=== PATIENT | female | born 1995 | race Caucasian/White ===

== ENCOUNTER 2020-08-17 13:45 | Emergency (ER) | payer OTHER ==
[2020-08-17] MEDS ORDERED: SODIUM CHLORIDE 0.9% 1,000 ML IV STA (14:11)
--- NOTE | 2020-08-17 14:25 | ED ---
General Adult HPI - General Chief complaint: Weakness Stated complaint: Cough,weakness, covid exposure Time Seen by Provider: 08/17/20 14:03 Source: patient Mode of arrival: wheelchair Limitations: no limitations - History of Present Illness Initial comments: Patient is a 24-year-old female with a past medical history of neurofibromatosis who presents to the emergency room for chief complaint of weakness. Mother reports that patient has had a slight cough for about 5-6 days and has felt weak. She has not had an appetite. Patient states she feels dehydrated. Sates she has trouble getting up from the chair going to the bathroom because of this weakness. Patient was exposed to coronavirus about one week ago by her public guardian. Their concern patient could have contracted this. Patient does have chemotherapy treatments for neurofibromatosis with the last one being 6 days ago.Patient has no other complaints at this time including shortness of breath, chest pain, abdominal pain, nausea or vomiting, headache, or visual changes. - Related Data Home Medications Medication Instructions Recorded Confirmed Albuterol Sulfate [Proair Hfa] 2 puff INHALATION RT-Q4H PRN 08/17/20 08/17/20 Bevacizumab [Avastin] 1 dose IV Q28D 08/17/20 08/17/20 FLUoxetine HCL [PROzac] 10 mg PO DAILY 08/17/20 08/17/20 Loratadine 10 mg PO HS 08/17/20 08/17/20 Methylphenidate HCl [Concerta] 36 mg PO DAILY 08/17/20 08/17/20 Montelukast [Singulair] 10 mg PO HS 08/17/20 08/17/20 medroxyPROGESTERone [Depo-Provera] 150 mg IM Q84D 08/17/20 08/17/20 Previous Rx's Medication Instructions Recorded Sulfamethox-Tmp 800-160Mg [Bactrim 1 tab PO Q12HR #20 tab 08/17/20 DS 800-160 mg] Allergies Allergy/AdvReac Type Severity Reaction Status Date / Time acetaminophen Allergy Dyspnea Verified 08/17/20 17:56 [From Tylenol-Codeine #3] amoxicillin Allergy Rash/Hives Verified 08/17/20 17:56 codeine Allergy Dyspnea Verified 08/17/20 17:56 [From Tylenol-Codeine #3] midazolam [From Versed] AdvReac Hyper Verified 08/17/20 17:56 Review of Systems ROS Statement: Those systems with pertinent positive or pertinent negative responses have been documented in the HPI. ROS Other: All systems not noted in ROS Statement are negative. Past Medical History Additional Past Medical History / Comment(s): Neurofibromatosis History of Any Multi-Drug Resistant Organisms: None Reported Additional Past Surgical History / Comment(s): medi port, eye, dental Past Psychological History: No Psychological Hx Reported Smoking Status: Never smoker Past Alcohol Use History: None Reported Past Drug Use History: None Reported General Exam Limitations: no limitations General appearance: alert, in no apparent distress Head exam: Present: atraumatic, normocephalic, normal inspection Eye exam: Present: normal appearance, PERRL, EOMI. Absent: scleral icterus, conjunctival injection, periorbital swelling ENT exam: Present: normal exam, mucous membranes moist Neck exam: Present: normal inspection. Absent: tenderness, meningismus, lymphadenopathy Respiratory exam: Present: normal lung sounds bilaterally. Absent: respiratory distress, wheezes, rales, rhonchi, stridor Cardiovascular Exam: Present: regular rate, normal rhythm, normal heart sounds. Absent: systolic murmur, diastolic murmur, rubs, gallop, clicks GI/Abdominal exam: Present: soft, normal bowel sounds. Absent: distended, tenderness, guarding, rebound, rigid Back exam: Absent: CVA tenderness (R), CVA tenderness (L) Neurological exam: Present: alert Course Vital Signs 08/17/20 08/17/20 13:50 14:44 Temperature 97.6 F Pulse Rate 95 Respiratory 18 Rate Blood Pressure 89/57 104/66 O2 Sat by Pulse 95 Oximetry Medical Decision Making - Medical Decision Making Vitals are stable. Patient initially had a lower blood pressure around 90 systolic. After fluids she is up to 120. CBC CMP unremarkable. Urinalysis does show evidence of infection. Will be treated with Bactrim given penicillin ALLERGY. However patient is covid positive with a chest x-ray showing new bilateral multifocal opacities. Discussed case with Dr. Omalley. At this time it is felt patient would benefit from antibody infusion given chemotherapy treatments for her NF. Discussed risk vs benefits. Patient is comfortable with this. Mother reports she lives with patient and can watch her. They will return to ER for any worsening symptoms including shortness of breath or increased weakness. - Lab Data Result diagrams: 08/17/20 15:18 08/17/20 15:18 Lab Results 08/17/20 08/17/20 08/17/20 Range/Units 15:18 15:18 15:18 WBC 4.0 (3.8-10.6) k/uL RBC 4.26 (3.80-5.40) m/uL Hgb 13.4 (11.4-16.0) gm/dL Hct 38.4 (34.0-46.0) % MCV 90.0 (80.0-100.0) fL MCH 31.4 (25.0-35.0) pg MCHC 34.8 (31.0-37.0) g/dL RDW 13.6 (11.5-15.5) % Plt Count 131 L (150-450) k/uL MPV 8.0 Neutrophils % 77 % Lymphocytes % 16 % Monocytes % 5 % Eosinophils % 1 % Basophils % 1 % Neutrophils # 3.1 (1.3-7.7) k/uL Lymphocytes # 0.6 L (1.0-4.8) k/uL Monocytes # 0.2 (0-1.0) k/uL Eosinophils # 0.0 (0-0.7) k/uL Basophils # 0.0 (0-0.2) k/uL PT 10.4 (9.0-12.0) sec INR 1.0 (<1.2) APTT 39.3 H (22.0-30.0) sec Sodium 134 L (137-145) mmol/L Potassium 3.8 (3.5-5.1) mmol/L Chloride 100 (98-107) mmol/L Carbon Dioxide 26 (22-30) mmol/L Anion Gap 8 mmol/L BUN 17 (7-17) mg/dL Creatinine 0.51 L (0.52-1.04) mg/dL Est GFR (CKD-EPI)AfAm >90 (>60 ml/min/1.73 sqM) Est GFR (CKD-EPI)NonAf >90 (>60 ml/min/1.73 sqM) Glucose 76 (74-99) mg/dL Plasma Lactic Acid Joseph (0.7-2.0) mmol/L Calcium 7.9 L (8.4-10.2) mg/dL Total Bilirubin 0.3 (0.2-1.3) mg/dL AST 131 H (14-36) U/L ALT 77 H (4-34) U/L Alkaline Phosphatase 80 (38-126) U/L Total Protein 6.5 (6.3-8.2) g/dL Albumin 3.3 L (3.5-5.0) g/dL Urine Color Urine Appearance (Clear) Urine pH (5.0-8.0) Ur Specific [place] (1.001-1.035) Urine Protein (Negative) Urine Glucose (UA) (Negative) Urine Ketones (Negative) Urine Blood (Negative) Urine Nitrite (Negative) Urine Bilirubin (Negative) Urine Urobilinogen (<2.0) mg/dL Ur Leukocyte Esterase (Negative) Urine RBC (0-5) /hpf Urine WBC (0-5) /hpf Ur Squamous Epith Cells (0-4) /hpf Urine Bacteria (None) /hpf Hyaline Casts (0-2) /lpf Urine Mucus (None) /hpf Urine HCG, Qual (Not Detectd) Coronavirus (PCR) (Not Detectd) 08/17/20 08/17/20 08/17/20 Range/Units 15:18 15:18 16:17 WBC (3.8-10.6) k/uL RBC (3.80-5.40) m/uL Hgb (11.4-16.0) gm/dL Hct (34.0-46.0) % MCV (80.0-100.0) fL MCH (25.0-35.0) pg MCHC (31.0-37.0) g/dL RDW (11.5-15.5) % Plt Count (150-450) k/uL MPV Neutrophils % % Lymphocytes % % Monocytes % % Eosinophils % % Basophils % % Neutrophils # (1.3-7.7) k/uL Lymphocytes # (1.0-4.8) k/uL Monocytes # (0-1.0) k/uL Eosinophils # (0-0.7) k/uL Basophils # (0-0.2) k/uL PT (9.0-12.0) sec INR (<1.2) APTT (22.0-30.0) sec Sodium (137-145) mmol/L Potassium (3.5-5.1) mmol/L Chloride (98-107) mmol/L Carbon Dioxide (22-30) mmol/L Anion Gap mmol/L BUN (7-17) mg/dL Creatinine (0.52-1.04) mg/dL Est GFR (CKD-EPI)AfAm (>60 ml/min/1.73 sqM) Est GFR (CKD-EPI)NonAf (>60 ml/min/1.73 sqM) Glucose (74-99) mg/dL Plasma Lactic Acid Joseph 0.8 (0.7-2.0) mmol/L Calcium (8.4-10.2) mg/dL Total Bilirubin (0.2-1.3) mg/dL AST (14-36) U/L ALT (4-34) U/L Alkaline Phosphatase (38-126) U/L Total Protein (6.3-8.2) g/dL Albumin (3.5-5.0) g/dL Urine Color Yellow Urine Appearance Cloudy H (Clear) Urine pH 6.0 (5.0-8.0) Ur Specific [place] 1.026 (1.001-1.035) Urine Protein 2+ H (Negative) Urine Glucose (UA) Negative (Negative) Urine Ketones 1+ H (Negative) Urine Blood Negative (Negative) Urine Nitrite Negative (Negative) Urine Bilirubin Negative (Negative) Urine Urobilinogen <2.0 (<2.0) mg/dL Ur Leukocyte Esterase Large H (Negative) Urine RBC 4 (0-5) /hpf Urine WBC 28 H (0-5) /hpf Ur Squamous Epith Cells 4 (0-4) /hpf Urine Bacteria Rare H (None) /hpf Hyaline Casts 7 H (0-2) /lpf Urine Mucus Occasional H (None) /hpf Urine HCG, Qual (Not Detectd) Coronavirus (PCR) Detected A (Not Detectd) 08/17/20 Range/Units 16:17 WBC (3.8-10.6) k/uL RBC (3.80-5.40) m/uL Hgb (11.4-16.0) gm/dL Hct (34.0-46.0) % MCV (80.0-100.0) fL MCH (25.0-35.0) pg MCHC (31.0-37.0) g/dL RDW (11.5-15.5) % Plt Count (150-450) k/uL MPV Neutrophils % % Lymphocytes % % Monocytes % % Eosinophils % % Basophils % % Neutrophils # (1.3-7.7) k/uL Lymphocytes # (1.0-4.8) k/uL Monocytes # (0-1.0) k/uL Eosinophils # (0-0.7) k/uL Basophils # (0-0.2) k/uL PT (9.0-12.0) sec INR (<1.2) APTT (22.0-30.0) sec Sodium (137-145) mmol/L Potassium (3.5-5.1) mmol/L Chloride (98-107) mmol/L Carbon Dioxide (22-30) mmol/L Anion Gap mmol/L BUN (7-17) mg/dL Creatinine (0.52-1.04) mg/dL Est GFR (CKD-EPI)AfAm (>60 ml/min/1.73 sqM) Est GFR (CKD-EPI)NonAf (>60 ml/min/1.73 sqM) Glucose (74-99) mg/dL Plasma Lactic Acid Joseph (0.7-2.0) mmol/L Calcium (8.4-10.2) mg/dL Total Bilirubin (0.2-1.3) mg/dL AST (14-36) U/L ALT (4-34) U/L Alkaline Phosphatase (38-126) U/L Total Protein (6.3-8.2) g/dL Albumin (3.5-5.0) g/dL Urine Color Urine Appearance (Clear) Urine pH (5.0-8.0) Ur Specific [place] (1.001-1.035) Urine Protein (Negative) Urine Glucose (UA) (Negative) Urine Ketones (Negative) Urine Blood (Negative) Urine Nitrite (Negative) Urine Bilirubin (Negative) Urine Urobilinogen (<2.0) mg/dL Ur Leukocyte Esterase (Negative) Urine RBC (0-5) /hpf Urine WBC (0-5) /hpf Ur Squamous Epith Cells (0-4) /hpf Urine Bacteria (None) /hpf Hyaline Casts (0-2) /lpf Urine Mucus (None) /hpf Urine HCG, Qual Not Detected (Not Detectd) Coronavirus (PCR) (Not Detectd) Disposition Clinical Impression: COVID-19, UTI (urinary tract infection) Disposition: HOME SELF-CARE Condition: Good Instructions (If sedation given, give patient instructions): Coronavirus Disease 2019 (COVID-19) Additional Instructions: Please quarantine for at least 10-14 days from symptom onset as long as symptoms are improving. Follow-up with your doctor. If you're having worsening symptoms such as shortness of breath or increased weakness at home you must return to the emergency room. Prescriptions: Sulfamethox-Tmp 800-160Mg [Bactrim DS 800-160 mg] 1 tab PO Q12HR #20 tab Is patient prescribed a controlled substance at d/c from ED?: No Referrals: Bernie Stockton MD [Primary Care Provider] - 1-2 days Time of Disposition: 18:13
[2020-08-17] MEDS ORDERED: LIDOCAINE-PRILOCAINE 2.5-2.5% CREAM 5 GM TUBE TOPICAL STA (14:36)
[2020-08-17 15:31] LABS: Basophils % (A) 1 %; Eosinophils % (A) 1 %; HCT 38.4 % (34.0-46.0); HGB 13.4 gm/dL (11.4-16.0); Lymphocytes # (A) 0.6 k/uL (1.0-4.8); Lymphocytes % (A) 16 %; MCH 31.4 pg (25.0-35.0); MCHC 34.8 g/dL (31.0-37.0); Monocytes # (A) 0.2 k/uL (0-1.0); Monocytes % (A) 5 %; Neutrophils # (A) 3.1 k/uL (1.3-7.7); Neutrophils % (A) 77 %; Platelet Count 131 k/uL (150-450); RBC 4.26 m/uL (3.80-5.40); RDW 13.6 % (11.5-15.5)
[2020-08-17 15:42] LABS: Partial Thromboplastin Time 39.3 sec (22.0-30.0); Prothrombin Time 10.4 sec (9.0-12.0)
[2020-08-17 16:03] LABS: ALT 77 U/L (4-34); AST 131 U/L (14-36); African American GFR (CKD) >90 (>60 ml/min/1.73 sqM); Albumin 3.3 g/dL (3.5-5.0); Alkaline Phosphatase 80 U/L (38-126); Anion Gap 8 mmol/L; Blood Urea Nitrogen 17 mg/dL (7-17); Calcium 7.9 mg/dL (8.4-10.2); Carbon Dioxide 26 mmol/L (22-30); Chloride 100 mmol/L (98-107); Glucose 76 mg/dL (74-99); Non-African American GFR(CKD) >90 (>60 ml/min/1.73 sqM); Potassium 3.8 mmol/L (3.5-5.1); Sodium 134 mmol/L (137-145); Total Bilirubin 0.3 mg/dL (0.2-1.3); Total Protein 6.5 g/dL (6.3-8.2)
--- NOTE | 2020-08-17 16:14 | XR ---
EXAMINATION TYPE: XR chest 2V DATE OF EXAM: 08/17/2020 COMPARISON: Chest x-ray June 29, 2012 HISTORY: Cough and weakness. History of cancer. TECHNIQUE: Frontal and lateral views of the chest are obtained. FINDINGS: There is new left internal jugular Mediport catheter terminating in SVC. There is no impro kayli inspiration on current study with bilateral multifocal opacities in the lower lungs and right mid lung region. No pleural effusion or pneumothorax seen bilaterally. The cardiac silhouette size remai ns within normal limits. The osseous structures are intact. IMPRESSION: New Bilateral multifocal opacities in the lower lungs and right midlung region consisten t with covid-19 infection.
[2020-08-17 16:30] LABS: Appearance,Urine Cloudy (Clear); Bacteria,Urine Rare /hpf; Bilirubin,Urine Negative (Negative); Blood,Urine Negative (Negative); Color,Urine Yellow; Glucose,Urine (UA) Negative (Negative); Hyaline Casts,Urine 7 /lpf (0-2); Ketones,Urine 1+ (Negative); Leukocyte Esterase,Urine Large (Negative); Mucus,Urine Occasional /hpf; Nitrite,Urine Negative (Negative); Protein,Urine 2+ (Negative); RBC,Urine 4 /hpf (0-5); Specific Gravity,Urine 1.026 (1.001-1.035); Squamous Epithelial Cell,Urine 4 /hpf (0-4); Urobilinogen,Urine <2.0 mg/dL (<2.0); WBC,Urine 28 /hpf (0-5)
[2020-08-17] MEDS ORDERED: SULFAMETH-TMP DS STARTER PACK 2 TAB BTL PO STA (18:09)
[2020-08-17] MEDS ORDERED: BAMLANIVIMAB (EUA) 700 MG, ETESEVIMAB (EUA) 1,400 MG in SODIUM CHLORIDE 0.9% 50 ML IVPB ONE (18:15)
[2020-08-17] MEDS ORDERED: SODIUM CHLORIDE 0.9% 50 ML IVPB ONE (18:15)
[2020-08-17 19:19] VITALS: RESP 16
[2020-08-17 21:32] VITALS: BP 96/63; PULSE 94; TEMP 98.7
== END 2020-08-17 21:31 | disposition home or self-care (01) ==
LOC: EC 13:45
DX: U07.1 COVID-19 (principal); N39.0 Urinary tract infection, site not specified
CPT/HCPCS: 36415; 93005; 80053; 83605; 85025; 85610; 85730; 81001; 81025; 87086; 87635; 71046; 99285; 96365; Q0245

== ENCOUNTER 2020-11-15 09:06 | Inpatient (IN) | payer OTHER ==
[2020-11-15] MEDS ORDERED: PANTOPRAZOLE 40 MG/10 ML VIAL IVP STA (09:29)
[2020-11-15] MEDS ORDERED: SODIUM CHLORIDE 0.9% 1,000 ML IV STA ×2 (09:29)
[2020-11-15] MEDS ORDERED: ONDANSETRON 4 MG/2 ML VIAL IVP STA (09:30)
--- NOTE | 2020-11-15 09:33 | ED ---
General Adult HPI - General Chief complaint: Nausea/Vomiting/Diarrhea Stated complaint: MARTY Vomiting Time Seen by Provider: 11/15/20 09:22 Source: patient, family, RN notes reviewed Mode of arrival: ambulatory Limitations: no limitations - History of Present Illness Initial comments: Patient is a pleasant 24-year-old female presenting to the emergency department with family with plaints of vomiting. Onset of symptoms was yesterday. Patient does have several large neurofibromatosis tumors and has been on chemotherapy for this. This has been paused secondary to patient illness. 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 Patient does have history of aspiration with abscesses in her lungs. Patient is drowsy at this time and majority of history is taken from family. - Related Data Home Medications Medication Instructions Recorded Confirmed FLUoxetine HCL [PROzac] 10 mg PO DAILY 08/17/20 11/15/20 Loratadine 10 mg PO HS 08/17/20 11/15/20 Methylphenidate HCl [Concerta] 36 mg PO DAILY 08/17/20 11/15/20 Montelukast [Singulair] 10 mg PO HS 08/17/20 11/15/20 medroxyPROGESTERone [Depo-Provera] 150 mg IM Q84D 08/17/20 11/15/20 Diclofenac Sodium Gel [Voltaren 4 gm TOPICAL QID 11/15/20 11/15/20 Gel] Ketorolac [Toradol] 10 mg PO BID PRN 11/15/20 11/15/20 Allergies Allergy/AdvReac Type Severity Reaction Status Date / Time acetaminophen Allergy Dyspnea Verified 11/15/20 12:07 [From Tylenol-Codeine #3] amoxicillin Allergy Rash/Hives Verified 11/15/20 12:07 codeine Allergy Dyspnea Verified 11/15/20 12:07 [From Tylenol-Codeine #3] midazolam [From Versed] AdvReac Hyper Verified 11/15/20 12:07 Review of Systems ROS Statement: Those systems with pertinent positive or pertinent negative responses have been documented in the HPI. ROS Other: All systems not noted in ROS Statement are negative. Constitutional: Denies: fever Eyes: Denies: eye pain ENT: Denies: ear pain Respiratory: Reports: as per HPI, cough, dyspnea Cardiovascular: Denies: chest pain Endocrine: Reports: fatigue Gastrointestinal: Reports: nausea, vomiting Genitourinary: Denies: dysuria Musculoskeletal: Denies: back pain Skin: Denies: rash Neurological: Denies: weakness Past Medical History Additional Past Medical History / Comment(s): Neurofibromatosis History of Any Multi-Drug Resistant Organisms: None Reported Additional Past Surgical History / Comment(s): medi port, eye, dental Past Psychological History: No Psychological Hx Reported Smoking Status: Never smoker Past Alcohol Use History: None Reported Past Drug Use History: None Reported General Exam Limitations: no limitations General appearance: alert Head exam: Present: normocephalic Eye exam: Present: normal appearance ENT exam: Present: mucous membranes dry Neck exam: Present: normal inspection. Absent: tenderness, meningismus Respiratory exam: Present: rales Cardiovascular Exam: Present: tachycardia GI/Abdominal exam: Present: soft. Absent: tenderness Extremities exam: Present: normal inspection Neurological exam: Present: alert Psychiatric exam: Present: flat affect Skin exam: Present: normal color Course Vital Signs 11/15/20 11/15/20 11/15/20 09:08 10:18 10:19 Temperature 97.6 F Pulse Rate 132 H 135 H 135 H Respiratory 22 49 H 16 Rate Blood Pressure 105/58 156/108 154/109 O2 Sat by Pulse 85 L 99 95 Oximetry 11/15/20 11/15/20 11/15/20 10:30 11:00 11:11 Temperature 99.1 F Pulse Rate 130 H 126 H 115 H Respiratory 31 H 18 Rate Blood Pressure 154/109 141/104 127/82 O2 Sat by Pulse 97 96 97 Oximetry 11/15/20 11/15/20 11/15/20 11:30 11:42 12:00 Temperature 100.2 F H Pulse Rate 124 H 122 H Respiratory 38 H 35 H Rate Blood Pressure 127/82 136/97 O2 Sat by Pulse 98 96 Oximetry - Reevaluation(s) Reevaluation #1: 11/15/20 10:55 Heart rate improved to 124, sinus tachycardia. Patient placed on monitor to monitor for arrhythmia 11/15/20 11:28 Heart rate further improved to 113. Patient and family updated. Patient is more alert. Case discussed with Dr. Avalos will admit covering for Dr. Richi Avalos and will come evaluate. 11/15/20 11:44 Dr. Avalos did evaluate patient and will admit. He agrees with ICU. He does request consult with Dr. Bae, CT brain, antibiotics and nebulizers. Patient does have some concern for sepsis, septic shock diagnosed at 1140. Fluid bolus greater than 30 mL/kg has been ordered. IV antibiotics ordered. Dr. Bae has been paged. 11/15/20 11:51 Case was discussed with Dr. Bae, who will consult EKG Findings - EKG Comments: EKG Findings:: Sinus tachycardia 138. Short MA of 100. QRS 62. QT 280. QTC 424. Normal axis. Septal Q waves. Borderline ST depression inferior and V6. Procedures - Sepsis Sepsis Focused Exam #1 Time Sepsis Criteria Met: 11:40 Sepsis Focused Exam Date: 11/15/20 Sepsis Focused Exam Time: 12:23 Sepsis Focused Exam Complete: Yes Vital Signs & RN Notes Reviewed: Yes Capillary Refill: < 2 Seconds: Fingers, Toes Peripheral Pulses: Normal: Radial (R), Radial (L) Skin Color: Normal for Patient Respiratory Exam: wheezes Cardiovascular Exam: tachycardia Medical Decision Making - Lab Data Result diagrams: 11/15/20 09:54 11/15/20 09:54 Lab Results 11/15/20 11/15/20 11/15/20 Range/Units 09:54 09:54 09:54 WBC 9.0 (3.8-10.6) k/uL RBC 4.85 (3.80-5.40) m/uL Hgb 14.6 (11.4-16.0) gm/dL Hct 46.1 H (34.0-46.0) % MCV 95.0 (80.0-100.0) fL MCH 30.1 (25.0-35.0) pg MCHC 31.7 (31.0-37.0) g/dL RDW 16.3 H (11.5-15.5) % Plt Count 265 (150-450) k/uL MPV 7.7 Neutrophils % (Manual) 40 % Band Neuts % (Manual) 29 % Lymphocytes % (Manual) 7 % Monocytes % (Manual) 16 % Metamyelocytes % 4 % Myelocytes % 3 % Promyelocytes % 1 % Neutrophils # (Manual) 6.20 (1.3-7.7) k/uL Lymphocytes # (Manual) 0.63 L (1.0-4.8) k/uL Monocytes # (Manual) 1.44 H (0-1.0) k/uL Metamyelocytes # (Man) 0.36 H (0) k/uL Myelocytes # (Manual) 0.27 H (0) k/uL Promyelocytes # (Man) 0.09 H (0) k/uL Nucleated RBCs 0 (0-0) /100 WBC Manual Slide Review Performed Toxic Granulation Present Toxic Vacuolation Present Poikilocytosis (manual Present Anisocytosis Slight PT 11.2 (9.0-12.0) sec INR 1.1 (<1.2) APTT 22.4 (22.0-30.0) sec D-Dimer (<0.60) mg/L FEU Sodium 141 (137-145) mmol/L Potassium 4.0 (3.5-5.1) mmol/L Chloride 99 (98-107) mmol/L Carbon Dioxide 28 (22-30) mmol/L Anion Gap 14 mmol/L BUN 15 (7-17) mg/dL Creatinine 0.49 L (0.52-1.04) mg/dL Est GFR (CKD-EPI)AfAm >90 (>60 ml/min/1.73 sqM) Est GFR (CKD-EPI)NonAf >90 (>60 ml/min/1.73 sqM) Glucose 230 H (74-99) mg/dL Plasma Lactic Acid Joseph (0.7-2.0) mmol/L Calcium 9.7 (8.4-10.2) mg/dL Total Bilirubin 0.5 (0.2-1.3) mg/dL AST 30 (14-36) U/L ALT 20 (4-34) U/L Alkaline Phosphatase 71 (38-126) U/L Creatine Kinase 27 L (30-135) U/L CK-MB (CK-2) (0.0-2.4) ng/mL Troponin I (0.000-0.034) ng/mL Total Protein 7.5 (6.3-8.2) g/dL Albumin 4.1 (3.5-5.0) g/dL Amylase 46 (30-110) U/L Lipase 41 (23-300) U/L Acetone, Qual Negative (Negative) Coronavirus (PCR) (Not Detectd) 07/14/21 07/14/21 07/14/21 Range/Units 09:54 09:54 11:11 WBC (3.8-10.6) k/uL RBC (3.80-5.40) m/uL Hgb (11.4-16.0) gm/dL Hct (34.0-46.0) % MCV (80.0-100.0) fL MCH (25.0-35.0) pg MCHC (31.0-37.0) g/dL RDW (11.5-15.5) % Plt Count (150-450) k/uL MPV Neutrophils % (Manual) % Band Neuts % (Manual) % Lymphocytes % (Manual) % Monocytes % (Manual) % Metamyelocytes % % Myelocytes % % Promyelocytes % % Neutrophils # (Manual) (1.3-7.7) k/uL Lymphocytes # (Manual) (1.0-4.8) k/uL Monocytes # (Manual) (0-1.0) k/uL Metamyelocytes # (Man) (0) k/uL Myelocytes # (Manual) (0) k/uL Promyelocytes # (Man) (0) k/uL Nucleated RBCs (0-0) /100 WBC Manual Slide Review Toxic Granulation Toxic Vacuolation Poikilocytosis (manual Anisocytosis PT (9.0-12.0) sec INR (<1.2) APTT (22.0-30.0) sec D-Dimer (<0.60) mg/L FEU Sodium (137-145) mmol/L Potassium (3.5-5.1) mmol/L Chloride (98-107) mmol/L Carbon Dioxide (22-30) mmol/L Anion Gap mmol/L BUN (7-17) mg/dL Creatinine (0.52-1.04) mg/dL Est GFR (CKD-EPI)AfAm (>60 ml/min/1.73 sqM) Est GFR (CKD-EPI)NonAf (>60 ml/min/1.73 sqM) Glucose (74-99) mg/dL Plasma Lactic Acid Joseph 5.3 H* (0.7-2.0) mmol/L Calcium (8.4-10.2) mg/dL Total Bilirubin (0.2-1.3) mg/dL AST (14-36) U/L ALT (4-34) U/L Alkaline Phosphatase (38-126) U/L Creatine Kinase (30-135) U/L CK-MB (CK-2) 0.3 (0.0-2.4) ng/mL Troponin I 0.030 (0.000-0.034) ng/mL Total Protein (6.3-8.2) g/dL Albumin (3.5-5.0) g/dL Amylase (30-110) U/L Lipase (23-300) U/L Acetone, Qual (Negative) Coronavirus (PCR) Not Detected (Not Detectd) 11/15/20 Range/Units 11:39 WBC (3.8-10.6) k/uL RBC (3.80-5.40) m/uL Hgb (11.4-16.0) gm/dL Hct (34.0-46.0) % MCV (80.0-100.0) fL MCH (25.0-35.0) pg MCHC (31.0-37.0) g/dL RDW (11.5-15.5) % Plt Count (150-450) k/uL MPV Neutrophils % (Manual) % Band Neuts % (Manual) % Lymphocytes % (Manual) % Monocytes % (Manual) % Metamyelocytes % % Myelocytes % % Promyelocytes % % Neutrophils # (Manual) (1.3-7.7) k/uL Lymphocytes # (Manual) (1.0-4.8) k/uL Monocytes # (Manual) (0-1.0) k/uL Metamyelocytes # (Man) (0) k/uL Myelocytes # (Manual) (0) k/uL Promyelocytes # (Man) (0) k/uL Nucleated RBCs (0-0) /100 WBC Manual Slide Review Toxic Granulation Toxic Vacuolation Poikilocytosis (manual Anisocytosis PT (9.0-12.0) sec INR (<1.2) APTT (22.0-30.0) sec D-Dimer 2.43 H (<0.60) mg/L FEU Sodium (137-145) mmol/L Potassium (3.5-5.1) mmol/L Chloride (98-107) mmol/L Carbon Dioxide (22-30) mmol/L Anion Gap mmol/L BUN (7-17) mg/dL Creatinine (0.52-1.04) mg/dL Est GFR (CKD-EPI)AfAm (>60 ml/min/1.73 sqM) Est GFR (CKD-EPI)NonAf (>60 ml/min/1.73 sqM) Glucose (74-99) mg/dL Plasma Lactic Acid Joseph (0.7-2.0) mmol/L Calcium (8.4-10.2) mg/dL Total Bilirubin (0.2-1.3) mg/dL AST (14-36) U/L ALT (4-34) U/L Alkaline Phosphatase (38-126) U/L Creatine Kinase (30-135) U/L CK-MB (CK-2) (0.0-2.4) ng/mL Troponin I (0.000-0.034) ng/mL Total Protein (6.3-8.2) g/dL Albumin (3.5-5.0) g/dL Amylase (30-110) U/L Lipase (23-300) U/L Acetone, Qual (Negative) Coronavirus (PCR) (Not Detectd) - Radiology Data Radiology results: image reviewed (Diffuse patchy densities, similar to previous) Critical Care Time Critical Care Time: Yes Total Critical Care Time: 33 Disposition Clinical Impression: Dehydration, Lactic acidosis, Septic shock, Aspiration pneumonia Disposition: ADMITTED IP TO THIS [facility] Condition: Critical Is patient prescribed a controlled substance at d/c from ED?: No Decision Time: 11:28
[2020-11-15 10:32] LABS: Anisocytosis Slight; HCT 46.1 % (34.0-46.0); HGB 14.6 gm/dL (11.4-16.0); MCH 30.1 pg (25.0-35.0); MCHC 31.7 g/dL (31.0-37.0); Mean Platelet Volume 7.7; Platelet Count 265 k/uL (150-450); RBC 4.85 m/uL (3.80-5.40); RDW 16.3 % (11.5-15.5)
[2020-11-15 10:33] LABS: INR 1.1 (<1.2); Partial Thromboplastin Time 22.4 sec (22.0-30.0); Prothrombin Time 11.2 sec (9.0-12.0)
[2020-11-15 10:37] LABS: AST 30 U/L (14-36); African American GFR (CKD) >90 (>60 ml/min/1.73 sqM); Albumin 4.1 g/dL (3.5-5.0); Alkaline Phosphatase 71 U/L (38-126); Amylase 46 U/L (30-110); Anion Gap 14 mmol/L; Blood Urea Nitrogen 15 mg/dL (7-17); Calcium 9.7 mg/dL (8.4-10.2); Carbon Dioxide 28 mmol/L (22-30); Chloride 99 mmol/L (98-107); Creatine Kinase 27 U/L (30-135); Glucose 230 mg/dL (74-99); Lipase 41 U/L (23-300); Non-African American GFR(CKD) >90 (>60 ml/min/1.73 sqM); Sodium 141 mmol/L (137-145); Total Bilirubin 0.5 mg/dL (0.2-1.3); Total Protein 7.5 g/dL (6.3-8.2)
[2020-11-15 10:46] LABS: ALT 20 U/L (4-34)
--- NOTE | 2020-11-15 11:05 | XR ---
EXAMINATION TYPE: XR chest 2V DATE OF EXAM: 11/15/2020 COMPARISON: 08/17/2020 HISTORY: Dyspnea TECHNIQUE: Frontal and lateral views of the chest are obtained. FINDINGS: Left port is in unchanged position. Patchy airspace disease bilaterally appears similar to the prior exam. There are densities, possibly calcifications, noted in the left lower lung zone which were not identified on prior imaging and appe ar either within the posterior lung or on the skin. Clinical correlation is recommended. Cardiac silhouette is not enlarged. IMPRESSION: Patchy airspace disease bilaterally appears similar to the prior exam. There are densities, possibly calcifications, noted in the left lower lung zone which were not identified on prior imaging and appe ar either within the posterior lung or on the skin. Clinical correlation is recommended.
[2020-11-15 11:06] LABS: Creatine Kinase MB 0.3 ng/mL (0.0-2.4); Troponin I 0.03 ng/mL (0.000-0.034)
[2020-11-15 11:11] LABS: Band Neutrophils % 29 %; Lymphocytes # (M) 0.63 k/uL (1.0-4.8); Metamyelocytes # (M) 0.36 k/uL (0); Metamyelocytes % 4 %; Monocytes # (M) 1.44 k/uL (0-1.0); Myelocytes # (M) 0.27 k/uL (0); Myelocytes % 3 %; Neutrophils % (M) 40 %; Nucleated Red Blood Cells 0 /100 WBC (0-0); Promyelocytes # (M) 0.09 k/uL (0); Promyelocytes % 1 %; Total Cells Counted 100; Toxic Granulation Present; Toxic Vacuolation Present
[2020-11-15 11:13] LABS: Poikilocytosis (M) Present
[2020-11-15] MEDS ORDERED: PNEUMONIA PROTOCOL UTILIZED 1 EACH MISC PO PRN (11:40)
[2020-11-15] MEDS ORDERED: AZITHROMYCIN 500 MG in SODIUM CHLORIDE 0.9% 250 ML IVPB STA (11:40)
[2020-11-15] MEDS ORDERED: CEFEPIME 2 GM in SODIUM CHLORIDE 0.9% 100 ML IVPB STA (11:40)
[2020-11-15] MEDS ORDERED: SODIUM CHLORIDE 0.9% 500 ML 500 ML IV STA (11:40)
[2020-11-15] MEDS ORDERED: IPRATROPIUM-ALBUTEROL 3 ML NEB INHALATION PRN (11:43)
[2020-11-15] MEDS ORDERED: MORPHINE SULFATE 2 MG/ML SYRINGE IVP STA (12:23)
[2020-11-15] MEDS ORDERED: IBUPROFEN ORAL SUSP 100 MG/5 ML CUP PO ONE (13:00)
--- NOTE | 2020-11-15 13:21 | CT ---
EXAMINATION TYPE: CT brain wo con DATE OF EXAM: 11/15/2020 COMPARISON: 06/26/2005 HISTORY: low blood oxygenation, history of neurofibromatosis CT DLP: 1099.[address] of the brain was performed. Bilateral calcified masses are noted at the cerebellopontine cisterns measuring approximately 3.2 cm in greatest dimension on the right versus less than 2 cm previously and on the left measuring approxi mately 1.8 cm versus less than 1 cm previously. There is an additional calcified mass left temporal p arietal region measuring 2 cm in greatest dimension versus 1.5 cm previously. No additional masses ar e seen. The ventricles, basal cisterns and sulci overlying the cerebral convexities demonstrate a normal appe arance. There is no evidence for intracranial hemorrhage or sulcal effacement. Osseous calvarium is intact. If symptoms persist consider MRI as clinically warranted. IMPRESSION: 1. No acute intracranial process is seen at this time. 2. Findings compatible with the provided history of neurofibromatosis with calcified masses are noted which demonstrates interval enlargement. These masses may reflect calcified neurofibromas and/or men ingiomas.
[2020-11-15 13:24] LABS: Appearance,Urine Clear (Clear); Bacteria,Urine Rare /hpf; Bilirubin,Urine Negative (Negative); Blood,Urine Negative (Negative); Color,Urine Light Yellow; Glucose,Urine (UA) Negative (Negative); Ketones,Urine Negative (Negative); Leukocyte Esterase,Urine Negative (Negative); Mucus,Urine Few /hpf; Nitrite,Urine Negative (Negative); Protein,Urine 2+ (Negative); RBC,Urine 1 /hpf (0-5); Specific Gravity,Urine 1.014 (1.001-1.035); Urobilinogen,Urine <2.0 mg/dL (<2.0); WBC,Urine 2 /hpf (0-5)
--- NOTE | 2020-11-15 13:26 | CT ---
EXAMINATION TYPE: CT angio chest DATE OF EXAM: 11/15/2020 COMPARISON: None HISTORY: dyspnea, chest congestion CT DLP: 175.1 mGycm CONTRAST: CT chest with contrast and 3D reconstruction with MIP imaging is performed with IV Contrast, patient injected with 100 mL of Isovue 370. Contrast-enhanced CT of the chest was performed through the course of the pulmonary arteries with sumanth g and mediastinal window settings submitted. 3D reconstruction with MIP imaging was also performed. PULMONARY ARTERIES: The pulmonary arteries and their major tributaries are patent. I do not see cheikh dence for sizable filling defect to suggest pulmonary embolic process. LUNGS: Reticulonodular infiltrates are seen scattered throughout both lung kennedy greatest within the upper lobes and the lower lobes. Correlate for underlying pneumonia MEDIASTINUM: Thoracic aorta is of normal caliber,. Subcarinal soft tissue prominence measuring 3.8 c m may reflect underlying neurofibroma. Left paraspinal soft tissue noted as well may reflect addition al neural fibroma in a patient with history of neurofibromatosis. The heart is not enlarged. No evid ence for mediastinal mass. No mediastinal lymph nodes greater than 1cm. HILAR STRUCTURES: No evidence for mass. No hilar lymph nodes greater than 1 cm. UPPER ABDOMEN: No significant abnormality is seen. IMPRESSION: 1. No evidence for Pulmonary embolism at this time. 2. Correlate for pneumonia. 3. Mediastinal and paraspinal masses may reflect changes of neurofibromatosis.
[2020-11-15 13:40] LABS: Glucose,Whole Blood 134 mg/dL (75-99)
--- NOTE | 2020-11-15 15:50 | P.CNNES ---
History of Present Illness Consult date: 11/15/20 Requesting physician: Rian Grigsby Reason for Consult: Altered mental status History of Present Illness: Patient is a 24-year-old female with history of neurofibromatosis-Type 2 came to the hospital this morning at 9:08 AM with family with complaints of vomiting, since yesterday. Patient does have several large neurofibromas and has been on chemotherapy for this. Patient does have tumor on the right side of her neck, pushing on her vocal cord. Patient's mother provided most of the history. Patient has been getting chemotherapy with Avastin for last 3 years. She was getting it once every 2 weeks, but then decreased the frequency to once every 3 weeks and then once a month. Patient developed aspiration pneumonia and lung abscess for which she has not received her chemotherapy for last 2 months, and also planned to be held for another 2 months.. Patient otherwise has been active. Patient walks normally, does not use any device. However day before yesterday she was coughing up. Yesterday whole day she was sleeping throughout the day. This morning patient has been having nausea, vomiting throwing up. Her appetite has decreased and she is not eating enough. Patient called her mother to bring her to the hospital. Vital signs on arrival blood pressure 105/58, pulse rate 132, temperature 97.6. Chest x-ray revealed patchy air space disease bilaterally appears similar to the prior exam. There are densities, possibly calcifications, noted in the left lower lung zone which were not identified on the prior examination and appeared either within the posterior lung or on the skin. Clinical correlation is recommended. EKG shows sinus tachycardia with short [place]. Biatrial enlargement. CT head showed no acute intracranial process. Findings compatible with the provided history of neurofibromatosis with calcified masses are noted which demonstrated interval enlargement. These masses may reflect calcified neurofibromas and/or meningiomas. Patient's blood test shows normal CBC, PT/PTT, Chem-20, troponin, and he lays, lipase. UA is negative. Acetone negative, miranda virus PCR negative. Patient has positive history of neurofibromatosis type II in her father as well. Patient herself has no siblings. Patient's father had 5 siblings and none of them have NF except patient's dad. Patient has 4 neurofibromas in her brain, and 4 in the back. One of the neurofibroma involves the right side of the neck behind the angle of the jaw. Patient has developed vocal cord paralysis. Patient was considered for surgical removal of the right cervical neurofibroma, but it is entangling the jugular and carotid arteries, therefore was not a surgical candidate. Patient has history of cataract surgery removed from the right eye. Patient also has some gaze issues. Patient does not smoke, does not drink alcohol. Review of Systems Patient denies headache (asked twice, and nodded "no" each time). Does not complain of pain anywhere. patient denies vertigo or dizziness. ROS unobtainable: due to mental status Past Medical History Additional Past Medical History / Comment(s): Neurofibromatosis History of Any Multi-Drug Resistant Organisms: None Reported Additional Past Surgical History / Comment(s): medi port, eye, dental Past Psychological History: No Psychological Hx Reported Smoking Status: Never smoker Past Alcohol Use History: None Reported Past Drug Use History: None Reported - Past Family History Mother Family Medical History: Asthma, Seizure Disorder Medications and Allergies Home Medications Medication Instructions Recorded Confirmed Type FLUoxetine HCL [PROzac] 10 mg PO DAILY 08/17/20 11/15/20 History Loratadine 10 mg PO HS 08/17/20 11/15/20 History Methylphenidate HCl [Concerta] 36 mg PO DAILY 08/17/20 11/15/20 History Montelukast [Singulair] 10 mg PO HS 08/17/20 11/15/20 History medroxyPROGESTERone [Depo-Provera] 150 mg IM Q84D 08/17/20 11/15/20 History Diclofenac Sodium Gel [Voltaren 4 gm TOPICAL QID 11/15/20 11/15/20 History Gel] Ketorolac [Toradol] 10 mg PO BID PRN 11/15/20 11/15/20 History Allergies Allergy/AdvReac Type Severity Reaction Status Date / Time acetaminophen Allergy Dyspnea Verified 11/15/20 12:07 [From Tylenol-Codeine #3] amoxicillin Allergy Rash/Hives Verified 11/15/20 12:07 codeine Allergy Dyspnea Verified 11/15/20 12:07 [From Tylenol-Codeine #3] midazolam [From Versed] AdvReac Hyper Verified 11/15/20 12:07 orange juice AdvReac Abdominal Verified 11/15/20 18:15 Pain strawberry AdvReac Abdominal Verified 11/15/20 18:15 Pain Physical Examination - Vital Signs Vital Signs: Vital Signs Temp Pulse Resp BP Pulse Ox 11/15/20 13:04 99.7 F H 145 H 25 H 145/105 96 11/15/20 12:00 122 H 35 H 136/97 96 11/15/20 11:42 100.2 F H 11/15/20 11:30 124 H 38 H 127/82 98 11/15/20 11:11 99.1 F 115 H 18 127/82 97 11/15/20 11:00 126 H 31 H 141/104 96 11/15/20 10:30 130 H 154/109 97 11/15/20 10:19 135 H 16 154/109 95 11/15/20 10:18 135 H 49 H 156/108 99 11/15/20 09:08 97.6 F 132 H 22 105/58 85 L Intake and Output 11/14/20 11/15/20 11/15/20 22:59 06:59 14:59 Output Total 20 Balance -20 Output: Urine 20 Other: # Voids 1 Weight 40.823 kg Patient is a young female, who is very somnolent, groggy, appears generalized weak. She keeps her eyes closed. Head turn to the right. She easily wakes up and follows directions, but mostly keeps her eyes closed. Speech speaks with a very low volume and language functions are normal. Attention, concentration and fund of knowledge could not be assessed reliably because of her mental status. On cranial examination, pupils are round and reacting to light, visual kennedy could not be checked because of her mental status, extraocular muscles reveal intact gaze to the left. However to the right there is gaze restriction. No obvious nystagmus. Patient appears to have right facial weakness, peripheral type, decreased forehead wrinkling appears bilaterally, right worse. Tongue appears to have mild right hemiatrophy. Palatal elevation and sensation could not be checked, hearing appears normal, facial sensation normal. Shoulder shrug appears normal. Patient prefers her head to the right. On muscle strength testing, there is no pronator drift and the strength is generalized weak distally and proximally. In the lower extremities hip flexion is 2, but ankle dorsiflexion is 5. Deep tendon reflexes are (R/L) biceps 1/2+, brachioradialis 1/2+, knee 2/3, ankle 1+/2+, plantar is downgoing on the right, upon left. Sensory to touch is equal with no neglect. Cerebellar function showed mild ataxia for [id number] testing on the left. Tone and bulk of muscles normal. Gait not checked. On general examination, there is no carotid bruit or murmur, S1-S2 audible. Abdomen is soft nontender. Peripheral pulses are present. No edema. Neck is supple. Results - Laboratory Findings CBC and BMP: 11/19/20 03:22 11/19/20 03:22 Abnormal Lab Findings: Abnormal Labs 11/15/20 11/15/20 11/15/20 09:54 09:54 09:54 Hct 46.1 H RDW 16.3 H Lymphocytes # (Manual) 0.63 L Monocytes # (Manual) 1.44 H Metamyelocytes # (Man) 0.36 H Myelocytes # (Manual) 0.27 H Promyelocytes # (Man) 0.09 H D-Dimer Creatinine 0.49 L Glucose 230 H Plasma Lactic Acid Joseph 5.3 H* Creatine Kinase 27 L 11/15/20 11:39 Hct RDW Lymphocytes # (Manual) Monocytes # (Manual) Metamyelocytes # (Man) Myelocytes # (Manual) Promyelocytes # (Man) D-Dimer 2.43 H Creatinine Glucose Plasma Lactic Acid Joseph Creatine Kinase Assessment and Plan Assessment: * Altered mental status, possible toxic metabolic encephalopathy. Patient denies headache and the neck is supple, therefore meningitis unlikely. 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 * Aspiration pneumonia * Possible nutritional deficiency Plan: * I wanted to perform MRI of the brain with and without contrast, but patient is severely claustrophobic. MRI could be considered under anesthesia, but the MRI machine is not compatible with ventilator patient. * We will check EEG to evaluate for encephalopathy. Rule out any epileptiform activity. * We will check B12, folate, MMA, B6, B1. * Patient's grandfather was recommended to bring her last MRI of the brain performed 6 months ago for comparison. If there is significant change noticed, then may need transfer to higher level of care.
[2020-11-15] MEDS: IPRATROPIUM-ALBUTEROL 3 ML NEB INHALATION SCH ×3 (16:09→20:44)
--- NOTE | 2020-11-15 16:32 | P.CNPUL ---
History of Present Illness Consult date: 11/15/20 Reason for consult: dyspnea, cough, pneumonia Chief complaint: Aspiration pneumonia History of present illness: This is a pleasant 24-year-old female well-known to me patient has a significant past history of malignant neurofibromatosis, patient gets chemotherapy at the tertiary care center in [place], she has the 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 resulting in multiple bouts of aspiration pneumonia which affected the lung bilaterally and gets complicated with abscess requiring long- term IV therapy with PICC line, she was seen last several weeks ago in the office and was in partial agreement with PEG tube, it appears that patient has been having intermittent vomiting for the last several days started having problems with chills and fever came into the hospital for further evaluation, on arrival she was afebrile but with tachypnea and tachycardia respiratory rate is in 40s heart rate 1:30 to 140, hemodynamic status is variable but with stable blood pressure temperature low-grade 100 saturation is 95-96% on 4 L supplemental oxygen, white cell count is normal hemoglobin stable 14.6, kidney functions within normal limit, lactic acid elevated 5.3, chest x-ray significant for patchy bilateral airspace disease, computed tomography scan of the brain no acute changes seen with 5 finding compatible reviewed with neurofibromatosis calcified mass noted, computed tomography scan of the chest negative for pulmonary embolism radicular nodular density noted on both side involving upper and lower lobe, patient also has a history of recent COVID-19 pneumonia requiring hospitalization several weeks ago Review of Systems All systems: negative Past Medical History Past Medical History: Asthma, Eye Disorder Additional Past Medical History / Comment(s): Neurofibromatosis History of Any Multi-Drug Resistant Organisms: None Reported Additional Past Surgical History / Comment(s): medi port, eye, dental Past Anesthesia/Blood Transfusion Reactions: No Reported Reaction Past Psychological History: No Psychological Hx Reported Smoking Status: Never smoker Past Alcohol Use History: None Reported Past Drug Use History: None Reported - Past Family History Mother Family Medical History: Asthma, Seizure Disorder Medications and Allergies Home Medications Medication Instructions Recorded Confirmed Type FLUoxetine HCL [PROzac] 10 mg PO DAILY 08/17/20 11/15/20 History Loratadine 10 mg PO HS 08/17/20 11/15/20 History Methylphenidate HCl [Concerta] 36 mg PO DAILY 08/17/20 11/15/20 History Montelukast [Singulair] 10 mg PO HS 08/17/20 11/15/20 History medroxyPROGESTERone [Depo-Provera] 150 mg IM Q84D 08/17/20 11/15/20 History Diclofenac Sodium Gel [Voltaren 4 gm TOPICAL QID 11/15/20 11/15/20 History Gel] Ketorolac [Toradol] 10 mg PO BID PRN 11/15/20 11/15/20 History Allergies Allergy/AdvReac Type Severity Reaction Status Date / Time acetaminophen Allergy Dyspnea Verified 11/15/20 12:07 [From Tylenol-Codeine #3] amoxicillin Allergy Rash/Hives Verified 11/15/20 12:07 codeine Allergy Dyspnea Verified 11/15/20 12:07 [From Tylenol-Codeine #3] midazolam [From Versed] AdvReac Hyper Verified 11/15/20 12:07 Physical Exam Vitals: Vital Signs Temp Pulse Resp BP Pulse Ox 11/15/20 16:21 97 11/15/20 13:36 125 H 25 H 144/103 97 11/15/20 13:04 99.7 F H 145 H 25 H 145/105 96 11/15/20 12:00 122 H 35 H 136/97 96 11/15/20 11:42 100.2 F H 11/15/20 11:30 124 H 38 H 127/82 98 11/15/20 11:11 99.1 F 115 H 18 127/82 97 11/15/20 11:00 126 H 31 H 141/104 96 11/15/20 10:30 130 H 154/109 97 11/15/20 10:19 135 H 16 154/109 95 11/15/20 10:18 135 H 49 H 156/108 99 11/15/20 09:08 97.6 F 132 H 22 105/58 85 L Intake and Output 11/15/20 11/15/20 11/15/20 06:59 14:59 22:59 Output Total 20 Balance -20 Output: Urine 20 Other: # Voids 1 Weight 42.3 kg - Constitutional General appearance: average body habitus, cooperative, disheveled - EENT Eyes: EOMI, PERRLA Ears: bilateral: normal - Neck Carotids: bilateral: upstroke normal Thyroid: bilateral: normal size - Respiratory Respiratory: bilateral: diminished - Cardiovascular Rhythm: regular Heart sounds: normal: S1, S2 - Gastrointestinal General gastrointestinal: normal bowel sounds - Integumentary Integumentary: normal turgor - Neurologic Neurologic: CNII-XII intact - Musculoskeletal Musculoskeletal: generalized weakness, strength equal bilaterally - Psychiatric Psychiatric: A&O x's 3, appropriate affect Results - Laboratory Findings CBC and BMP: 11/15/20 09:54 11/15/20 09:54 PT/INR, D-dimer PT 11.2 sec (9.0-12.0) 11/15/20 09:54 INR 1.1 (<1.2) 11/15/20 09:54 D-Dimer 2.43 mg/L FEU (<0.60) H 11/15/20 11:39 Abnormal lab findings: Abnormal Labs 11/15/20 11/15/20 11/15/20 09:54 09:54 09:54 Hct 46.1 H RDW 16.3 H Lymphocytes # (Manual) 0.63 L Monocytes # (Manual) 1.44 H Metamyelocytes # (Man) 0.36 H Myelocytes # (Manual) 0.27 H Promyelocytes # (Man) 0.09 H D-Dimer Creatinine 0.49 L Glucose 230 H POC Glucose (mg/dL) Plasma Lactic Acid Joseph Creatine Kinase 27 L Urine Protein 2+ H Urine Bacteria Rare H Urine Mucus Few H 11/15/20 11/15/20 11/15/20 09:54 11:39 13:39 Hct RDW Lymphocytes # (Manual) Monocytes # (Manual) Metamyelocytes # (Man) Myelocytes # (Manual) Promyelocytes # (Man) D-Dimer 2.43 H Creatinine Glucose POC Glucose (mg/dL) 134 H Plasma Lactic Acid Joseph 5.3 H* Creatine Kinase Urine Protein Urine Bacteria Urine Mucus - Diagnostic Findings Chest x-ray: report reviewed, image reviewed CT scan - chest: report reviewed, image reviewed (Finding as noted above) Assessment and Plan Assessment: Sepsis likely related to bilateral pneumonia Bilateral aspiration pneumonia 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 Cachexia and weight loss and advance protein calorie malnourishment Intractable nausea or vomiting Plan: Agree with broad-spectrum antibiotics We'll do swallow evaluation consult his speech Continue gentle rehydration Trend lactic acid This is speech and swallow positive for aspiration consider doing a PEG tube If patient remains stable can be moved out of the ICU in next 12-24 hrs. Further plan of care as per clinical response of the patient will monitor observe patient closely, further recommendations pending Time with Patient: Greater than 30
[2020-11-15 17:02] LABS: C Reactive Protein 18.8 mg/dL (<1.0)
--- NOTE | 2020-11-15 17:42 | HP ---
HISTORY AND PHYSICAL DATE OF SERVICE: 11/15/2020 CHIEF COMPLAINTS: Change in mental status and weakness, as well as vomiting. 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 Bernie Stockton in the outpatient setting. The patient also had apparently a tumor on the right neck, which was followed by elijah jefferson. The vocal cord resection was also being planned at this time because of vocal cord paralysis secondary to neurofibromatosis. The patient also receiving Avastin through a chest port at this time. Currently, the patient was recently admitted with lung abscess and other complication to [facility]. The patient has been treated with antibiotics. The patient went home, but subsequently patient complaining of weakness and cough. The patient also had some vomiting. The patient became more obtunded and patient taken to [facility] for further evaluation and treatment. Patient had features of sepsis at this time. Broad-spectrum IV antibiotics initiated. The chest x- ray showed possible bilateral pneumonia, which was confirmed by the CTA. There is no evidence of any pulmonary embolism. Otherwise, the patient D-dimer is elevated. The patient is obtunded and unable to give a coherent history. Most history given by discussion with staff, is discussed in the ER. Patient has discussion with the family at the bedside. PAST MEDICAL HISTORY: Of neurofibromatosis with associated medical issues as mentioned earlier. MEDICATIONS: Home medications are Depo-Provera, Singulair, Concerta, loratadine, Toradol, Prozac, Voltaren gel. ALLERGIES: ACETAMINOPHEN, AMOXICILLIN, CODEINE, FAMILY HISTORY, SOCIAL HISTORY, REVIEW OF SYSTEMS: Could not be taken. PHYSICAL EXAMINATION: Patient is stuporous. Pulse is 145, blood pressure 145/105, respiration 20, temperature 99.7, T-max a 100.2, pulse ox 98% on 6 L. HEENT: Normal. Oral mucosa moist. NECK: Is right-sided mass palpable in the submandibular area, firm to hard. CARDIOVASCULAR SYSTEM: S1, S2 muffled. RESPIRATION: Breath sounds diminished at the bases. A few scattered rhonchi and crackles. ABDOMEN: Soft, nontender. No mass palpable. LEGS: No edema, no swelling. NERVOUS SYSTEM: As mentioned earlier. Full exam could not be done because of the change in mental status. SKIN: No ulcer, rash, bleeding. JOINTS: No active deforming arthropathy. LABS: At this time shows WBC 9, hemoglobin 14.6. D-dimer is 2.4. Other labs are noted. CT brain noted, multiple masses calcified and CTA showed no evidence of pulmonary embolism, bilateral pneumonia, mediastinal paraspinal mass. ASSESSMENT: 1. Possible bilateral pneumonia with possibly aspiration with acute hypoxic respiratory failure and sepsis present on admission. 2. Change in mental status, acute metabolic acidosis secondary to sepsis. 3. History of recent left lung abscess. Recent COVID pneumonia 4. History of neurofibromatosis, type 2, on Avastin through a right Port-A-Cath. 5. History of brain tumors related to neurofibromatosis, type 2. 6. History of spinal tumor related to neurofibromatosis, type 2. 7. Elevated D-dimer without any evidence of pulmonary embolism. 8. Diabetes mellitus, type 2, with elevated blood sugars. 9. Severe protein calorie malnutrition with body mass index of 15.4. 10.FULL CODE. RECOMMENDATIONS AND DISCUSSION: Patient is a 24-year-old woman who presented with multiple complex medical issues, we will monitor the patient closely, continue the current broad-spectrum IV antibiotics, Zosyn. Obtain cultures. Transfer to ICU. Pulmonary Dr. Bae. Infectious disease evaluation, neurology evaluation. Prognosis is extremely guarded because of multiple complex medical issues which I discussed with family at length. Further recommendations to follow. All charts reviewed. MMODL / IJN: [id number] / MTDD
[2020-11-15] MEDS: SODIUM CHLORIDE 0.9% 1,000 ML IV SCH (17:51)
[2020-11-15] MEDS: KETOROLAC 15 MG/ML 1 ML VIAL IVP PRN (17:52)
[2020-11-15] MEDS: hydrALAZINE HCL 20 MG/ML 1 ML VIAL IVP PRN (18:57)
[2020-11-15] MEDS: CEFEPIME 2 GM in SODIUM CHLORIDE 0.9% 100 ML IVPB SCH (20:41)
[2020-11-15] MEDS: LABETALOL 5 MG/ML VIAL MDV IVP PRN (23:21)
--- NOTE | 2020-11-16 00:02 | CONS ---
CONSULTATION DATE OF SERVICE: 11/15/2020 REASON FOR CONSULTATION: Pneumonia. HISTORY OF PRESENT ILLNESS: The patient is a 24-year-old female with a past medical history significant for neurofibromatosis and is noted to have history of recurrent pneumonia. The patient has been brought into the ER by family this morning because of vomiting. Apparently the patient did have symptoms yesterday with multiple episodes of vomiting. The patient also has been having increasing shortness of breath and cough for the patient was brought into the hospital. On arrival to the ER, the patient was initially afebrile. Subsequently did spike a low-grade fever of 100.2. The patient was hypoxic with O2 sats of 85% on room air. Subsequently, the patient has been put on nasal cannula oxygen. The patient was tachycardic. Blood pressure was stable. The patient has been admitted to the hospital. The patient did have a normal white count. Lactic acid was elevated to 5.3. CRP was elevated. Creatinine was ( ). Landis on the patient was negative. The patient did have a chest x-ray that was patchy airspace disease bilaterally. Similar to prior exam. Also have a CT angiogram of the chest that was negative for PE but did show evidence of ( ) infiltrate throughout. Lungs clear within upper lobes. Correlate for underlying pneumonia. The patient was started on cefepime and Levaquin. She has been admitted to the hospital, ICU. Infectious Disease was consulted for further management of antibiotic therapy. Most of the information has been obtained from review of the chart as the patient is currently sleepy lethargic, unable to provide any history and no family available at the bedside at the time of evaluation. REVIEW OF SYSTEMS: Positive points have been mentioned in HPI. Rest of systems are negative. PAST MEDICAL HISTORY: Neurofibromatosis, history of lung abscess and recurrent pneumonias. PAST SURGICAL HISTORY: MediPort placement. SOCIAL HISTORY: No history of smoking, drinking or drug use. FAMILY HISTORY: No pertinent findings noticed. ALLERGIES: MULTIPLE MEDICATIONS INCLUDING AMOXICILLIN. MEDICATIONS: Currently the patient is on DuoNeb, clindamycin, cefepime, hydralazine, Tylenol, IV fluid. PHYSICAL EXAMINATION: Her blood pressure is 144/100 with a pulse of 120 temperature 97.8. She is 93% on 4 L nasal cannula. GENERAL DESCRIPTION: The patient is a middle-aged female lying in bed, in no distress. No tachypnea or respiration use. HEENT: Examination shows no pallor or scleral icterus. Oral mucous membrane is dry. NECK: Trachea central, no thyromegaly. LUNGS: Unlabored breathing. Coarse breath sounds bilaterally, no wheeze. HEART: S1, S2. Regular rate and rhythm. ABDOMEN: Soft, no tenderness, no rigidity. EXTREMITIES: Normal feet. SKIN: No rash or mass palpable. NEUROLOGICAL: The patient is lethargic. Orientation could not be determined. LABS: Hemoglobin is 14.7, white count 9.0, BUN of 15, creatinine 0.49, lactic is 5.3, repeat is 1.5. Liver enzymes are normal. CRP is 18.8. Chest x-ray and CT report mentioned above. DIAGNOSTIC IMPRESSION AND PLAN: Patient admitted to hospital with sepsis and did have a tachycardia and elevated lactic acid. Fever in this patient. Abdominal symptoms of vomiting. History of neurofibromatosis and history of recurrent pneumonia. The patient did have evidence of bilateral infiltrates, concern for recurrent aspiration pneumonia. PLAN: 1. We will try to obtain sputum for Gram stain and culture. Check urine for Legionella antigen and CRP and procalcitonin level. 2. Continue the patient on cefepime 2 grams q.12 hours. 3. We will follow her clinical condition and culture to further adjust medication if needed. Thank you for this consultation. Will follow this patient along with you. MMODL / IJN: [id number] /
[2020-11-16] MEDS: KETOROLAC 15 MG/ML 1 ML VIAL IVP PRN ×4 (00:04→21:36)
[2020-11-16] MEDS: LABETALOL 5 MG/ML VIAL MDV IVP PRN ×2 (05:33→11:03)
[2020-11-16] MEDS: CEFEPIME 2 GM in SODIUM CHLORIDE 0.9% 100 ML IVPB SCH ×3 (05:33→20:25)
[2020-11-16 05:47] LABS: ALT 10 U/L (4-34); AST 21 U/L (14-36); African American GFR (CKD) >90 (>60 ml/min/1.73 sqM); Albumin 3.1 g/dL (3.5-5.0); Alkaline Phosphatase 70 U/L (38-126); Anion Gap 8 mmol/L; Blood Urea Nitrogen 11 mg/dL (7-17); Carbon Dioxide 26 mmol/L (22-30); Chloride 108 mmol/L (98-107); Glucose 98 mg/dL (74-99); Non-African American GFR(CKD) >90 (>60 ml/min/1.73 sqM); Potassium 3.5 mmol/L (3.5-5.1); Sodium 142 mmol/L (137-145); Total Bilirubin 0.3 mg/dL (0.2-1.3); Total Protein 6.1 g/dL (6.3-8.2)
[2020-11-16] MEDS ORDERED: Potassium Replacement Protocol 1 EACH MISC MISCELLANE PRN (05:56)
[2020-11-16 05:57] LABS: Anisocytosis Slight; Basophils % (A) 1 %; Eosinophils # (A) 0.1 k/uL (0-0.7); Eosinophils % (A) 1 %; HCT 40.9 % (34.0-46.0); HGB 12.6 gm/dL (11.4-16.0); Lymphocytes # (A) 0.8 k/uL (1.0-4.8); Lymphocytes % (A) 12 %; MCH 29.6 pg (25.0-35.0); MCHC 30.8 g/dL (31.0-37.0); MCV 96.2 fL (80.0-100.0); Mean Platelet Volume 7.4; Monocytes # (A) 0.5 k/uL (0-1.0); Monocytes % (A) 7 %; Neutrophils # (A) 5.6 k/uL (1.3-7.7); Neutrophils % (A) 78 %; Platelet Count 240 k/uL (150-450); RBC 4.25 m/uL (3.80-5.40); RDW 16.2 % (11.5-15.5); WBC 7.2 k/uL (3.8-10.6)
[2020-11-16 06:23] LABS: Hemoglobin A1C 5.2 % (4.0-6.0)
[2020-11-16] MEDS: POTASSIUM CHLORIDE 10 MEQ in WATER FOR INJECTION 1 100ML.BAG IVPB SCH (06:42)
[2020-11-16] MEDS: SODIUM CHLORIDE 0.9% 1,000 ML IV SCH ×2 (06:43→21:40)
[2020-11-16] MEDS: IPRATROPIUM-ALBUTEROL 3 ML NEB INHALATION SCH ×4 (07:16→21:00)
--- NOTE | 2020-11-16 08:38 | XR ---
EXAMINATION TYPE: XR chest 1V portable DATE OF EXAM: 11/16/2020 CLINICAL HISTORY: SOB W EXERTION. TECHNIQUE: Portable frontal view of the chest. COMPARISON: CTA chest 11/15/2020. Chest x-ray 11/15/2020. FINDINGS: Left-sided MediPort. The cardiomediastinal silhouette is within normal limits for size. Di ffuse interstitial coarsening multifocal airspace opacities. There are increased scattered densities or calcifications over the left lung base correlating with finding on CTA, however of which demonstra naila significant motion artifact. No pleural effusion. No pneumothorax seen. No acute displaced osseou s fracture. IMPRESSION: No significant interval change in patchy airspace opacities versus 11/15/2020.
[2020-11-16] MEDS ORDERED: AZITHROMYCIN 500 MG in SODIUM CHLORIDE 0.9% 250 ML IVPB SCH (09:00)
[2020-11-16 10:47] LABS: Folate, Serum 20.6 ng/mL
--- NOTE | 2020-11-16 11:19 | P.PN ---
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 Cachexia and weight loss and advance protein calorie malnourishment Intractable nausea or vomiting 11/16/2020, patient seen eval examined during the rounds labs reviewed medications reviewed care plan discussed with the staff, patient remains nothing by mouth speech and swallow studies are pending, however discussion with the mother reveals that patient has aspiration studies done with the speech is following [facility] and they were positive for aspiration and they recommended alternative means of feeding with PEG tube, chest x-ray performed on earlier today continue show patchy airspace disease not significantly changed from yesterday exam, she remains afebrile blood pressure is intermittently running high she is on 4 L nasal cannula was relatively stable earlier but now up to 173/122 heart rate increased 139 labetalol 20 mg IV is being given will put patient on IV Lopressor 5 mg every 12 as well and continue use labetalol as needed This is a pleasant 24-year-old female well-known to me patient has a significant past history of malignant neurofibromatosis, patient gets chemotherapy at the tertiary care center in [place], she has the 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 resulting in multiple bouts of aspiration pneumonia which affected the lung bilaterally and gets complicated with abscess requiring long- term IV therapy with PICC line, she was seen last several weeks ago in the office and was in partial agreement with PEG tube, it appears that patient has been having intermittent vomiting for the last several days started having problems with chills and fever came into the hospital for further evaluation, on arrival she was afebrile but with tachypnea and tachycardia respiratory rate is in 40s heart rate 1:30 to 140, hemodynamic status is variable but with stable blood pressure temperature low-grade 100 saturation is 95-96% on 4 L sup plemental oxygen, white cell count is normal hemoglobin stable 14.6, kidney functions within normal limit, lactic acid elevated 5.3, chest x-ray significant for patchy bilateral airspace disease, computed tomography scan of the brain no acute changes seen with 5 finding compatible reviewed with neurofibromatosis calcified mass noted, computed tomography scan of the chest negative for pulmonary embolism radicular nodular density noted on both side involving upper and lower lobe, patient also has a history of recent COVID-19 pneumonia requiring hospitalization several weeks ago Objective - Vital Signs Vital signs: Vital Signs Temp 97.6 F 11/16/20 08:00 Pulse 102 H 11/16/20 10:00 Resp 32 H 11/16/20 10:00 BP 173/122 11/16/20 10:00 Pulse Ox 98 11/16/20 10:00 Intake & Output 11/15/20 11/16/20 11/16/20 18:59 06:59 18:59 Intake Total 260 1000 300 Output Total 295 635 130 Balance -35 365 170 Weight 42.3 kg 43.5 kg 43.5 kg Intake: IV 925 300 Cefepime 2 gm In Sodium 100 Chloride 0.9% 100 ml @ 200 mls/hr IVPB ONCE STA Rx#:[id number] Sodium Chloride 0.9% 1, 825 300 000 ml @ 75 mls/hr IV . [id number] ANDERSON Rx#:[id number] Intake, IV Titration 260 75 Amount Sodium Chloride 0.9% 1, 260 000 ml @ 130 mls/hr IV . [id number] STA Rx#:[id number] Sodium Chloride 0.9% 1, 75 000 ml @ 75 mls/hr IV . [id number] ANDERSON Rx#:[id number] Output: Urine 295 635 130 Other: Voiding Method Indwelling Catheter Indwelling Catheter Indwelling Catheter # Voids 1 - Exam - Constitutional General appearance: average body habitus, cooperative, disheveled - EENT Eyes: EOMI, PERRLA Ears: bilateral: normal - Neck Carotids: bilateral: upstroke normal Thyroid: bilateral: normal size - Respiratory Respiratory: bilateral: diminished - Cardiovascular Rhythm: regular Heart sounds: normal: S1, S2 - Gastrointestinal General gastrointestinal: normal bowel sounds - Integumentary Integumentary: normal turgor - Neurologic Neurologic: CNII-XII intact - Musculoskeletal Musculoskeletal: generalized weakness, strength equal bilaterally - Psychiatric Psychiatric: A&O x's 3, appropriate affect - Labs CBC & Chem 7: 11/16/20 05:21 11/16/20 05:21 Labs: Abnormal Lab Results - Last 24 Hours (Table) 11/15/20 11/15/20 11/15/20 Range/Units 09:54 09:54 11:39 MCHC (31.0-37.0) g/dL RDW (11.5-15.5) % Lymphocytes # (1.0-4.8) k/uL D-Dimer 2.43 H (<0.60) mg/L FEU Chloride (98-107) mmol/L Creatinine (0.52-1.04) mg/dL POC Glucose (mg/dL) (75-99) mg/dL Lactate Dehydrogenase 1049 H (313-618) U/L C-Reactive Protein 18.8 H (<1.0) mg/dL Total Protein (6.3-8.2) g/dL Albumin (3.5-5.0) g/dL Urine Protein 2+ H (Negative) Urine Bacteria Rare H (None) /hpf Urine Mucus Few H (None) /hpf 11/15/20 11/16/20 11/16/20 Range/Units 13:39 05:21 05:21 MCHC 30.8 L (31.0-37.0) g/dL RDW 16.2 H (11.5-15.5) % Lymphocytes # 0.8 L (1.0-4.8) k/uL D-Dimer (<0.60) mg/L FEU Chloride 108 H (98-107) mmol/L Creatinine 0.43 L (0.52-1.04) mg/dL POC Glucose (mg/dL) 134 H (75-99) mg/dL Lactate Dehydrogenase (313-618) U/L C-Reactive Protein (<1.0) mg/dL Total Protein 6.1 L (6.3-8.2) g/dL Albumin 3.1 L (3.5-5.0) g/dL Urine Protein (Negative) Urine Bacteria (None) /hpf Urine Mucus (None) /hpf Assessment and Plan Assessment: Hypertensive urgency with sinus tachycardia Sepsis likely related to bilateral pneumonia Bilateral aspiration pneumonia 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 Further plan of care as per clinical response of the patient will monitor observe patient closely, further recommendations pending Time with Patient: Greater than 30
[2020-11-16] MEDS: hydrALAZINE HCL 20 MG/ML 1 ML VIAL IVP PRN ×2 (12:06→22:06)
--- NOTE | 2020-11-16 13:47 | P.PN ---
Subjective Progress Note Date: 11/16/20 Feels tired. Mother wa also present. Patient denies headache. Patient denies vertigo, dizziness. Patient has not been able to sleep overnight, therefore feels very tired. No nausea vomiting anymore. Objective - Vital Signs Vital signs: Vital Signs Temp 98.2 F 11/16/20 12:00 Pulse 115 H 11/16/20 12:00 Resp 36 H 11/16/20 12:00 BP 165/117 11/16/20 12:00 Pulse Ox 100 11/16/20 12:00 Intake & Output 11/15/20 11/16/20 11/16/20 18:59 06:59 18:59 Intake Total 260 1000 450 Output Total 295 635 195 Balance -35 365 255 Weight 42.3 kg 43.5 kg 43.5 kg Intake: IV 925 450 Cefepime 2 gm In Sodium 100 Chloride 0.9% 100 ml @ 200 mls/hr IVPB ONCE STA Rx#:[id number] Sodium Chloride 0.9% 1, 825 450 000 ml @ 75 mls/hr IV . [id number] ANDERSON Rx#:[id number] Intake, IV Titration 260 75 Amount Sodium Chloride 0.9% 1, 260 000 ml @ 130 mls/hr IV . Q7H42M STA Rx#:[id number] Sodium Chloride 0.9% 1, 75 000 ml @ 75 mls/hr IV . [id number] ANDERSON Rx#:[id number] Output: Urine 295 635 195 Other: Voiding Method Indwelling Catheter Indwelling Catheter Indwelling Catheter # Voids 1 - Exam On examination patient is much more awake. Still groggy. Patient following more commands, laying comfortably in the bed. Appears drowsy. Speech is very low volume. Pupils are round and reacting, visual kennedy are full. 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 Patient has some disconjugate eye, with right eye going up and inside, whereas the left eye does not elevate up. No nystagmus. Face is slightly weak on the right. Muscle strength is normal which are weak bilaterally except hip flexion, but appears generalized weak. - Labs CBC & Chem 7: 11/19/20 03:22 11/19/20 03:22 Labs: Abnormal Lab Results - Last 24 Hours (Table) 11/15/20 11/15/20 11/15/20 Range/Units 09:54 09:54 13:39 MCHC (31.0-37.0) g/dL RDW (11.5-15.5) % Lymphocytes # (1.0-4.8) k/uL Chloride (98-107) mmol/L Creatinine (0.52-1.04) mg/dL POC Glucose (mg/dL) 134 H (75-99) mg/dL Lactate Dehydrogenase 1049 H (313-618) U/L C-Reactive Protein 18.8 H (<1.0) mg/dL Total Protein (6.3-8.2) g/dL Albumin (3.5-5.0) g/dL Urine Protein 2+ H (Negative) Urine Bacteria Rare H (None) /hpf Urine Mucus Few H (None) /hpf 11/16/20 11/16/20 Range/Units 05:21 05:21 MCHC 30.8 L (31.0-37.0) g/dL RDW 16.2 H (11.5-15.5) % Lymphocytes # 0.8 L (1.0-4.8) k/uL Chloride 108 H (98-107) mmol/L Creatinine 0.43 L (0.52-1.04) mg/dL POC Glucose (mg/dL) (75-99) mg/dL Lactate Dehydrogenase (313-618) U/L C-Reactive Protein (<1.0) mg/dL Total Protein 6.1 L (6.3-8.2) g/dL Albumin 3.1 L (3.5-5.0) g/dL Urine Protein (Negative) Urine Bacteria (None) /hpf Urine Mucus (None) /hpf Microbiology - Last 24 Hours (Table) 11/15/20 10:11 Blood Culture - Preliminary Blood No Growth after 24 hours 11/15/20 09:54 Blood Culture - Preliminary Blood No Growth after 24 hours Assessment and Plan Assessment: * Altered mental status, possible toxic metabolic encephalopathy. Patient denies headache and the neck is supple, therefore meningitis unlikely. 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 * Aspiration pneumonia * Possible nutritional deficiency Plan: * I wanted to perform MRI of the brain with and without contrast, but patient is severely claustrophobic. MRI could be considered under anesthesia, but the M RI machine is not compatible with ventilator patient. * EEG performed, results pending. * B12 471, folate 20.6, hemoglobin A1c 5.2, MMA, B6, B1 are still pending. * Patient's mother brought previous MRI for comparison. The MRI from 09/13/2019 was reviewed with current computed tomography scan of the head by the radiologist Dr. Leavitt. 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 The left cerebellar calcification appears similar to MRI. The extent of the left thalamic calcification appears better visualized on the MRI. Suprasellar calcification appears stable. Significant interval growth of these structures is not evident.
[2020-11-16] MEDS: PANTOPRAZOLE 40 MG/10 ML VIAL IVP SCH (15:00)
--- NOTE | 2020-11-16 16:10 | EEG ---
ELECTROENCEPHALOGRAM REPORT DATE OF SERVICE: 11/16/2020. PREAMBLE: This is a 24-year-old female with history of neurofibromatosis, and posterior fossa tumors, has presented with altered mental status. Vomiting. This study is performed to rule out any epileptiform activity. EEG FINDINGS: This is a 21 channel routine EEG recording in a patient utilizing 10/20 international system with referential and bipolar montages. The background consists of well developed, well regulated, mixed frequencies of 8-9 hertz alpha, intermixed with low- voltage fast frequency beta activity. Background does not seem to be reactive to eye opening or closing. Photic driving response was not seen. Hyperventilation was not performed. Different stages of sleep were not seen. No focal or generalized epileptiform activity was seen. IMPRESSION: This is a mildly abnormal EEG due to poorly reactive background and excessive fast frequency beta activity. This is suggestive of mild generalized cerebral dysfunction, may be related to medication effect. No epileptiform activity was seen. MMODL / IJN: [id number] / MTDD
[2020-11-16] MEDS: amLODIPine 5 MG TAB PO SCH (16:28)
[2020-11-16] MEDS: HEPARIN SODIUM,PORCINE/PF 5,000 UNIT/0.5 ML SYRINGE SQ SCH ×2 (16:51→21:35)
--- NOTE | 2020-11-16 17:43 | PN ---
PROGRESS NOTE DATE OF SERVICE: 11/16/2020 INTERVAL HISTORY: This is a 24-year-old woman who was admitted with change in mental status and possible acute bilateral pneumonia and sepsis is being closely monitored. Patient is also being evaluated for any aspiration at this time. Patient is being monitored in the ICU. Infectious Disease and Pulmonary are following the patient closely. Chest x-ray showed bilateral diffuse lesions as well. Neurology also saw the patient. The patient has some eye movement abnormalities also at this time. The cultures are negative so far. PAST MEDICAL HISTORY: Reviewed. REVIEW OF SYMPTOMS: Could not be taken. The patient is still confused. CURRENT MEDS: Reviewed include DuoNeb, cefepime, apresoline, Trandate. PHYSICAL EXAM: GENERAL: Patient is stuporous. VITAL SIGNS: Pulse 115, blood pressure 160/70, respirations , temperature 98.2, pulse ox 100% on 4 liters. HEENT: Conjunctivae normal. NECK: No jugular venous distention. No carotid bruits. RESPIRATORY: Breath sounds diminished at the bases. A few scattered rhonchi. HEART: S1 and S2, muffled. ABDOMEN: Soft, no tenderness. EXTREMITIES: No edema, no swelling. NERVOUS: No focal deficits. LAB STUDIES: WBC 7.3, hemoglobin 2.6 and leukocytes are 0.8. ASSESSMENT: 1. Acute bilateral pneumonia with possibly aspiration with acute hypoxic respiratory failure and sepsis present on admission. 2. Change in mental status acute metabolic encephalopathy secondary to sepsis. 3. Accelerated hypertension. 4. History of recent left lung abscess. 5. History of recent COVID-19 pneumonia. 6. History of neurofibromatosis type 2 on Avastin through the right Port-A-Cath. 7. History of brain tumors related to neurofibromatosis type 2. 8. 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 9. Family history of neurofibromatosis type 2. 10.Elevated D-dimer without any evidence of pulmonary embolism. 11.Diabetes mellitus type 2 with elevated blood sugars. 12.Severe protein calorie malnutrition with body mass index of 15.4. 13.FULL CODE. RECOMMENDATIONS AND DISCUSSION: In this 24-year-old woman who presented with multiple complex medical issues, we will monitor the patient closely. Continue the current medications. Continue the bronchodilators. Continue the rest of the medications. Aspiration precautions. We will initiate Norvasc to the current regimen and continue to monitor. Prognosis guarded because of multiple complex medical issues. Further recommendations to follow. MMODL / IJN: [id number] / RADHA
--- NOTE | 2020-11-16 18:07 | PN ---
PROGRESS NOTE DATE OF SERVICE: 11/16/2020 REASON FOR FOLLOWUP: Pneumonia. INTERVAL HISTORY: Patient is afebrile as of this morning. The patient is hemodynamically stable. She is currently on 4 L nasal cannula, slightly lethargic but more awake than yesterday. Did not express any complaints and no further vomiting or diarrhea has been reported by nursing staff. PHYSICAL EXAMINATION: Blood pressure is 151/100 with a pulse of 124, temperature 98.2. She is 97% on 4 L nasal cannula. General description is a middle-aged female up in the chair in no distress. Respiratory system: Unlabored breathing, decreased intensity of breath sounds. No wheeze. Heart S1, S2. Regular rate and rhythm. Abdomen soft, no tenderness. LABS: Hemoglobin is 12.9, white count 10.2, BUN of 11, creatinine 0.43. Urine for Legionella antigen came back negative. Blood culture has been negative so far. DIAGNOSTIC IMPRESSION AND PLAN: Patient admitted to the hospital with episode of vomiting, shortness of breath. No evidence of pneumonia. Patient is covered with cefepime and discontinued. Try to obtain a sputum to narrow down antibiotics and continue supportive care. MMODL / IJN: [id number] /
[2020-11-17] MEDS: CEFEPIME 2 GM in SODIUM CHLORIDE 0.9% 100 ML IVPB SCH ×3 (04:30→20:50)
[2020-11-17 04:39] LABS: Basophils % (A) 0 %; Eosinophils # (A) 0.2 k/uL (0-0.7); Eosinophils % (A) 3 %; HCT 36.3 % (34.0-46.0); HGB 11.9 gm/dL (11.4-16.0); Lymphocytes % (A) 14 %; MCH 31.4 pg (25.0-35.0); MCHC 32.7 g/dL (31.0-37.0); MCV 96.3 fL (80.0-100.0); Mean Platelet Volume 8.2; Monocytes # (A) 0.5 k/uL (0-1.0); Monocytes % (A) 7 %; Neutrophils # (A) 5.4 k/uL (1.3-7.7); Neutrophils % (A) 74 %; Platelet Count 249 k/uL (150-450); RBC 3.77 m/uL (3.80-5.40); RDW 15.9 % (11.5-15.5); WBC 7.2 k/uL (3.8-10.6)
[2020-11-17 04:50] LABS: African American GFR (CKD) >90 (>60 ml/min/1.73 sqM); Anion Gap 9 mmol/L; Blood Urea Nitrogen 14 mg/dL (7-17); Calcium 8.6 mg/dL (8.4-10.2); Carbon Dioxide 23 mmol/L (22-30); Chloride 109 mmol/L (98-107); Glucose 76 mg/dL (74-99); Non-African American GFR(CKD) >90 (>60 ml/min/1.73 sqM); Potassium 3.4 mmol/L (3.5-5.1); Sodium 141 mmol/L (137-145)
[2020-11-17] MEDS ORDERED: Potassium Replacement Protocol 1 EACH MISC MISCELLANE PRN (04:53)
[2020-11-17] MEDS: POTASSIUM CHLORIDE 10 MEQ in WATER FOR INJECTION 1 100ML.BAG IVPB SCH ×4 (05:28→15:37)
[2020-11-17] MEDS: IPRATROPIUM-ALBUTEROL 3 ML NEB INHALATION SCH ×4 (07:23→20:17)
--- NOTE | 2020-11-17 07:54 | FL ---
EXAMINATION TYPE: FL barium swallow w video DATE OF EXAM: 11/16/2020 MODIFIED SWALLOW / DEGLUTITION STUDY CLINICAL HISTORY: Dysphagia. TECHNIQUE: Deglutition study is performed utilizing thin liquid barium, nectar thick liquid barium, barium thick applesauce, and barium coated cracker. Total fluoroscopy time 2 minutes 5 seconds COMPARISON: None. FINDINGS: There is silent vic aspiration with thin barium administration which slightly improved with chin tu ck method. There is significant pooling of food and liquid with all types administered within the pha rynx including the piriform sinuses which would not clear. For full details please see speech patholo gist notes. IMPRESSION: There is silent vic aspiration with thin barium administration which slightly improved with chin tu ck method. There is significant pooling of food and liquid with all types administered within the pha rynx including the piriform sinuses which would not clear. For full details please see speech patholo gist notes.
[2020-11-17] MEDS: amLODIPine 5 MG TAB PO SCH (08:34)
[2020-11-17] MEDS: PANTOPRAZOLE 40 MG/10 ML VIAL IVP SCH (08:44)
[2020-11-17] MEDS: HEPARIN SODIUM,PORCINE/PF 5,000 UNIT/0.5 ML SYRINGE SQ SCH ×2 (08:44→20:50)
[2020-11-17] MEDS: LABETALOL 5 MG/ML VIAL MDV IVP PRN ×2 (09:56→18:55)
[2020-11-17] MEDS: KETOROLAC 15 MG/ML 1 ML VIAL IVP PRN ×3 (10:03→21:56)
--- NOTE | 2020-11-17 10:53 | P.PN ---
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 Cachexia and weight loss and advance protein calorie malnourishment Intractable nausea or vomiting 11/17/2020, patient seen eval examined during the rounds labs reviewed medications reviewed care plan discussed with the mother and grandfather present at bedside, patient is arousable opens eyes follow simple commands obvious distress is present, blood pressure is intermittently high responding to therapy, patient and the family is in agreement for PEG tube placement, currently patient remains on bronchodilator along with the antihypertensive agent for DVT prophylaxis and broad-spectrum antibiotics awaiting GI evaluation 11/16/2020, patient seen eval examined during the rounds labs reviewed medications reviewed care plan discussed with the staff, patient remains nothing by mouth speech and swallow studies are pending, however discussion with the mother reveals that patient has aspiration studies done with the speech is following [facility] and they were positive for aspiration and they recommended alternative means of feeding with PEG tube, chest x-ray performed on earlier today continue show patchy airspace disease not significantly changed from yesterday exam, she remains afebrile blood pressure is intermittently running high she is on 4 L nasal cannula was relatively stable earlier but now up to 173/122 heart rate increased 139 labetalol 20 mg IV is being given will put patient on IV Lopressor 5 mg every 12 as well and continue use labetalol as needed This is a pleasant 24-year-old female well-known to me patient has a significant past history of malignant neurofibromatosis, patient gets chemotherapy at the tertiary care center in [place], she has the 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 resulting in multiple bouts of aspiration pneumonia which affected the lung bilaterally and gets complicated with abscess requiring long- term IV therapy with PICC line, she was seen last several weeks ago in the office and was in partial agreement with PEG tube, it appears that patient has been having intermittent vomiting for the last several days started having problems with chills and fever came into the hospital for further evaluation, on arrival she was afebrile but with tachypnea and tachycardia respiratory rate is in 40s heart rate 1:30 to 140, hemodynamic status is variable but with stable blood pressure temperature low-grade 100 saturation is 95-96% on 4 L supplemental oxygen, white cell count is normal hemoglobin stable 14.6, kidney functions within normal limit, lactic acid elevated 5.3, chest x-ray significant for patchy bilateral airspace disease, computed tomography scan of the brain no acute changes seen with 5 finding compatible reviewed with neurofibromatosis calcified mass noted, computed tomography scan of the chest negative for pulmonary embolism radicular nodular density noted on both side involving upper and lower lobe, patient also has a history of recent COVID-19 pneumonia requiring hospitalization several weeks ago Objective - Vital Signs Vital signs: Vital Signs Temp 97.0 F L 11/17/20 08:00 Pulse 107 H 11/17/20 10:00 Resp 15 11/17/20 10:00 BP 165/116 11/17/20 10:00 Pulse Ox 99 11/17/20 10:00 Intake & Output 11/16/20 11/17/20 11/17/20 18:59 06:59 18:59 Intake Total 800 700 50 Output Total 365 260 30 Balance 435 440 20 Weight 43.5 kg 44.1 kg Intake: IV 800 700 50 Cefepime 2 gm In Sodium 100 Chloride 0.9% 100 ml @ 25 mls/hr IVPB Q8H [facility] Rx#: [id number] Sodium Chloride 0.9% 1, 800 600 50 000 ml @ 50 mls/hr IV . Q20H [facility] Rx#:[id number] Output: Urine 365 260 30 Other: Voiding Method Indwelling Catheter Indwelling Catheter Indwelling Catheter - Exam - Constitutional General appearance: average body habitus, cooperative, disheveled - EENT Eyes: EOMI, PERRLA Ears: bilateral: normal - Neck Carotids: bilateral: upstroke normal Thyroid: bilateral: normal size - Respiratory Respiratory: bilateral: diminished - Cardiovascular Rhythm: regular Heart sounds: normal: S1, S2 - Gastrointestinal General gastrointestinal: normal bowel sounds - Integumentary Integumentary: normal turgor - Neurologic Neurologic: CNII-XII intact - Musculoskeletal Musculoskeletal: generalized weakness, strength equal bilaterally - Psychiatric Psychiatric: A&O x's 3, appropriate affect - Labs CBC & Chem 7: 11/17/20 04:24 11/17/20 04:24 Labs: Abnormal Lab Results - Last 24 Hours (Table) 11/17/20 11/17/20 Range/Units 04:24 04:24 RBC 3.77 L (3.80-5.40) m/uL RDW 15.9 H (11.5-15.5) % Potassium 3.4 L (3.5-5.1) mmol/L Chloride 109 H (98-107) mmol/L Creatinine 0.43 L (0.52-1.04) mg/dL Microbiology - Last 24 Hours (Table) 11/15/20 10:11 Blood Culture - Preliminary Blood No Growth after 24 hours 11/15/20 09:54 Blood Culture - Preliminary Blood No Growth after 24 hours Assessment and Plan Assessment: Hypertensive urgency with sinus tachycardia, blood pressure lately better under control Sepsis likely related to bilateral pneumonia Bilateral aspiration pneumonia 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 Further plan of care as per clinical response of the patient will monitor observe patient closely, further recommendations pending Time with Patient: Greater than 30
--- NOTE | 2020-11-17 15:09 | P.PN ---
Subjective Progress Note Date: 11/17/20 This is a 24-year-old female who was recently admitted with change in mental status and also possible acute bilateral pneumonia along with sepsis present on admission and is being closely monitored. Patient continues to be in the ICU with multiple medical consultations following. Pulmonary tonsorial artist Dr. Bae following along with infectious disease and neurology and a consult was placed for general surgery as patient underwent swallow eval and failed and has been having difficulty with aspiration even in the outpatient setting with her primary specialist. Patient initially was reluctant for PEG tube per family at the bedside although they are now requesting this and the patient is agreeable. Patient continues to have shortness of breath and is maintained on 2-3 L of oxygen via nasal cannula and continues to be streaming dyspneic with minimal exertion and tachypneic as well. Patient had one episode of low-grade intermittent temp last night into this morning of 99.3 and continues on IV antibiotic therapy with infectious disease following closely. Patient continues on IV cefepime. Potassium slightly low this morning at 3.4 and will replace per protocol and monitor closely with repeat labs in the morning. Patient continues to have hypertension and is maintained on IV push Labetolol. Review of systems: Constitutional: reports of fatigue, occasional fever, no reports of chills Cardiovascular: No reports of chest pain or palpitations Respiratory: reports of shortness of breath and dry hacking cough GI: No reports of nausea, vomiting, or diarrhea : No reports of dysuria or retention Neurovascular: Reports generalized weakness All medications have been reviewed Active Medications Albuterol/Ipratropium (Ipratropium-Albuterol 3 Ml Neb) 3 ml INHALATION RT-QID [facility] Last Admin: 11/17/20 11:25 Dose: Not Given Documented by: Albuterol/Ipratropium (Ipratropium-Albuterol 3 Ml Neb) 3 ml INHALATION RT-QID PRN PRN Reason: Shortness Of Breath Or Wheezing Amlodipine Besylate (Amlodipine 5 Mg Tab) 5 mg PO DAILY [facility] Last Admin: 11/17/20 08:34 Dose: Not Given Documented by: Heparin Sodium (Porcine) (Heparin Sodium,Porcine/Pf 5,000 Unit/0.5 Ml Syringe) 5,000 unit SQ Q12HR [facility] Last Admin: 11/17/20 08:44 Dose: 5,000 unit Documented by: Hydralazine HCl (Hydralazine Hcl 20 Mg/Ml 1 Ml Vial) 10 mg IVP Q6HR PRN PRN Reason: Blood Pressure - High Last Admin: 11/16/20 22:06 Dose: 10 mg Documented by: Cefepime HCl 2 gm/ Sodium (Chloride) 100 mls @ 25 mls/hr IVPB Q8H [facility] Last Admin: 11/17/20 13:54 Dose: 25 mls/hr Documented by: Sodium Chloride (Saline 0.9%) 1,000 mls @ 50 mls/hr IV .Q20H [facility] Last Admin: 11/16/20 21:40 Dose: Not Given Documented by: Ketorolac Tromethamine (Ketorolac 15 Mg/Ml 1 Ml Vial) 15 mg IVP Q6HR PRN PRN Reason: Pain Stop: 11/20/20 17:46 Last Admin: 11/17/20 10:03 Dose: 15 mg Documented by: Labetalol HCl (Labetalol 5 Mg/Ml Vial Mdv) 20 mg IVP Q4H PRN PRN Reason: Hypertension Last Admin: 11/17/20 09:56 Dose: 20 mg Documented by: Miscellaneous Information (Pneumonia Protocol Utilized 1 Each Misc) 1 each PO ONCE PRN PRN Reason: Per Protocol Miscellaneous Information (Potassium Replacement Protocol 1 Each Misc) 1 each MISCELLANE DAILY PRN; Protocol PRN Reason: Per Protocol Pantoprazole Sodium (Pantoprazole 40 Mg/10 Ml Vial) 40 mg IVP DAILY [facility] Last Admin: 11/17/20 08:44 Dose: 40 mg Documented by: Objective - Vital Signs Vital signs: Vital Signs Temp 97.0 F L 11/17/20 08:00 Pulse 76 11/17/20 12:00 Resp 11 L 11/17/20 12:00 BP 145/85 11/17/20 12:00 Pulse Ox 99 11/17/20 12:00 Intake & Output 11/16/20 11/17/20 11/17/20 18:59 06:59 18:59 Intake Total 800 700 500 Output Total 365 260 355 Balance 435 440 145 Weight 43.5 kg 44.1 kg Intake: IV 800 700 300 Cefepime 2 gm In Sodium 100 Chloride 0.9% 100 ml @ 25 mls/hr IVPB Q8H [facility] Rx#: [id number] Sodium Chloride 0.9% 1, 800 600 300 000 ml @ 50 mls/hr IV . Q20H [facility] Rx#:[id number] Intake, IV Titration 200 Amount Potassium Chloride 10 meq 200 In Water For Injection 1 100ml.bag @ 100 mls/hr IVPB Q1HR [facility] Rx#: [id number] Output: Urine 365 260 355 Other: Voiding Method Indwelling Catheter Indwelling Catheter Indwelling Catheter - Exam Gen: This is a 24-year-old female sitting up in the chair awake, alert and oriented 2, thin built, ill-appearing, emaciated. Temp is 97.0F, pulse is 116, respirations are 22, blood pressure is 131/73, oxygen saturation is 98% on 2 L via nasal cannula HEENT: Head is atraumatic, normocephalic. Pupils equal, round. Sclerae is anicteric. NECK: Supple. No JVD. No lymphadenopathy. No thyromegaly. LUNGS: Diminished breath sounds bilaterally with some scattered rhonchi noted. No intercostal retractions. HEART: S1, S2 are muffled ABDOMEN: Soft. Bowel sounds are present. No masses. No tenderness. EXTREMITIES: No pedal edema. No calf tenderness. NEUROLOGICAL: Patient is awake, alert and oriented x2. Extremely lethargic, diffusely weak - Labs CBC & Chem 7: 11/17/20 04:24 11/17/20 04:24 Labs: Abnormal Lab Results - Last 24 Hours (Table) 11/17/20 11/17/20 Range/Units 04:24 04:24 RBC 3.77 L (3.80-5.40) m/uL RDW 15.9 H (11.5-15.5) % Potassium 3.4 L (3.5-5.1) mmol/L Chloride 109 H (98-107) mmol/L Creatinine 0.43 L (0.52-1.04) mg/dL Microbiology - Last 24 Hours (Table) 11/15/20 10:11 Blood Culture - Preliminary Blood No Growth after 48 hours 11/15/20 09:54 Blood Culture - Preliminary Blood No Growth after 48 hours Assessment and Plan Assessment: Acute bilateral pneumonia with possible aspiration with acute hypoxic respiratory failure and sepsis, present on admission Change in mental status, acute metabolic encephalopathy secondary to sepsis Accelerated hypertension History of recent lung abscess in the left side [place] history of recent COVID- 19 pneumonia 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 Patient continues to be closely monitored in the ICU and will continue at this time. Patient is continue with strict aspiration precautions and is currently nothing by mouth as she underwent swallow study which was unsuccessful. Patient continues on IV labetalol push along with amlodipine for blood pressure control as she continues to have elevated blood pressure readings. Surgery consult placed for possible PEG tube placement as the patient is now agreeable along with family at the bedside for PEG tube as she is currently unable to tolerate by mouth. Patient continues to be extremely weak requiring assistance and also continues to be extremely dyspneic with minimal ex ertion and continues on 2 L via nasal cannula. Family states that she does have a nebulizer at home and will continue with breathing inhalational treatments. Due to multiple complex medical issues prognosis is extremely guarded. Will continue to monitor closely.
--- NOTE | 2020-11-17 16:22 | P.GSCN ---
History of Present Illness Consult date: 11/17/20 Reason for Consult: Malnutrition History of present illness: 24-year-old female with history of neurofibromatosis. Patient has issues with vocal cord paralysis and recurrent aspiration. Patient is profoundly malnourished. Patient follows at [facility] for much of her care. She has been told in the past she would benefit from feeding tube placement. Patient previously had been reluctant. Family and patient are now agreeable. We were consulted for PEG tube placement. Review of Systems The patient denies any acute changes in vision or hearing, no chest pain or shortness of breath, no dysuria or hematuria, no headache, no runny nose, no rectal bleeding or melena, no unexplained weight loss Past Medical History Past Medical History: Asthma, Eye Disorder Additional Past Medical History / Comment(s): Neurofibromatosis History of Any Multi-Drug Resistant Organisms: None Reported Additional Past Surgical History / Comment(s): medi port, eye, dental Past Anesthesia/Blood Transfusion Reactions: No Reported Reaction Past Psychological History: No Psychological Hx Reported Smoking Status: Never smoker Past Alcohol Use History: None Reported Past Drug Use History: None Reported - Past Family History Mother Family Medical History: Asthma, Seizure Disorder Medications and Allergies Home Medications Medication Instructions Recorded Confirmed Type FLUoxetine HCL [PROzac] 10 mg PO DAILY 08/17/20 11/15/20 History Loratadine 10 mg PO HS 08/17/20 11/15/20 History Methylphenidate HCl [Concerta] 36 mg PO DAILY 08/17/20 11/15/20 History Montelukast [Singulair] 10 mg PO HS 08/17/20 11/15/20 History medroxyPROGESTERone [Depo-Provera] 150 mg IM Q84D 08/17/20 11/15/20 History Diclofenac Sodium Gel [Voltaren 4 gm TOPICAL QID 11/15/20 11/15/20 History Gel] Ketorolac [Toradol] 10 mg PO BID PRN 11/15/20 11/15/20 History Allergies Allergy/AdvReac Type Severity Reaction Status Date / Time acetaminophen Allergy Dyspnea Verified 11/15/20 12:07 [From Tylenol-Codeine #3] amoxicillin Allergy Rash/Hives Verified 11/15/20 12:07 codeine Allergy Dyspnea Verified 11/15/20 12:07 [From Tylenol-Codeine #3] midazolam [From Versed] AdvReac Hyper Verified 11/15/20 12:07 orange juice AdvReac Abdominal Verified 11/15/20 18:15 Pain strawberry AdvReac Abdominal Verified 11/15/20 18:15 Pain Surgical - Exam Vital Signs Temp Pulse Resp BP Pulse Ox 97.6 F 132 H 22 105/58 85 L 11/15/20 09:08 11/15/20 09:08 11/15/20 09:08 11/15/20 09:08 11/15/20 09:08 Physical exam: General: Well-developed, malnourished appearing HEENT: Normocephalic, sclerae nonicteric, diplopia noted Abdomen: Nontender, nondistended Extremities: No edema Neuro: Alert and oriented Results - Labs 11/17/20 04:24 11/17/20 04:24 Abnormal Lab Results - Last 24 Hours (Table) 11/16/20 11/17/20 11/17/20 Range/Units 05:21 04:24 04:24 RBC 3.77 L (3.80-5.40) m/uL RDW 15.9 H (11.5-15.5) % Potassium 3.4 L (3.5-5.1) mmol/L Chloride 109 H (98-107) mmol/L Creatinine 0.43 L (0.52-1.04) mg/dL Procalcitonin 2.47 H (0.02-0.09) ng/mL Microbiology - Last 24 Hours (Table) 11/15/20 10:11 Blood Culture - Preliminary Blood No Growth after 48 hours 11/15/20 09:54 Blood Culture - Preliminary Blood No Growth after 48 hours Diabetes panel 11/17/20 Range/Units 04:24 Sodium 141 (137-145) mmol/L Potassium 3.4 L (3.5-5.1) mmol/L Chloride 109 H (98-107) mmol/L Carbon Dioxide 23 (22-30) mmol/L BUN 14 (7-17) mg/dL Creatinine 0.43 L (0.52-1.04) mg/dL Glucose 76 (74-99) mg/dL Calcium 8.6 (8.4-10.2) mg/dL Calcium panel 11/17/20 Range/Units 04:24 Calcium 8.6 (8.4-10.2) mg/dL Pituitary panel 11/17/20 Range/Units 04:24 Sodium 141 (137-145) mmol/L Potassium 3.4 L (3.5-5.1) mmol/L Chloride 109 H (98-107) mmol/L Carbon Dioxide 23 (22-30) mmol/L BUN 14 (7-17) mg/dL Creatinine 0.43 L (0.52-1.04) mg/dL Glucose 76 (74-99) mg/dL Calcium 8.6 (8.4-10.2) mg/dL Adrenal panel 11/17/20 Range/Units 04:24 Sodium 141 (137-145) mmol/L Potassium 3.4 L (3.5-5.1) mmol/L Chloride 109 H (98-107) mmol/L Carbon Dioxide 23 (22-30) mmol/L BUN 14 (7-17) mg/dL Creatinine 0.43 L (0.52-1.04) mg/dL Glucose 76 (74-99) mg/dL Calcium 8.6 (8.4-10.2) mg/dL Assessment and Plan (1) Aspiration pneumonia Narrative/Plan: 24-year-old female with moderate protein calorie malnutrition and aspiration pneumonia. Case discussed with the patient and HER-2 guardians. They're agreeable to EGD with PEG tube placement. We'll schedule for Friday. Current Visit: Yes Status: Acute Code(s): J69.0 - PNEUMONITIS DUE TO INHALATION OF FOOD AND VOMIT SNOMED Code(s): 906132981
[2020-11-17] MEDS: SODIUM CHLORIDE 0.9% 1,000 ML IV SCH (18:58)
--- NOTE | 2020-11-17 19:26 | PN ---
PROGRESS NOTE DATE OF SERVICE: 11/17/2020 REASON FOR FOLLOWUP: Pneumonia. INTERVAL HISTORY: The patient is afebrile. The patient has been more awake and alert today. She is breathing comfortably, currently on nasal cannula oxygen 4 L, hemodynamically stable, not on pressor support. No vomiting or any worsening cough or sputum production has been reported by the family at the bedside. PHYSICAL EXAMINATION: Blood pressure 129/94, pulse of 87, temperature 98. She is 97% on 4 L nasal cannula. General description is a middle-aged female up in the bed in no distress. Respiratory system: Unlabored breathing, decreased intensity of breath sounds. No wheeze. Heart: S1, S2. Regular rate and rhythm. Abdomen soft, no tenderness. LABS: Hemoglobin 11.1, white count 7.2, BUN of 14, creatinine 0.43. Blood culture has been negative. DIAGNOSTIC IMPRESSION AND PLAN: Patient admitted to the hospital with episodes of vomiting and did have shortness of breath and concern for aspiration pneumonia. The patient did have an esophagram. Swallow test was done with evidence of slight vic aspiration. Patient is currently responding to the cefepime as the patient and plan is to continue while monitoring clinical course closely. Family at the bedside. Questions were answered. MMODL / IJN: [id number] /
[2020-11-17] MEDS: hydrALAZINE HCL 20 MG/ML 1 ML VIAL IVP PRN (21:56)
[2020-11-18] MEDS: KETOROLAC 15 MG/ML 1 ML VIAL IVP SCH ×4 (00:46→18:31)
[2020-11-18] MEDS: CEFEPIME 2 GM in SODIUM CHLORIDE 0.9% 100 ML IVPB SCH ×3 (04:06→20:35)
[2020-11-18] MEDS: LABETALOL 5 MG/ML VIAL MDV IVP PRN ×3 (04:07→10:24)
[2020-11-18] MEDS: hydrALAZINE HCL 20 MG/ML 1 ML VIAL IVP PRN (06:17)
[2020-11-18] MEDS: IPRATROPIUM-ALBUTEROL 3 ML NEB INHALATION SCH ×4 (07:14→18:57)
[2020-11-18] MEDS: PANTOPRAZOLE 40 MG/10 ML VIAL IVP SCH (08:27)
[2020-11-18] MEDS: POTASSIUM CHLORIDE 10 MEQ in WATER FOR INJECTION 1 100ML.BAG IVPB SCH ×3 (08:28→16:41)
[2020-11-18] MEDS: HEPARIN SODIUM,PORCINE/PF 5,000 UNIT/0.5 ML SYRINGE SQ SCH ×2 (08:28→20:35)
[2020-11-18] MEDS: amLODIPine 5 MG TAB PO SCH (09:31)
[2020-11-18 10:56] LABS: Methylmalonic Acid <0.10 umol/L (<0.40)
[2020-11-18] MEDS: SODIUM CHLORIDE 0.9% 1,000 ML IV SCH (13:28)
--- NOTE | 2020-11-18 13:47 | P.PN ---
Subjective Progress Note Date: 11/18/20 CHIEF COMPLAINT: Neurofibromatosis HISTORY OF PRESENT ILLNESS: The patient is a 24-year-old female with neurofibromatosis and has chronic dysphagia and aspiration. Family is at bedside. She is in intensive care unit. She wants to eat. She is sitting up in a chair. ROS: No fevers or chills. No nausea or vomiting. She is underweight. BMI 16.7. Pre-existing malnutrition. Pre-existing dehydration. PHYSICAL EXAM: VITAL SIGNS: Reviewed CONSTITUTIONAL: Well developed and in no acute distress. EYES: Conjuctivae without sclera icterus. Extraocular movements grossly intact. HEAD, EARS, NOSE, THROAT: Moist buccal mucosa. Head is atraumatic, normocephalic. Hears conversational speech. No nasal drainage. Facial asymmetry from neurofibromatosis NECK: No jugular venous distention. RESPIRATORY: Non-labored respirations and equal bilateral excursions. CARDIOVASCULAR: Palpable 2+ radial pulses. ABDOMEN: Scaphoid MUSCULOSKELETAL: No gross deformity of the lower extremities noted. No clubbing. No cyanosis. SKIN: Good skin turgor. Well perfused. NEUROLOGIC: Cranial nerves II through XII grossly intact. No focal or lateralizing signs. PSYCH: Appropriate affect. Alert and oriented to person, place and time. CLINICAL LABS: Reviewed. WBC normal at 7.2. ASSESSMENT: 1. Neurofibromatosis 2. History of chronic aspiration and dysphagia PLAN: 1. Agree with gastrostomy tube placement. 2. Diet held due to chronic lung expiration Objective - Vital Signs Vital signs: Vital Signs Temp 97.9 F 11/18/20 08:00 Pulse 82 11/18/20 08:00 Resp 14 11/18/20 08:00 BP 180/111 11/18/20 08:00 Pulse Ox 96 11/18/20 08:00 Intake & Output 11/17/20 11/18/20 11/18/20 18:59 06:59 18:59 Intake Total 850 500 50 Output Total 625 300 30 Balance 225 200 20 Weight 44.1 kg Intake: IV 650 500 50 Cefepime 2 gm In Sodium 200 Chloride 0.9% 100 ml @ 25 mls/hr IVPB Q8H [facility] Rx#: [id number] Sodium Chloride 0.9% 1, 650 300 50 000 ml @ 50 mls/hr IV . Q20H [facility] Rx#:[id number] Intake, IV Titration 200 Amount Potassium Chloride 10 meq 200 In Water For Injection 1 100ml.bag @ 100 mls/hr IVPB Q1HR [facility] Rx#: [id number] Output: Urine 625 300 30 Other: Voiding Method Indwelling Catheter Indwelling Catheter - Labs CBC & Chem 7: 11/17/20 04:24 11/17/20 04:24 Labs: Abnormal Lab Results - Last 24 Hours (Table) 11/16/20 Range/Units 05:21 Procalcitonin 2.47 H (0.02-0.09) ng/mL Microbiology - Last 24 Hours (Table) 11/15/20 10:11 Blood Culture - Preliminary Blood No Growth after 48 hours 11/15/20 09:54 Blood Culture - Preliminary Blood No Growth after 48 hours Assessment and Plan (1) Aspiration pneumonia Current Visit: Yes Status: Acute Code(s): J69.0 - PNEUMONITIS DUE TO INHALATION OF FOOD AND VOMIT SNOMED Code(s): 032035589 (2) Dehydration Current Visit: Yes Status: Acute Code(s): E86.0 - DEHYDRATION SNOMED Code(s): 96393623 (3) Neurofibromatosis Current Visit: Yes Status: Acute Code(s): Q85.00 - NEUROFIBROMATOSIS, UNSPECIFIED SNOMED Code(s): 27359282 (4) Underweight Current Visit: Yes Status: Acute Code(s): R63.6 - UNDERWEIGHT SNOMED Code(s): 808395186 (5) Body mass index (BMI) less than 16.5 Current Visit: Yes Status: Acute Code(s): Z68.1 - BODY MASS INDEX [BMI] 19.9 OR LESS, ADULT SNOMED Code(s): 564433363
[2020-11-18] MEDS ORDERED: DEXTROSE 50% SYRINGE 50 ML IVP ONE (13:51)
[2020-11-18 13:52] LABS: Glucose,Whole Blood 62 mg/dL (75-99)
[2020-11-18] MEDS: DEXTROSE 5% IN WATER 1,000 ML in EMPTY BAG 1 BAG IV SCH (14:18)
[2020-11-18 14:29] LABS: Glucose,Whole Blood 169 mg/dL (75-99)
[2020-11-18] MEDS ORDERED: Magnesium Replacement Protocol 1 EACH MISC MISCELLANE PRN (14:43)
[2020-11-18] MEDS ORDERED: Potassium Replacement Protocol 1 EACH MISC MISCELLANE PRN (14:43)
[2020-11-18] MEDS ORDERED: ALTEPLASE 2 MG VIAL (CATHFLO) IV STA (14:59)
--- NOTE | 2020-11-18 15:06 | XR ---
EXAMINATION TYPE: XR chest 1V portable DATE OF EXAM: 11/18/2020 COMPARISON: 11/16/2020 HISTORY: Pneumonia. Short of breath TECHNIQUE: FINDINGS: There is some coarsening of the interstitial pulmonary markings. There is left central veno us catheter with tip in the superior vena cava. There are chest leads. There is some amorphous small calcifications in the left lower lobe. IMPRESSION: There is diffuse pulmonary interstitial pneumonia not changed compared to recent exam. Am orphous calcification left lower lobe could relate to aspiration. No definite heart failure. No pleural effusion.
[2020-11-18 15:33] LABS: ALT 9 U/L (4-34); AST 18 U/L (14-36); African American GFR (CKD) >90 (>60 ml/min/1.73 sqM); Albumin 2.8 g/dL (3.5-5.0); Alkaline Phosphatase 55 U/L (38-126); Anion Gap 9 mmol/L; Blood Urea Nitrogen 12 mg/dL (7-17); Calcium 8.4 mg/dL (8.4-10.2); Carbon Dioxide 26 mmol/L (22-30); Chloride 104 mmol/L (98-107); Glucose 169 mg/dL (74-99); Magnesium 1.9 mg/dL (1.6-2.3); Non-African American GFR(CKD) >90 (>60 ml/min/1.73 sqM); Potassium 4.1 mmol/L (3.5-5.1); Sodium 139 mmol/L (137-145); Total Bilirubin 0.2 mg/dL (0.2-1.3); Total Protein 5.7 g/dL (6.3-8.2)
--- NOTE | 2020-11-18 16:31 | PN ---
PROGRESS NOTE DATE OF SERVICE: 11/18/2020 This 24-year-old woman who was admitted with change in mental status possible bilateral aspiration pneumonia also had sepsis. The patient has become more alert, but however the today the patient has some bradycardia and the patient has been started on D5 drip. Cardiology consultation has been sought. The patient also had elevated blood sugars. Patient also had neurofibromatosis also. Infectious Disease following the patient closely. The cultures are negative so far. LABS: Potassium 3.4. PAST MEDICAL HISTORY: Reviewed. REVIEW OF SYSTEMS: Could not be taken because of the patient's mental status. MEDICATIONS: Current medications are DuoNeb, Norvasc, cefepime, heparin, Toradol, Trandate, and Protonix. PHYSICAL EXAM: Patient is alert, oriented x1. Pulse is 87, blood pressure 140/94, respiration 15, temperature 97.9, pulse ox 94% on room air. HEENT: Conjunctivae normal. NECK: No JVD. CARDIOVASCULAR: S1, S2, murmur. RESPIRATIONS: Breath sounds diminished in the bases. A few scattered rhonchi. ABDOMEN: Soft. NERVOUS SYSTEM: Diffusely weak. LABS: WBC 7.2, hemoglobin 7.9, glucose 62. ASSESSMENT: 1. Acute bilateral aspiration pneumonia with acute hypoxic respiratory failure and sepsis present on admission. 2. Change in mental status, acute metabolic encephalopathy secondary to sepsis present on admission. 3. Dysphagia and aspiration. 4. Accelerated hypertension. 5. ( ) Hypertension. 6. Bradycardia, possibly sinus. 7. History of recent lung abscess on the left side. 8. History of recent COVID-19 pneumonia. 9. History of neurofibromatosis, type 2 on Avastin through right Port-A-Cath. 10.History of brain tumors related to neurofibromatosis, type 2. 11.History of spinal tumor related to neurofibromatosis, type 2. 12.Elevated D-dimer without any evidence of pulmonary embolism. 13.Diabetes mellitus, type 2, with elevated blood sugars. 14.Severe protein calorie malnutrition with body mass index of 15.4. 15.FULL CODE. RECOMMENDATIONS AND DISCUSSION: Recommend to continue current management and treatment. Recommend EKG, portable chest x- ray, Troponin, and I would also recommend repeat labs in the morning. Closely follow with Pulmonary. Cardiology consultation. A 2-D echo with Doppler. Surgical evaluation, possible PEG tube placement. Prognosis guarded because of multiple complex medical issues. MMODL / IJN: [id number] /
--- NOTE | 2020-11-18 17:07 | PN ---
PROGRESS NOTE DATE OF SERVICE: 11/18/2020. REASON FOR FOLLOWUP: Pneumonia. INTERVAL HISTORY: Patient is afebrile. The patient is hemodynamically stable, not on pressor support. The patient did have evidence of breathing difficulty early this morning. Cardiology has been consulted. The patient is currently waiting for PEG tube placement. The patient is slightly lethargic and did not provide any history. PHYSICAL EXAMINATION: Blood pressure 142/94, with a pulse of 83, temperature 97.9, she is 94% on 4 L nasal cannula. General description is a middle-aged female lying in no distress. RESPIRATORY: Unlabored breathing, decreased breath sounds at the base. No wheeze. HEART: S1, S2. Regular rate and rhythm. ABDOMEN: Soft, no tenderness. LABS: BUN of 12, creatinine 0.41. Blood culture has been negative. DIAGNOSTIC IMPRESSION AND PLAN: Patient admitted to the hospital with vomiting and shortness of breath with concern for possible aspiration pneumonia. The patient is currently covered with cefepime to continue, as the patient did have overall resolution of the fever. White count is normal. Continue Zosyn while waiting for the PEG tube placement for recurrent aspiration pneumonia. Continue supportive care. MMODL / IJN: [id number] /
[2020-11-18 18:09] LABS: Glucose,Whole Blood 147 mg/dL (75-99)
[2020-11-18 20:35] LABS: Glucose,Whole Blood 123 mg/dL (75-99)
[2020-11-19] MEDS: KETOROLAC 15 MG/ML 1 ML VIAL IVP SCH ×4 (00:07→20:18)
[2020-11-19] MEDS: LABETALOL 5 MG/ML VIAL MDV IVP PRN ×3 (01:05→23:17)
[2020-11-19 04:09] LABS: Basophils # (A) 0.1 k/uL (0-0.2); Basophils % (A) 1 %; Eosinophils # (A) 0.4 k/uL (0-0.7); Eosinophils % (A) 4 %; HCT 41.4 % (34.0-46.0); HGB 13.7 gm/dL (11.4-16.0); Lymphocytes # (A) 1.6 k/uL (1.0-4.8); Lymphocytes % (A) 16 %; MCH 30.9 pg (25.0-35.0); MCV 93.5 fL (80.0-100.0); Mean Platelet Volume 7.1; Monocytes # (A) 0.9 k/uL (0-1.0); Monocytes % (A) 9 %; Neutrophils # (A) 6.8 k/uL (1.3-7.7); Neutrophils % (A) 69 %; Platelet Count 301 k/uL (150-450); RBC 4.43 m/uL (3.80-5.40); RDW 15.6 % (11.5-15.5)
[2020-11-19 04:23] LABS: African American GFR (CKD) >90 (>60 ml/min/1.73 sqM); Anion Gap 5 mmol/L; Blood Urea Nitrogen 9 mg/dL (7-17); Calcium 8.8 mg/dL (8.4-10.2); Carbon Dioxide 29 mmol/L (22-30); Chloride 102 mmol/L (98-107); Glucose 121 mg/dL (74-99); Magnesium 1.9 mg/dL (1.6-2.3); Non-African American GFR(CKD) >90 (>60 ml/min/1.73 sqM); Potassium 3.8 mmol/L (3.5-5.1); Sodium 136 mmol/L (137-145)
[2020-11-19] MEDS: CEFEPIME 2 GM in SODIUM CHLORIDE 0.9% 100 ML IVPB SCH ×3 (04:37→20:18)
[2020-11-19] MEDS: POTASSIUM CHLORIDE 10 MEQ in WATER FOR INJECTION 1 100ML.BAG IVPB SCH ×2 (04:37→07:38)
[2020-11-19] MEDS: MAGNESIUM SULFATE-D5W PMX 1 GM in DEXTROSE/WATER 1 100ML.BAG IVPB SCH ×2 (04:38→07:39)
--- NOTE | 2020-11-19 06:00 | P.CRDCN ---
History of Present Illness Consult date: 11/19/20 Chief complaint: Change in mental status History of present illness: This is a 24-year-old female patient who requested to see as a consult in the intensive care unit for further evaluation of bradycardia. 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 She was admitted to the hospital initially with acute bilateral aspiration pneumonia and hypoxic respiratory failure. She had history of aspiration pneumonia and she was admitted recently to [facility] and was seen by the cardiology service at that point but no details are unavailable at this point. We requested to see the patient today for further evaluation of the bradycardia. The patient was initially on the floor subsequently she developed a change in me ntal status and bradycardia. Her heart rate dipped into the 40s. Reviewing the chart I could not find any rhythm strip when the patient heart rate was in the 40s. At the same time the patient was hypoglycemic. For that reason she was transferred to the intensive care unit. She was receiving labetalol and that was held. Subsequently the patient went tachycardic with heart rate more than 120 beats per minutes. She was placed back on labetalol when necessary. The patient was seen this morning. She was slightly lethargic but according to her mother that is her baseline. She denies any dizziness or lightheadedness at this point. No feeling of any heart racing or fluttering. No symptoms of chest pain or chest discomfort. The EKG showed sinus rhythm. The rest of her blood work overall came in to be unremarkable as well. The chest x-ray showed diffuse bilateral interstitial pneumonia. Past Medical History Past Medical History: Asthma, Eye Disorder Additional Past Medical History / Comment(s): Neurofibromatosis History of Any Multi-Drug Resistant Organisms: None Reported Additional Past Surgical History / Comment(s): medi port, eye, dental Past Anesthesia/Blood Transfusion Reactions: No Reported Reaction Past Psychological History: No Psychological Hx Reported Smoking Status: Never smoker Past Alcohol Use History: None Reported Past Drug Use History: None Reported - Past Family History Mother Family Medical History: Asthma, Seizure Disorder Medications and Allergies Home Medications Medication Instructions Recorded Confirmed Type FLUoxetine HCL [PROzac] 10 mg PO DAILY 08/17/20 11/15/20 History Loratadine 10 mg PO HS 08/17/20 11/15/20 History Methylphenidate HCl [Concerta] 36 mg PO DAILY 08/17/20 11/15/20 History Montelukast [Singulair] 10 mg PO HS 08/17/20 11/15/20 History medroxyPROGESTERone [Depo-Provera] 150 mg IM Q84D 08/17/20 11/15/20 History Diclofenac Sodium Gel [Voltaren 4 gm TOPICAL QID 11/15/20 11/15/20 History Gel] Ketorolac [Toradol] 10 mg PO BID PRN 11/15/20 11/15/20 History Allergies Allergy/AdvReac Type Severity Reaction Status Date / Time acetaminophen Allergy Dyspnea Verified 11/15/20 12:07 [From Tylenol-Codeine #3] amoxicillin Allergy Rash/Hives Verified 11/15/20 12:07 codeine Allergy Dyspnea Verified 11/15/20 12:07 [From Tylenol-Codeine #3] midazolam [From Versed] AdvReac Hyper Verified 11/15/20 12:07 orange juice AdvReac Abdominal Verified 11/15/20 18:15 Pain strawberry AdvReac Abdominal Verified 11/15/20 18:15 Pain Physical Exam Vitals: Vital Signs Temp Pulse Pulse Resp BP Pulse Ox 11/19/20 04:00 98 F 91 84 26 H 137/99 97 11/19/20 02:00 84 18 124/87 95 11/19/20 00:06 113 H 28 H 166/118 97 11/19/20 00:00 98.2 F 106 H 18 146/94 96 11/18/20 23:47 86 18 11/18/20 22:00 83 18 100/53 100 11/18/20 20:00 98.2 F 91 111 H 18 190/126 100 11/18/20 18:00 73 19 125/72 97 11/18/20 16:00 97.9 F 73 18 120/80 95 11/18/20 14:00 58 L 22 129/85 97 11/18/20 12:00 98.1 F 87 15 142/94 94 L 11/18/20 10:00 84 24 121/69 99 11/18/20 08:00 97.9 F 82 14 180/111 96 11/18/20 06:00 92 23 110/56 99 Intake and Output 11/18/20 11/18/20 11/19/20 14:59 22:59 06:59 Intake Total 100 705 885 Output Total 50 710 315 Balance 50 -5 570 Intake: IV 100 705 885 Cefepime 2 gm In Sodium 175 25 Chloride 0.9% 100 ml @ 25 mls/hr IVPB Q8H [facility] Rx#: [id number] Dextrose 5% in Water 1, 480 560 000 ml In Empty Bag 1 bag @ 3.33 ML/KG/HR 146.853 mls/hr IV .Q6H49M [facility] Rx# :[id number] Sodium Chloride 0.9% 1, 100 50 300 000 ml @ 50 mls/hr IV . Q20H [facility] Rx#:[id number] Output: Urine 50 710 315 Other: Voiding Method Indwelling Catheter Indwelling Catheter Indwelling Catheter Weight 46.4 kg - Constitutional General appearance: no acute distress - Respiratory Respiratory: bilateral: diminished - Cardiovascular Rhythm: regular Heart sounds: normal: S1, S2 Abnormal Heart Sounds: systolic murmur Results 11/19/20 03:22 11/19/20 03:22 Cardiac Enzymes 11/18/20 11/18/20 Range/Units 14:13 20:14 AST 18 (14-36) U/L Troponin I <0.012 (0.000-0.034) ng/mL CBC 11/19/20 Range/Units 03:22 WBC 10.0 (3.8-10.6) k/uL RBC 4.43 (3.80-5.40) m/uL Hgb 13.7 (11.4-16.0) gm/dL Hct 41.4 (34.0-46.0) % Plt Count 301 (150-450) k/uL Comprehensive Metabolic Panel 11/18/20 11/19/20 Range/Units 14:13 03:22 Sodium 139 136 L (137-145) mmol/L Potassium 4.1 3.8 (3.5-5.1) mmol/L Chloride 104 102 (98-107) mmol/L Carbon Dioxide 26 29 (22-30) mmol/L BUN 12 9 (7-17) mg/dL Creatinine 0.41 L 0.38 L (0.52-1.04) mg/dL Glucose 169 H 121 H (74-99) mg/dL Calcium 8.4 8.8 (8.4-10.2) mg/dL AST 18 (14-36) U/L ALT 9 (4-34) U/L Alkaline Phosphatase 55 (38-126) U/L Total Protein 5.7 L (6.3-8.2) g/dL Albumin 2.8 L (3.5-5.0) g/dL Current Medications Generic Name Dose Route Start Last Admin Trade Name Freq PRN Reason Stop Dose Admin Albuterol/Ipratropium 3 ml 11/15/20 12:00 11/18/20 18:57 Ipratropium-Albuterol 3 Ml Neb INHALATION Not Given RT-QID [facility] Albuterol/Ipratropium 3 ml 11/15/20 11:43 Ipratropium-Albuterol 3 Ml Neb INHALATION RT-QID PRN Shortness Of Breath Or Wheezing Amlodipine Besylate 5 mg 11/16/20 14:45 11/18/20 09:31 Amlodipine 5 Mg Tab PO Not Given DAILY [facility] Fluoxetine HCl 10 mg 11/19/20 09:00 Fluoxetine Hcl 10 Mg Cap PO DAILY [facility] Heparin Sodium (Porcine) 5,000 unit 11/16/20 15:00 11/18/20 20:35 Heparin Sodium,Porcine/Pf 5,000 Unit/0.5 Ml Syringe SQ 5,000 unit Q12HR [facility] Administration Hydralazine HCl 10 mg 11/15/20 18:52 11/18/20 06:17 Hydralazine Hcl 20 Mg/Ml 1 Ml Vial IVP 10 mg Q6HR PRN Administration Blood Pressure - High Cefepime HCl 2 gm/ Sodium 100 mls @ 25 mls/hr 11/15/20 20:00 11/19/20 04:37 Chloride IVPB 25 mls/hr Q8H [facility] Administration Dextrose/Water 1,000 ml/ IV 1,000 mls @ 146.853 mls/hr 11/18/20 14:15 1 14:18 Solution IV 146.853 mls/hr .Q6H49M [facility] Administration 3.33 ML/KG/HR Potassium Chloride 10 meq/ IV 100 mls @ 100 mls/hr 11/19/20 04:30 11/19/20 04:37 Solution IVPB 11/19/20 06:29 100 mls/hr Q1H [facility] Administration Protocol Magnesium Sulfate/Dextrose 1 100 mls @ 100 mls/hr 11/19/20 04:30 11/19/20 04:38 gm/ IV Solution IVPB 11/19/20 06:29 100 mls/hr Q1H [facility] Administration Ketorolac Tromethamine 15 mg 11/18/20 00:00 11/19/20 00:07 Ketorolac 15 Mg/Ml 1 Ml Vial IVP 11/20/20 23:02 15 mg Q6HR [facility] Administration Labetalol HCl 20 mg 11/15/20 22:41 11/19/20 01:05 Labetalol 5 Mg/Ml Vial Mdv IVP 10 mg Q4H PRN Administration Hypertension Methylphenidate HCl 10 mg 11/19/20 08:00 Methylphenidate Hcl 10 Mg Tab PO 0800,1300 [facility] Miscellaneous Information 1 each 11/15/20 11:40 Pneumonia Protocol Utilized 1 Each Misc PO ONCE PRN Per Protocol Miscellaneous Information 1 each 11/18/20 14:43 Magnesium Replacement Protocol 1 Each Misc MISCELLANE DAILY PRN Per Protocol Protocol Miscellaneous Information 1 each 11/18/20 14:43 Potassium Replacement Protocol 1 Each Misc MISCELLANE DAILY PRN Per Protocol Protocol Pantoprazole Sodium 40 mg 11/16/20 14:45 11/18/20 08:27 Pantoprazole 40 Mg/10 Ml Vial IVP 40 mg DAILY [facility] Administration Intake and Output 11/18/20 11/18/20 11/19/20 14:59 22:59 06:59 Intake Total 100 705 885 Output Total 50 710 315 Balance 50 -5 570 Intake: IV 100 705 885 Cefepime 2 gm In Sodium 175 25 Chloride 0.9% 100 ml @ 25 mls/hr IVPB Q8H [facility] Rx#: [id number] Dextrose 5% in Water 1, 480 560 000 ml In Empty Bag 1 bag @ 3.33 ML/KG/HR 146.853 mls/hr IV .Q6H49M [facility] Rx# :[id number] Sodium Chloride 0.9% 1, 100 50 300 000 ml @ 50 mls/hr IV . Q20H [facility] Rx#:[id number] Output: Urine 50 710 315 Other: Voiding Method Indwelling Catheter Indwelling Catheter Indwelling Catheter Weight 46.4 kg Patient Weight 11/19/20 06:59 Weight 46.4 kg 11/19/20 03:22 11/19/20 03:22 Assessment and Plan Assessment: Assessment #1 bilateral aspiration pneumonia #2 hypoglycemia which has resolved #3 bradycardia which has resolved #4 neurofibromatosis #5 multiple comorbid conditions Plan #1 the bradycardia is likely to be vasovagal #2 we will rule out thyroid disease by obtaining TSH and free T4 #3 obtain the workup results from [facility] at least E echocardiogram #4 continue monitor the patient's heart rate and blood pressure #5 follow-up with the patient
[2020-11-19] MEDS: IPRATROPIUM-ALBUTEROL 3 ML NEB INHALATION SCH ×4 (07:09→19:38)
[2020-11-19] MEDS: PANTOPRAZOLE 40 MG/10 ML VIAL IVP SCH (07:37)
[2020-11-19] MEDS: HEPARIN SODIUM,PORCINE/PF 5,000 UNIT/0.5 ML SYRINGE SQ SCH ×2 (07:37→20:17)
[2020-11-19] MEDS: FLUoxetine HCL 10 MG CAP PO SCH (07:39)
[2020-11-19] MEDS: DEXTROSE 5% IN WATER 1,000 ML in EMPTY BAG 1 BAG IV SCH ×4 (07:39→17:57)
[2020-11-19] MEDS: METHYLPHENIDATE HCL 10 MG TAB PO SCH ×2 (07:39→13:01)
[2020-11-19] MEDS: amLODIPine 5 MG TAB PO SCH (07:39)
[2020-11-19 07:49] LABS: Glucose,Whole Blood 103 mg/dL (75-99)
--- NOTE | 2020-11-19 08:18 | P.PN ---
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 Cachexia and weight loss and advance protein calorie malnourishment Intractable nausea or vomiting 11/19/2020, patient seen eval examined during the rounds labs reviewed medications reviewed slightly more alert and awake, episodes of bradycardia has improved, likely related to poor by mouth intake and nutritional issues and problem, patient finally agreed for PEG tube placement, TPN is to be started in the meantime, ongoing cough intermittently is present, chest x-ray performed yesterday continue show infiltrate 11/17/2020, patient seen eval examined during the rounds labs reviewed m edications reviewed care plan discussed with the mother and grandfather present at bedside, patient is arousable opens eyes follow simple commands obvious distress is present, blood pressure is intermittently high responding to therapy, patient and the family is in agreement for PEG tube placement, currently patient remains on bronchodilator along with the antihypertensive agent for DVT prophylaxis and broad-spectrum antibiotics awaiting GI evaluation 11/16/2020, patient seen eval examined during the rounds labs reviewed medications reviewed care plan discussed with the staff, patient remains nothing by mouth speech and swallow studies are pending, however discussion with the mother reveals that patient has aspiration studies done with the speech is following [facility] and they were positive for aspiration and they recommended alternative means of feeding with PEG tube, chest x-ray performed on earlier today continue show patchy airspace disease not significantly changed from yesterday exam, she remains afebrile blood pressure is intermittently running high she is on 4 L nasal cannula was relatively stable earlier but now up to 173/122 heart rate increased 139 labetalol 20 mg IV is being given will put patient on IV Lopressor 5 mg every 12 as well and continue use labetalol as needed This is a pleasant 24-year-old female well-known to me patient has a significant past history of malignant neurofibromatosis, patient gets chemotherapy at the tertiary care center in [place], she has the 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 resulting in multiple bouts of aspiration pneumonia which affected the lung bilaterally and gets complicated with abscess requiring long- term IV therapy with PICC line, she was seen last several weeks ago in the office and was in partial agreement with PEG tube, it appears that patient has been having intermittent vomiting for the last several days started having problems with chills and fever came into the hospital for further evaluation, on arrival she was afebrile but with tachypnea and tachycardia respiratory rate is in 40s heart rate 1:30 to 140, hemodynamic status is variable but with stable blood pressure temperature low-grade 100 saturation is 95-96% on 4 L supplemental oxygen, white cell count is normal hemoglobin stable 14.6, kidney functions within normal limit, lactic acid elevated 5.3, chest x-ray significant for patchy bilateral airspace disease, computed tomography scan of the brain no acute changes seen with 5 finding compatible reviewed with neurofibromatosis calcified mass noted, computed tomography scan of the chest negative for pulmonary embolism radicular nodular density noted on both side involving upper and lower lobe, patient also has a history of recent COVID-19 pneumonia requiring hospitalization several weeks ago Objective - Vital Signs Vital signs: Vital Signs Temp 98 F 11/19/20 04:00 Pulse 92 11/19/20 06:00 Resp 18 11/19/20 06:00 BP 125/84 11/19/20 06:00 Pulse Ox 96 11/19/20 06:00 Intake & Output 11/18/20 11/19/20 11/19/20 18:59 06:59 18:59 Intake Total 410 1405 125 Output Total 170 930 120 Balance 240 475 5 Weight 46.4 kg Intake: IV 410 1405 125 Cefepime 2 gm In Sodium 100 125 25 Chloride 0.9% 100 ml @ 25 mls/hr IVPB Q8H [facility] Rx#: [id number] Dextrose 5% in Water 1, 160 880 0 000 ml In Empty Bag 1 bag @ 3.33 ML/KG/HR 146.853 mls/hr IV .Q6H49M [facility] Rx# :[id number] Magnesium Sulfate-D5w Pmx 100 1 gm In Dextrose/Water 1 100ml.bag @ 100 mls/hr IVPB Q1H [facility] Rx#: [id number] Potassium Chloride 10 meq 100 In Water For Injection 1 100ml.bag @ 100 mls/hr IVPB Q1H [facility] Rx#: [id number] Sodium Chloride 0.9% 1, 150 300 0 000 ml @ 50 mls/hr IV . Q20H [facility] Rx#:[id number] Output: Urine 170 930 120 Other: Voiding Method Indwelling Catheter Indwelling Catheter - Exam - Constitutional General appearance: average body habitus, cooperative, disheveled - EENT Eyes: EOMI, PERRLA Ears: bilateral: normal - Neck Carotids: bilateral: upstroke normal Thyroid: bilateral: normal size - Respiratory Respiratory: bilateral: diminished - Cardiovascular Rhythm: regular Heart sounds: normal: S1, S2 - Gastrointestinal General gastrointestinal: normal bowel sounds - Integumentary Integumentary: normal turgor - Neurologic Neurologic: CNII-XII intact - Musculoskeletal Musculoskeletal: generalized weakness, strength equal bilaterally - Psychiatric Psychiatric: A&O x's 3, appropriate affect - Labs CBC & Chem 7: 11/19/20 03:22 11/19/20 03:22 Labs: Abnormal Lab Results - Last 24 Hours (Table) 11/18/20 11/18/20 11/18/20 Range/Units 13:50 14:13 14:27 RDW (11.5-15.5) % Sodium (137-145) mmol/L Creatinine 0.41 L (0.52-1.04) mg/dL Glucose 169 H (74-99) mg/dL POC Glucose (mg/dL) 62 L 169 H (75-99) mg/dL Total Protein 5.7 L (6.3-8.2) g/dL Albumin 2.8 L (3.5-5.0) g/dL 11/18/20 11/18/20 11/19/20 Range/Units 18:08 20:33 03:22 RDW (11.5-15.5) % Sodium 136 L (137-145) mmol/L Creatinine 0.38 L (0.52-1.04) mg/dL Glucose 121 H (74-99) mg/dL POC Glucose (mg/dL) 147 H 123 H (75-99) mg/dL Total Protein (6.3-8.2) g/dL Albumin (3.5-5.0) g/dL 11/19/20 11/19/20 Range/Units 03:22 07:48 RDW 15.6 H (11.5-15.5) % Sodium (137-145) mmol/L Creatinine (0.52-1.04) mg/dL Glucose (74-99) mg/dL POC Glucose (mg/dL) 103 H (75-99) mg/dL Total Protein (6.3-8.2) g/dL Albumin (3.5-5.0) g/dL Microbiology - Last 24 Hours (Table) 11/15/20 10:11 Blood Culture - Preliminary Blood No Growth after 72 hours 11/15/20 09:54 Blood Culture - Preliminary Blood No Growth after 72 hours Assessment and Plan Assessment: Hypertensive urgency with sinus tachycardia, blood pressure lately better under control Intermittent bradycardia and altered mental status Sepsis likely related to bilateral pneumonia Bilateral aspiration pneumonia 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 Further plan of care as per clinical response of the patient will monitor observe patient closely, further recommendations pending
--- NOTE | 2020-11-19 09:16 | P.PN ---
Subjective Progress Note Date: 11/17/20 Feels tired. Mother was also present. Patient denies headache. Patient has failed swallow studies. Patient will need a feeding tube. Patient is much more alert and awake, able to cooperate with examination. Patient denies vertigo, dizziness. Still appears very tired. No nausea vomiting anymore. Objective - Vital Signs Vital signs: Vital Signs Temp 97.8 F 11/19/20 08:00 Pulse 86 11/19/20 08:00 Resp 12 11/19/20 08:00 BP 131/94 11/19/20 08:00 Pulse Ox 98 11/19/20 08:00 Intake & Output 11/18/20 11/19/20 11/19/20 18:59 06:59 18:59 Intake Total 410 1405 355 Output Total 170 930 160 Balance 240 475 195 Weight 46.4 kg Intake: IV 410 1405 355 Cefepime 2 gm In Sodium 100 125 25 Chloride 0.9% 100 ml @ 25 mls/hr IVPB Q8H [facility] Rx#: [id number] Dextrose 5% in Water 1, 160 880 80 000 ml In Empty Bag 1 bag @ 3.33 ML/KG/HR 146.853 mls/hr IV .Q6H49M [facility] Rx# :[id number] Magnesium Sulfate-D5w Pmx 200 1 gm In Dextrose/Water 1 100ml.bag @ 100 mls/hr IVPB Q1H [facility] Rx#: [id number] Potassium Chloride 10 meq 100 In Water For Injection 1 100ml.bag @ 100 mls/hr IVPB Q1H [facility] Rx#: [id number] Sodium Chloride 0.9% 1, 150 300 50 000 ml @ 50 mls/hr IV . Q20H [facility] Rx#:[id number] Output: Urine 170 930 160 Other: Voiding Method Indwelling Catheter Indwelling Catheter Indwelling Catheter - Exam Patient is a young female, who is much more alert and awake, following commands, participating with examination, keeps her eyes open. Still appears generalized weak. Head turn to the right. Speech speaks with a very low volume and language functions are normal. Attention, concentration and fund of knowledge is normal. On cranial examination, pupils are round and reacting to light, visual kennedy are full on confrontation, extraocular muscles reveal intact gaze to the left. However to the right there is gaze restriction. Patient has right sixth nerve palsy. Patient also has slight disconjugate gaze, with right eye going up and inside, whereas the left eye does not elevate up. No obvious nystagmus. Patient appears to have right facial weakness, peripheral type, decreased forehead wrinkling appears bilaterally, right worse. Tongue appears to have mild right hemiatrophy. Patient has decreased gag on the right. Her hearing appears normal, facial sensation normal. Shoulder shrug appears normal. Patient prefers her head to the right. On muscle strength testing, there is no pronator drift. Strength is normal in the upper limbs. In the lower limbs, hip flexion 4+, knee extension 5-4+/5-, ankle dorsiflexion 5/5. Deep tendon reflexes are (R/L) biceps 1/2+, brachioradialis 1/2+, knee 2/3, ankle 1+/2+, plantar is downgoing on the right, upon left. Sensory to touch is equal with no neglect. Cerebellar function showed mild ataxia for [id number] testing on the left. Tone and bulk of muscles normal. Gait not checked. On general examination, there is no carotid bruit or murmur, S1-S2 audible. Abdomen is soft nontender. Peripheral pulses are present. No edema. Neck is supple. - Labs CBC & Chem 7: 11/19/20 03:22 11/19/20 03:22 Labs: Abnormal Lab Results - Last 24 Hours (Table) 11/18/20 11/18/20 11/18/20 Range/Units 13:50 14:13 14:27 RDW (11.5-15.5) % Sodium (137-145) mmol/L Creatinine 0.41 L (0.52-1.04) mg/dL Glucose 169 H (74-99) mg/dL POC Glucose (mg/dL) 62 L 169 H (75-99) mg/dL Total Protein 5.7 L (6.3-8.2) g/dL Albumin 2.8 L (3.5-5.0) g/dL 11/18/20 11/18/20 11/19/20 Range/Units 18:08 20:33 03:22 RDW (11.5-15.5) % Sodium 136 L (137-145) mmol/L Creatinine 0.38 L (0.52-1.04) mg/dL Glucose 121 H (74-99) mg/dL POC Glucose (mg/dL) 147 H 123 H (75-99) mg/dL Total Protein (6.3-8.2) g/dL Albumin (3.5-5.0) g/dL 11/19/20 11/19/20 Range/Units 03:22 07:48 RDW 15.6 H (11.5-15.5) % Sodium (137-145) mmol/L Creatinine (0.52-1.04) mg/dL Glucose (74-99) mg/dL POC Glucose (mg/dL) 103 H (75-99) mg/dL Total Protein (6.3-8.2) g/dL Albumin (3.5-5.0) g/dL Microbiology - Last 24 Hours (Table) 11/15/20 10:11 Blood Culture - Preliminary Blood No Growth after 72 hours 11/15/20 09:54 Blood Culture - Preliminary Blood No Growth after 72 hours Assessment and Plan Assessment: * Altered mental status, possible toxic metabolic encephalopathy, much improved. Mentation is normal. 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 * Bilateral Aspiration pneumonia, possible lung abscess * Dysphagia, failed swallow study due to multiple cranial nerve palsy. * Possible nutritional deficiency * Hypertension Plan: * Recommend patient undergo MRI of the brain with and without contrast when possible. This can be done through her oncologist as an outpatient. Patient's last MRI was in October 2020. It probably is time to repeat MRI of the brain. Discussed with patient's mother, who will discuss with her oncologist about it. * EEG was mildly abnormal due to poorly reactive background and excessive fast frequency beta activity. This is suggestive of mild generalized cerebral dysfunction, may be related to medication effect. No epileptiform activity was seen. * B12 471, folate 20.6, hemoglobin A1c 5.2, MMA <0.10, B6, B1 are still pending. * Patient's mother brought previous MRI for comparison. The MRI from 09/13/2019 was reviewed with current computed tomography scan of the head by the radiologist Dr. Leavitt. 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 The left cerebellar calcification appears similar to MRI. The extent of the left thalamic calcification appears better visualized on the MRI. Suprasellar calcification appears stable. Significant interval growth of these structures is not evident. * Patient's diet is held because of dysphagia and aspiration pneumonia. Patient to undergo gastrostomy tube placement on Friday.
--- NOTE | 2020-11-19 09:20 | P.PN ---
Subjective Progress Note Date: 11/18/20 Patient was seen via tele-neurology. Patient's mother was also present. Patient offers no new complaints. She states she feels "so-so". Patient denies headache. Patient has failed swallow studies. Patient is nothing by mouth. Patient will need a feeding tube. Patient denies vertigo, dizziness. Still appears very tired. No nausea vomiting anymore. Objective - Vital Signs Vital signs: Vital Signs Temp 97.8 F 11/19/20 08:00 Pulse 86 11/19/20 08:00 Resp 12 11/19/20 08:00 BP 131/94 11/19/20 08:00 Pulse Ox 98 11/19/20 08:00 Intake & Output 11/18/20 11/19/20 11/19/20 18:59 06:59 18:59 Intake Total 410 1405 585 Output Total 170 930 190 Balance 240 475 395 Weight 46.4 kg Intake: IV 410 1405 485 Cefepime 2 gm In Sodium 100 125 25 Chloride 0.9% 100 ml @ 25 mls/hr IVPB Q8H [facility] Rx#: [id number] Dextrose 5% in Water 1, 160 880 160 000 ml In Empty Bag 1 bag @ 3.33 ML/KG/HR 146.853 mls/hr IV .Q6H49M [facility] Rx# :[id number] Magnesium Sulfate-D5w Pmx 200 1 gm In Dextrose/Water 1 100ml.bag @ 100 mls/hr IVPB Q1H [facility] Rx#: [id number] Potassium Chloride 10 meq 100 In Water For Injection 1 100ml.bag @ 100 mls/hr IVPB Q1H [facility] Rx#: [id number] Sodium Chloride 0.9% 1, 150 300 100 000 ml @ 50 mls/hr IV . Q20H [facility] Rx#:[id number] Intake, IV Titration 100 Amount Potassium Chloride 10 meq 100 In Water For Injection 1 100ml.bag @ 100 mls/hr IVPB Q1H [facility] Rx#: [id number] Output: Urine 170 930 190 Other: Voiding Method Indwelling Catheter Indwelling Catheter Indwelling Catheter - Exam Not performed today except for general exam. Examination from yesterday as below. Patient is a young female, who is much more alert and awake, following commands, participating with examination, keeps her eyes open. Still appears generalized weak. Head turn to the right. Speech speaks with a very low volume and language functions are normal. Attention, concentration and fund of knowledge is normal. On cranial examination, pupils are round and reacting to light, visual kennedy are full on confrontation, extraocular muscles reveal intact gaze to the left. However to the right there is gaze restriction. Patient has right sixth nerve palsy. Patient also has slight disconjugate gaze, with right eye going up and inside, whereas the left eye does not elevate up. No obvious nystagmus. Patient appears to have right facial weakness, peripheral type, decreased forehead wrinkling appears bilaterally, right worse. Tongue appears to have mild right hemiatrophy. Patient has decreased gag on the right. Her hearing a ppears normal, facial sensation normal. Shoulder shrug appears normal. Patient prefers her head to the right. On muscle strength testing, there is no pronator drift. Strength is normal in the upper limbs. In the lower limbs, hip flexion 4+, knee extension 5-4+/5-, ankle dorsiflexion 5/5. Deep tendon reflexes are (R/L) biceps 1/2+, brachioradialis 1/2+, knee 2/3, ankle 1+/2+, plantar is downgoing on the right, upon left. Sensory to touch is equal with no neglect. Cerebellar function showed mild ataxia for [id number] testing on the left. Tone and bulk of muscles normal. Gait not checked. On general examination, there is no carotid bruit or murmur, S1-S2 audible. Abdomen is soft nontender. Peripheral pulses are present. No edema. Neck is supple. - Labs CBC & Chem 7: 11/19/20 03:22 11/19/20 03:22 Labs: Abnormal Lab Results - Last 24 Hours (Table) 11/18/20 11/18/20 11/18/20 Range/Units 13:50 14:13 14:27 RDW (11.5-15.5) % Sodium (137-145) mmol/L Creatinine 0.41 L (0.52-1.04) mg/dL Glucose 169 H (74-99) mg/dL POC Glucose (mg/dL) 62 L 169 H (75-99) mg/dL Total Protein 5.7 L (6.3-8.2) g/dL Albumin 2.8 L (3.5-5.0) g/dL 11/18/20 11/18/20 11/19/20 Range/Units 18:08 20:33 03:22 RDW (11.5-15.5) % Sodium 136 L (137-145) mmol/L Creatinine 0.38 L (0.52-1.04) mg/dL Glucose 121 H (74-99) mg/dL POC Glucose (mg/dL) 147 H 123 H (75-99) mg/dL Total Protein (6.3-8.2) g/dL Albumin (3.5-5.0) g/dL 11/19/20 11/19/20 Range/Units 03:22 07:48 RDW 15.6 H (11.5-15.5) % Sodium (137-145) mmol/L Creatinine (0.52-1.04) mg/dL Glucose (74-99) mg/dL POC Glucose (mg/dL) 103 H (75-99) mg/dL Total Protein (6.3-8.2) g/dL Albumin (3.5-5.0) g/dL Microbiology - Last 24 Hours (Table) 11/15/20 10:11 Blood Culture - Preliminary Blood No Growth after 72 hours 11/15/20 09:54 Blood Culture - Preliminary Blood No Growth after 72 hours Assessment and Plan Assessment: * Altered mental status, possible toxic metabolic encephalopathy, much improved. Mentation is normal. 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 * Bilateral Aspiration pneumonia, possible lung abscess * Dysphagia, failed swallow study due to multiple cranial nerve palsy. * Possible nutritional deficiency * Hypertension Plan: * Recommend patient undergo MRI of the brain with and without contrast when possible. This can be done through her oncologist as an outpatient. Patient's last MRI was in October 2020. It probably is time to repeat MRI of the brain. Discussed with patient's mother, who will discuss with her oncologist about it. * EEG was mildly abnormal due to poorly reactive background and excessive fast frequency beta activity. This is suggestive of mild generalized cerebral dysfunction, may be related to medication effect. No epileptiform activity was seen. * B12 471, folate 20.6, hemoglobin A1c 5.2, MMA <0.10, B6, B1 are still pending. * Patient's mother brought previous MRI for comparison. The MRI from 09/13/2019 was reviewed with current computed tomography scan of the head by the radiologist Dr. Leavitt. 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 The left cerebellar calcification appears similar to MRI. The extent of the left thalamic calcification appears better visualized on the MRI. Suprasellar calcification appears stable. Significant interval growth of these structures is not evident. * Patient's diet is held because of dysphagia and aspiration pneumonia. Patient to undergo gastrostomy tube placement on Friday.
--- NOTE | 2020-11-19 10:10 | XR ---
EXAMINATION TYPE: XR chest 1V portable DATE OF EXAM: 11/19/2020 COMPARISON: 11/18/2020 INDICATION: Short of breath TECHNIQUE: Single frontal view of the chest is obtained. FINDINGS: The heart size is normal. The pulmonary vasculature is upper limits of normal. Scattered mild infiltrate is present diffusely. Findings appear similar to comparison. There are some calcifications over the left lower lung field this is an interval finding from 08/18/19 21, consider mammography to evaluate for breast neoplasm. IMPRESSION: 1. Mild diffuse infiltrate is nonspecific. Consider atypical pneumonia. 2. Calcifications in the left lower lung field on the frontal projection. Recommend additional workup , CT chest could be performed to evaluate for intrathoracic calcifications. These aren't interval fin ding from 08/17/2020, breast neoplasm, while unusual in this age group, should be considered.
[2020-11-19] MEDS: hydrALAZINE HCL 20 MG/ML 1 ML VIAL IVP PRN (12:42)
--- NOTE | 2020-11-19 15:16 | PN ---
PROGRESS NOTE DATE OF SERVICE: 11/19/2020 REASON FOR FOLLOWUP: Pneumonia. INTERVAL HISTORY: The patient is afebrile. The patient is hemodynamically stable. No further bradyarrhythmia has been reported by nursing staff. No pressor support. She is currently on 100% on room air. She is breathing comfortably. She did have some cough, not bringing any sputum. No vomiting or diarrhea has been reported by the mother at the bedside. PHYSICAL EXAMINATION: Blood pressure 96/52 with a pulse of 109, temperature 98.2. She is 96% on room air. General description is a middle-aged female lying in bed in no distress. Respiratory system: Unlabored breathing, decreased breath sounds at the bases, no wheezes. Heart S1, S2. Regular rate and rhythm. Abdomen is soft, no tenderness. LABS: Hemoglobin is 13.7, white count 10.0, BUN of 9, creatinine 0.38. Blood culture has been negative so far. DIAGNOSTIC IMPRESSION AND PLAN: Patient admitted to the hospital with vomiting and concern for recurrent aspiration pneumonia with a history of recurrent aspiration pneumonitis. Patient is covered with cefepime with overall improvement in respiratory system. Continue and try to obtain a sputum and monitor clinical course closely. MMODL / IJN: [id number] /
--- NOTE | 2020-11-19 17:39 | P.PN ---
Subjective Progress Note Date: 11/19/20 CHIEF COMPLAINT: Neurofibromatosis HISTORY OF PRESENT ILLNESS: The patient is a 24-year-old female with neurofibromatosis and has chronic dysphagia and aspiration. New events included prolonged pauses on cardiac rhythm strip. Cardiology is following. Patient is on NPO diet for aspiration. ROS: No fevers or chills. No nausea or vomiting. She is underweight. BMI 16.7. PHYSICAL EXAM: VITAL SIGNS: Reviewed CONSTITUTIONAL: Well developed and in no acute distress. EYES: Conjuctivae without sclera icterus. Extraocular movements grossly intact. HEAD, EARS, NOSE, THROAT: Moist buccal mucosa. Head is atraumatic, normocephalic. Hears conversational speech. No nasal drainage. Facial asymmetry from neurofibromatosis NECK: No jugular venous distention. RESPIRATORY: Non-labored respirations and equal bilateral excursions. CARDIOVASCULAR: Palpable 2+ radial pulses. ABDOMEN: Scaphoid MUSCULOSKELETAL: No gross deformity of the lower extremities noted. No clubbing. No cyanosis. SKIN: Good skin turgor. Well perfused. NEUROLOGIC: Cranial nerves II through XII grossly intact. No focal or lateralizing signs. PSYCH: Appropriate affect. Alert and oriented to person, place and time. CLINICAL LABS: Reviewed. ASSESSMENT: 1. Neurofibromatosis 2. History of chronic aspiration and dysphagia 3. History of cardiac prolonged pauses on rhythm strip PLAN: 1. Patient is elevated risk for complications following gastrostomy tube placement due to long cardiac pauses. 2. Cardiology following Objective - Vital Signs Vital signs: Vital Signs Temp 98.0 F 11/19/20 16:00 Pulse 89 11/19/20 17:00 Resp 21 11/19/20 17:00 BP 125/91 11/19/20 17:00 Pulse Ox 96 11/19/20 17:00 Intake & Output 11/18/20 11/19/20 11/19/20 18:59 06:59 18:59 Intake Total 410 1405 1375 Output Total 988 946 3002 Balance 240 475 285 Weight 46.4 kg Intake: IV 410 1405 1195 Cefepime 2 gm In Sodium 100 125 125 Chloride 0.9% 100 ml @ 25 mls/hr IVPB Q8H [facility] Rx#: [id number] Dextrose 5% in Water 1, 160 880 720 000 ml In Empty Bag 1 bag @ 3.33 ML/KG/HR 146.853 mls/hr IV .Q6H49M [facility] Rx# :[id number] Magnesium Sulfate-D5w Pmx 200 1 gm In Dextrose/Water 1 100ml.bag @ 100 mls/hr IVPB Q1H [facility] Rx#: [id number] Potassium Chloride 10 meq 100 In Water For Injection 1 100ml.bag @ 100 mls/hr IVPB Q1H [facility] Rx#: [id number] Sodium Chloride 0.9% 1, 150 300 150 000 ml @ 50 mls/hr IV . Q20H [facility] Rx#:[id number] Intake, IV Titration 180 Amount Dextrose 5% in Water 1, 80 000 ml In Empty Bag 1 bag @ 3.33 ML/KG/HR 146.853 mls/hr IV .Q6H49M [facility] Rx# :[id number] Potassium Chloride 10 meq 100 In Water For Injection 1 100ml.bag @ 100 mls/hr IVPB Q1H [facility] Rx#: [id number] Output: Urine 231 672 6214 Other: Voiding Method Indwelling Catheter Indwelling Catheter Indwelling Catheter - Labs CBC & Chem 7: 11/19/20 03:22 11/19/20 03:22 Labs: Abnormal Lab Results - Last 24 Hours (Table) 11/18/20 11/18/20 11/19/20 Range/Units 18:08 20:33 03:22 RDW (11.5-15.5) % Sodium 136 L (137-145) mmol/L Creatinine 0.38 L (0.52-1.04) mg/dL Glucose 121 H (74-99) mg/dL POC Glucose (mg/dL) 147 H 123 H (75-99) mg/dL 11/19/20 11/19/20 Range/Units 03:22 07:48 RDW 15.6 H (11.5-15.5) % Sodium (137-145) mmol/L Creatinine (0.52-1.04) mg/dL Glucose (74-99) mg/dL POC Glucose (mg/dL) 103 H (75-99) mg/dL Microbiology - Last 24 Hours (Table) 11/15/20 10:11 Blood Culture - Preliminary Blood No Growth after 96 hours 11/15/20 09:54 Blood Culture - Preliminary Blood No Growth after 96 hours Assessment and Plan (1) Aspiration pneumonia Current Visit: Yes Status: Acute Code(s): J69.0 - PNEUMONITIS DUE TO INHALATION OF FOOD AND VOMIT SNOMED Code(s): 667130418 (2) Dehydration Current Visit: Yes Status: Acute Code(s): E86.0 - DEHYDRATION SNOMED Code(s): 04352025 (3) Neurofibromatosis Current Visit: Yes Status: Acute Code(s): Q85.00 - NEUROFIBROMATOSIS, UNSPECIFIED SNOMED Code(s): 33205757 (4) Underweight Current Visit: Yes Status: Acute Code(s): R63.6 - UNDERWEIGHT SNOMED Code(s): 056560845 (5) Body mass index (BMI) less than 16.5 Current Visit: Yes Status: Acute Code(s): Z68.1 - BODY MASS INDEX [BMI] 19.9 OR LESS, ADULT SNOMED Code(s): 072029549
--- NOTE | 2020-11-19 20:27 | PN ---
PROGRESS NOTE DATE OF SERVICE: 11/19/2020 This 24-year-old woman who was admitted with change in mental status as well as bilateral aspiration pneumonia and sepsis is being closely monitored. The patient is much more alert today. The patient is still monitored in ICU. The cultures are negative at this time. Multiple consultants are following the patient. Patient has hyponatremia. PAST MEDICAL HISTORY: Reviewed. REVIEW OF SYMPTOMS: Could not be taken. CURRENT MEDICATIONS: Reviewed and include: DuoNeb, Norvasc, cefepime, Prozac, heparin. Doses reviewed. Other medications reviewed. PHYSICAL EXAMINATION: Patient is stuporous, pulse 110, blood pressure 161/113, respiration 13, temperature is 98 degrees, pulse ox 97% on 3 L. HEENT: Conjunctivae normal. Neck: No JVD. Cardiovascular: S1, S2 muffled. Respiratory: Breath sounds diminished at the bases. Scattered rhonchi and crackles. Abdomen: Soft, nontender. Legs are no edema. No swelling. Nervous system: Diffusely weak. LAB STUDIES: WBC 10, hemoglobin 13.7. Sodium 136. NG tube in situ. Other labs are noted. Chest x- ray reviewed. ASSESSMENT: 1. Acute bilateral aspiration pneumonia with acute hypoxic respiratory failure and sepsis, present on admission. 2. Change in mental status, acute metabolic acidosis secondary to sepsis, present on admission, dysphagia and aspiration for PEG tube. 3. Accelerated hypertension. 4. Labile hypertension. 5. Bradycardia, possibly sinus. 6. History of recent lung abscess on the left side. 7. History of recent COVID-19 pneumonia. 8. History of neurofibromatosis type 2. 9. On Avastin through right Port-A-Cath. 10.History of brain tumor related to neurofibromatosis type 2. 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 12.Elevated D-dimer without any evidence of pulmonary embolism. 13.Diabetes mellitus type 2 with elevated blood sugars. 14.Severe protein calorie malnutrition with body mass index of 15.4. 15.FULL CODE. RECOMMENDATIONS AND DISCUSSION: Continue current medications, management and symptomatic treatment. Continue with antibiotics. Continue the bronchodilators. Otherwise, closely follow with surgery for possible PEG tube. Guarded prognosis because of multiple complex medical issues. Further recommendations to follow. MMODL / IJN: [id number] /
[2020-11-20] MEDS: KETOROLAC 15 MG/ML 1 ML VIAL IVP SCH ×4 (02:57→18:34)
[2020-11-20] MEDS: CEFEPIME 2 GM in SODIUM CHLORIDE 0.9% 100 ML IVPB SCH ×3 (03:01→20:04)
[2020-11-20 04:16] LABS: Basophils # (A) 0.1 k/uL (0-0.2); Basophils % (A) 1 %; Eosinophils # (A) 0.4 k/uL (0-0.7); Eosinophils % (A) 4 %; HCT 44.5 % (34.0-46.0); HGB 14.5 gm/dL (11.4-16.0); Hypochromasia Slight; Lymphocytes # (A) 1.4 k/uL (1.0-4.8); Lymphocytes % (A) 15 %; MCH 31.3 pg (25.0-35.0); MCHC 32.5 g/dL (31.0-37.0); MCV 96.1 fL (80.0-100.0); Mean Platelet Volume 7.1; Monocytes # (A) 0.8 k/uL (0-1.0); Monocytes % (A) 8 %; Neutrophils # (A) 6.7 k/uL (1.3-7.7); Neutrophils % (A) 69 %; Platelet Count 276 k/uL (150-450); RBC 4.63 m/uL (3.80-5.40); RDW 15.5 % (11.5-15.5); WBC 9.7 k/uL (3.8-10.6)
[2020-11-20 04:18] LABS: African American GFR (CKD) >90 (>60 ml/min/1.73 sqM); Anion Gap 5 mmol/L; Blood Urea Nitrogen 5 mg/dL (7-17); Calcium 8.9 mg/dL (8.4-10.2); Carbon Dioxide 33 mmol/L (22-30); Chloride 100 mmol/L (98-107); Glucose 113 mg/dL (74-99); Non-African American GFR(CKD) >90 (>60 ml/min/1.73 sqM); Potassium 3.9 mmol/L (3.5-5.1); Sodium 138 mmol/L (137-145)
[2020-11-20] MEDS: DEXTROSE 5% IN WATER 1,000 ML in EMPTY BAG 1 BAG IV SCH ×3 (05:37→13:30)
[2020-11-20] MEDS: POTASSIUM CHLORIDE 10 MEQ in WATER FOR INJECTION 1 100ML.BAG IVPB SCH ×2 (05:38→06:47)
[2020-11-20 07:25] LABS: Glucose,Whole Blood 95 mg/dL (75-99)
[2020-11-20] MEDS: PANTOPRAZOLE 40 MG/10 ML VIAL IVP SCH (07:33)
[2020-11-20] MEDS: hydrALAZINE HCL 20 MG/ML 1 ML VIAL IVP PRN ×2 (07:33→13:36)
[2020-11-20] MEDS: HEPARIN SODIUM,PORCINE/PF 5,000 UNIT/0.5 ML SYRINGE SQ SCH ×2 (07:33→20:04)
[2020-11-20] MEDS: amLODIPine 5 MG TAB PO SCH (07:34)
[2020-11-20] MEDS: FLUoxetine HCL 10 MG CAP PO SCH (07:34)
[2020-11-20] MEDS: METHYLPHENIDATE HCL 10 MG TAB PO SCH ×2 (07:34→12:15)
[2020-11-20] MEDS: IPRATROPIUM-ALBUTEROL 3 ML NEB INHALATION SCH ×4 (07:49→19:00)
--- NOTE | 2020-11-20 08:16 | XR ---
EXAMINATION TYPE: XR chest 1V portable DATE OF EXAM: 11/20/2020 COMPARISON: Chest x-ray 11/19/2020 HISTORY: Shortness of breath TECHNIQUE: Single frontal view of the chest is obtained. FINDINGS: Port-A-Cath is stable. There are overlying artifacts. No evident pneumothorax or pleural e ffusion. Azygos lobe is present. Cardiac mediastinal silhouette is stable. Punctate metallic densitie s over the left lower chest again seen. Bone mineralization is unchanged. Interstitium appears promin ently. IMPRESSION: Findings are similar to prior exam.
--- NOTE | 2020-11-20 09:00 | P.PN ---
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 Cachexia and weight loss and advance protein calorie malnourishment Intractable nausea or vomiting 11/20/2020, patient seen eval reexamined during the rounds awake and alert sitting upright on the bed breathing comfortably, intermittent bouts of coughing is present which is mostly nonproductive, hemodynamic status is much improved now patient is getting D5 appears to be helping, last chest performed overall remains stable, patient is scheduled for PEG tube later on today remains nothing by mouth, given that hemodynamic status stable renal transfer the patient post PEG tube to telemetry bed, 11/19/2020, patient seen eval examined during the rounds labs reviewed medications reviewed slightly more alert and awake, episodes of bradycardia has improved, likely related to poor by mouth intake and nutritional issues and problem, patient finally agreed for PEG tube placement, TPN is to be started in the meantime, ongoing cough intermittently is present, chest x-ray performed yesterday continue show infiltrate 11/17/2020, patient seen eval examined during the rounds labs reviewed m edications reviewed care plan discussed with the mother and grandfather present at bedside, patient is arousable opens eyes follow simple commands obvious distress is present, blood pressure is intermittently high responding to therapy, patient and the family is in agreement for PEG tube placement, currently patient remains on bronchodilator along with the antihypertensive agent for DVT prophylaxis and broad-spectrum antibiotics awaiting GI evaluation 11/16/2020, patient seen eval examined during the rounds labs reviewed medications reviewed care plan discussed with the staff, patient remains nothing by mouth speech and swallow studies are pending, however discussion with the mother reveals that patient has aspiration studies done with the speech is following [facility] and they were positive for aspiration and they recommended alternative means of feeding with PEG tube, chest x-ray performed on earlier today continue show patchy airspace disease not significantly changed from yesterday exam, she remains afebrile blood pressure is intermittently running high she is on 4 L nasal cannula was relatively stable earlier but now up to 173/122 heart rate increased 139 labetalol 20 mg IV is being given will put patient on IV Lopressor 5 mg every 12 as well and continue use labetalol as needed This is a pleasant 24-year-old female well-known to me patient has a significant past history of malignant neurofibromatosis, patient gets chemotherapy at the tertiary care center in [place], she has the 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 resulting in multiple bouts of aspiration pneumonia which affected the lung bilaterally and gets complicated with abscess requiring long- term IV therapy with PICC line, she was seen last several weeks ago in the office and was in partial agreement with PEG tube, it appears that patient has been having intermittent vomiting for the last several days started having problems with chills and fever came into the hospital for further evaluation, on arrival she was afebrile but with tachypnea and tachycardia respiratory rate is in 40s heart rate 1:30 to 140, hemodynamic status is variable but with stable blood pressure temperature low-grade 100 saturation is 95-96% on 4 L supplemental oxygen, white cell count is normal hemoglobin stable 14.6, kidney functions within normal limit, lactic acid elevated 5.3, chest x-ray significant for patchy bilateral airspace disease, computed tomography scan of the brain no acute changes seen with 5 finding compatible reviewed with neurofibromatosis calcified mass noted, computed tomography scan of the chest negative for pulmonary embolism radicular nodular density noted on both side involving upper and lower lobe, patient also has a history of recent COVID-19 pneumonia requiring hospitalization several weeks ago Objective - Vital Signs Vital signs: Vital Signs Temp 99.2 F 11/20/20 08:00 Pulse 92 11/20/20 08:00 Resp 8 L 11/20/20 08:00 BP 86/50 11/20/20 08:00 Pulse Ox 96 11/20/20 08:00 Intake & Output 11/19/20 11/20/20 11/20/20 18:59 06:59 18:59 Intake Total 1535 520 160 Output Total 1090 1000 400 Balance 445 -480 -240 Weight 43.6 kg Intake: IV 1355 520 160 Cefepime 2 gm In Sodium 125 Chloride 0.9% 100 ml @ 25 mls/hr IVPB Q8H [facility] Rx#: [id number] Dextrose 5% in Water 1, 880 320 160 000 ml In Empty Bag 1 bag @ 3.33 ML/KG/HR 146.853 mls/hr IV .Q6H49M [facility] Rx# :[id number] Magnesium Sulfate-D5w Pmx 200 1 gm In Dextrose/Water 1 100ml.bag @ 100 mls/hr IVPB Q1H [facility] Rx#: [id number] Sodium Chloride 0.9% 1, 150 200 000 ml @ 50 mls/hr IV . Q20H [facility] Rx#:[id number] Intake, IV Titration 180 Amount Dextrose 5% in Water 1, 80 000 ml In Empty Bag 1 bag @ 3.33 ML/KG/HR 146.853 mls/hr IV .Q6H49M [facility] Rx# :[id number] Potassium Chloride 10 meq 100 In Water For Injection 1 100ml.bag @ 100 mls/hr IVPB Q1H [facility] Rx#: [id number] Output: Urine 1090 1000 400 Other: Voiding Method Indwelling Catheter Indwelling Catheter # Voids 0 - Exam - Constitutional General appearance: average body habitus, cooperative, disheveled - EENT Eyes: EOMI, PERRLA Ears: bilateral: normal - Neck Carotids: bilateral: upstroke normal Thyroid: bilateral: normal size - Respiratory Respiratory: bilateral: diminished - Cardiovascular Rhythm: regular Heart sounds: normal: S1, S2 - Gastrointestinal General gastrointestinal: normal bowel sounds - Integumentary Integumentary: normal turgor - Neurologic Neurologic: CNII-XII intact - Musculoskeletal Musculoskeletal: generalized weakness, strength equal bilaterally - Psychiatric Psychiatric: A&O x's 3, appropriate affect - Labs CBC & Chem 7: 11/20/20 02:52 11/20/20 02:52 Labs: Abnormal Lab Results - Last 24 Hours (Table) 11/20/20 Range/Units 02:52 Carbon Dioxide 33 H (22-30) mmol/L BUN 5 L (7-17) mg/dL Glucose 113 H (74-99) mg/dL Microbiology - Last 24 Hours (Table) 11/15/20 10:11 Blood Culture - Preliminary Blood No Growth after 96 hours 11/15/20 09:54 Blood Culture - Preliminary Blood No Growth after 96 hours Assessment and Plan Assessment: Intermittent bradycardia and altered mental status, significantly improved now Sepsis likely related to bilateral pneumonia, on therapy Bilateral aspiration pneumonia with recurrent multiple episodes in the last 6 months patient is for PEG tube 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 Cachexia and weight loss and advance protein calorie malnourishment Intractable nausea or vomiting Plan: Continue patient on D5, we will start to feed tomorrow Patient can be downgraded if remains stable consider discharge planning in 48-72 hours Continued broad-spectrum antibiotics, can be switched Y PEG tube Continue IV hydralazine as needed For PEG tube later on today Swallow evaluation and studies results reviewed, multiple studies shows consistent results Continue gentle rehydration Further plan of care as per clinical response of the patient will monitor observe patient closely, further recommendations pending Patient can be discharged in 48-72 hours remains stable and tolerating tube feed well with follow-up in the office next week Time with Patient: Greater than 30
--- NOTE | 2020-11-20 13:07 | P.PN ---
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 She follows in the office with Dr. Nelson. Cardiology requested to see as a consult in the intensive care unit for further evaluation of bradycardia. She was admitted to the hospital initially with acute bilateral aspiration pneumonia and hypoxic respiratory failure. She was admitted recently 09/22- to [facility] with increased shortness of breath and congestion, lay brother consultation due to mildly elevated cardiac enzymes. Elevated troponin was related to sepsis and hypoxia. Echocardiogram on 09/22/2020 revealed EF of 55-60% without significant valvular disease. Patient seen and examined at bedside. She was slightly lethargic but according to her mother that is her baseline. Patient without any further episodes of bradycardia sine 11/18/20. Blood pressure 102/63, heart rate 115, afebrile, maintaining oxygen saturations on 3 L nasal cannula. Patient's plan is to go for PEG tube placement today. Telemetry reviewed, patient in sinus mechanism HR 70- 115. Laboratory data reviewed CBC unremarkable, sodium 138, potassium 3.9, BUN 5, serum crit in 0.55, TSH within normal limits. Patient currently maintained on amlodipine 5 mg daily, labetalol 20 mg IV push when necessary. Patient not receiving amlodipine at this time due to NPO status. GENERAL: In no acute distress NECK: Supple without JVD or thyromegaly. LUNGS: Breath diminished in the bilateral bases. Respiration equal and unlabored. No wheezes, rales or rhonchi. HEART: Regular rate and rhythm without murmurs, rubs or gallops. S1 and S2 heard. EXTREMITIES: No edema. No clubbing or cyanosis. Peripheral pulses intact. NEURO: ASSESSMENT: Bilateral aspiration pneumonia Sinus bradycardia which has resolved History of neurofibromatosis Right sided vocal cord paralysis Hypertension History of Asthma History of juvenile arthritis PLAN: Patient's echocardiogram from [facility] revealed EF of 55-60% without significant valvular disease. From cardiology perspective, we will continue current medical regimen, plan for PEG today with surgery. From cardiology standpoint, patient may proceed with surgery with no additional cardiac testing or procedures Continue monitor the patient's heart rate and blood pressure Further recommendations based on clinical course Objective - Vital Signs Vital signs: Vital Signs Temp 99.2 F 11/20/20 08:00 Pulse 115 H 11/20/20 09:00 Resp 10 L 11/20/20 09:00 BP 102/63 11/20/20 09:00 Pulse Ox 98 11/20/20 09:00 Intake & Output 11/19/20 11/20/20 11/20/20 18:59 06:59 18:59 Intake Total 1535 520 240 Output Total 1090 1000 400 Balance 445 -480 -160 Weight 43.6 kg Intake: IV 1355 520 240 Cefepime 2 gm In Sodium 125 Chloride 0.9% 100 ml @ 25 mls/hr IVPB Q8H [facility] Rx#: [id number] Dextrose 5% in Water 1, 880 320 240 000 ml In Empty Bag 1 bag @ 3.33 ML/KG/HR 146.853 mls/hr IV .Q6H49M [facility] Rx# :[id number] Magnesium Sulfate-D5w Pmx 200 1 gm In Dextrose/Water 1 100ml.bag @ 100 mls/hr IVPB Q1H [facility] Rx#: [id number] Sodium Chloride 0.9% 1, 150 200 000 ml @ 50 mls/hr IV . Q20H [facility] Rx#:[id number] Intake, IV Titration 180 Amount Dextrose 5% in Water 1, 80 000 ml In Empty Bag 1 bag @ 3.33 ML/KG/HR 146.853 mls/hr IV .Q6H49M [facility] Rx# :[id number] Potassium Chloride 10 meq 100 In Water For Injection 1 100ml.bag @ 100 mls/hr IVPB Q1H [facility] Rx#: [id number] Output: Urine 1090 1000 400 Other: Voiding Method Indwelling Catheter Indwelling Catheter # Voids 0 - Labs CBC & Chem 7: 11/20/20 02:52 11/20/20 02:52 Labs: Abnormal Lab Results - Last 24 Hours (Table) 11/20/20 Range/Units 02:52 Carbon Dioxide 33 H (22-30) mmol/L BUN 5 L (7-17) mg/dL Glucose 113 H (74-99) mg/dL Microbiology - Last 24 Hours (Table) 11/15/20 10:11 Blood Culture - Preliminary Blood No Growth after 96 hours 11/15/20 09:54 Blood Culture - Preliminary Blood No Growth after 96 hours
--- NOTE | 2020-11-20 13:46 | P.PN ---
Subjective Progress Note Date: 11/20/20 This is a 24-year-old female who was recently admitted with change in mental status and also possible acute bilateral pneumonia along with sepsis present on admission and is being closely monitored. Patient continues to be in the ICU with multiple medical consultations following. Pulmonary inventory assistant Dr. Bae following along with infectious disease and neurology and a consult was placed for general surgery as patient underwent swallow eval and failed and has been having difficulty with aspiration even in the outpatient setting with her primary specialist. Patient initially was reluctant for PEG tube per family at the bedside although they are now requesting this and the patient is agreeable. Patient continues to have shortness of breath and is maintained on 2-3 L of oxygen via nasal cannula and continues to be streaming dyspneic with minimal exertion and tachypneic as well. Patient had one episode of low-grade intermittent temp last night into this morning of 99.3 and continues on IV antibiotic therapy with infectious disease following closely. Patient continues on IV cefepime. Potassium slightly low this morning at 3.4 and will replace per protocol and monitor closely with repeat labs in the morning. Patient continues to have hypertension and is maintained on IV push Labetolol. 11/20/2020 Patient is seen and evaluated in follow-up this morning mother continues to be at the bedside. Patient is alert and oriented 3 and awake currently playing on her phone. Patient continues to be nothing by mouth and plans are for PEG tube placement was surgery this morning. Multiple medical consultations following and if patient remains stable status post procedure considering transferring out of the ICU to [facility]. Patient will continue with nothing by mouth until cleared by surgery to initiate PEG tube feedings. White blood count is 9.7, hemoglobin is 14.5, sodium is 138 with a potassium of 3.9 and current creatinine is 0.55. She continues to have a dry hacking cough and unable to expectorate any phlegm. Per mother at the bedside this is chronic. Patient denies any chest pain or worsening shortness of breath. Patient continues to have right lower quadrant abdominal discomfort on palpation. Patient is urinating and passing gas but no reports of bowel movements. Blood pressure continues to be elevated today and continued on labetalol along with IV hydralazine and will continue. Review of systems: Constitutional: no reports of fatigue, occasional low-grade fever, no reports of chills Cardiovascular: No reports of chest pain or palpitations Respiratory: reports dry hacking cough, and denies worsening shortness of breath GI: No reports of nausea, vomiting, or diarrhea : No reports of dysuria or retention Neurovascular: Reports generalized weakness All medications have been reviewed Active Medications Albuterol/Ipratropium (Ipratropium-Albuterol 3 Ml Neb) 3 ml INHALATION RT-QID [facility] Last Admin: 11/20/20 11:28 Dose: Not Given Documented by: Albuterol/Ipratropium (Ipratropium-Albuterol 3 Ml Neb) 3 ml INHALATION RT-QID PRN PRN Reason: Shortness Of Breath Or Wheezing Amlodipine Besylate (Amlodipine 5 Mg Tab) 5 mg PO DAILY [facility] Last Admin: 11/20/20 07:34 Dose: Not Given Documented by: Fluoxetine HCl (Fluoxetine Hcl 10 Mg Cap) 10 mg PO DAILY [facility] Last Admin: 11/20/20 07:34 Dose: Not Given Documented by: Heparin Sodium (Porcine) (Heparin Sodium,Porcine/Pf 5,000 Unit/0.5 Ml Syringe) 5,000 unit SQ Q12HR [facility] Last Admin: 11/20/20 07:33 Dose: 5,000 unit Documented by: Hydralazine HCl (Hydralazine Hcl 20 Mg/Ml 1 Ml Vial) 10 mg IVP Q6HR PRN PRN Reason: Blood Pressure - High Last Admin: 11/19/20 12:42 Dose: 10 mg Documented by: Cefepime HCl 2 gm/ Sodium (Chloride) 100 mls @ 25 mls/hr IVPB Q8H [facility] Last Admin: 11/20/20 12:08 Dose: 25 mls/hr Documented by: Dextrose/Water 1,000 ml/ IV (Solution) 1,000 mls @ 146.853 mls/hr IV .Q6H49M [facility] Last Admin: 11/20/20 07:42 Dose: 146.853 mls/hr Documented by: Ketorolac Tromethamine (Ketorolac 15 Mg/Ml 1 Ml Vial) 15 mg IVP Q6HR [facility] Stop: 11/20/20 23:02 Last Admin: 11/20/20 12:09 Dose: 15 mg Documented by: Labetalol HCl (Labetalol 5 Mg/Ml Vial Mdv) 20 mg IVP Q4H PRN PRN Reason: Hypertension Last Admin: 11/19/20 23:17 Dose: 20 mg Documented by: Methylphenidate HCl (Methylphenidate Hcl 10 Mg Tab) 10 mg PO 0800,1300 [facility] Last Admin: 11/20/20 12:15 Dose: Not Given Documented by: Miscellaneous Information (Pneumonia Protocol Utilized 1 Each Misc) 1 each PO ONCE PRN PRN Reason: Per Protocol Miscellaneous Information (Magnesium Replacement Protocol 1 Each Misc) 1 each MISCELLANE DAILY PRN; Protocol PRN Reason: Per Protocol Miscellaneous Information (Potassium Replacement Protocol 1 Each Misc) 1 each MISCELLANE DAILY PRN; Protocol PRN Reason: Per Protocol Pantoprazole Sodium (Pantoprazole 40 Mg/10 Ml Vial) 40 mg IVP DAILY [facility] Last Admin: 11/20/20 07:33 Dose: 40 mg Documented by: Objective - Vital Signs Vital signs: Vital Signs Temp 99.2 F 11/20/20 08:00 Pulse 87 11/20/20 10:00 Resp 22 11/20/20 10:00 BP 155/106 11/20/20 10:00 Pulse Ox 94 L 11/20/20 10:00 Intake & Output 11/19/20 11/20/20 11/20/20 18:59 06:59 18:59 Intake Total 1535 520 240 Output Total 1090 1000 400 Balance 445 -480 -160 Weight 43.6 kg 43.6 kg Intake: IV 1355 520 240 Cefepime 2 gm In Sodium 125 Chloride 0.9% 100 ml @ 25 mls/hr IVPB Q8H [facility] Rx#: [id number] Dextrose 5% in Water 1, 880 320 240 000 ml In Empty Bag 1 bag @ 3.33 ML/KG/HR 146.853 mls/hr IV .Q6H49M [facility] Rx# :[id number] Magnesium Sulfate-D5w Pmx 200 1 gm In Dextrose/Water 1 100ml.bag @ 100 mls/hr IVPB Q1H [facility] Rx#: [id number] Sodium Chloride 0.9% 1, 150 200 000 ml @ 50 mls/hr IV . Q20H [facility] Rx#:[id number] Intake, IV Titration 180 Amount Dextrose 5% in Water 1, 80 000 ml In Empty Bag 1 bag @ 3.33 ML/KG/HR 146.853 mls/hr IV .Q6H49M [facility] Rx# :[id number] Potassium Chloride 10 meq 100 In Water For Injection 1 100ml.bag @ 100 mls/hr IVPB Q1H [facility] Rx#: [id number] Output: Urine 1090 1000 400 Other: Voiding Method Indwelling Catheter Indwelling Catheter # Voids 0 - Exam Gen: This is a 24-year-old female sitting up in bed awake, alert and oriented 2, thin built, ill-appearing, emaciated. Temp is 99.2F, pulse is 82, respirations are 8, blood pressure is 119/79, oxygen saturation is 95% on 3 L via nasal cannula HEENT: Head is atraumatic, normocephalic. Pupils equal, round. Sclerae is anicteric. NECK: Supple. No JVD. No lymphadenopathy. No thyromegaly. LUNGS: Diminished breath sounds bilaterally with some scattered rhonchi noted. Slight cough on exam. No intercostal retractions. HEART: S1, S2 are muffled ABDOMEN: Soft. Bowel sounds are present. No masses. No tenderness. EXTREMITIES: No pedal edema. No calf tenderness. NEUROLOGICAL: Patient is awake, alert and oriented x2. diffusely weak - Labs CBC & Chem 7: 11/20/20 02:52 11/20/20 02:52 Labs: Abnormal Lab Results - Last 24 Hours (Table) 11/20/20 Range/Units 02:52 Carbon Dioxide 33 H (22-30) mmol/L BUN 5 L (7-17) mg/dL Glucose 113 H (74-99) mg/dL Microbiology - Last 24 Hours (Table) 11/15/20 10:11 Blood Culture - Preliminary Blood No Growth after 96 hours 11/15/20 09:54 Blood Culture - Preliminary Blood No Growth after 96 hours Assessment and Plan Assessment: Acute bilateral pneumonia with possible aspiration with acute hypoxic respiratory failure and sepsis, present on admission Change in mental status, acute metabolic encephalopathy secondary to sepsis, present on admission Dysphasia and aspiration and undergoing PEG tube placement Accelerated hypertension Labile hypertension Bradycardia, possibly sinus History of recent lung abscess in the left side history of recent COVID-19 pneumonia 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 Multiple medical consultations following and patient continues to be closely monitored in the ICU. Tentative plans for surgery today for PEG tube placement and will await surgical recommendations on starting tube feedings and monitor for tolerance. Family at the bedside with questions answered. Patient c ontinues to be stable status post surgery able to transfer out of the ICU with continued telemetry and cardiology is following. Encourage the patient to increase activity as tolerated will continue with PT/OT and continue to monitor closely. Due to multiple complex medical issues, prognosis is guarded.
[2020-11-20] MEDS ORDERED: IV FLUID CONTINUATION 500 ML IV ONE ×2 (14:15)
[2020-11-20] MEDS ORDERED: fentaNYL (PF) 50 MCG/ML 2 ML AMP ONE (14:16)
[2020-11-20] MEDS ORDERED: PROPOFOL 10 MG/ML 20 ML VIAL IV ONE (14:16)
[2020-11-20] MEDS ORDERED: LIDOCAINE 1% INJ 10MG/ML (20 ML MDV) ONE (14:16)
[2020-11-20 15:09] LABS: Glucose,Whole Blood 73 mg/dL (75-99)
--- NOTE | 2020-11-20 15:33 | P.PN ---
Subjective Progress Note Date: 11/20/20 I'm seeing the patient for the first time for neurological management. Please refer to Dr. Barry's notes for detailed history and his assessment and plan. Upon seeing the patient that she stated that that she's doing the same today compared to yesterday. Denies of any new neurological problems. She is a ccompanied by her mother and her grand father. She just had the PEG tube placement today. Objective - Vital Signs Vital signs: Vital Signs Temp 99.2 F 11/20/20 08:00 Pulse 65 11/20/20 15:00 Resp 11 L 11/20/20 14:00 BP 80/48 11/20/20 15:00 Pulse Ox 91 L 11/20/20 15:00 Intake & Output 11/19/20 11/20/20 11/20/20 18:59 06:59 18:59 Intake Total 1535 520 550 Output Total 1090 1000 650 Balance 445 -480 -100 Weight 43.6 kg 43.6 kg Intake: IV 1355 520 550 Cefepime 2 gm In Sodium 125 Chloride 0.9% 100 ml @ 25 mls/hr IVPB Q8H [facility] Rx#: [id number] Dextrose 5% in Water 1, 880 320 400 000 ml In Empty Bag 1 bag @ 3.33 ML/KG/HR 146.853 mls/hr IV .Q6H49M [facility] Rx# :[id number] Magnesium Sulfate-D5w Pmx 200 1 gm In Dextrose/Water 1 100ml.bag @ 100 mls/hr IVPB Q1H [facility] Rx#: [id number] Sodium Chloride 0.9% 1, 150 200 000 ml @ 50 mls/hr IV . Q20H [facility] Rx#:[id number] Intake, IV Titration 180 Amount Dextrose 5% in Water 1, 80 000 ml In Empty Bag 1 bag @ 3.33 ML/KG/HR 146.853 mls/hr IV .Q6H49M [facility] Rx# :[id number] Potassium Chloride 10 meq 100 In Water For Injection 1 100ml.bag @ 100 mls/hr IVPB Q1H [facility] Rx#: [id number] Output: Urine 1090 1000 650 Other: Voiding Method Indwelling Catheter # Voids 0 - Exam Patient is a young female, alert and awake, following commands, participating with examination, keeps her eyes open. Still appears generalized weak. Head turn to the right. Speech speaks with a very low volume and language functions are normal. Attention, concentration and fund of knowledge is normal. On cranial examination, pupils are round and reacting to light, visual kennedy are full on confrontation, extraocular muscles reveal intact gaze to the left. However to the right there is gaze restriction. Patient has right sixth nerve palsy. Patient also has slight disconjugate gaze, with right eye going up and inside, whereas the left eye does not elevate up. No obvious nystagmus. P torrie appears to have right facial weakness, peripheral type, decreased forehead wrinkling appears bilaterally, right worse. Tongue appears to have mild right hemiatrophy. Patient has decreased gag on the right. Her hearing appears normal, facial sensation normal. Shoulder shrug appears normal. Patient prefers her head to the right. On muscle strength testing, there is no pronator drift. Strength is normal in the upper limbs. In the lower limbs, hip flexion 4+, knee extension 5-4+/5-, a nkle dorsiflexion 5/5. Cerebellar function showed mild ataxia for [id number] testing on the left. Sensory to touch is equal with no neglect. Deep tendon reflexes are (R/L) biceps 1/2+, brachioradialis 1/2+, knee 2/3, ankle 1+/2+, plantar is downgoing on the right, upon left. - Labs CBC & Chem 7: 11/20/20 02:52 11/20/20 02:52 Labs: Abnormal Lab Results - Last 24 Hours (Table) 11/20/20 11/20/20 Range/Units 02:52 15:08 Carbon Dioxide 33 H (22-30) mmol/L BUN 5 L (7-17) mg/dL Glucose 113 H (74-99) mg/dL POC Glucose (mg/dL) 73 L (75-99) mg/dL Microbiology - Last 24 Hours (Table) 11/15/20 10:11 Blood Culture - Preliminary Blood No Growth after 120 hours 11/15/20 09:54 Blood Culture - Preliminary Blood No Growth after 120 hours Assessment and Plan Assessment: * Altered mental status, possible toxic metabolic encephalopathy--improved * Neurofibromatosis type II, with evidence of intracranial tumors 4, 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 * Bilateral Aspiration pneumonia, possible lung abscess * Dysphagia, failed swallow study due to multiple cranial nerve palsy s/p PEG tube day #0 * Possible nutritional deficiency * Hypertension Plan: * Recommend patient undergo MRI of the brain with and without contrast when possible. This can be done through her oncologist as an outpatient. Patient's last MRI was in October 2020. It probably is time to repeat MRI of the brain. Discussed with patient's mother, who will discuss with her oncologist about it. * EEG was mildly abnormal due to poorly reactive background and excessive fast frequency beta activity. This is suggestive of mild generalized cerebral dysfunction, may be related to medication effect. No epileptiform activity w as seen. * B12 471, folate 20.6, hemoglobin A1c 5.2, MMA <0.10, B6, B1 are still pending. * Patient's mother brought previous MRI for comparison. The MRI from 09/13/2019 was reviewed with current computed tomography scan of the head by the radiologist Dr. Leavitt. 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 The left cerebellar calcification appears similar to MRI. The extent of the left thalamic calcification appears better visualized on the MRI. Suprasellar calcification appears stable. Significant interval growth of these structures is not evident. * Patient needs to follow-up with a neurologist as an outpatient which she has one within 1-2 weeks and possibly consider neurosurgeon as an outpatient as well. This was notified to the patient her mother was at bedside. Will follow-up with the patient sporadically. Juan Luis Armijo MD Neuro-Hospitalist. Time with Patient: Less than 30
--- NOTE | 2020-11-20 15:42 | P.OP ---
Date of Procedure: 11/20/20 Preoperative Diagnosis: Malnutrition Postoperative Diagnosis: Malnutrition Procedure(s) Performed: EGD with PEG tube placement Anesthesia: MAC Surgeon: Jeff Marin Pathology: none sent Condition: stable Disposition: PACU Description of Procedure: The patient's placed on the endoscopy table in the lateral position. She received IV sedation. The gastroscope placed oropharynx passed in the stomach. Stomach was insufflated with air. Suitable light reflux seen the anterior abdominal wall. The skin and a 1% local Xylocaine. A 15 blade the skin was incised. The needles placed and stomach under direct visualization. The needles and snare. The wires in place Anilkumar was snared brought to the oropharynx. The PEG tube was placed over top the wire brought down to the stomach. The PEG tube was secured at the 3 cm julio c. The bolster was applied. And then the PEG tube was cut and connected with the MPs. Patient top she will was sent back to the ICU in stable condition.
--- NOTE | 2020-11-20 23:14 | PN ---
PROGRESS NOTE LABS: Hemoglobin is 14.5, white count 9.7, BUN of 5 creatinine 0.5. DIAGNOSTIC IMPRESSION AND PLAN: Patient presented to hospital with nausea, vomiting, shortness of breath, concern for aspiration pneumonia. Patient is covered with improvement condition. We will continue with current antibiotics and monitor clinical course closely. MICHAEL / JAYNAN: [id number] /
[2020-11-21] MEDS: CEFEPIME 2 GM in SODIUM CHLORIDE 0.9% 100 ML IVPB SCH ×3 (05:24→20:19)
[2020-11-21] MEDS ORDERED: KETOROLAC 15 MG/ML 1 ML VIAL IVP PRN (07:11)
[2020-11-21] MEDS: IPRATROPIUM-ALBUTEROL 3 ML NEB INHALATION SCH ×3 (07:24→19:37)
[2020-11-21] MEDS: HEPARIN SODIUM,PORCINE/PF 5,000 UNIT/0.5 ML SYRINGE SQ SCH ×2 (07:31→20:20)
[2020-11-21] MEDS: METHYLPHENIDATE HCL 10 MG TAB PO SCH ×2 (07:32→14:47)
[2020-11-21] MEDS: amLODIPine 5 MG TAB PO SCH (07:32)
[2020-11-21] MEDS: PANTOPRAZOLE 40 MG/10 ML VIAL IVP SCH (07:32)
[2020-11-21] MEDS: FLUoxetine HCL 10 MG CAP PO SCH (07:32)
[2020-11-21] MEDS: DEXTROSE 5% IN WATER 1,000 ML in EMPTY BAG 1 BAG IV SCH ×3 (07:32→17:43)
[2020-11-21 07:49] LABS: Basophils % (A) 0 %; Eosinophils # (A) 0.3 k/uL (0-0.7); Eosinophils % (A) 5 %; HCT 40.2 % (34.0-46.0); HGB 12.7 gm/dL (11.4-16.0); Lymphocytes # (A) 1.3 k/uL (1.0-4.8); Lymphocytes % (A) 18 %; MCH 30.6 pg (25.0-35.0); MCHC 31.5 g/dL (31.0-37.0); MCV 97.1 fL (80.0-100.0); Mean Platelet Volume 7.2; Monocytes # (A) 0.5 k/uL (0-1.0); Monocytes % (A) 7 %; Neutrophils # (A) 4.8 k/uL (1.3-7.7); Neutrophils % (A) 68 %; Platelet Count 271 k/uL (150-450); RBC 4.14 m/uL (3.80-5.40); RDW 15.4 % (11.5-15.5)
[2020-11-21 07:49] LABS: Vit B1(Thiamine) 52 ug/L (38-122)
[2020-11-21 08:03] LABS: African American GFR (CKD) >90 (>60 ml/min/1.73 sqM); Anion Gap 7 mmol/L; Blood Urea Nitrogen 6 mg/dL (7-17); Calcium 8.8 mg/dL (8.4-10.2); Carbon Dioxide 28 mmol/L (22-30); Chloride 104 mmol/L (98-107); Glucose 89 mg/dL (74-99); Non-African American GFR(CKD) >90 (>60 ml/min/1.73 sqM); Potassium 3.6 mmol/L (3.5-5.1); Sodium 139 mmol/L (137-145)
[2020-11-21 08:25] LABS: Glucose,Whole Blood 89 mg/dL (75-99)
[2020-11-21] MEDS: POTASSIUM CHLORIDE 10 MEQ in WATER FOR INJECTION 1 100ML.BAG IVPB SCH ×2 (09:37→11:40)
--- NOTE | 2020-11-21 09:44 | P.PN ---
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 She follows in the office with Dr. Nelson. Cardiology requested to see as a consult in the intensive care unit for further evaluation of bradycardia. She was admitted to the hospital initially with acute bilateral aspiration pneumonia and hypoxic respiratory failure. She was admitted recently 09/22- to [facility] with increased shortness of breath and congestion, graphics specialist consultation due to mildly elevated cardiac enzymes. Elevated troponin was related to sepsis and hypoxia. Echocardiogram on 09/22/2020 revealed EF of 55-60% without significant valvular disease. Patient seen and examined at bedside in the ICU. She is more alert this morning. Patient is status post PEG placement on 11/20. Patient without any further episodes of bradycardia sine 11/18/20. Blood pressure is not consistent, documented Blood pressures of SBP 80-160s. RN took a manual this morning with BP 100/65. She is occasionally tachycardic HR up to 140s. HR this morning 70-low 100s, afebrile, maintaining oxygen saturations on 3 L nasal cannula. Laboratory data reviewed CBC unremarkable, sodium 139, potassium 3.6, BUN 7, serum cre atinine 0.39. Patient currently maintained on amlodipine 5 mg daily, labetalol 20 mg IV push when necessary. Patient not receiving amlodipine at this time due to NPO status. GENERAL: In no acute distress NECK: Supple without JVD or thyromegaly. LUNGS: Breath diminished in the bilateral bases. Respiration equal and unlabored. No wheezes, rales or rhonchi. HEART: Regular rate and rhythm without murmurs, rubs or gallops. S1 and S2 heard. EXTREMITIES: No edema. No clubbing or cyanosis. Peripheral pulses intact. NEURO: awake and alert ASSESSMENT: Bilateral aspiration pneumonia Sinus bradycardia which has resolved History of neurofibromatosis Right sided vocal cord paralysis Hypertension History of Asthma History of juvenile arthritis PLAN: Patient's echocardiogram from [facility] revealed EF of 55-60% without significant valvular disease. From cardiology perspective, we will continue current medical regimen. Manual blood pressure this morning 100/65 HR We will follow the patient as needed, please re-consult if any further questions or concerns. Objective - Vital Signs Vital signs: Vital Signs Temp 97.8 F 11/21/20 04:00 Pulse 74 11/21/20 08:00 Resp 6 L 11/21/20 08:00 BP 100/65 11/21/20 08:00 Pulse Ox 95 11/21/20 08:00 Intake & Output 11/20/20 11/21/20 11/21/20 18:59 06:59 18:59 Intake Total 630 580 80 Output Total 650 1300 0 Balance -20 720 80 Weight 43.6 kg 46.8 kg Intake: IV 630 580 80 Cefepime 2 gm In Sodium 100 Chloride 0.9% 100 ml @ 25 mls/hr IVPB Q8H [facility] Rx#: [id number] Dextrose 5% in Water 1, 480 480 80 000 ml In Empty Bag 1 bag @ 3.33 ML/KG/HR 146.853 mls/hr IV .Q6H49M [facility] Rx# :[id number] Output: Urine 650 1300 0 Other: Voiding Method Indwelling Catheter # Voids 1 - Labs CBC & Chem 7: 11/21/20 07:31 11/21/20 07:31 Labs: Abnormal Lab Results - Last 24 Hours (Table) 11/20/20 11/21/20 Range/Units 15:08 07:31 BUN 6 L (7-17) mg/dL Creatinine 0.39 L (0.52-1.04) mg/dL POC Glucose (mg/dL) 73 L (75-99) mg/dL Microbiology - Last 24 Hours (Table) 11/15/20 10:11 Blood Culture - Preliminary Blood No Growth after 120 hours 11/15/20 09:54 Blood Culture - Preliminary Blood No Growth after 120 hours
--- NOTE | 2020-11-21 10:16 | XR ---
EXAMINATION TYPE: XR chest 1V portable DATE OF EXAM: 11/21/2020 COMPARISON: 11/20/2020 HISTORY: trouble breathing, short of breath. TECHNIQUE: Single frontal view of the chest is obtained. FINDINGS: Interstitial prominence bilaterally and left lower calcifications are unchanged. Left port is unchanged. Cardiac silhouette is not enlarged. IMPRESSION: No change since prior.
--- NOTE | 2020-11-21 11:07 | P.PN ---
Subjective This is a 24-year-old female who was recently admitted with change in mental status and also possible acute bilateral pneumonia along with sepsis present on admission and is being closely monitored. Patient continues to be in the ICU with multiple medical consultations following. Pulmonary plunger scoop operator Dr. Kathia bradley along with infectious disease and neurology and a consult was placed for general surgery as patient underwent swallow eval and failed and has been having difficulty with aspiration even in the outpatient setting with her prim haris specialist. Patient initially was reluctant for PEG tube per family at the bedside although they are now requesting this and the patient is agreeable. Patient continues to have shortness of breath and is maintained on 2-3 L of oxygen via nasal cannula and continues to be streaming dyspneic with minimal exertion and tachypneic as well. Patient had one episode of low-grade intermittent temp last night into this morning of 99.3 and continues on IV antibiotic therapy with infectious disease following closely. Patient continues on IV cefepime. Potassium slightly low this morning at 3.4 and will replace per protocol and monitor closely with repeat labs in the morning. Patient continues to have hypertension and is maintained on IV push Labetolol. 11/20/2020 Patient is seen and evaluated in follow-up this morning mother continues to be at the bedside. Patient is alert and oriented 3 and awake currently playing on her phone. Patient continues to be nothing by mouth and plans are for PEG tube placement was surgery this morning. Multiple medical consultations following and if patient remains stable status post procedure considering transferring out of the ICU to [facility]. Patient will continue with nothing by mouth until cleared by surgery to initiate PEG tube feedings. White blood count is 9.7, hemoglobin is 14.5, sodium is 138 with a potassium of 3.9 and current creatinine is 0.55. She continues to have a dry hacking cough and unable to expectorate any phlegm. Per mother at the bedside this is chronic. Patient denies any chest pain or worsening shortness of breath. Patient continues to have right lower quadrant abdominal discomfort on palpation. Patient is urinating and passing gas but no reports of bowel movements. Blood pressure continues to be elevated today and continued on labetalol along with IV hydralazine and will continue. 11/21/2020 This is a pleasant 24 years old female with past medical history of 2 neurofibromatosis, also she is with dysphagia status post PEG tube placement yesterday by surgery team. On admission patient was found to have bilateral aspiration pneumonia and currently she is on cefepime. This morning patient is awake, breathing quietly and states her breathing is easier today. Currently she is at 4 L oxygen via nasal cannula oxygen saturation 95%. Blood pressure is low normal 100/65, is afebrile currently however she had low-grade fever today of 100.5. Chest x-ray from today showing bilateral prominence, no change Neurologist evaluated the patient for AMS as an neurofibromatosis, and he recommended MRI of the brain with and without contrast when possible and this can be done with her oncologist. Patient has negative CTPA for pulmonary embolism on admission. Today also has been complaining of from lips hip pain, which is not new for her she is already seen an orthopedic doctor about 2 weeks ago for the same reason. No history of fall. Review of systems: Constitutional: no reports of fatigue, occasional low-grade fever, no reports of chills Cardiovascular: No reports of chest pain or palpitations Respiratory: reports dry hacking cough, and denies worsening shortness of breath GI: No reports of nausea, vomiting, or diarrhea : No reports of dysuria or retention Neurovascular: Reports generalized weakness Active Medications Generic Name Dose Route Start Last Admin Trade Name Freq PRN Reason Stop Dose Admin Albuterol/Ipratropium 3 ml 11/15/20 12:00 11/21/20 07:24 Ipratropium-Albuterol 3 Ml Neb INHALATION Not Given RT-QID [facility] Albuterol/Ipratropium 3 ml 11/15/20 11:43 Ipratropium-Albuterol 3 Ml Neb INHALATION RT-QID PRN Shortness Of Breath Or Wheezing Amlodipine Besylate 5 mg 11/16/20 14:45 11/21/20 07:32 Amlodipine 5 Mg Tab PO Not Given DAILY [facility] Fluoxetine HCl 10 mg 11/19/20 09:00 11/21/20 07:32 Fluoxetine Hcl 10 Mg Cap PO Not Given DAILY [facility] Heparin Sodium (Porcine) 5,000 unit 11/16/20 15:00 11/21/20 07:31 Heparin Sodium,Porcine/Pf 5,000 Unit/0.5 Ml Syringe SQ 5,000 unit Q12HR [facility] Administration Hydralazine HCl 10 mg 11/15/20 18:52 11/20/20 13:36 Hydralazine Hcl 20 Mg/Ml 1 Ml Vial IVP 10 mg Q6HR PRN Administration Blood Pressure - High Cefepime HCl 2 gm/ Sodium 100 mls @ 25 mls/hr 11/15/20 20:00 11/21/20 05:24 Chloride IVPB 25 mls/hr Q8H ANDERSON Administration Dextrose/Water 1,000 ml/ IV 1,000 mls @ 146.853 mls/hr 11/18/20 14:15 11/21/20 07:32 Solution IV Not Given .Q6H49M ANDERSON 3.33 ML/KG/HR Potassium Chloride 10 meq/ IV 100 mls @ 100 mls/hr 11/21/20 09:30 11/21/20 09:37 Solution IVPB 11/21/20 11:29 100 mls/hr Q1H [facility] Administration Protocol Ketorolac Tromethamine 15 mg 11/21/20 07:11 Ketorolac 15 Mg/Ml 1 Ml Vial IVP 11/24/20 07:12 Q6HR PRN Pain Labetalol HCl 20 mg 11/15/20 22:41 11/19/20 23:17 Labetalol 5 Mg/Ml Vial Mdv IVP 20 mg Q4H PRN Administration Hypertension Methylphenidate HCl 10 mg 11/19/20 08:00 11/21/20 07:32 Methylphenidate Hcl 10 Mg Tab PO Not Given 0800,1300 [facility] Miscellaneous Information 1 each 11/15/20 11:40 Pneumonia Protocol Utilized 1 Each Misc PO ONCE PRN Per Protocol Miscellaneous Information 1 each 11/18/20 14:43 Magnesium Replacement Protocol 1 Each Misc MISCELLANE DAILY PRN Per Protocol Protocol Miscellaneous Information 1 each 11/18/20 14:43 Potassium Replacement Protocol 1 Each Misc MISCELLANE DAILY PRN Per Protocol Protocol Pantoprazole Sodium 40 mg 11/16/20 14:45 11/21/20 07:32 Pantoprazole 40 Mg/10 Ml Vial IVP 40 mg DAILY [facility] Administration Tramadol HCl 25 mg 11/21/20 08:39 Tramadol 50 Mg Tab PO TID PRN Pain Objective - Vital Signs Vital signs: Vital Signs Temp 98.2 F 11/21/20 08:00 Pulse 74 11/21/20 08:00 Resp 6 L 11/21/20 08:00 BP 100/65 11/21/20 08:00 Pulse Ox 95 11/21/20 08:00 Intake & Output 11/20/20 11/21/20 11/21/20 18:59 06:59 18:59 Intake Total 630 580 160 Output Total 650 1300 700 Balance -20 -720 -540 Weight 43.6 kg 46.8 kg Intake: IV 630 580 160 Cefepime 2 gm In Sodium 100 Chloride 0.9% 100 ml @ 25 mls/hr IVPB Q8H [facility] Rx#: [id number] Dextrose 5% in Water 1, 480 480 160 000 ml In Empty Bag 1 bag @ 3.33 ML/KG/HR 146.853 mls/hr IV .Q6H49M [facility] Rx# :[id number] Output: Urine 650 1300 700 Other: Voiding Method Indwelling Catheter # Voids 1 1 - Exam -GENERAL: The patient is alert and oriented x3, not in any acute distress. Thin built HEENT: Pupils are round and equally reacting to light. EOMI. No scleral icterus. No conjunctival pallor. Normocephalic, atraumatic. No pharyngeal erythema. No thyromegaly. CARDIOVASCULAR: S1 and S2 present. No murmurs, rubs, or gallops. PULMONARY: Chest is clear to auscultation, no wheezing or crackles. -ABDOMEN: Soft, nontender, nondistended, normoactive bowel sounds. No palpable organomegaly. PEG tube is in place MUSCULOSKELETAL: No joint swelling or deformity. EXTREMITIES: No cyanosis, clubbing, or pedal edema. NEUROLOGICAL: Gross neurological examination did not reveal any focal deficits. SKIN: No rashes. no petechiae. - Labs CBC & Chem 7: 11/21/20 07:31 11/21/20 07:31 Labs: Abnormal Lab Results - Last 24 Hours (Table) 11/20/20 11/21/20 Range/Units 15:08 07:31 BUN 6 L (7-17) mg/dL Creatinine 0.39 L (0.52-1.04) mg/dL POC Glucose (mg/dL) 73 L (75-99) mg/dL Microbiology - Last 24 Hours (Table) 11/15/20 10:11 Blood Culture - Preliminary Blood No Growth after 120 hours 11/15/20 09:54 Blood Culture - Preliminary Blood No Growth after 120 hours Assessment and Plan Assessment: Bilateral aspiration pneumonia Moderate protein calorie malnutrition Dysphagia, status post PEG tube placement Acute hypoxic respiratory failure 2 neurofibromatosis Metabolic encephalopathy improved Plan: This is a pleasant 24 years old female presents with bilateral pneumonia, status post PEG tube placement. Continue with cefepime, pulmonary team on the case, as well as infectious disease team. Neurology consult on the case Postoperative Toradol and with the patient and Ultram patient has been taking Toradol for a few days and to lower the risk Labs and medication were reviewed.. Continue same treatment. Continue with s ymptomatic treatment. Resume home medication. Monitor lytes and vitals. DVT and GI prophylaxis. Further recommendationsas per clinical course of the patient DVT prophylaxis: Subcutaneous heparin GI Prophylaxis: Ppi
--- NOTE | 2020-11-21 12:06 | P.PN ---
Subjective Progress Note Date: 11/21/20 CHIEF COMPLAINT: Aspiration pneumonia HISTORY OF PRESENT ILLNESS: Surgical service is following for PEG tube placement. Patient is status post PEG tube placement which was done yesterday 11/20/[address] Marin. Patient tolerated procedure well. PEG tube feedings will be started today. Patient did have a temp of 100.5 last night WBC 7.0 albumin 2.8 PHYSICAL EXAM: VITAL SIGNS: Reviewed. GENERAL: Well-developed in no acute distress. HEENT: No sclera icterus. Extraocular movements grossly intact. Moist buccal mucosa. Head is atraumatic, normocephalic. ABDOMEN: Soft. Nondistended. Nontender. Dressing clean dry and intact NEUROLOGIC: Alert and oriented. Cranial nerves II through XII grossly intact. ASSESSMENT: 1. Severe protein calorie malnutrition status post EGD with PEG tube placement PLAN: -Tube feedings via peg tube to be started today -Consult dietitian for tube feeding recommendations -Continue ICU management and supportive care Physician [employer] Text[employer] Teacher note has been reviewed by physician. Signing provider agrees with the documented findings, assessment, and plan of care. Objective - Vital Signs Vital signs: Vital Signs Temp 98.2 F 11/21/20 08:00 Pulse 74 11/21/20 08:00 Resp 6 L 11/21/20 08:00 BP 100/65 11/21/20 08:00 Pulse Ox 95 11/21/20 08:00 Intake & Output 11/20/20 11/21/20 11/21/20 18:59 06:59 18:59 Intake Total 630 580 340 Output Total 650 1300 700 Balance -20 720 -360 Weight 43.6 kg 46.8 kg Intake: IV 630 580 340 Cefepime 2 gm In Sodium 100 100 Chloride 0.9% 100 ml @ 25 mls/hr IVPB Q8H [facility] Rx#: [id number] Dextrose 5% in Water 1, 480 480 240 000 ml In Empty Bag 1 bag @ 3.33 ML/KG/HR 146.853 mls/hr IV .Q6H49M [facility] Rx# :[id number] Output: Urine 650 1300 700 Other: Voiding Method Indwelling Catheter # Voids 1 1 - Labs CBC & Chem 7: 11/21/20 07:31 11/21/20 07:31 Labs: Abnormal Lab Results - Last 24 Hours (Table) 11/20/20 11/21/20 Range/Units 15:08 07:31 BUN 6 L (7-17) mg/dL Creatinine 0.39 L (0.52-1.04) mg/dL POC Glucose (mg/dL) 73 L (75-99) mg/dL Microbiology - Last 24 Hours (Table) 11/15/20 10:11 Blood Culture - Preliminary Blood No Growth after 120 hours 11/15/20 09:54 Blood Culture - Preliminary Blood No Growth after 120 hours
[2020-11-21] MEDS: traMADol 50 MG TAB PO PRN (15:41)
--- NOTE | 2020-11-21 16:29 | CDI ---
Documentation Clarification Form Date: 11/21/2020 03:51:03 PM From: Liseth Ward RN CCDS Admit Date: 11/15/2020 11:40:00 AM Patient Name: Brenton Bolton Visit Number: [id number] Discharge Date: ATTENTION: The Clinical Documentation Specialists (CDI) and [facility] Coding Staff appreciate your assistance in clarifying documentation. Please respond to the clarification below the line at the bottom and electronically sign. The CDI & [facility] Coding staff will review the response and follow-up if needed. Please note: Queries are made part of the Legal Health Record. If you have any questions, please contact the author of this message via ITS. Dr. Cline E Sheet Conflicting documentation has been found in the medical record. As attending physician, please provide clarification. Moderate protein calorie malnutrition, Medicine progress note, 11/21. Severe protein calorie malnutrition, H&P 11/15, Medicine progress notes 11/16 thru 11/20. History/Risk Factors: 24-year-old female presents to the ED with weakness, cough, and vomiting. 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 Recent admission to [facility] for lung abscess and other complication. H&P 11/15 Clinical Indicators: Nutritional consult 11/20: Nutritional diagnosis - Severe malnutrition. Diagnosis as evidenced by Involuntary weight loss of 26% of UBW in 7 months. BMI: 16.5; 5ft, 4in Cachexia and weight loss and advanced protein calorie malnourishment Pulmonary consult 11/15. Treatment: Peg tube placement 11/20; Enteral tube feeding 11/21 Please clarify which diagnosis is most appropriate: [ ] Moderate protein calorie malnutrition [ ] Severe protein calorie malnutrition [ ] Other (please specify) [ ] Unable to determine (Template Last Revised: July 2020) Moderate protein calorie malnutrition MTDD
[2020-11-21] MEDS: hydrALAZINE HCL 20 MG/ML 1 ML VIAL IVP PRN (17:43)
--- NOTE | 2020-11-21 22:44 | PN ---
PROGRESS NOTE DATE OF SERVICE: 11/21/2020 REASON FOR FOLLOWUP: Pneumonia. INTERVAL HISTORY: The patient is afebrile. The patient is breathing comfortably on nasal cannula oxygen. No chest pain, shortness of breath or any worsening cough. No abdominal pain, no diarrhea. PHYSICAL EXAMINATION: Blood pressure is 113/67, pulse of 112, temperature 98.6. She is 98% on 4 L nasal cannula. General description is a middle aged female lying in no distress. Respiratory system: Unlabored breathing, clear to auscultation anteriorly. Heart S1, S2. Regular rate and rhythm. Abdomen is soft, no tenderness. LABS: Hemoglobin is 12.7, white count 7.0, BUN of 6 creatinine 0.39. Blood culture has been negative. DIAGNOSTIC IMPRESSION AND PLAN: Patient admitted to the hospital with shortness of breath, vomiting, and concern for aspiration pneumonia. The patient has shown overall improvement on cefepime, will be continued. Hopefully transition to oral antibiotic on discharge. Continue supportive care. MMODL / IJN: [id number] /
[2020-11-22] MEDS: DEXTROSE 5% IN WATER 1,000 ML in EMPTY BAG 1 BAG IV SCH ×4 (01:39→21:41)
[2020-11-22] MEDS: CEFEPIME 2 GM in SODIUM CHLORIDE 0.9% 100 ML IVPB SCH ×3 (03:32→20:27)
[2020-11-22 04:28] LABS: Anisocytosis Slight; Basophils # (A) 0.1 k/uL (0-0.2); Basophils % (A) 1 %; Eosinophils # (A) 0.3 k/uL (0-0.7); Eosinophils % (A) 4 %; HCT 40.1 % (34.0-46.0); HGB 13.5 gm/dL (11.4-16.0); Hypochromasia Slight; Lymphocytes # (A) 1.8 k/uL (1.0-4.8); Lymphocytes % (A) 22 %; MCH 33.1 pg (25.0-35.0); MCHC 33.6 g/dL (31.0-37.0); MCV 98.5 fL (80.0-100.0); Macrocytosis Slight; Mean Platelet Volume 7.2; Monocytes # (A) 0.6 k/uL (0-1.0); Monocytes % (A) 8 %; Neutrophils # (A) 4.8 k/uL (1.3-7.7); Neutrophils % (A) 61 %; Platelet Count 279 k/uL (150-450); RBC 4.07 m/uL (3.80-5.40); WBC 7.9 k/uL (3.8-10.6)
[2020-11-22 04:44] LABS: ALT 12 U/L (4-34); AST 32 U/L (14-36); African American GFR (CKD) >90 (>60 ml/min/1.73 sqM); Albumin 3.1 g/dL (3.5-5.0); Alkaline Phosphatase 58 U/L (38-126); Anion Gap 5 mmol/L; Blood Urea Nitrogen 6 mg/dL (7-17); Calcium 8.8 mg/dL (8.4-10.2); Carbon Dioxide 31 mmol/L (22-30); Chloride 99 mmol/L (98-107); Glucose 112 mg/dL (74-99); Non-African American GFR(CKD) >90 (>60 ml/min/1.73 sqM); Potassium 3.8 mmol/L (3.5-5.1); Sodium 135 mmol/L (137-145); Total Bilirubin 0.2 mg/dL (0.2-1.3); Total Protein 6.2 g/dL (6.3-8.2)
[2020-11-22] MEDS ORDERED: Potassium Replacement Protocol 1 EACH MISC MISCELLANE PRN (04:50)
[2020-11-22] MEDS ORDERED: POTASSIUM BICARBONATE/CIT AC 20 MEQ TABLET.EFF NG-TUBE SCH (05:00)
[2020-11-22] MEDS: IPRATROPIUM-ALBUTEROL 3 ML NEB INHALATION SCH ×4 (07:25→18:58)
[2020-11-22] MEDS: HEPARIN SODIUM,PORCINE/PF 5,000 UNIT/0.5 ML SYRINGE SQ SCH ×2 (08:36→21:43)
[2020-11-22] MEDS: FLUoxetine HCL 10 MG CAP PO SCH (08:37)
[2020-11-22] MEDS: amLODIPine 5 MG TAB PO SCH (08:37)
[2020-11-22] MEDS: METHYLPHENIDATE HCL 10 MG TAB PO SCH ×3 (08:37→12:42)
[2020-11-22] MEDS: PANTOPRAZOLE 40 MG/10 ML VIAL IVP SCH (08:38)
[2020-11-22] MEDS ORDERED: ONDANSETRON 4 MG/2 ML VIAL IVP PRN (09:44)
--- NOTE | 2020-11-22 09:58 | XR ---
EXAMINATION TYPE: XR chest 1V portable DATE OF EXAM: 11/22/2020 COMPARISON: Chest x-ray dated 11/22/2019, CT 11/15/2020 HISTORY: Congestion, abnormal chest x-ray TECHNIQUE: Single frontal view of the chest is obtained. FINDINGS: There are some vague metallic densities again noted in the left lower lobe likely related to left lower lobe aspiration. There is a port in the left pectoral region, distal tip of the cathete r is overlying superior vena cava. There is no evident pneumothorax or pleural effusion. Cardiac medi astinal silhouette is stable. Minimal patchy retrocardiac densities present. There are overlying aron facts. IMPRESSION: There may be some residual airspace disease. Findings consistent with history of aspirat ion.
--- NOTE | 2020-11-22 11:39 | P.PN ---
Subjective Progress Note Date: 11/22/20 CHIEF COMPLAINT: Aspiration pneumonia HISTORY OF PRESENT ILLNESS: Surgical service is following after PEG tube placement. Patient is status post PEG tube placement which was done on 11/20/[address] Marin. Patient was started on tube feedings yesterday. She is currently at goal at 30 mL per hour. No residual reported. This morning patient did have a small amount of emesis about 50 mL which contained both phlegm and tube feedings. Zofran has been added. She is lying in bed comfortably. Afebrile. She has been having some tachycardia. WBC 7.9 hemoglobin 13.5 PHYSICAL EXAM: VITAL SIGNS: Reviewed. GENERAL: Well-developed in no acute distress. HEENT: No sclera icterus. Extraocular movements grossly intact. Moist buccal mucosa. Head is atraumatic, normocephalic. ABDOMEN: Soft. Nondistended. Nontender. PEG tube site minimal dried blood noted NEUROLOGIC: Alert and oriented. Cranial nerves II through XII grossly intact. ASSESSMENT: 1. Severe protein calorie malnutrition status post EGD with PEG tube placement PLAN: -Continue tube feedings -Continue to monitor for any recurring emesis -Add Zofran as needed for nausea and vomiting -Continue ICU management and supportive care Physician Process Machine Operator note has been reviewed by physician. Signing provider agrees with the documented findings, assessment, and plan of care. Objective - Vital Signs Vital signs: Vital Signs Temp 98 F 11/22/20 08:00 Pulse 75 11/22/20 08:00 Resp 23 11/22/20 08:00 BP 167/103 11/22/20 08:00 Pulse Ox 98 11/22/20 08:00 Intake & Output 11/21/20 11/22/20 11/22/20 18:59 06:59 18:59 Intake Total 420 440 410 Output Total 700 1800 Balance -280 -1360 410 Weight 44.9 kg 39.6 kg Intake: IV 420 440 320 Cefepime 2 gm In Sodium 100 200 Chloride 0.9% 100 ml @ 25 mls/hr IVPB Q8H [facility] Rx#: [id number] Dextrose 5% in Water 1, 320 240 320 000 ml In Empty Bag 1 bag @ 3.33 ML/KG/HR 146.853 mls/hr IV .Q6H49M [facility] Rx# :[id number] Tube Feeding 30 Other 60 Output: Urine 700 1800 Other: Voiding Method Bedside Commode Bedside Commode # Voids 1 1 - Labs CBC & Chem 7: 11/22/20 03:05 11/22/20 03:05 Labs: Abnormal Lab Results - Last 24 Hours (Table) 11/22/20 11/22/20 Range/Units 03:05 03:05 RDW 16.0 H (11.5-15.5) % Sodium 135 L (137-145) mmol/L Carbon Dioxide 31 H (22-30) mmol/L BUN 6 L (7-17) mg/dL Creatinine 0.39 L (0.52-1.04) mg/dL Glucose 112 H (74-99) mg/dL Total Protein 6.2 L (6.3-8.2) g/dL Albumin 3.1 L (3.5-5.0) g/dL Microbiology - Last 24 Hours (Table) 11/15/20 10:11 Blood Culture - Final Blood No Growth after 144 hours 11/15/20 09:54 Blood Culture - Final Blood No Growth after 144 hours
--- NOTE | 2020-11-22 12:43 | P.PN ---
Subjective This is a 24-year-old female who was recently admitted with change in mental status and also possible acute bilateral pneumonia along with sepsis present on admission and is being closely monitored. Patient continues to be in the ICU with multiple medical consultations following. Pulmonary cannery worker Dr. Kathia bradley along with infectious disease and neurology and a consult was placed for general surgery as patient underwent swallow eval and failed and has been having difficulty with aspiration even in the outpatient setting with her prim haris specialist. Patient initially was reluctant for PEG tube per family at the bedside although they are now requesting this and the patient is agreeable. Patient continues to have shortness of breath and is maintained on 2-3 L of oxygen via nasal cannula and continues to be streaming dyspneic with minimal exertion and tachypneic as well. Patient had one episode of low-grade intermittent temp last night into this morning of 99.3 and continues on IV antibiotic therapy with infectious disease following closely. Patient continues on IV cefepime. Potassium slightly low this morning at 3.4 and will replace per protocol and monitor closely with repeat labs in the morning. Patient continues to have hypertension and is maintained on IV push Labetolol. 11/20/2020 Patient is seen and evaluated in follow-up this morning mother continues to be at the bedside. Patient is alert and oriented 3 and awake currently playing on her phone. Patient continues to be nothing by mouth and plans are for PEG tube placement was surgery this morning. Multiple medical consultations following and if patient remains stable status post procedure considering transferring out of the ICU to [facility]. Patient will continue with nothing by mouth until cleared by surgery to initiate PEG tube feedings. White blood count is 9.7, hemoglobin is 14.5, sodium is 138 with a potassium of 3.9 and current creatinine is 0.55. She continues to have a dry hacking cough and unable to expectorate any phlegm. Per mother at the bedside this is chronic. Patient denies any chest pain or worsening shortness of breath. Patient continues to have right lower quadrant abdominal discomfort on palpation. Patient is urinating and passing gas but no reports of bowel movements. Blood pressure continues to be elevated today and continued on labetalol along with IV hydralazine and will continue. 11/21/2020 This is a pleasant 24 years old female with past medical history of 2 neurofibromatosis, also she is with dysphagia status post PEG tube placement yesterday by surgery team. On admission patient was found to have bilateral aspiration pneumonia and currently she is on cefepime. This morning patient is awake, breathing quietly and states her breathing is easier today. Currently she is at 4 L oxygen via nasal cannula oxygen saturation 95%. Blood pressure is low normal 100/65, is afebrile currently however she had low-grade fever today of 100.5. Chest x-ray from today showing bilateral prominence, no change Neurologist evaluated the patient for AMS as an neurofibromatosis, and he recommended MRI of the brain with and without contrast when possible and this can be done with her oncologist. Patient has negative CTPA for pulmonary embolism on admission. Today also has been complaining of from lips hip pain, which is not new for her she is already seen an orthopedic doctor about 2 weeks ago for the same reason. No history of fall. 11/22/2020 Patient remains in the ICU, his respiratory status is improving. On 4 L oxygen nasal cannula saturating in the mid 90s. She is coughing but she declines to 0. He is hemodynamically stable. She is afebrile for more than 24 hours. Vitals are Stable tube feeding is a started today and tolerated well by the patient so far Patient remains on cefepime Keep in the ICU for now Objective - Vital Signs Vital signs: Vital Signs Temp 98 F 11/22/20 12:00 Pulse 90 11/22/20 12:00 Resp 16 11/22/20 12:00 BP 101/64 11/22/20 12:00 Pulse Ox 99 11/22/20 12:00 Intake & Output 11/21/20 11/22/20 11/22/20 18:59 06:59 18:59 Intake Total 107 509 9627 Output Total 700 1800 800 Balance -280 -1360 210 Weight 44.9 kg 39.6 kg Intake: IV 420 440 740 Cefepime 2 gm In Sodium 100 200 100 Chloride 0.9% 100 ml @ 25 mls/hr IVPB Q8H [facility] Rx#: [id number] Dextrose 5% in Water 1, 320 240 640 000 ml In Empty Bag 1 bag @ 3.33 ML/KG/HR 146.853 mls/hr IV .Q6H49M [facility] Rx# :[id number] Tube Feeding 150 Other 120 Output: Urine 700 1800 800 Other: Voiding Method Bedside Commode Bedside Commode # Voids 1 1 - Exam -GENERAL: The patient is alert and oriented x3, not in any acute distress. Thin built HEENT: Pupils are round and equally reacting to light. EOMI. No scleral icterus. No conjunctival pallor. Normocephalic, atraumatic. No pharyngeal erythema. No thyromegaly. CARDIOVASCULAR: S1 and S2 present. No murmurs, rubs, or gallops. PULMONARY: Chest is clear to auscultation, no wheezing or crackles. -ABDOMEN: Soft, nontender, nondistended, normoactive bowel sounds. No palpable organomegaly. PEG tube is in place MUSCULOSKELETAL: No joint swelling or deformity. EXTREMITIES: No cyanosis, clubbing, or pedal edema. NEUROLOGICAL: Gross neurological examination did not reveal any focal deficits. SKIN: No rashes. no petechiae. - Labs CBC & Chem 7: 11/22/20 03:05 11/22/20 03:05 Labs: Abnormal Lab Results - Last 24 Hours (Table) 11/16/20 11/22/20 11/22/20 Range/Units 05:21 03:05 03:05 RDW 16.0 H (11.5-15.5) % Sodium 135 L (137-145) mmol/L Carbon Dioxide 31 H (22-30) mmol/L BUN 6 L (7-17) mg/dL Creatinine 0.39 L (0.52-1.04) mg/dL Glucose 112 H (74-99) mg/dL Total Protein 6.2 L (6.3-8.2) g/dL Albumin 3.1 L (3.5-5.0) g/dL Vitamin B6 <2 L (5-50) ug/L Microbiology - Last 24 Hours (Table) 11/15/20 10:11 Blood Culture - Final Blood No Growth after 144 hours 11/15/20 09:54 Blood Culture - Final Blood No Growth after 144 hours Assessment and Plan Assessment: Bilateral aspiration pneumonia Moderate protein calorie malnutrition Dysphagia, status post PEG tube placement Acute hypoxic respiratory failure 2 neurofibromatosis Metabolic encephalopathy improved Plan: This is a pleasant 24 years old female presents with bilateral pneumonia, status post PEG tube placement. Continue with cefepime, pulmonary team on the case, as well as infectious disease team. Neurology consult on the case Postoperative Toradol and with the patient and Ultram patient has been taking Toradol for a few days and to lower the risk Labs and medication were reviewed.. Continue same treatment. Continue with symptomatic treatment. Resume home medication. Monitor lytes and vitals. DVT and GI prophylaxis. Further recommendationsas per clinical course of the patient DVT prophylaxis: Subcutaneous heparin GI Prophylaxis: Ppi
--- NOTE | 2020-11-22 17:41 | PN ---
PROGRESS NOTE DATE OF SERVICE: 11/22/2020 REASON FOR FOLLOWUP: Pneumonia. INTERVAL HISTORY: The patient is afebrile. The patient is breathing comfortably, currently on 4 L nasal cannula. No vomiting has been reported on her tube feeds. No diarrhea ( ) changes. PHYSICAL EXAMINATION: Blood pressure 101/64, pulse of 90, temperature is 98. She is 99% on 4 L nasal cannula. General description is a middle-aged female lying in bed in no distress. Respiratory system: Unlabored breathing, clear to auscultation anteriorly. Heart: S1, S2. Regular rate and rhythm. Abdomen soft, no tenderness. LAB: Hemoglobin 13.5, white count 7.9, BUN of 6, creatinine 0.39. DIAGNOSTIC IMPRESSION AND PLAN: Patient admitted to hospital with vomiting, shortness of breath concerning for pneumonia. Patient is covered with cefepime, to continue. Hopefully transitioning to oral antibiotics on discharge. Continue supportive care. MMODL / IJN: [id number] /
--- NOTE | 2020-11-22 19:46 | P.PN ---
Subjective Progress Note Date: 11/22/20 The patient seen at bedside and she is accompanied by her mother. Per the patient's mother today when she stood up she felt somewhat lightheaded and dizzy otherwise she's been about the same. She's having the difficulty tolerating the food to the PEG tube according to the mother. Otherwise no neurological new deficits at. Objective - Vital Signs Vital signs: Vital Signs Temp 98.1 F 11/22/20 16:00 Pulse 103 H 11/22/20 16:00 Resp 21 11/22/20 16:00 BP 118/66 11/22/20 16:00 Pulse Ox 96 11/22/20 16:00 Intake & Output 11/22/20 11/22/20 11/23/20 06:59 18:59 06:59 Intake Total 440 1480 Output Total 1800 950 Balance -1360 530 Weight 44.9 kg 39.6 kg Intake: IV 440 1060 Cefepime 2 gm In Sodium 200 100 Chloride 0.9% 100 ml @ 25 mls/hr IVPB Q8H [facility] Rx#: [id number] Dextrose 5% in Water 1, 240 960 000 ml In Empty Bag 1 bag @ 3.33 ML/KG/HR 146.853 mls/hr IV .Q6H49M [facility] Rx# :[id number] Tube Feeding 270 Other 150 Output: Urine 1800 800 Emesis 150 Other: Voiding Method Bedside Commode Bedside Commode # Voids 1 - Exam Patient is a young female, alert and awake, following commands, participating with examination, keeps her eyes open. Still appears generalized weak. Head turn to the right. Speech speaks with a very low volume and language functions are normal. Attention, concentration and fund of knowledge is normal. On cranial examination, pupils are round and reacting to light, visual kennedy are full on confrontation, extraocular muscles reveal intact gaze to the left. However to the right there is gaze restriction. Patient has right sixth nerve palsy. Patient also has slight disconjugate gaze, with right eye going up and inside, whereas the left eye does not elevate up. No obvious nystagmus. Facial sensation normal.Patient appears to have right facial weakness, peripheral type, decreased forehead wrinkling appears bilaterally, right worse. Her hearing appears normal. Has hypophonia and mild dysarthria. On muscle strength testing, there is no pronator drift. Strength is 4-4+ in uppers In the lower limbs, hip flexion 4+, knee extension 5-4+/5-, ankle dorsiflexion 5/5. Cerebellar function showed mild ataxia for [id number] testing on the left. Sensory to touch is equal with no neglect. Deep tendon reflexes are (R/L) biceps 1/2+, brachioradialis 1/2+, knee 2/3, ankle 1+/2+, plantar is downgoing on the right, upon left. - Labs CBC & Chem 7: 11/22/20 03:05 11/22/20 03:05 Labs: Abnormal Lab Results - Last 24 Hours (Table) 11/16/20 11/22/20 11/22/20 Range/Units 05:21 03:05 03:05 RDW 16.0 H (11.5-15.5) % Sodium 135 L (137-145) mmol/L Carbon Dioxide 31 H (22-30) mmol/L BUN 6 L (7-17) mg/dL Creatinine 0.39 L (0.52-1.04) mg/dL Glucose 112 H (74-99) mg/dL Total Protein 6.2 L (6.3-8.2) g/dL Albumin 3.1 L (3.5-5.0) g/dL Vitamin B6 <2 L (5-50) ug/L Assessment and Plan Assessment: * Altered mental status, possible toxic metabolic encephalopathy--improved * Neurofibromatosis type II, with evidence of intracranial tumors 4, 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 * Bilateral Aspiration pneumonia, possible lung abscess * Dysphagia, failed swallow study due to multiple cranial nerve palsy s/p PEG tube * Possible nutritional deficiency * Hypertension Plan: * Recommend patient undergo MRI of the brain with and without contrast when possible. This can be done through her oncologist as an outpatient. Patient's last MRI was in October 2020. It probably is time to repeat MRI of the brain. * EEG was mildly abnormal due to poorly reactive background and excessive fast frequency beta activity. This is suggestive of mild generalized cerebral dysfunction, may be related to medication effect. No epileptiform activity was seen. * B12 471, folate 20.6, hemoglobin A1c 5.2, MMA <0.10, B6: <2 (normal 5-50), B1: 52 (normal). I will start the patient on Vitamin B6 50mg 1 tab bid (recommend repeating down the line to assess if normalized or not within 2-3 months). * Patient's mother brought previous MRI for comparison. The MRI from 09/13/2019 was reviewed with current computed tomography scan of the head by the radiologist Dr. Leavitt. 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 The left cerebellar calcification appears similar to MRI. The extent of the left thalamic calcification appears better visualized on the MRI. Suprasellar calcification appears stable. Significant interval growth of these structures is not evident. * Patient needs to follow-up with a neurologist as an outpatient which she has one within 1-2 weeks and possibly consider neurosurgeon as an outpatient as well. This was notified to the patient her mother was at bedside. Will follow-up with the patient sporadically. Juan Luis Armijo MD Neuro-Hospitalist. Time with Patient: Less than 30
[2020-11-22] MEDS: PYRIDOXINE 50 MG TAB PEG/G-TUBE SCH (21:41)
[2020-11-23] MEDS: POTASSIUM CHLORIDE 10 MEQ in WATER FOR INJECTION 1 100ML.BAG IVPB SCH (02:04)
[2020-11-23] MEDS: DEXTROSE 5% IN WATER 1,000 ML in EMPTY BAG 1 BAG IV SCH ×4 (02:28→23:27)
[2020-11-23] MEDS: LABETALOL 5 MG/ML VIAL MDV IVP PRN (04:42)
[2020-11-23 06:22] LABS: Glucose,Whole Blood 150 mg/dL (75-99)
[2020-11-23] MEDS: IPRATROPIUM-ALBUTEROL 3 ML NEB INHALATION SCH ×4 (07:37→21:18)
[2020-11-23] MEDS: amLODIPine 5 MG TAB PO SCH (08:44)
[2020-11-23] MEDS: HEPARIN SODIUM,PORCINE/PF 5,000 UNIT/0.5 ML SYRINGE SQ SCH ×2 (08:44→21:20)
[2020-11-23] MEDS: PANTOPRAZOLE 40 MG/10 ML VIAL IVP SCH (08:44)
[2020-11-23] MEDS: FLUoxetine HCL 10 MG CAP PO SCH (08:44)
[2020-11-23] MEDS: METHYLPHENIDATE HCL 10 MG TAB PO SCH ×2 (08:44→12:47)
[2020-11-23] MEDS: PYRIDOXINE 50 MG TAB PEG/G-TUBE SCH ×2 (08:44→21:20)
--- NOTE | 2020-11-23 11:43 | P.PN ---
Subjective This is a 24-year-old female who was recently admitted with change in mental status and also possible acute bilateral pneumonia along with sepsis present on admission and is being closely monitored. Patient continues to be in the ICU with multiple medical consultations following. Pulmonary coal yard supervisor Dr. Kathia bradley along with infectious disease and neurology and a consult was placed for general surgery as patient underwent swallow eval and failed and has been having difficulty with aspiration even in the outpatient setting with her prim haris specialist. Patient initially was reluctant for PEG tube per family at the bedside although they are now requesting this and the patient is agreeable. Patient continues to have shortness of breath and is maintained on 2-3 L of oxygen via nasal cannula and continues to be streaming dyspneic with minimal exertion and tachypneic as well. Patient had one episode of low-grade intermittent temp last night into this morning of 99.3 and continues on IV antibiotic therapy with infectious disease following closely. Patient continues on IV cefepime. Potassium slightly low this morning at 3.4 and will replace per protocol and monitor closely with repeat labs in the morning. Patient continues to have hypertension and is maintained on IV push Labetolol. 11/20/2020 Patient is seen and evaluated in follow-up this morning mother continues to be at the bedside. Patient is alert and oriented 3 and awake currently playing on her phone. Patient continues to be nothing by mouth and plans are for PEG tube placement was surgery this morning. Multiple medical consultations following and if patient remains stable status post procedure considering transferring out of the ICU to [facility]. Patient will continue with nothing by mouth until cleared by surgery to initiate PEG tube feedings. White blood count is 9.7, hemoglobin is 14.5, sodium is 138 with a potassium of 3.9 and current creatinine is 0.55. She continues to have a dry hacking cough and unable to expectorate any phlegm. Per mother at the bedside this is chronic. Patient denies any chest pain or worsening shortness of breath. Patient continues to have right lower quadrant abdominal discomfort on palpation. Patient is urinating and passing gas but no reports of bowel movements. Blood pressure continues to be elevated today and continued on labetalol along with IV hydralazine and will continue. 11/21/2020 This is a pleasant 24 years old female with past medical history of 2 neurofibromatosis, also she is with dysphagia status post PEG tube placement yesterday by surgery team. On admission patient was found to have bilateral aspiration pneumonia and currently she is on cefepime. This morning patient is awake, breathing quietly and states her breathing is easier today. Currently she is at 4 L oxygen via nasal cannula oxygen saturation 95%. Blood pressure is low normal 100/65, is afebrile currently however she had low-grade fever today of 100.5. Chest x-ray from today showing bilateral prominence, no change Neurologist evaluated the patient for AMS as an neurofibromatosis, and he recommended MRI of the brain with and without contrast when possible and this can be done with her oncologist. Patient has negative CTPA for pulmonary embolism on admission. Today also has been complaining of from lips hip pain, which is not new for her she is already seen an orthopedic doctor about 2 weeks ago for the same reason. No history of fall. 11/22/2020 Patient remains in the ICU, his respiratory status is improving. On 4 L oxygen nasal cannula saturating in the mid 90s. She is coughing but she declines to 0. He is hemodynamically stable. She is afebrile for more than 24 hours. Vitals are Stable tube feeding is a started today and tolerated well by the patient so far Patient remains on cefepime Keep in the ICU for now 11/23/2020 Patient moved his legs unit yesterday goes her oxygen requirement went down to 2 L/m. Today she still have significant coughing. No chest pain or dyspnea while at rest. Hemodynamically stable. Labs are stable. she remains on cefepime PEG tube is in place and fluid is running at 30 mL/h. Physical therapy evaluation is requested Patient will need to follow-up with her neurologist as an outpatient, to consider repeat an MRI of the brain per neurologist recommendation, this information I related to the patient and mother at bedside and they agree to call and follow-up with her neurologist Objective - Vital Signs Vital signs: Vital Signs Temp 97.4 F L 11/23/20 07:50 Pulse 92 11/23/20 07:50 Resp 22 11/23/20 07:50 BP 120/77 11/23/20 07:50 Pulse Ox 100 11/23/20 04:45 Intake & Output 11/22/20 11/23/20 11/23/20 18:59 06:59 18:59 Intake Total 1480 440 0 Output Total 950 550 Balance 530 -110 0 Weight 39.6 kg 53 kg Intake: IV 1060 320 Cefepime 2 gm In Sodium 100 Chloride 0.9% 100 ml @ 25 mls/hr IVPB Q8H [facility] Rx#: [id number] Dextrose 5% in Water 1, 960 320 000 ml In Empty Bag 1 bag @ 3.33 ML/KG/HR 146.853 mls/hr IV .Q6H49M [facility] Rx# :[id number] Oral 0 Tube Feeding 270 120 Other 150 Output: Urine 800 550 Emesis 150 Other: Voiding Method Bedside Commode Bedside Commode - Exam -GENERAL: The patient is alert and oriented x3, not in any acute distress. Thin built HEENT: Pupils are round and equally reacting to light. EOMI. No scleral icterus. No conjunctival pallor. Normocephalic, atraumatic. No pharyngeal erythema. No thyromegaly. CARDIOVASCULAR: S1 and S2 present. No murmurs, rubs, or gallops. PULMONARY: Chest is clear to auscultation, no wheezing or crackles. -ABDOMEN: Soft, nontender, nondistended, normoactive bowel sounds. No palpable organomegaly. PEG tube is in place MUSCULOSKELETAL: No joint swelling or deformity. EXTREMITIES: No cyanosis, clubbing, or pedal edema. NEUROLOGICAL: Gross neurological examination did not reveal any focal deficits. SKIN: No rashes. no petechiae. - Labs CBC & Chem 7: 11/22/20 03:05 11/22/20 03:05 Labs: Abnormal Lab Results - Last 24 Hours (Table) 11/16/20 11/23/20 Range/Units 05:21 06:21 POC Glucose (mg/dL) 150 H (75-99) mg/dL Vitamin B6 <2 L (5-50) ug/L Assessment and Plan Assessment: Bilateral aspiration pneumonia Moderate protein calorie malnutrition Dysphagia, status post PEG tube placement Acute hypoxic respiratory failure 2 neurofibromatosis Metabolic encephalopathy improved Plan: This is a pleasant 24 years old female presents with bilateral pneumonia, status post PEG tube placement. Continue with cefepime, pulmonary team on the case, as well as infectious disease team. Neurology consult on the case Postoperative Toradol and with the patient and Ultram patient has been taking Toradol for a few days and to lower the risk Labs and medication were reviewed.. Continue same treatment. Continue with symptomatic treatment. Resume home medication. Monitor lytes and vitals. DVT and GI prophylaxis. Further recommendationsas per clinical course of the patient DVT prophylaxis: Subcutaneous heparin GI Prophylaxis: Ppi
[2020-11-23 12:01] LABS: Glucose,Whole Blood 150 mg/dL (75-99)
[2020-11-23] MEDS ORDERED: METOPROLOL TARTRATE 25 MG TAB PO SCH (12:30)
--- NOTE | 2020-11-23 12:32 | P.PN ---
Subjective Progress Note Date: 11/23/20 CHIEF COMPLAINT: Aspiration pneumonia HISTORY OF PRESENT ILLNESS: Surgical service is following after PEG tube placement. Patient is status post PEG tube placement which was done on 11/20/[address] Marin. Patient is tolerating her tube feedings. She is currently at goal at 30 mL per hour. Patient had minimal residual yesterday evening. No residual reported this morning. Apparently yesterday she had a total of 3 episodes of emesis. Again through the night and this morning no emesis reported. She denies any abdominal pain. She has pain at the PEG tube site only if it is touched. Afebrile. Patient transferred out of the ICU yesterday to cardiac for PHYSICAL EXAM: VITAL SIGNS: Reviewed. GENERAL: Well-developed in no acute distress. HEENT: No sclera icterus. Extraocular movements grossly intact. Moist buccal mucosa. Head is atraumatic, normocephalic. ABDOMEN: Soft. Nondistended. Nontender. PEG tube site minimal dried blood noted NEUROLOGIC: Alert and oriented. Cranial nerves II through XII grossly intact. ASSESSMENT: 1. Severe protein calorie malnutrition status post EGD with PEG tube placement PLAN: -Continue tube feedings -Continue to monitor for any recurring emesis Physician Cruise Agent note has been reviewed by physician. Signing provider agrees with the documented findings, assessment, and plan of care. Objective - Vital Signs Vital signs: Vital Signs Temp 97 F L 11/23/20 12:22 Pulse 119 H 11/23/20 12:22 Resp 20 11/23/20 12:22 BP 121/73 11/23/20 12:22 Pulse Ox 99 11/23/20 12:22 Intake & Output 11/22/20 11/23/20 11/23/20 18:59 06:59 18:59 Intake Total 1480 440 0 Output Total 950 550 Balance 530 -110 0 Weight 39.6 kg 53 kg Intake: IV 1060 320 Cefepime 2 gm In Sodium 100 Chloride 0.9% 100 ml @ 25 mls/hr IVPB Q8H [facility] Rx#: [id number] Dextrose 5% in Water 1, 960 320 000 ml In Empty Bag 1 bag @ 3.33 ML/KG/HR 146.853 mls/hr IV .Q6H49M [facility] Rx# :[id number] Oral 0 Tube Feeding 270 120 Other 150 Output: Urine 800 550 Emesis 150 Other: Voiding Method Bedside Commode Bedside Commode - Labs CBC & Chem 7: 11/22/20 03:05 11/22/20 03:05 Labs: Abnormal Lab Results - Last 24 Hours (Table) 11/23/20 11/23/20 Range/Units 06:21 11:59 POC Glucose (mg/dL) 150 H 150 H (75-99) mg/dL
[2020-11-23] MEDS: METOPROLOL TARTRATE 25 MG TAB PEG/G-TUBE SCH ×2 (12:48→21:20)
--- NOTE | 2020-11-23 16:22 | PN ---
PROGRESS NOTE DATE OF SERVICE: 11/23/2020 REASON FOR FOLLOWUP: Pneumonia. INTERVAL HISTORY: The patient is afebrile. The patient is breathing comfortably. No nausea, no vomiting. Has been ordered on tube feeds and no diarrhea. EXAMINATION: Blood pressure 102/78 with a pulse of 100, temperature 97.9, she is 97% on 2 L nasal cannula. GENERAL DESCRIPTION: Patient is a middle-aged female lying in bed in no distress. RESPIRATORY SYSTEM: Unlabored breathing, decreased breath sounds at bases. No wheeze. HEART: S1, S2. Regular rate and rhythm. ABDOMEN: Soft, no tenderness. LABS: Hemoglobin is 13.1, white count 10.9, BUN of 15.8. ASSESSMENT: Patient with admission to the hospital with vomiting, respiratory distress, concern for pneumonia, possible ( ). Seemed to show overall improvement on cefazolin, to continue while inpatient and will transition course of oral Levaquin on discharge. Mother at the bedside. Questions were answered. MMODL / IJN: [id number] /
[2020-11-23] MEDS: CEFEPIME 2 GM in SODIUM CHLORIDE 0.9% 100 ML IVPB SCH ×2 (16:56→23:27)
[2020-11-23 18:21] LABS: Glucose,Whole Blood 157 mg/dL (75-99)
[2020-11-23] MEDS ORDERED: LORazepam 2 MG/ML INJ IV PRN (21:26)
[2020-11-24 00:04] LABS: Glucose,Whole Blood 113 mg/dL (75-99)
[2020-11-24 06:05] LABS: Glucose,Whole Blood 87 mg/dL (75-99)
[2020-11-24] MEDS: IPRATROPIUM-ALBUTEROL 3 ML NEB INHALATION SCH ×4 (07:33→20:18)
[2020-11-24] MEDS: CEFEPIME 2 GM in SODIUM CHLORIDE 0.9% 100 ML IVPB SCH ×3 (09:00→23:14)
[2020-11-24 09:02] LABS: Magnesium 1.9 mg/dL (1.6-2.3); Phosphorus 3.6 mg/dL (2.5-4.5)
[2020-11-24] MEDS: amLODIPine 5 MG TAB PO SCH (09:09)
[2020-11-24] MEDS: PYRIDOXINE 50 MG TAB PEG/G-TUBE SCH ×2 (09:09→20:27)
[2020-11-24] MEDS: METOPROLOL TARTRATE 25 MG TAB PEG/G-TUBE SCH ×2 (09:09→20:27)
[2020-11-24] MEDS: METHYLPHENIDATE HCL 10 MG TAB PO SCH ×2 (09:09→12:37)
[2020-11-24] MEDS: HEPARIN SODIUM,PORCINE/PF 5,000 UNIT/0.5 ML SYRINGE SQ SCH ×3 (09:10→20:43)
[2020-11-24] MEDS: FLUoxetine HCL 10 MG CAP PO SCH (09:10)
[2020-11-24] MEDS: DEXTROSE 5% IN WATER 1,000 ML in EMPTY BAG 1 BAG IV SCH ×3 (09:10→23:18)
[2020-11-24] MEDS: PANTOPRAZOLE 40 MG/10 ML VIAL IVP SCH (09:10)
[2020-11-24 11:59] LABS: Glucose,Whole Blood 124 mg/dL (75-99)
[2020-11-24] MEDS ORDERED: ALPRAZolam 0.25 MG TAB PEG/G-TUBE PRN (12:22)
--- NOTE | 2020-11-24 12:26 | P.PN ---
Subjective This is a 24-year-old female who was recently admitted with change in mental status and also possible acute bilateral pneumonia along with sepsis present on admission and is being closely monitored. Patient continues to be in the ICU with multiple medical consultations following. Pulmonary direct selling counselor Dr. Kathia bradley along with infectious disease and neurology and a consult was placed for general surgery as patient underwent swallow eval and failed and has been having difficulty with aspiration even in the outpatient setting with her prim haris specialist. Patient initially was reluctant for PEG tube per family at the bedside although they are now requesting this and the patient is agreeable. Patient continues to have shortness of breath and is maintained on 2-3 L of oxygen via nasal cannula and continues to be streaming dyspneic with minimal exertion and tachypneic as well. Patient had one episode of low-grade intermittent temp last night into this morning of 99.3 and continues on IV antibiotic therapy with infectious disease following closely. Patient continues on IV cefepime. Potassium slightly low this morning at 3.4 and will replace per protocol and monitor closely with repeat labs in the morning. Patient continues to have hypertension and is maintained on IV push Labetolol. 11/20/2020 Patient is seen and evaluated in follow-up this morning mother continues to be at the bedside. Patient is alert and oriented 3 and awake currently playing on her phone. Patient continues to be nothing by mouth and plans are for PEG tube placement was surgery this morning. Multiple medical consultations following and if patient remains stable status post procedure considering transferring out of the ICU to [facility]. Patient will continue with nothing by mouth until cleared by surgery to initiate PEG tube feedings. White blood count is 9.7, hemoglobin is 14.5, sodium is 138 with a potassium of 3.9 and current creatinine is 0.55. She continues to have a dry hacking cough and unable to expectorate any phlegm. Per mother at the bedside this is chronic. Patient denies any chest pain or worsening shortness of breath. Patient continues to have right lower quadrant abdominal discomfort on palpation. Patient is urinating and passing gas but no reports of bowel movements. Blood pressure continues to be elevated today and continued on labetalol along with IV hydralazine and will continue. 11/21/2020 This is a pleasant 24 years old female with past medical history of 2 neurofibromatosis, also she is with dysphagia status post PEG tube placement yesterday by surgery team. On admission patient was found to have bilateral aspiration pneumonia and currently she is on cefepime. This morning patient is awake, breathing quietly and states her breathing is easier today. Currently she is at 4 L oxygen via nasal cannula oxygen saturation 95%. Blood pressure is low normal 100/65, is afebrile currently however she had low-grade fever today of 100.5. Chest x-ray from today showing bilateral prominence, no change Neurologist evaluated the patient for AMS as an neurofibromatosis, and he recommended MRI of the brain with and without contrast when possible and this can be done with her oncologist. Patient has negative CTPA for pulmonary embolism on admission. Today also has been complaining of from lips hip pain, which is not new for her she is already seen an orthopedic doctor about 2 weeks ago for the same reason. No history of fall. 11/22/2020 Patient remains in the ICU, his respiratory status is improving. On 4 L oxygen nasal cannula saturating in the mid 90s. She is coughing but she declines to 0. He is hemodynamically stable. She is afebrile for more than 24 hours. Vitals are Stable tube feeding is a started today and tolerated well by the patient so far Patient remains on cefepime Keep in the ICU for now 11/23/2020 Patient moved his legs unit yesterday goes her oxygen requirement went down to 2 L/m. Today she still have significant coughing. No chest pain or dyspnea while at rest. Hemodynamically stable. Labs are stable. she remains on cefepime PEG tube is in place and fluid is running at 30 mL/h. Physical therapy evaluation is requested Patient will need to follow-up with her neurologist as an outpatient, to consider repeat an MRI of the brain per neurologist recommendation, this information I related to the patient and mother at bedside and they agree to call and follow-up with her neurologist 11/24/2020 Patient is awake, mother at bedside all the time and each time come to see the patient. Vomited one time this morning with yellow stuff, she did not eat anything and she still on PEG tube, and 30 mL/h, I discussed the case with the bedside nurse, it looks like her goal is also 30 mL/h, nurse was instructed to hold feeding and check residual per protocol. Keep head of bed more than 45. Patient is already on Zofran Patient also have urged for eating due to hunger, explained to the patient and mother the risk of its and is aspiration pneumonia and they agree to keep nothing by mouth now, give her Xanax as needed. Check labs tomorrow Objective - Vital Signs Vital signs: Vital Signs Temp 98.3 F 11/24/20 08:00 Pulse 113 H 11/24/20 08:00 Resp 18 11/24/20 08:00 BP 110/58 11/24/20 08:00 Pulse Ox 96 11/24/20 08:00 Intake & Output 11/23/20 11/24/20 11/24/20 18:59 06:59 18:59 Intake Total 300 900 0 Output Total 500 450 Balance 300 400 -450 Weight 39.6 kg 48.5 kg Intake: IV 800 Dextrose 5% in Water 1, 800 000 ml In Empty Bag 1 bag @ 3.33 ML/KG/HR 146.853 mls/hr IV .Q6H49M [facility] Rx# :[id number] Intake, IV Titration 100 Amount Cefepime 2 gm In Sodium 100 Chloride 0.9% 100 ml @ 25 mls/hr IVPB Q8HR [facility] Rx# :[id number] Oral 0 0 Tube Feeding 300 Output: Urine 500 450 Other: Voiding Method Bedside Commode # Voids 1 - Exam -GENERAL: The patient is alert and oriented x3, not in any acute distress. Thin built HEENT: Pupils are round and equally reacting to light. EOMI. No scleral icterus. No conjunctival pallor. Normocephalic, atraumatic. No pharyngeal erythema. No t hyromegaly. CARDIOVASCULAR: S1 and S2 present. No murmurs, rubs, or gallops. PULMONARY: Chest is clear to auscultation, no wheezing or crackles. -ABDOMEN: Soft, nontender, nondistended, normoactive bowel sounds. No palpable organomegaly. PEG tube is in place MUSCULOSKELETAL: No joint swelling or deformity. EXTREMITIES: No cyanosis, clubbing, or pedal edema. NEUROLOGICAL: Gross neurological examination did not reveal any focal deficits. SKIN: No rashes. no petechiae. - Labs CBC & Chem 7: 11/22/20 03:05 11/22/20 03:05 Labs: Abnormal Lab Results - Last 24 Hours (Table) 11/23/20 11/24/2011/24/21 Range/Units 18:04 00:03 11:57 POC Glucose (mg/dL) 157 H 113 H 124 H (75-99) mg/dL Assessment and Plan Assessment: Bilateral aspiration pneumonia Moderate protein calorie malnutrition Dysphagia, status post PEG tube placement Acute hypoxic respiratory failure 2 neurofibromatosis Metabolic encephalopathy improved Plan: This is a pleasant 24 years old female presents with bilateral pneumonia, status post PEG tube placement. Continue with cefepime, pulmonary team on the case, as well as infectious disease team. Neurology consult on the case Postoperative Toradol and with the patient and Ultram patient has been taking To radol for a few days and to lower the risk Labs and medication were reviewed.. Continue same treatment. Continue with symptomatic treatment. Resume home medication. Monitor lytes and vitals. DVT and GI prophylaxis. Further recommendationsas per clinical course of the patient DVT prophylaxis: Subcutaneous heparin GI Prophylaxis: Ppi
[2020-11-24 17:53] LABS: Glucose,Whole Blood 115 mg/dL (75-99)
--- NOTE | 2020-11-24 17:58 | PN ---
PROGRESS NOTE DATE OF SERVICE: 11/24/2020 REASON FOR FOLLOWUP: Pneumonia. INTERVAL HISTORY: The patient is afebrile. The patient is breathing comfortably. Did mention occasional cough and some yellow sputum. No hemoptysis. No chest pain. No abdominal pain or diarrhea. EXAMINATION: Blood pressure ( ), pulse 95, temperature 98. She is 95% on 2 L nasal cannula. General description is a middle-aged female lying in bed in no distress. Respiratory system: Unlabored breathing, decreased intensity of breath sounds. No wheeze. Heart S1, S2. Regular rate and rhythm. Abdomen soft, no tenderness. LABS: No CBC was done today. DIAGNOSTIC IMPRESSION AND PLAN: Patient admitted to the hospital with vomiting concerning for pneumonia, possible aspiration, covered with cefepime. Transition to oral Avelox on discharge. Mother at bedside, questions were answered. MMODL / IJN: [id number] /
[2020-11-25 00:06] LABS: Glucose,Whole Blood 109 mg/dL (75-99)
[2020-11-25] MEDS: DEXTROSE 5% IN WATER 1,000 ML in EMPTY BAG 1 BAG IV SCH ×4 (03:25→21:12)
[2020-11-25 05:58] LABS: Glucose,Whole Blood 109 mg/dL (75-99)
[2020-11-25] MEDS: IPRATROPIUM-ALBUTEROL 3 ML NEB INHALATION SCH ×3 (07:53→20:10)
[2020-11-25 07:58] LABS: Basophils # (A) 0.1 k/uL (0-0.2); Basophils % (A) 0 %; Eosinophils # (A) 0.3 k/uL (0-0.7); Eosinophils % (A) 2 %; HGB 13.8 gm/dL (11.4-16.0); Lymphocytes # (A) 1.7 k/uL (1.0-4.8); Lymphocytes % (A) 10 %; MCH 30.6 pg (25.0-35.0); MCHC 31.4 g/dL (31.0-37.0); MCV 97.4 fL (80.0-100.0); Mean Platelet Volume 7.6; Monocytes # (A) 0.8 k/uL (0-1.0); Monocytes % (A) 5 %; Neutrophils # (A) 14.4 k/uL (1.3-7.7); Neutrophils % (A) 82 %; Platelet Count 298 k/uL (150-450); RBC 4.52 m/uL (3.80-5.40); RDW 15.5 % (11.5-15.5); WBC 17.5 k/uL (3.8-10.6)
[2020-11-25] MEDS: CEFEPIME 2 GM in SODIUM CHLORIDE 0.9% 100 ML IVPB SCH ×3 (08:00→23:26)
[2020-11-25] MEDS: METHYLPHENIDATE HCL 10 MG TAB PO SCH ×2 (08:00→12:43)
[2020-11-25 08:11] LABS: African American GFR (CKD) >90 (>60 ml/min/1.73 sqM); Anion Gap 3 mmol/L; Blood Urea Nitrogen 11 mg/dL (7-17); Calcium 9.5 mg/dL (8.4-10.2); Carbon Dioxide 37 mmol/L (22-30); Chloride 100 mmol/L (98-107); Glucose 115 mg/dL (74-99); Non-African American GFR(CKD) >90 (>60 ml/min/1.73 sqM); Potassium 4.1 mmol/L (3.5-5.1); Sodium 140 mmol/L (137-145)
[2020-11-25] MEDS: PANTOPRAZOLE 40 MG/10 ML VIAL IVP SCH (09:02)
[2020-11-25] MEDS: FLUoxetine HCL 10 MG CAP PO SCH (09:03)
[2020-11-25] MEDS: PYRIDOXINE 50 MG TAB PEG/G-TUBE SCH ×2 (09:03→21:00)
[2020-11-25] MEDS: HEPARIN SODIUM,PORCINE/PF 5,000 UNIT/0.5 ML SYRINGE SQ SCH ×2 (09:22→21:03)
[2020-11-25] MEDS: amLODIPine 5 MG TAB PO SCH (10:00)
[2020-11-25] MEDS: METOPROLOL TARTRATE 25 MG TAB PEG/G-TUBE SCH ×2 (10:00→21:00)
[2020-11-25 12:02] LABS: Glucose,Whole Blood 113 mg/dL (75-99)
--- NOTE | 2020-11-25 13:13 | PN ---
PROGRESS NOTE DATE OF SERVICE: 11/25/2020 REASON FOR FOLLOWUP: Pneumonia. INTERVAL HISTORY: The patient is afebrile. The patient is breathing comfortably. No vomiting. Occasional cough per the mother present at bedside and no change has been reported in her clinical condition. PHYSICAL EXAMINATION: Her blood pressure 103/65, pulse of 111, temperature 98.5, she is 96% on 2 L nasal cannula. General description is a middle-aged female lying in bed in no distress. Respiratory system: Unlabored breathing, decreased intensity of breath sounds, no wheezes. Heart S1, S2. Regular rate and rhythm. Abdomen is soft, no tenderness. LABS: Hemoglobin is 13, white count 17.5, BUN of 11, creatinine 0.40. DIAGNOSTIC IMPRESSION AND PLAN: Patient admitted to the hospital with vomiting and did have an episode of pneumonia. Patient seemed to have shown overall clinical improvement. Did have slight worsening of the white count which is slightly concerning, though no fever has been reported. We will recheck inflammatory markers. Continue cefepime. Repeat chest x-ray. Continue supportive care. MMODL / IJN: [id number] /
--- NOTE | 2020-11-25 13:14 | P.PN ---
Subjective This is a 24-year-old female who was recently admitted with change in mental status and also possible acute bilateral pneumonia along with sepsis present on admission and is being closely monitored. Patient continues to be in the ICU with multiple medical consultations following. Pulmonary administrative assistant office manager Dr. Kathia bradley along with infectious disease and neurology and a consult was placed for general surgery as patient underwent swallow eval and failed and has been having difficulty with aspiration even in the outpatient setting with her prim haris specialist. Patient initially was reluctant for PEG tube per family at the bedside although they are now requesting this and the patient is agreeable. Patient continues to have shortness of breath and is maintained on 2-3 L of oxygen via nasal cannula and continues to be streaming dyspneic with minimal exertion and tachypneic as well. Patient had one episode of low-grade intermittent temp last night into this morning of 99.3 and continues on IV antibiotic therapy with infectious disease following closely. Patient continues on IV cefepime. Potassium slightly low this morning at 3.4 and will replace per protocol and monitor closely with repeat labs in the morning. Patient continues to have hypertension and is maintained on IV push Labetolol. 11/20/2020 Patient is seen and evaluated in follow-up this morning mother continues to be at the bedside. Patient is alert and oriented 3 and awake currently playing on her phone. Patient continues to be nothing by mouth and plans are for PEG tube placement was surgery this morning. Multiple medical consultations following and if patient remains stable status post procedure considering transferring out of the ICU to [facility]. Patient will continue with nothing by mouth until cleared by surgery to initiate PEG tube feedings. White blood count is 9.7, hemoglobin is 14.5, sodium is 138 with a potassium of 3.9 and current creatinine is 0.55. She continues to have a dry hacking cough and unable to expectorate any phlegm. Per mother at the bedside this is chronic. Patient denies any chest pain or worsening shortness of breath. Patient continues to have right lower quadrant abdominal discomfort on palpation. Patient is urinating and passing gas but no reports of bowel movements. Blood pressure continues to be elevated today and continued on labetalol along with IV hydralazine and will continue. 11/21/2020 This is a pleasant 24 years old female with past medical history of 2 neurofibromatosis, also she is with dysphagia status post PEG tube placement yesterday by surgery team. On admission patient was found to have bilateral aspiration pneumonia and currently she is on cefepime. This morning patient is awake, breathing quietly and states her breathing is easier today. Currently she is at 4 L oxygen via nasal cannula oxygen saturation 95%. Blood pressure is low normal 100/65, is afebrile currently however she had low-grade fever today of 100.5. Chest x-ray from today showing bilateral prominence, no change Neurologist evaluated the patient for AMS as an neurofibromatosis, and he recommended MRI of the brain with and without contrast when possible and this can be done with her oncologist. Patient has negative CTPA for pulmonary embolism on admission. Today also has been complaining of from lips hip pain, which is not new for her she is already seen an orthopedic doctor about 2 weeks ago for the same reason. No history of fall. 11/22/2020 Patient remains in the ICU, his respiratory status is improving. On 4 L oxygen nasal cannula saturating in the mid 90s. She is coughing but she declines to 0. He is hemodynamically stable. She is afebrile for more than 24 hours. Vitals are Stable tube feeding is a started today and tolerated well by the patient so far Patient remains on cefepime Keep in the ICU for now 11/23/2020 Patient moved his legs unit yesterday goes her oxygen requirement went down to 2 L/m. Today she still have significant coughing. No chest pain or dyspnea while at rest. Hemodynamically stable. Labs are stable. she remains on cefepime PEG tube is in place and fluid is running at 30 mL/h. Physical therapy evaluation is requested Patient will need to follow-up with her neurologist as an outpatient, to consider repeat an MRI of the brain per neurologist recommendation, this information I related to the patient and mother at bedside and they agree to call and follow-up with her neurologist 11/24/2020 Patient is awake, mother at bedside all the time and each time come to see the patient. Vomited one time this morning with yellow stuff, she did not eat anything and she still on PEG tube, and 30 mL/h, I discussed the case with the bedside nurse, it looks like her goal is also 30 mL/h, nurse was instructed to hold feeding and check residual per protocol. Keep head of bed more than 45. Patient is already on Zofran Patient also have urged for eating due to hunger, explained to the patient and mother the risk of its and is aspiration pneumonia and they agree to keep nothing by mouth now, give her Xanax as needed. Check labs tomorrow 11/25/2020 Patient is awake and not in distress today. No more episodes of vomiting, she has less desire for eating after Xanax help her to come down and sleep yesterday. She still coughing a lot with no phlegm. Head of bed more than 45. Oxygen saturation is at 2 L. She still tachycardic around 110-113. Not significantly tachypneic, afebrile. Her labs showing leukocytosis at 17 K. She still getting tube feeding at a rate of 13 mL/h, and also she is on cefepime for aspiration pneumonia We will check chest x-ray given her coughing, episode of vomiting yesterday and leukocytosis and for follow-up Objective - Vital Signs Vital signs: Vital Signs Temp 98.0 F 11/25/20 12:00 Pulse 113 H 11/25/20 12:00 Resp 18 11/25/20 12:00 BP 133/84 11/25/20 12:00 Pulse Ox 95 11/25/20 12:00 Intake & Output 11/24/20 11/25/20 11/25/20 18:59 06:59 18:59 Intake Total 0 Output Total 950 1974 400 Balance -950 Weight 48.5 kg 39.463 kg 39.463 kg Intake: Oral 0 Output: Urine 950 1974 400 Other: Voiding Method Bedside Commode - Exam -GENERAL: The patient is alert and oriented x3, not in any acute distress. Thin built HEENT: Pupils are round and equally reacting to light. EOMI. No scleral icterus. No conjunctival pallor. Normocephalic, atraumatic. No pharyngeal erythema. No thyromegaly. CARDIOVASCULAR: S1 and S2 present. No murmurs, rubs, or gallops. PULMONARY: Chest is clear to auscultation, no wheezing or crackles. -ABDOMEN: Soft, nontender, nondistended, normoactive bowel sounds. No palpable organomegaly. PEG tube is in place MUSCULOSKELETAL: No joint swelling or deformity. EXTREMITIES: No cyanosis, clubbing, or pedal edema. NEUROLOGICAL: Gross neurological examination did not reveal any focal deficits. SKIN: No rashes. no petechiae. - Labs CBC & Chem 7: 11/25/20 07:01 11/25/20 07:01 Labs: Abnormal Lab Results - Last 24 Hours (Table) 11/24/20 11/25/20 11/25/20 Range/Units 17:52 00:04 05:57 WBC (3.8-10.6) k/uL Neutrophils # (1.3-7.7) k/uL Carbon Dioxide (22-30) mmol/L Creatinine (0.52-1.04) mg/dL Glucose (74-99) mg/dL POC Glucose (mg/dL) 115 H 109 H 109 H (75-99) mg/dL 11/25/20 11/25/20 11/25/20 Range/Units 07:01 07:01 12:00 WBC 17.5 H (3.8-10.6) k/uL Neutrophils # 14.4 H (1.3-7.7) k/uL Carbon Dioxide 37 H (22-30) mmol/L Creatinine 0.40 L (0.52-1.04) mg/dL Glucose 115 H (74-99) mg/dL POC Glucose (mg/dL) 113 H (75-99) mg/dL Assessment and Plan Assessment: Bilateral aspiration pneumonia Moderate protein calorie malnutrition Dysphagia, status post PEG tube placement Acute hypoxic respiratory failure 2 neurofibromatosis Metabolic encephalopathy improved Plan: This is a pleasant 24 years old female presents with bilateral pneumonia, status post PEG tube placement. Continue with cefepime, pulmonary team on the case, as well as infectious disease team. Neurology consult on the case Pain management Labs and medication were reviewed.. Continue same treatment. Continue with symptomatic treatment. Resume home medication. Monitor lytes and vitals. DVT and GI prophylaxis. Further recommendationsas per clinical course of the patient DVT prophylaxis: Subcutaneous heparin GI Prophylaxis: Ppi
--- NOTE | 2020-11-25 15:01 | XR ---
EXAMINATION TYPE: XR chest 1V DATE OF EXAM: 11/25/2020 COMPARISON: NONE HISTORY: Leukocytosis TECHNIQUE: Single view FINDINGS: Heart and mediastinum appear normal. There is left-sided central venous catheter with tip i n the superior vena cava. There are some amorphous small calcifications over the left lower lung fiel d. There is no heart failure. There are chest leads. There is some minimal reticular infiltrate left lung base. There is minimal increased density right upper lobe. IMPRESSION: There is some minimal infiltrate left lung base that is probably new compared to old exam . There is minimal infiltrate also right upper lobe that appears new. Normal heart.
[2020-11-25 16:40] LABS: Glucose,Whole Blood 109 mg/dL (75-99)
--- NOTE | 2020-11-25 16:49 | P.PN ---
Subjective Progress Note Date: 11/25/20 The patient seen at bedside and she said that she's doing much better today compared to her initial presentation and she is accompanied with a family member and she stated that she's doing fairly well. Denies of any new neurological problems. He continues to be getting the C2 been through the PEG tube. Objective - Vital Signs Vital signs: Vital Signs Temp 98.0 F 11/25/20 12:00 Pulse 113 H 11/25/20 12:00 Resp 18 11/25/20 12:00 BP 133/84 11/25/20 12:00 Pulse Ox 95 11/25/20 12:00 Intake & Output 11/24/20 11/25/20 11/25/20 18:59 06:59 18:59 Intake Total 0 Output Total 1974 Balance -950 -1974 Weight 48.5 kg 39.463 kg 39.463 kg Intake: Oral 0 Output: Urine 950 1974 Other: Voiding Method Bedside Commode - Exam Patient is a young female, alert and awake, following commands, participating with examination, keeps her eyes open. Still appears generalized weak. Head turn to the right. Speech speaks with a very low volume and language functions are normal. Attention, concentration and fund of knowledge is normal. On cranial examination, pupils are round and reacting to light, visual kennedy are full on confrontation, extraocular muscles reveal intact gaze to the left. However to the right there is gaze restriction. Patient has right sixth nerve palsy. Patient also has slight disconjugate gaze, with right eye going up and inside, whereas the left eye does not elevate up. No obvious nystagmus. Facial sensation normal.Patient appears to have right facial weakness, peripheral type, decreased forehead wrinkling appears bilaterally, right worse. Her hearing appears normal. Has hypophonia and mild dysarthria. On muscle strength testing, there is no pronator drift. Strength is 4-4+ in uppers In the lower limbs, hip flexion 4+, knee extension 5-4+/5-, ankle dorsiflexion 5/5. Cerebellar function showed mild ataxia for [id number] testing on the left. Sensory to touch is equal with no neglect. Deep tendon reflexes are (R/L) biceps 1/2+, brachioradialis 1/2+, knee 2/3, ankl e 1+/2+, plantar is downgoing on the right, upon left. OTHER WORK-UP: * EEG was mildly abnormal due to poorly reactive background and excessive fast frequency beta activity. This is suggestive of mild generalized cerebral dysfunction, may be related to medication effect. No epileptiform activity was seen. * B12 471, folate 20.6, hemoglobin A1c 5.2, MMA <0.10, B6: <2 (normal 5-50), B1: 52 (normal). - Labs CBC & Chem 7: 11/25/20 07:01 11/25/20 07:01 Labs: Abnormal Lab Results - Last 24 Hours (Table) 11/24/20 11/25/20 11/25/20 Range/Units 17:52 00:04 05:57 WBC (3.8-10.6) k/uL Neutrophils # (1.3-7.7) k/uL Carbon Dioxide (22-30) mmol/L Creatinine (0.52-1.04) mg/dL Glucose (74-99) mg/dL POC Glucose (mg/dL) 115 H 109 H 109 H (75-99) mg/dL 11/25/20 11/25/20 11/25/20 Range/Units 07:01 07:01 12:00 WBC 17.5 H (3.8-10.6) k/uL Neutrophils # 14.4 H (1.3-7.7) k/uL Carbon Dioxide 37 H (22-30) mmol/L Creatinine 0.40 L (0.52-1.04) mg/dL Glucose 115 H (74-99) mg/dL POC Glucose (mg/dL) 113 H (75-99) mg/dL 11/25/20 Range/Units 16:39 WBC (3.8-10.6) k/uL Neutrophils # (1.3-7.7) k/uL Carbon Dioxide (22-30) mmol/L Creatinine (0.52-1.04) mg/dL Glucose (74-99) mg/dL POC Glucose (mg/dL) 109 H (75-99) mg/dL Assessment and Plan Assessment: * Altered mental status, possible toxic metabolic encephalopathy--improved * Neurofibromatosis type II, with evidence of intracranial tumors 4, 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 * Bilateral Aspiration pneumonia, possible lung abscess * Dysphagia, failed swallow study due to multiple cranial nerve palsy s/p PEG tube * Possible nutritional deficiency * Hypertension Plan: * Recommend patient undergo MRI of the brain with and without contrast as outpatient. This can be done through her oncologist as an outpatient. Patient's last MRI was in October 2020. * B6: <2 (normal 5-50), B1: 52 (normal). on Vitamin B6 50mg 1 tab bid ( recommend repeating down the line to assess if normalized or not within 2-3 months). * Patient's mother brought previous MRI for comparison. The MRI from 09/13/2019 was reviewed with current computed tomography scan of the head by the radi ologist Dr. Leavitt. 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 The left cerebellar calcification appears similar to MRI. The extent of the left thalamic calcification appears better visualized on the MRI. Suprasellar calcification appears stable. Significant interval growth of these structures is not evident. * Patient needs to follow-up with a neurologist as an outpatient which she has one within 1-2 weeks and possibly consider neurosurgeon as an outpatient as well. This was notified to the patient family members who are bedsides. There is no further neurological work-up. Neurology will sign off. Please reconsult if needed. Juan Luis Armijo MD Neuro-Hospitalist. Time with Patient: Less than 30
[2020-11-25 23:59] LABS: Glucose,Whole Blood 118 mg/dL (75-99)
[2020-11-26] MEDS: DEXTROSE 5% IN WATER 1,000 ML in EMPTY BAG 1 BAG IV SCH ×3 (05:41→20:55)
[2020-11-26 05:55] LABS: Glucose,Whole Blood 105 mg/dL (75-99)
[2020-11-26 07:46] LABS: Anisocytosis Slight; Basophils # (A) 0.1 k/uL (0-0.2); Basophils % (A) 1 %; Eosinophils # (A) 0.2 k/uL (0-0.7); Eosinophils % (A) 2 %; HCT 42.1 % (34.0-46.0); HGB 13.7 gm/dL (11.4-16.0); Lymphocytes # (A) 1.7 k/uL (1.0-4.8); Lymphocytes % (A) 14 %; MCH 31.1 pg (25.0-35.0); MCHC 32.5 g/dL (31.0-37.0); MCV 95.7 fL (80.0-100.0); Mean Platelet Volume 7.4; Monocytes # (A) 0.7 k/uL (0-1.0); Monocytes % (A) 6 %; Neutrophils # (A) 9.5 k/uL (1.3-7.7); Neutrophils % (A) 76 %; Platelet Count 308 k/uL (150-450); RDW 16.1 % (11.5-15.5); WBC 12.5 k/uL (3.8-10.6)
[2020-11-26] MEDS: IPRATROPIUM-ALBUTEROL 3 ML NEB INHALATION SCH ×4 (08:21→19:20)
[2020-11-26] MEDS: CEFEPIME 2 GM in SODIUM CHLORIDE 0.9% 100 ML IVPB SCH ×3 (08:33→23:04)
[2020-11-26] MEDS: METOPROLOL TARTRATE 25 MG TAB PEG/G-TUBE SCH ×2 (08:33→20:36)
[2020-11-26] MEDS: amLODIPine 5 MG TAB PO SCH (08:34)
[2020-11-26] MEDS: FLUoxetine HCL 10 MG CAP PO SCH (08:34)
[2020-11-26] MEDS: HEPARIN SODIUM,PORCINE/PF 5,000 UNIT/0.5 ML SYRINGE SQ SCH ×2 (08:34→20:39)
[2020-11-26] MEDS: PYRIDOXINE 50 MG TAB PEG/G-TUBE SCH ×2 (08:34→20:36)
[2020-11-26] MEDS: METHYLPHENIDATE HCL 10 MG TAB PO SCH ×2 (08:34→17:03)
[2020-11-26] MEDS: PANTOPRAZOLE 40 MG/10 ML VIAL IVP SCH (08:35)
--- NOTE | 2020-11-26 10:53 | P.PN ---
Subjective This is a 24-year-old female who was recently admitted with change in mental status and also possible acute bilateral pneumonia along with sepsis present on admission and is being closely monitored. Patient continues to be in the ICU with multiple medical consultations following. Pulmonary deck molder Dr. Kathia bradley along with infectious disease and neurology and a consult was placed for general surgery as patient underwent swallow eval and failed and has been having difficulty with aspiration even in the outpatient setting with her prim haris specialist. Patient initially was reluctant for PEG tube per family at the bedside although they are now requesting this and the patient is agreeable. Patient continues to have shortness of breath and is maintained on 2-3 L of oxygen via nasal cannula and continues to be streaming dyspneic with minimal exertion and tachypneic as well. Patient had one episode of low-grade intermittent temp last night into this morning of 99.3 and continues on IV antibiotic therapy with infectious disease following closely. Patient continues on IV cefepime. Potassium slightly low this morning at 3.4 and will replace per protocol and monitor closely with repeat labs in the morning. Patient continues to have hypertension and is maintained on IV push Labetolol. 11/20/2020 Patient is seen and evaluated in follow-up this morning mother continues to be at the bedside. Patient is alert and oriented 3 and awake currently playing on her phone. Patient continues to be nothing by mouth and plans are for PEG tube placement was surgery this morning. Multiple medical consultations following and if patient remains stable status post procedure considering transferring out of the ICU to [facility]. Patient will continue with nothing by mouth until cleared by surgery to initiate PEG tube feedings. White blood count is 9.7, hemoglobin is 14.5, sodium is 138 with a potassium of 3.9 and current creatinine is 0.55. She continues to have a dry hacking cough and unable to expectorate any phlegm. Per mother at the bedside this is chronic. Patient denies any chest pain or worsening shortness of breath. Patient continues to have right lower quadrant abdominal discomfort on palpation. Patient is urinating and passing gas but no reports of bowel movements. Blood pressure continues to be elevated today and continued on labetalol along with IV hydralazine and will continue. 11/21/2020 This is a pleasant 24 years old female with past medical history of 2 neurofibromatosis, also she is with dysphagia status post PEG tube placement yesterday by surgery team. On admission patient was found to have bilateral aspiration pneumonia and currently she is on cefepime. This morning patient is awake, breathing quietly and states her breathing is easier today. Currently she is at 4 L oxygen via nasal cannula oxygen saturation 95%. Blood pressure is low normal 100/65, is afebrile currently however she had low-grade fever today of 100.5. Chest x-ray from today showing bilateral prominence, no change Neurologist evaluated the patient for AMS as an neurofibromatosis, and he recommended MRI of the brain with and without contrast when possible and this can be done with her oncologist. Patient has negative CTPA for pulmonary embolism on admission. Today also has been complaining of from lips hip pain, which is not new for her she is already seen an orthopedic doctor about 2 weeks ago for the same reason. No history of fall. 11/22/2020 Patient remains in the ICU, his respiratory status is improving. On 4 L oxygen nasal cannula saturating in the mid 90s. She is coughing but she declines to 0. He is hemodynamically stable. She is afebrile for more than 24 hours. Vitals are Stable tube feeding is a started today and tolerated well by the patient so far Patient remains on cefepime Keep in the ICU for now 11/23/2020 Patient moved his legs unit yesterday goes her oxygen requirement went down to 2 L/m. Today she still have significant coughing. No chest pain or dyspnea while at rest. Hemodynamically stable. Labs are stable. she remains on cefepime PEG tube is in place and fluid is running at 30 mL/h. Physical therapy evaluation is requested Patient will need to follow-up with her neurologist as an outpatient, to consider repeat an MRI of the brain per neurologist recommendation, this information I related to the patient and mother at bedside and they agree to call and follow-up with her neurologist 11/24/2020 Patient is awake, mother at bedside all the time and each time come to see the patient. Vomited one time this morning with yellow stuff, she did not eat anything and she still on PEG tube, and 30 mL/h, I discussed the case with the bedside nurse, it looks like her goal is also 30 mL/h, nurse was instructed to hold feeding and check residual per protocol. Keep head of bed more than 45. Patient is already on Zofran Patient also have urged for eating due to hunger, explained to the patient and mother the risk of its and is aspiration pneumonia and they agree to keep nothing by mouth now, give her Xanax as needed. Check labs tomorrow 11/25/2020 Patient is awake and not in distress today. No more episodes of vomiting, she has less desire for eating after Xanax help her to come down and sleep yesterday. She still coughing a lot with no phlegm. Head of bed more than 45. Oxygen saturation is at 2 L. She still tachycardic around 110-113. Not significantly tachypneic, afebrile. Her labs showing leukocytosis at 17 K. She still getting tube feeding at a rate of 13 mL/h, and also she is on cefepime for aspiration pneumonia We will check chest x-ray given her coughing, episode of vomiting yesterday and leukocytosis and for follow-up 11/26/2020 Patient has developed aspiration pneumonia secondary to dysphagia secondary to her neurological disease possibly, she has neurofibromatosis type II. Placed on PEG tube and treated with cefepime for aspiration pneumonia 2 days ago she vomited and yesterday she had mild leukocytosis and repeat chest x-ray showed new infiltrate in the LLL and RUL Patient's was advised not to eat as there is risk of aspiration and both patient and mother at bedside agree Veins from mild pain but no fall or trauma, no rash She still have mildly tachycardic, she is hemodynamically stable and she is on 2 L oxygen only to keep saturation and 90s. A febrile Leukocytosis is improving Keep the patient on cefepime for now Objective - Vital Signs Vital signs: Vital Signs Temp 97.9 F 11/26/20 03:59 Pulse 111 H 11/26/20 03:59 Resp 20 11/26/20 03:59 BP 104/61 11/26/20 03:59 Pulse Ox 98 11/26/20 03:59 Intake & Output 11/25/20 11/26/20 11/26/20 18:59 06:59 18:59 Output Total 800 2225 400 Balance -800 2222 -400 Weight 39.463 kg 39.1 kg Output: Urine 800 2225 400 Other: Voiding Method Bedside Commode - Exam -GENERAL: The patient is alert and oriented x3, not in any acute distress. Thin built HEENT: Pupils are round and equally reacting to light. EOMI. No scleral icterus. No conjunctival pallor. Normocephalic, atraumatic. No pharyngeal erythema. No thyromegaly. CARDIOVASCULAR: S1 and S2 present. No murmurs, rubs, or gallops. PULMONARY: Chest is clear to auscultation, no wheezing or crackles. -ABDOMEN: Soft, nontender, nondistended, normoactive bowel sounds. No palpable organomegaly. PEG tube is in place MUSCULOSKELETAL: No joint swelling or deformity. EXTREMITIES: No cyanosis, clubbing, or pedal edema. NEUROLOGICAL: Gross neurological examination did not reveal any focal deficits. SKIN: No rashes. no petechiae. - Labs CBC & Chem 7: 11/26/20 07:09 11/25/20 07:01 Labs: Abnormal Lab Results - Last 24 Hours (Table) 11/25/20 11/25/20 11/25/20 Range/Units 12:00 16:39 23:57 WBC (3.8-10.6) k/uL RDW (11.5-15.5) % Neutrophils # (1.3-7.7) k/uL POC Glucose (mg/dL) 113 H 109 H 118 H (75-99) mg/dL 11/26/20 11/26/20 Range/Units 05:53 07:09 WBC 12.5 H (3.8-10.6) k/uL RDW 16.1 H (11.5-15.5) % Neutrophils # 9.5 H (1.3-7.7) k/uL POC Glucose (mg/dL) 105 H (75-99) mg/dL Assessment and Plan Assessment: Bilateral recurrent aspiration pneumonia Moderate protein calorie malnutrition Dysphagia, status post PEG tube placement Acute hypoxic respiratory failure 2 neurofibromatosis Metabolic encephalopathy improved Plan: This is a pleasant 24 years old female presents with bilateral pneumonia, status post PEG tube placement. Continue with cefepime, pulmonary team on the case, as well as infectious disease team. Neurology consult on the case Pain management keep head of bed more than 45, but states she sleeps most of the day like this Labs and medication were reviewed.. Continue same treatment. Continue with symptomatic treatment. Resume home medication. Monitor lytes and vitals. DVT and GI prophylaxis. Further recommendationsas per clinical course of the patient DVT prophylaxis: Subcutaneous heparin GI Prophylaxis: Ppi
[2020-11-26 11:51] LABS: Glucose,Whole Blood 103 mg/dL (75-99)
[2020-11-26 16:42] LABS: Glucose,Whole Blood 124 mg/dL (75-99)
[2020-11-26] MEDS: CIPROFLOXACIN 0.3% OPHTH SOLN 5 ML BTL LEFT EYE SCH ×3 (17:16→23:06)
--- NOTE | 2020-11-26 20:23 | PN ---
PROGRESS NOTE DATE OF SERVICE: 11/26/2020 REASON FOR FOLLOWUP: Pneumonia. INTERVAL HISTORY: Patient is afebrile. The patient is breathing comfortably. The patient denies having any chest pain or any worsening cough. No vomiting. Has been tolerating her tube feeds. No diarrhea has been reported. PHYSICAL EXAMINATION: Blood pressure is 149/100 with a pulse of 94, temperature is 97.7, 97% on 2 L nasal cannula. GENERAL DESCRIPTION: Is a middle-aged female lying in bed in no distress. RESPIRATORY SYSTEM: Unlabored breathing, clear to auscultation anteriorly. HEART: S1, S2. Regular rate and rhythm. ABDOMEN: Soft, no tenderness. LABS: White count of 12.5. DIAGNOSTIC IMPRESSION AND PLAN: Patient admitted to the hospital with vomiting and concern for a pneumonia, overall improved with cefepime. Start a short course of oral Zyvox on discharge. Family at the bedside. Questions were answered. MMODL / IJN: [id number] /
[2020-11-26] MEDS: traMADol 50 MG TAB PO PRN (20:43)
[2020-11-27 01:09] LABS: Glucose,Whole Blood 111 mg/dL (75-99)
[2020-11-27] MEDS: DEXTROSE 5% IN WATER 1,000 ML in EMPTY BAG 1 BAG IV SCH ×4 (02:42→20:48)
[2020-11-27] MEDS: CIPROFLOXACIN 0.3% OPHTH SOLN 5 ML BTL LEFT EYE SCH ×6 (05:21→22:57)
[2020-11-27 06:07] LABS: Glucose,Whole Blood 95 mg/dL (75-99)
[2020-11-27] MEDS: IPRATROPIUM-ALBUTEROL 3 ML NEB INHALATION SCH ×4 (09:13→19:21)
[2020-11-27] MEDS: CEFEPIME 2 GM in SODIUM CHLORIDE 0.9% 100 ML IVPB SCH ×3 (09:43→22:57)
[2020-11-27] MEDS: amLODIPine 5 MG TAB PO SCH (09:45)
[2020-11-27] MEDS: METHYLPHENIDATE HCL 10 MG TAB PO SCH ×2 (09:45→14:35)
[2020-11-27] MEDS: METOPROLOL TARTRATE 25 MG TAB PEG/G-TUBE SCH ×2 (09:46→20:37)
[2020-11-27] MEDS: PYRIDOXINE 50 MG TAB PEG/G-TUBE SCH ×2 (09:46→20:37)
[2020-11-27] MEDS: FLUoxetine HCL 10 MG CAP PO SCH (09:46)
[2020-11-27] MEDS: HEPARIN SODIUM,PORCINE/PF 5,000 UNIT/0.5 ML SYRINGE SQ SCH ×2 (09:47→20:40)
[2020-11-27] MEDS: PANTOPRAZOLE 40 MG/10 ML VIAL IVP SCH (09:47)
--- NOTE | 2020-11-27 11:04 | P.PN ---
Subjective Progress Note Date: 11/27/20 CHIEF COMPLAINT: Aspiration pneumonia HISTORY OF PRESENT ILLNESS: Surgical service is following after PEG tube placement. Patient is status post PEG tube placement which was done on 11/20/[address] Marin. Patient is tolerating her tube feedings. Over the last 48 hours she's had only 30 mL residual. Her tube feedings are currently at 55 mL per hour. She did have 2 episodes of vomiting yesterday. She had no vomiting to the night or this morning. She currently denies any abdominal pain or any nausea. She is also being treated for an aspiration pneumonia. Patient being transferred to regular medical floor. Afebrile. She has had some tachycardia. WBC 12.5 yesterday PHYSICAL EXAM: VITAL SIGNS: Reviewed. GENERAL: Well-developed in no acute distress. HEENT: No sclera icterus. Extraocular movements grossly intact. Moist buccal mucosa. Head is atraumatic, normocephalic. ABDOMEN: Soft. Nondistended. Nontender. PEG tube site clean dry and intact NEUROLOGIC: Alert and oriented. Cranial nerves II through XII grossly intact. ASSESSMENT: 1. Severe protein calorie malnutrition status post EGD with PEG tube placement PLAN: -Continue tube feedings -Continue supportive care Physician Residential Sales Associate note has been reviewed by physician. Signing provider agrees with the documented findings, assessment, and plan of care. Objective - Vital Signs Vital signs: Vital Signs Temp 97.2 F L 11/27/20 09:20 Pulse 124 H 11/27/20 09:20 Resp 18 11/27/20 09:20 BP 107/65 11/27/20 09:20 Pulse Ox 99 11/27/20 09:20 Intake & Output 11/26/20 11/27/20 11/27/20 18:59 06:59 18:59 Output Total 1250 1400 750 Balance -1250 -1400 -750 Weight 39.6 kg Output: Urine 1250 1400 750 Other: Voiding Method Bedside Commode Bedside Commode Bedside Commode - Labs CBC & Chem 7: 11/26/20 07:09 11/25/20 07:01 Labs: Abnormal Lab Results - Last 24 Hours (Table) 11/26/20 11/26/20 11/27/20 Range/Units 11:50 16:40 01:07 POC Glucose (mg/dL) 103 H 124 H 111 H (75-99) mg/dL
--- NOTE | 2020-11-27 11:46 | P.PN ---
Subjective This is a 24-year-old female who was recently admitted with change in mental status and also possible acute bilateral pneumonia along with sepsis present on admission and is being closely monitored. Patient continues to be in the ICU with multiple medical consultations following. Pulmonary canvass manager Dr. Kathia bradley along with infectious disease and neurology and a consult was placed for general surgery as patient underwent swallow eval and failed and has been having difficulty with aspiration even in the outpatient setting with her prim [facility] specialist. Patient initially was reluctant for PEG tube per family at the bedside although they are now requesting this and the patient is agreeable. Patient continues to have shortness of breath and is maintained on 2-3 L of oxygen via nasal cannula and continues to be streaming dyspneic with minimal exertion and tachypneic as well. Patient had one episode of low-grade intermittent temp last night into this morning of 99.3 and continues on IV antibiotic therapy with infectious disease following closely. Patient continues on IV cefepime. Potassium slightly low this morning at 3.4 and will replace per protocol and monitor closely with repeat labs in the morning. Patient continues to have hypertension and is maintained on IV push Labetolol. 11/20/2020 Patient is seen and evaluated in follow-up this morning mother continues to be at the bedside. Patient is alert and oriented 3 and awake currently playing on her phone. Patient continues to be nothing by mouth and plans are for PEG tube placement was surgery this morning. Multiple medical consultations following and if patient remains stable status post procedure considering transferring out of the ICU to [facility]. Patient will continue with nothing by mouth until cleared by surgery to initiate PEG tube feedings. White blood count is 9.7, hemoglobin is 14.5, sodium is 138 with a potassium of 3.9 and current creatinine is 0.55. She continues to have a dry hacking cough and unable to expectorate any phlegm. Per mother at the bedside this is chronic. Patient denies any chest pain or worsening shortness of breath. Patient continues to have right lower quadrant abdominal discomfort on palpation. Patient is urinating and passing gas but no reports of bowel movements. Blood pressure continues to be elevated today and continued on labetalol along with IV hydralazine and will continue. 11/21/2020 This is a pleasant 24 years old female with past medical history of 2 neurofibromatosis, also she is with dysphagia status post PEG tube placement yesterday by surgery team. On admission patient was found to have bilateral aspiration pneumonia and currently she is on cefepime. This morning patient is awake, breathing quietly and states her breathing is easier today. Currently she is at 4 L oxygen via nasal cannula oxygen saturation 95%. Blood pressure is low normal 100/65, is afebrile currently however she had low-grade fever today of 100.5. Chest x-ray from today showing bilateral prominence, no change Neurologist evaluated the patient for AMS as an neurofibromatosis, and he recommended MRI of the brain with and without contrast when possible and this can be done with her oncologist. Patient has negative CTPA for pulmonary embolism on admission. Today also has been complaining of from lips hip pain, which is not new for her she is already seen an orthopedic doctor about 2 weeks ago for the same reason. No history of fall. 11/22/2020 Patient remains in the ICU, his respiratory status is improving. On 4 L oxygen nasal cannula saturating in the mid 90s. She is coughing but she declines to 0. He is hemodynamically stable. She is afebrile for more than 24 hours. Vitals are Stable tube feeding is a started today and tolerated well by the patient so far Patient remains on cefepime Keep in the ICU for now 11/23/2020 Patient moved his legs unit yesterday goes her oxygen requirement went down to 2 L/m. Today she still have significant coughing. No chest pain or dyspnea while at rest. Hemodynamically stable. Labs are stable. she remains on cefepime PEG tube is in place and fluid is running at 30 mL/h. Physical therapy evaluation is requested Patient will need to follow-up with her neurologist as an outpatient, to consider repeat an MRI of the brain per neurologist recommendation, this information I related to the patient and mother at bedside and they agree to call and follow-up with her neurologist 11/24/2020 Patient is awake, mother at bedside all the time and each time come to see the patient. Vomited one time this morning with yellow stuff, she did not eat anything and she still on PEG tube, and 30 mL/h, I discussed the case with the bedside nurse, it looks like her goal is also 30 mL/h, nurse was instructed to hold feeding and check residual per protocol. Keep head of bed more than 45. Patient is already on Zofran Patient also have urged for eating due to hunger, explained to the patient and mother the risk of its and is aspiration pneumonia and they agree to keep nothing by mouth now, give her Xanax as needed. Check labs tomorrow 11/25/2020 Patient is awake and not in distress today. No more episodes of vomiting, she has less desire for eating after Xanax help her to come down and sleep yesterday. She still coughing a lot with no phlegm. Head of bed more than 45. Oxygen saturation is at 2 L. She still tachycardic around 110-113. Not significantly tachypneic, afebrile. Her labs showing leukocytosis at 17 K. She still getting tube feeding at a rate of 13 mL/h, and also she is on cefepime for aspiration pneumonia We will check chest x-ray given her coughing, episode of vomiting yesterday and leukocytosis and for follow-up 11/26/2020 Patient has developed aspiration pneumonia secondary to dysphagia secondary to her neurological disease possibly, she has neurofibromatosis type II. Placed on PEG tube and treated with cefepime for aspiration pneumonia 2 days ago she vomited and yesterday she had mild leukocytosis and repeat chest x-ray showed new infiltrate in the LLL and RUL Patient's was advised not to eat as there is risk of aspiration and both patient and mother at bedside agree Veins from mild pain but no fall or trauma, no rash She still have mildly tachycardic, she is hemodynamically stable and she is on 2 L oxygen only to keep saturation and 90s. A febrile Leukocytosis is improving Keep the patient on cefepime for now 11/27/2020 Patient breathing is quiet, no more episodes of vomiting or choking. She remai ns on tube feeding and 30 mL/h and looks she is improving on cefepime which will be continued for now She's hemodynamically stable. We'll check labs and repeat chest x-ray tomorrow morning. Start Cipro eyedrop for bilateral conjunctivitis. Mother at bedside and all questions were answered Objective - Vital Signs Vital signs: Vital Signs Temp 97.2 F L 11/27/20 09:20 Pulse 124 H 11/27/20 09:20 Resp 18 11/27/20 09:20 BP 107/65 11/27/20 09:20 Pulse Ox 99 11/27/20 09:20 Intake & Output 11/26/20 11/27/20 11/27/20 18:59 06:59 18:59 Output Total 1250 1400 750 Balance -1250 -1400 -750 Weight 39.6 kg Output: Urine 1250 1400 750 Other: Voiding Method Bedside Commode Bedside Commode Bedside Commode - Exam -GENERAL: The patient is alert and oriented x3, not in any acute distress. Thin built HEENT: Pupils are round and equally reacting to light. EOMI. No scleral icterus. No conjunctival pallor. Normocephalic, atraumatic. No pharyngeal erythema. No thyromegaly. CARDIOVASCULAR: S1 and S2 present. No murmurs, rubs, or gallops. PULMONARY: Chest is clear to auscultation, no wheezing or crackles. -ABDOMEN: Soft, nontender, nondistended, normoactive bowel sounds. No palpable organomegaly. PEG tube is in place MUSCULOSKELETAL: No joint swelling or deformity. EXTREMITIES: No cyanosis, clubbing, or pedal edema. NEUROLOGICAL: Gross neurological examination did not reveal any focal deficits. SKIN: No rashes. no petechiae. - Labs CBC & Chem 7: 11/26/20 07:09 11/25/20 07:01 Labs: Abnormal Lab Results - Last 24 Hours (Table) 11/26/20 11/26/20 11/27/20 Range/Units 11:50 16:40 01:07 POC Glucose (mg/dL) 103 H 124 H 111 H (75-99) mg/dL Assessment and Plan Assessment: Bilateral recurrent aspiration pneumonia Moderate protein calorie malnutrition Dysphagia, status post PEG tube placement Acute hypoxic respiratory failure 2 neurofibromatosis Metabolic encephalopathy improved Plan: This is a pleasant 24 years old female presents with bilateral pneumonia, status post PEG tube placement. Continue with cefepime, pulmonary team on the case, as well as infectious disease team. Neurology consult on the case Pain management keep head of bed more than 45, but states she sleeps most of the day like this Labs and medication were reviewed.. Continue same treatment. Continue with symptomatic treatment. Resume home medication. Monitor lytes and vitals. DVT and GI prophylaxis. Further recommendationsas per clinical course of the patient DVT prophylaxis: Subcutaneous heparin GI Prophylaxis: Ppi
[2020-11-27 12:04] LABS: Glucose,Whole Blood 86 mg/dL (75-99)
--- NOTE | 2020-11-27 13:59 | P.PN ---
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 Cachexia and weight loss and advance protein calorie malnourishment Intractable nausea or vomiting 11/27/2020, patient seen eval examined during the rounds labs reviewed medications reviewed patient is awake and alert sitting upright on the chair breathing comfortably, patient does have a dry nonproductive cough, she has been on oxygen currently she is on off of oxygen on room air saturation is mid 90s she remains afebrile my last chest x-ray done on November 25 there is some subtle infiltrate on the left lower lobe present, some subtle infiltrate on the right upper lobe, patient remains on broad-spectrum antibiotics with cephapirin, has been on tube feed along with bronchodilator and electrolyte replacement protocol 11/20/2020, patient seen eval reexamined during the rounds awake and alert sitting upright on the bed breathing comfortably, intermittent bouts of coughing is present which is mostly nonproductive, hemodynamic status is much improved now patient is getting D5 appears to be helping, last chest performed overall remains stable, patient is scheduled for PEG tube later on today remains nothing by mouth, given that hemodynamic status stable renal transfer the patient post PEG tube to telemetry bed, 11/19/2020, patient seen eval examined during the rounds labs reviewed medications reviewed slightly more alert and awake, episodes of bradycardia has improved, likely related to poor by mouth intake and nutritional issues and problem, patient finally agreed for PEG tube placement, TPN is to be started in the meantime, ongoing cough intermittently is present, chest x-ray performed yesterday continue show infiltrate 11/17/2020, patient seen eval examined during the rounds labs reviewed medications reviewed care plan discussed with the mother and grandfather present at bedside, patient is arousable opens eyes follow simple commands obvious distress is present, blood pressure is intermittently high responding to therapy, patient and the family is in agreement for PEG tube placement, currently patient remains on bronchodilator along with the antihypertensive agent for DVT prophylaxis and broad-spectrum antibiotics awaiting GI evaluation 11/16/2020, patient seen eval examined during the rounds labs reviewed medications reviewed care plan discussed with the staff, patient remains nothing by mouth speech and swallow studies are pending, however discussion with the mother reveals that patient has aspiration studies done with the speech is following [facility] and they were positive for aspiration and they recommended alternative means of feeding with PEG tube, chest x-ray performed on earlier today continue show patchy airspace disease not significantly changed from yesterday exam, she remains afebrile blood pressure is intermittently run basil high she is on 4 L nasal cannula was relatively stable earlier but now up to 173/122 heart rate increased 139 labetalol 20 mg IV is being given will put patient on IV Lopressor 5 mg every 12 as well and continue use labetalol as needed This is a pleasant 24-year-old female well-known to me patient has a significant past history of malignant neurofibromatosis, patient gets chemotherapy at the tertiary care center in [place], she has the 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 resulting in multiple bouts of aspiration pneumonia which affected the lung bilaterally and gets complicated with abscess requiring long- term IV therapy with PICC line, she was seen last several weeks ago in the office and was in partial agreement with PEG tube, it appears that patient has been having intermittent vomiting for the last several days started having problems with chills and fever came into the hospital for further evaluation, on arrival she was afebrile but with tachypnea and tachycardia respiratory rate is in 40s heart rate 1:30 to 140, hemodynamic status is variable but with stable blood pressure temperature low-grade 100 saturation is 95-96% on 4 L supplemental oxygen, white cell count is normal hemoglobin stable 14.6, kidney functions within normal limit, lactic acid elevated 5.3, chest x-ray significant for patchy bilateral airspace disease, computed tomography scan of the brain no acute changes seen with 5 finding compatible reviewed with neurofibromatosis calcified mass noted, computed tomography scan of the chest negative for pulmonary embolism radicular nodular density noted on both side involving upper and lower lobe, patient also has a history of recent COVID-19 pneumonia requiring hospitalization several weeks ago Objective - Vital Signs Vital signs: Vital Signs Temp 98.1 F 11/27/20 11:50 Pulse 99 11/27/20 11:50 Resp 16 11/27/20 11:50 BP 125/81 11/27/20 11:50 Pulse Ox 99 11/27/20 11:50 Intake & Output 11/26/20 11/27/20 11/27/20 18:59 06:59 18:59 Output Total 1250 1400 750 Balance -1250 -1400 -750 Weight 39.6 kg 39.6 kg Output: Urine 1250 1400 750 Other: Voiding Method Bedside Commode Bedside Commode Bedside Commode - Exam - Constitutional General appearance: average body habitus, cooperative, disheveled - EENT Eyes: EOMI, PERRLA Ears: bilateral: normal - Neck Carotids: bilateral: upstroke normal Thyroid: bilateral: normal size - Respiratory Respiratory: bilateral: diminished - Cardiovascular Rhythm: regular Heart sounds: normal: S1, S2 - Gastrointestinal General gastrointestinal: normal bowel sounds - Integumentary Integumentary: normal turgor - Neurologic Neurologic: CNII-XII intact - Musculoskeletal Musculoskeletal: generalized weakness, strength equal bilaterally - Psychiatric Psychiatric: A&O x's 3, appropriate affect - Labs CBC & Chem 7: 11/26/20 07:09 11/25/20 07:01 Labs: Abnormal Lab Results - Last 24 Hours (Table) 11/26/20 11/27/20 Range/Units 16:40 01:07 POC Glucose (mg/dL) 124 H 111 H (75-99) mg/dL Assessment and Plan Assessment: Intermittent bradycardia and altered mental status, significantly improved now Sepsis likely related to bilateral pneumonia, on therapy Bilateral aspiration pneumonia with recurrent multiple episodes in the last 6 months patient is status post PEG tube 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
[2020-11-27 18:00] LABS: Glucose,Whole Blood 99 mg/dL (75-99)
--- NOTE | 2020-11-27 19:41 | PN ---
PROGRESS NOTE DATE OF SERVICE: 11/27/2020 REASON FOR FOLLOWUP: Pneumonia. INTERVAL HISTORY: The patient is afebrile. The patient is breathing comfortably. The patient denies having any chest pain. No shortness of breath. No worsening cough. No abdominal pain, no diarrhea. PHYSICAL EXAMINATION: Blood pressure is 125/81, pulse of 99, temperature of 98.1. She is 99% on room air. General description is a middle-aged female up in the bed in no distress. Respiratory system: Unlabored breathing, decreased breath sounds at the base, no wheeze. Heart S1, S2. Regular rate and rhythm. Abdomen soft, no tenderness. LABS: No new labs have been obtained today. DIAGNOSTIC IMPRESSION AND PLAN: Patient admitted to the hospital with vomiting and pneumonia. Overall improvement on cefepime, to finish a course of oral Avelox on discharge. Family at the bedside, questions were answered. MMODL / IJN: [id number] /
[2020-11-28] LABS: Glucose,Whole Blood 109 mg/dL (75-99)
[2020-11-28] MEDS: DEXTROSE 5% IN WATER 1,000 ML in EMPTY BAG 1 BAG IV SCH ×4 (03:01→22:45)
[2020-11-28] MEDS: CIPROFLOXACIN 0.3% OPHTH SOLN 5 ML BTL LEFT EYE SCH ×6 (03:01→22:45)
[2020-11-28 06:10] LABS: Glucose,Whole Blood 90 mg/dL (75-99)
[2020-11-28] MEDS: IPRATROPIUM-ALBUTEROL 3 ML NEB INHALATION SCH ×4 (07:40→19:33)
--- NOTE | 2020-11-28 08:12 | P.PN ---
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 Cachexia and weight loss and advance protein calorie malnourishment Intractable nausea or vomiting 11/28/2020, patient's breathing K more comfortably most of time she is off of oxygen, denies chest pain, dry nonproductive, but is still present, her oxygen saturations improved to 95% on room air, blood pressure is stable and Midrin tachycardia is present, tolerating tube feed well, chest x-ray performed today heart copies reviewed some subtle infiltrate however remains stable 11/27/2020, patient seen eval examined during the rounds labs reviewed medications reviewed patient is awake and alert sitting upright on the chair breathing comfortably, patient does have a dry nonproductive cough, she has been on oxygen currently she is on off of oxygen on room air saturation is mid 90s she remains afebrile my last chest x-ray done on November 25 there is some subtle infiltrate on the left lower lobe present, some subtle infiltrate on the right upper lobe, patient remains on broad-spectrum antibiotics with cephapirin, has been on tube feed along with bronchodilator and electrolyte replacement protocol 11/20/2020, patient seen eval reexamined during the rounds awake and alert sitting upright on the bed breathing comfortably, intermittent bouts of coughing is present which is mostly nonproductive, hemodynamic status is much improved now patient is getting D5 appears to be helping, last chest performed overall remains stable, patient is scheduled for PEG tube later on today remains nothing by mouth, given that hemodynamic status stable renal transfer the patient post PEG tube to telemetry bed, 11/19/2020, patient seen eval examined during the rounds labs reviewed medications reviewed slightly more alert and awake, episodes of bradycardia has improved, likely related to poor by mouth intake and nutritional issues and problem, patient finally agreed for PEG tube placement, TPN is to be started in the meantime, ongoing cough intermittently is present, chest x-ray performed continue show infiltrate 11/17/2020, patient seen eval examined during the rounds labs reviewed medications reviewed care plan discussed with the mother and grandfather present at bedside, patient is arousable opens eyes follow simple commands obvious distress is present, blood pressure is intermittently high responding to therapy, patient and the family is in agreement for PEG tube placement, currently patient remains on bronchodilator along with the antihypertensive agent for DVT prophylaxis and broad-spectrum antibiotics awaiting GI evaluation 11/16/2020, patient seen eval examined during the rounds labs reviewed medications reviewed care plan discussed with the staff, patient remains nothing by mouth speech and swallow studies are pending, however discussion with the mother reveals that patient has aspiration studies done with the speech is following [facility] and they were positive for aspiration and they recommended alternative means of feeding with PEG tube, chest x-ray performed on earlier today continue show patchy airspace disease not significantly changed from yesterday exam, she remains afebrile blood pressure is intermittently running high she is on 4 L nasal cannula was relatively stable earlier but now up to 173/122 heart rate increased 139 labetalol 20 mg IV is being given will put patient on IV Lopressor 5 mg every 12 as well and continue use labetalol as needed This is a pleasant 24-year-old female well-known to me patient has a significant past history of malignant neurofibromatosis, patient gets chemotherapy at the tertiary care center in [place], she has the 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 resulting in multiple bouts of aspiration pneumonia which affected the lung bilaterally and gets complicated with abscess requiring long- term IV therapy with PICC line, she was seen last several weeks ago in the office and was in partial agreement with PEG tube, it appears that patient has been having intermittent vomiting for the last several days started having problems with chills and fever came into the hospital for further evaluation, on arrival she was afebrile but with tachypnea and tachycardia respiratory rate is in 40s heart rate 1:30 to 140, hemodynamic status is variable but with stable blood pressure temperature low-grade 100 saturation is 95-96% on 4 L supplemental oxygen, white cell count is normal hemoglobin stable 14.6, kidney functions within normal limit, lactic acid elevated 5.3, chest x-ray significant for patchy bilateral airspace disease, computed tomography scan of the brain no acute changes seen with 5 finding compatible reviewed with neurofibromatosis calcified mass noted, computed tomography scan of the chest negative for pulmonary embolism radicular nodular density noted on both side involving upper and lower lobe, patient also has a history of recent COVID[facility] several weeks ago Objective - Vital Signs Vital signs: Vital Signs Temp 98.0 F 11/28/20 03:30 Pulse 111 H 11/28/20 03:30 Resp 18 11/28/20 03:30 BP 97/54 11/28/20 03:30 Pulse Ox 95 11/28/20 03:30 Intake & Output 11/27/20 11/28/20 11/28/20 18:59 06:59 18:59 Intake Total 240 210 Output Total 750 260 Balance -510 -50 Weight 39.6 kg 39.5 kg Intake: Intake, IV Titration 100 Amount Cefepime 2 gm In Sodium 100 Chloride 0.9% 100 ml @ 25 mls/hr IVPB Q8HR [facility] Rx# :[id number] Oral 240 Tube Feeding 110 Output: Urine 750 260 Other: Voiding Method Bedside Commode Bedside Commode # Voids 1 - Exam - Constitutional General appearance: average body habitus, cooperative, disheveled - EENT Eyes: EOMI, PERRLA Ears: bilateral: normal - Neck Carotids: bilateral: upstroke normal Thyroid: bilateral: normal size - Respiratory Respiratory: bilateral: diminished - Cardiovascular Rhythm: regular Heart sounds: normal: S1, S2 - Gastrointestinal General gastrointestinal: normal bowel sounds - Integumentary Integumentary: normal turgor - Neurologic Neurologic: CNII-XII intact - Musculoskeletal Musculoskeletal: generalized weakness, strength equal bilaterally - Psychiatric Psychiatric: A&O x's 3, appropriate affect - Labs CBC & Chem 7: 11/26/20 07:09 11/25/20 07:01 Labs: Abnormal Lab Results - Last 24 Hours (Table) 11/27/20 Range/Units 23:58 POC Glucose (mg/dL) 109 H (75-99) mg/dL Assessment and Plan Assessment: Bilateral aspiration pneumonia with recurrent multiple episodes in the last 6 m [facility] patient is status post PEG tube Intermittent bradycardia and altered mental status, significantly improved now Sepsis likely related to bilateral pneumonia, on therapy 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
[2020-11-28] MEDS: CEFEPIME 2 GM in SODIUM CHLORIDE 0.9% 100 ML IVPB SCH ×3 (09:11→22:44)
[2020-11-28] MEDS: FLUoxetine HCL 10 MG CAP PO SCH (09:12)
[2020-11-28] MEDS: amLODIPine 5 MG TAB PO SCH (09:12)
[2020-11-28] MEDS: PANTOPRAZOLE 40 MG/10 ML VIAL IVP SCH (09:12)
[2020-11-28] MEDS: METHYLPHENIDATE HCL 10 MG TAB PO SCH ×2 (09:12→12:50)
[2020-11-28] MEDS: PYRIDOXINE 50 MG TAB PEG/G-TUBE SCH ×2 (09:12→20:24)
[2020-11-28] MEDS: METOPROLOL TARTRATE 25 MG TAB PEG/G-TUBE SCH ×2 (09:12→20:24)
[2020-11-28] MEDS: HEPARIN SODIUM,PORCINE/PF 5,000 UNIT/0.5 ML SYRINGE SQ SCH ×3 (09:13→20:35)
[2020-11-28 09:27] LABS: Basophils # (A) 0.1 k/uL (0-0.2); Basophils % (A) 1 %; Eosinophils # (A) 0.2 k/uL (0-0.7); Eosinophils % (A) 1 %; HCT 43.3 % (34.0-46.0); HGB 13.6 gm/dL (11.4-16.0); Lymphocytes # (A) 2.1 k/uL (1.0-4.8); Lymphocytes % (A) 16 %; MCH 30.8 pg (25.0-35.0); MCHC 31.4 g/dL (31.0-37.0); Mean Platelet Volume 7.7; Monocytes # (A) 0.6 k/uL (0-1.0); Monocytes % (A) 5 %; Neutrophils # (A) 9.7 k/uL (1.3-7.7); Neutrophils % (A) 76 %; Platelet Count 338 k/uL (150-450); RBC 4.42 m/uL (3.80-5.40); RDW 15.7 % (11.5-15.5); WBC 12.8 k/uL (3.8-10.6)
--- NOTE | 2020-11-28 09:39 | XR ---
EXAMINATION TYPE: XR chest 1V DATE OF EXAM: 11/28/2020 COMPARISON: 11/25/2020 HISTORY: Leukocytosis TECHNIQUE: Single frontal view of the chest is obtained. FINDINGS: Subsegmental changes at the left lung base are stable. Mediport catheter seen. Hyperdensit y within the left lower lobe may represent remote contrast aspiration. No overt failure. Heart size n ormal. No pneumothorax. IMPRESSION: 1. Patchy bilateral subsegmental atelectasis or infiltrate stable. Somewhat nodular density seen in t he left lower lobe measuring 1.3 cm possibly related to the nipple which could be correlated with rep eat chest x-ray with nipple markers.
[2020-11-28 09:46] LABS: African American GFR (CKD) >90 (>60 ml/min/1.73 sqM); Anion Gap 10 mmol/L; Blood Urea Nitrogen 22 mg/dL (7-17); Calcium 9.8 mg/dL (8.4-10.2); Carbon Dioxide 27 mmol/L (22-30); Chloride 103 mmol/L (98-107); Glucose 145 mg/dL (74-99); Non-African American GFR(CKD) >90 (>60 ml/min/1.73 sqM); Potassium 4.7 mmol/L (3.5-5.1); Sodium 140 mmol/L (137-145)
[2020-11-28 11:57] LABS: Glucose,Whole Blood 107 mg/dL (75-99)
[2020-11-28] MEDS ORDERED: SENNOSIDES 8.6 MG TAB PEG/G-TUBE PRN (12:27)
[2020-11-28] MEDS ORDERED: guaiFENesin-DM 100-10MG/5ML 10 ML CUP PEG/G-TUBE PRN (12:27)
--- NOTE | 2020-11-28 12:27 | XR ---
EXAMINATION TYPE: XR abdomen 2V DATE OF EXAM: 11/28/2020 COMPARISON: None HISTORY: Constipation TECHNIQUE: One view abdominal series FINDINGS: The osseous structures are intact. The bowel gas pattern is nonspecific. Radiopaque density in the l eft lower lobe could be related to previous aspiration. Retained contrast seen throughout the bowel t here is an NG tube. Bowel gas pattern nonspecific.. IMPRESSION: 1. Nonspecific abdomen. Retained fecal debris throughout the colon.
--- NOTE | 2020-11-28 12:35 | P.PN ---
Subjective This is a 24-year-old female who was recently admitted with change in mental status and also possible acute bilateral pneumonia along with sepsis present on admission and is being closely monitored. Patient continues to be in the ICU with multiple medical consultations following. Pulmonary tar and ammonia pump operator Dr. Kathia bradley along with infectious disease and neurology and a consult was placed for general surgery as patient underwent swallow eval and failed and has been having difficulty with aspiration even in the outpatient setting with her prim [facility] specialist. Patient initially was reluctant for PEG tube per family at the bedside although they are now requesting this and the patient is agreeable. Patient continues to have shortness of breath and is maintained on 2-3 L of oxygen via nasal cannula and continues to be streaming dyspneic with minimal exertion and tachypneic as well. Patient had one episode of low-grade intermittent temp last night into this morning of 99.3 and continues on IV antibiotic therapy with infectious disease following closely. Patient continues on IV cefepime. Potassium slightly low this morning at 3.4 and will replace per protocol and monitor closely with repeat labs in the morning. Patient continues to have hypertension and is maintained on IV push Labetolol. 11/20/2020 Patient is seen and evaluated in follow-up this morning mother continues to be at the bedside. Patient is alert and oriented 3 and awake currently playing on her phone. Patient continues to be nothing by mouth and plans are for PEG tube placement was surgery this morning. Multiple medical consultations following and if patient remains stable status post procedure considering transferring out of the ICU to [facility]. Patient will continue with nothing by mouth until cleared by surgery to initiate PEG tube feedings. White blood count is 9.7, hemoglobin is 14.5, sodium is 138 with a potassium of 3.9 and current creatinine is 0.55. She continues to have a dry hacking cough and unable to expectorate any phlegm. Per mother at the bedside this is chronic. Patient denies any chest pain or worsening shortness of breath. Patient continues to have right lower quadrant abdominal discomfort on palpation. Patient is urinating and passing gas but no reports of bowel movements. Blood pressure continues to be elevated today and continued on labetalol along with IV hydralazine and will continue. 11/21/2020 This is a pleasant 24 years old female with past medical history of 2 neurofibromatosis, also she is with dysphagia status post PEG tube placement yesterday by surgery team. On admission patient was found to have bilateral aspiration pneumonia and currently she is on cefepime. This morning patient is awake, breathing quietly and states her breathing is easier today. Currently she is at 4 L oxygen via nasal cannula oxygen saturation 95%. Blood pressure is low normal 100/65, is afebrile currently however she had low-grade fever today of 100.5. Chest x-ray from today showing bilateral prominence, no change Neurologist evaluated the patient for AMS as an neurofibromatosis, and he recommended MRI of the brain with and without contrast when possible and this can be done with her oncologist. Patient has negative CTPA for pulmonary embolism on admission. Today also has been complaining of from lips hip pain, which is not new for her she is already seen an orthopedic doctor about 2 weeks ago for the same reason. No history of fall. 11/22/2020 Patient remains in the ICU, his respiratory status is improving. On 4 L oxygen nasal cannula saturating in the mid 90s. She is coughing but she declines to 0. He is hemodynamically stable. She is afebrile for more than 24 hours. Vitals are Stable tube feeding is a started today and tolerated well by the patient so far Patient remains on cefepime Keep in the ICU for now 11/23/2020 Patient moved his legs unit yesterday goes her oxygen requirement went down to 2 L/m. Today she still have significant coughing. No chest pain or dyspnea while at rest. Hemodynamically stable. Labs are stable. she remains on cefepime PEG tube is in place and fluid is running at 30 mL/h. Physical therapy evaluation is requested Patient will need to follow-up with her neurologist as an outpatient, to consider repeat an MRI of the brain per neurologist recommendation, this information I related to the patient and mother at bedside and they agree to call and follow-up with her neurologist 11/24/2020 Patient is awake, mother at bedside all the time and each time come to see the patient. Vomited one time this morning with yellow stuff, she did not eat anything and she still on PEG tube, and 30 mL/h, I discussed the case with the bedside nurse, it looks like her goal is also 30 mL/h, nurse was instructed to hold feeding and check residual per protocol. Keep head of bed more than 45. Patient is already on Zofran Patient also have urged for eating due to hunger, explained to the patient and mother the risk of its and is aspiration pneumonia and they agree to keep nothing by mouth now, give her Xanax as needed. Check labs tomorrow 11/25/2020 Patient is awake and not in distress today. No more episodes of vomiting, she has less desire for eating after Xanax help her to come down and sleep yesterday. She still coughing a lot with no phlegm. Head of bed more than 45. Oxygen saturation is at 2 L. She still tachycardic around 110-113. Not significantly tachypneic, afebrile. Her labs showing leukocytosis at 17 K. She still getting tube feeding at a rate of 13 mL/h, and also she is on cefepime for aspiration pneumonia We will check chest x-ray given her coughing, episode of vomiting yesterday and leukocytosis and for follow-up 11/26/2020 Patient has developed aspiration pneumonia secondary to dysphagia secondary to her neurological disease possibly, she has neurofibromatosis type II. Placed on PEG tube and treated with cefepime for aspiration pneumonia 2 days ago she vomited and yesterday she had mild leukocytosis and repeat chest x-ray showed new infiltrate in the LLL and RUL Patient's was advised not to eat as there is risk of aspiration and both patient and mother at bedside agree Veins from mild pain but no fall or trauma, no rash She still have mildly tachycardic, she is hemodynamically stable and she is on 2 L oxygen only to keep saturation and 90s. A febrile Leukocytosis is improving Keep the patient on cefepime for now 11/27/2020 Patient breathing is quiet, no more episodes of vomiting or choking. She remai ns on tube feeding and 30 mL/h and looks she is improving on cefepime which will be continued for now She's hemodynamically stable. We'll check labs and repeat chest x-ray tomorrow morning. Start Cipro eyedrop for bilateral conjunctivitis. Mother at bedside and all questions were answered 11/28/2020 Patient vomited also today. Repeat chest x-ray showing patchy left lower lobe infiltrate versus nipple, to repeat 2 view x-ray tomorrow for clarification Because patient is also constipated we will do abdominal x-ray to rule out bowel obstruction. However patient is tolerating her tube feeding which is increased to 50 mL/h. Her head of bed is always elevated more than 45 Vitals and labs are stable, her leukocytosis is stable at 12.8 today. She is also on metoprolol which help for her tachycardia. At Reglan, standing dose. At stool softeners as needed. And to continue with IV cefepime Objective - Vital Signs Vital signs: Vital Signs Temp 98.0 F 11/28/20 09:07 Pulse 128 H 11/28/20 09:07 Resp 16 11/28/20 09:07 BP 106/55 11/28/20 09:07 Pulse Ox 91 L 11/28/20 09:07 Intake & Output 11/27/20 11/28/20 11/28/20 18:59 06:59 18:59 Intake Total 240 210 Output Total 750 260 400 Balance -510 -50 -400 Weight 39.6 kg 39.5 kg Intake: Intake, IV Titration 100 Amount Cefepime 2 gm In Sodium 100 Chloride 0.9% 100 ml @ 25 mls/hr IVPB Q8HR [facility] Rx# :[id number] Oral 240 Tube Feeding 110 Output: Urine 750 260 400 Other: Voiding Method Bedside Commode Bedside Commode Bedside Commode # Voids 1 - Exam -GENERAL: The patient is alert and oriented x3, not in any acute distress. Thin built HEENT: Pupils are round and equally reacting to light. EOMI. No scleral icterus. No conjunctival pallor. Normocephalic, atraumatic. No pharyngeal erythema. No thyromegaly. CARDIOVASCULAR: S1 and S2 present. No murmurs, rubs, or gallops. PULMONARY: Chest is clear to auscultation, no wheezing or crackles. -ABDOMEN: Soft, nontender, nondistended, normoactive bowel sounds. No palpable organomegaly. PEG tube is in place MUSCULOSKELETAL: No joint swelling or deformity. EXTREMITIES: No cyanosis, clubbing, or pedal edema. NEUROLOGICAL: Gross neurological examination did not reveal any focal deficits. SKIN: No rashes. no petechiae. - Labs CBC & Chem 7: 11/28/20 08:37 11/28/20 08:37 Labs: Abnormal Lab Results - Last 24 Hours (Table) 11/27/20 11/28/20 11/28/20 Range/Units 23:58 08:37 08:37 WBC 12.8 H (3.8-10.6) k/uL RDW 15.7 H (11.5-15.5) % Neutrophils # 9.7 H (1.3-7.7) k/uL BUN 22 H (7-17) mg/dL Creatinine 0.38 L (0.52-1.04) mg/dL Glucose 145 H (74-99) mg/dL POC Glucose (mg/dL) 109 H (75-99) mg/dL 11/28/20 Range/Units 11:55 WBC (3.8-10.6) k/uL RDW (11.5-15.5) % Neutrophils # (1.3-7.7) k/uL BUN (7-17) mg/dL Creatinine (0.52-1.04) mg/dL Glucose (74-99) mg/dL POC Glucose (mg/dL) 107 H (75-99) mg/dL Assessment and Plan Assessment: Bilateral recurrent aspiration pneumonia Moderate protein calorie malnutrition Dysphagia, status post PEG tube placement Acute hypoxic respiratory failure 2 neurofibromatosis Metabolic encephalopathy improved Plan: This is a pleasant 24 years old female presents with bilateral pneumonia, status post PEG tube placement. Continue with cefepime, pulmonary team on the case, as well as infectious disease team. Neurology consult on the case Pain management keep head of bed more than 45, but states she sleeps most of the day like this Labs and medication were reviewed.. Continue same treatment. Continue with symptomatic treatment. Resume home medication. Monitor lytes and vitals. DVT and GI prophylaxis. Further recommendationsas per clinical course of the patient DVT prophylaxis: Subcutaneous heparin GI Prophylaxis: Ppi
[2020-11-28] MEDS: METOCLOPRAMIDE 10 MG TAB PO SCH ×2 (12:50→17:14)
[2020-11-28] MEDS: hydrALAZINE HCL 20 MG/ML 1 ML VIAL IVP PRN (12:51)
[2020-11-28 18:02] LABS: Glucose,Whole Blood 101 mg/dL (75-99)
[2020-11-28] MEDS: traMADol 50 MG TAB PO PRN (21:13)
--- NOTE | 2020-11-28 22:47 | PN ---
PROGRESS NOTE DATE OF SERVICE: 11/28/2020. REASON FOR FOLLOWUP: Pneumonia. INTERVAL HISTORY: Patient is afebrile. The patient is breathing comfortably on room air. The patient denies any chest pain. Did have occasional cough, not bringing up any sputum. no vomiting. No abdominal pain. No diarrhea. PHYSICAL EXAMINATION: Blood pressure 110/76, pulse of 120. Temperature 98.1. She is 96% on room air. General description is a middle-aged female lying in bed in no distress. Respiratory system: Unlabored breathing. Decreased intensity of breath sounds. No wheeze. Heart: S1, S2. Regular rate and rhythm. Abdomen soft, no tenderness. LABS: Hemoglobin is 13.1, white count 12.8, BUN of 22, creatinine 0.38. DIAGNOSTIC IMPRESSION AND PLAN: Patient admitted to hospital with vomiting and a component of pneumonia, likely aspiration, etiology slightly gram-negative. Overall improvement with cefepime to continue for about 2 weeks more than enough. White count slightly elevated and will be monitored closely. Continue supportive care. MMODL / IJN: [id number] /
[2020-11-29 05:57] LABS: Glucose,Whole Blood 144 mg/dL (75-99)
[2020-11-29] MEDS: CIPROFLOXACIN 0.3% OPHTH SOLN 5 ML BTL LEFT EYE SCH ×6 (06:06→22:46)
[2020-11-29 06:10] LABS: Glucose,Whole Blood 106 mg/dL (75-99)
[2020-11-29] MEDS: METOCLOPRAMIDE 10 MG TAB PO SCH ×3 (06:46→16:44)
[2020-11-29] MEDS: IPRATROPIUM-ALBUTEROL 3 ML NEB INHALATION SCH ×4 (08:23→20:54)
--- NOTE | 2020-11-29 09:10 | XR ---
EXAMINATION TYPE: XR chest 2V DATE OF EXAM: 11/29/2020 COMPARISON: 11/28/2020 TECHNIQUE: PA and lateral views submitted. HISTORY: Abnormal x-ray FINDINGS: Mediport catheter seen the heart size is normal. Radiopaque densities in left lung may represent prev ious contrast aspiration. Patchy infiltrate seen adjacent to the left heart border is again noted. No overt failure. No pneumothorax. IMPRESSION: 1. Patchy density seen adjacent to left heart border is again noted on today's exam and is similar in appearance. This appears to correspond to an area of consolidation by recent CT scan may represent l ocalized pneumonitis. Follow resolution to exclude other etiologies.
[2020-11-29] MEDS: CEFEPIME 2 GM in SODIUM CHLORIDE 0.9% 100 ML IVPB SCH ×3 (09:29→23:05)
[2020-11-29] MEDS: FLUoxetine HCL 10 MG CAP PO SCH (09:30)
[2020-11-29] MEDS: PANTOPRAZOLE 40 MG/10 ML VIAL IVP SCH (09:30)
[2020-11-29] MEDS: METOPROLOL TARTRATE 25 MG TAB PEG/G-TUBE SCH (09:30)
[2020-11-29] MEDS: amLODIPine 5 MG TAB PO SCH (09:30)
[2020-11-29] MEDS: PYRIDOXINE 50 MG TAB PEG/G-TUBE SCH ×2 (09:30→20:08)
[2020-11-29] MEDS: METHYLPHENIDATE HCL 10 MG TAB PO SCH ×2 (09:31→12:44)
[2020-11-29] MEDS: HEPARIN SODIUM,PORCINE/PF 5,000 UNIT/0.5 ML SYRINGE SQ SCH ×2 (09:32→19:28)
[2020-11-29] MEDS: traMADol 50 MG TAB PO PRN ×2 (09:33→20:09)
[2020-11-29] MEDS: DEXTROSE 5% IN WATER 1,000 ML in EMPTY BAG 1 BAG IV SCH ×3 (12:10→20:08)
[2020-11-29 12:12] LABS: Glucose,Whole Blood 94 mg/dL (75-99)
[2020-11-29 12:50] VITALS: BMI 14.8
--- NOTE | 2020-11-29 13:38 | P.PN ---
Subjective This is a 24-year-old female who was recently admitted with change in mental status and also possible acute bilateral pneumonia along with sepsis present on admission and is being closely monitored. Patient continues to be in the ICU with multiple medical consultations following. Pulmonary fill technician Dr. Kathia bradley along with infectious disease and neurology and a consult was placed for general surgery as patient underwent swallow eval and failed and has been having difficulty with aspiration even in the outpatient setting with her prim haris specialist. Patient initially was reluctant for PEG tube per family at the bedside although they are now requesting this and the patient is agreeable. Patient continues to have shortness of breath and is maintained on 2-3 L of oxygen via nasal cannula and continues to be streaming dyspneic with minimal exertion and tachypneic as well. Patient had one episode of low-grade intermittent temp last night into this morning of 99.3 and continues on IV antibiotic therapy with infectious disease following closely. Patient continues on IV cefepime. Potassium slightly low this morning at 3.4 and will replace per protocol and monitor closely with repeat labs in the morning. Patient continues to have hypertension and is maintained on IV push Labetolol. 11/20/2020 Patient is seen and evaluated in follow-up this morning mother continues to be at the bedside. Patient is alert and oriented 3 and awake currently playing on her phone. Patient continues to be nothing by mouth and plans are for PEG tube placement was surgery this morning. Multiple medical consultations following and if patient remains stable status post procedure considering transferring out of the ICU to [facility]. Patient will continue with nothing by mouth until cleared by surgery to initiate PEG tube feedings. White blood count is 9.7, hemoglobin is 14.5, sodium is 138 with a potassium of 3.9 and current creatinine is 0.55. She continues to have a dry hacking cough and unable to expectorate any phlegm. Per mother at the bedside this is chronic. Patient denies any chest pain or worsening shortness of breath. Patient continues to have right lower quadrant abdominal discomfort on palpation. Patient is urinating and passing gas but no reports of bowel movements. Blood pressure continues to be elevated today and continued on labetalol along with IV hydralazine and will continue. 11/21/2020 This is a pleasant 24 years old female with past medical history of 2 neurofibromatosis, also she is with dysphagia status post PEG tube placement yesterday by surgery team. On admission patient was found to have bilateral aspiration pneumonia and currently she is on cefepime. This morning patient is awake, breathing quietly and states her breathing is easier today. Currently she is at 4 L oxygen via nasal cannula oxygen saturation 95%. Blood pressure is low normal 100/65, is afebrile currently however she had low-grade fever today of 100.5. Chest x-ray from today showing bilateral prominence, no change Neurologist evaluated the patient for AMS as an neurofibromatosis, and he recommended MRI of the brain with and without contrast when possible and this can be done with her oncologist. Patient has negative CTPA for pulmonary embolism on admission. Today also has been complaining of from lips hip pain, which is not new for her she is already seen an orthopedic doctor about 2 weeks ago for the same reason. No history of fall. 11/22/2020 Patient remains in the ICU, his respiratory status is improving. On 4 L oxygen nasal cannula saturating in the mid 90s. She is coughing but she declines to 0. He is hemodynamically stable. She is afebrile for more than 24 hours. Vitals are Stable tube feeding is a started today and tolerated well by the patient so far Patient remains on cefepime Keep in the ICU for now 11/23/2020 Patient moved his legs unit yesterday goes her oxygen requirement went down to 2 L/m. Today she still have significant coughing. No chest pain or dyspnea while at rest. Hemodynamically stable. Labs are stable. she remains on cefepime PEG tube is in place and fluid is running at 30 mL/h. Physical therapy evaluation is requested Patient will need to follow-up with her neurologist as an outpatient, to consider repeat an MRI of the brain per neurologist recommendation, this information I related to the patient and mother at bedside and they agree to call and follow-up with her neurologist 11/24/2020 Patient is awake, mother at bedside all the time and each time come to see the patient. Vomited one time this morning with yellow stuff, she did not eat anything and she still on PEG tube, and 30 mL/h, I discussed the case with the bedside nurse, it looks like her goal is also 30 mL/h, nurse was instructed to hold feeding and check residual per protocol. Keep head of bed more than 45. Patient is already on Zofran Patient also have urged for eating due to hunger, explained to the patient and mother the risk of its and is aspiration pneumonia and they agree to keep nothing by mouth now, give her Xanax as needed. Check labs tomorrow 11/25/2020 Patient is awake and not in distress today. No more episodes of vomiting, she has less desire for eating after Xanax help her to come down and sleep yesterday. She still coughing a lot with no phlegm. Head of bed more than 45. Oxygen saturation is at 2 L. She still tachycardic around 110-113. Not significantly tachypneic, afebrile. Her labs showing leukocytosis at 17 K. She still getting tube feeding at a rate of 13 mL/h, and also she is on cefepime for aspiration pneumonia We will check chest x-ray given her coughing, episode of vomiting yesterday and leukocytosis and for follow-up 11/26/2020 Patient has developed aspiration pneumonia secondary to dysphagia secondary to her neurological disease possibly, she has neurofibromatosis type II. Placed on PEG tube and treated with cefepime for aspiration pneumonia 2 days ago she vomited and yesterday she had mild leukocytosis and repeat chest x-ray showed new infiltrate in the LLL and RUL Patient's was advised not to eat as there is risk of aspiration and both patient and mother at bedside agree Veins from mild pain but no fall or trauma, no rash She still have mildly tachycardic, she is hemodynamically stable and she is on 2 L oxygen only to keep saturation and 90s. A febrile Leukocytosis is improving Keep the patient on cefepime for now 11/27/2020 Patient breathing is quiet, no more episodes of vomiting or choking. She remai ns on tube feeding and 30 mL/h and looks she is improving on cefepime which will be continued for now She's hemodynamically stable. We'll check labs and repeat chest x-ray tomorrow morning. Start Cipro eyedrop for bilateral conjunctivitis. Mother at bedside and all questions were answered 11/28/2020 Patient vomited also today. Repeat chest x-ray showing patchy left lower lobe infiltrate versus nipple, to repeat 2 view x-ray tomorrow for clarification Because patient is also constipated we will do abdominal x-ray to rule out bowel obstruction. However patient is tolerating her tube feeding which is increased to 50 mL/h. Her head of bed is always elevated more than 45 Vitals and labs are stable, her leukocytosis is stable at 12.8 today. She is also on metoprolol which help for her tachycardia. At Reglan, standing dose. At stool softeners as needed. And to continue with IV cefepime 11/29/2020 No more vomiting today, and in the morning. She's with head bed more than 45. She has 2. And running at 50 mL per hour. She is hemodynamically stable, mildly tachycardic around 113-120. No labs from today Patient with no bowel movement for 14 days since admission, and with mother at [facility]. Abdominal x-ray yesterday showing: Old with stool. It was placed on Senokot yesterday with no improvement. We'll do an enema today while holding to feeding 1 hour prior and after, to decrease chances of aspiration. Was switched her Senokot 2 scheduled dose. Also Reglan added. I'll see her up as needed. Continue with cefepime for now. Keep monitoring heart rate Objective - Vital Signs Vital signs: Vital Signs Temp 98.1 F 11/29/20 09:13 Pulse 113 H 11/29/20 09:13 Resp 16 11/29/20 09:13 BP 139/92 11/29/20 09:13 Pulse Ox 95 11/29/20 09:13 Intake & Output 11/28/20 11/29/20 11/29/20 18:59 06:59 18:59 Intake Total 120 Output Total 850 700 400 Balance -568 -580 -400 Weight 39.3 kg 39.3 kg Intake: Oral 120 Output: Urine 850 700 400 Other: Voiding Method Bedside Commode Bedside Commode Bedside Commode # Voids 1 1 # Bowel Movements 1 - Exam -GENERAL: The patient is alert and oriented x3, not in any acute distress. Thin built HEENT: Pupils are round and equally reacting to light. EOMI. No scleral icterus. No conjunctival pallor. Normocephalic, atraumatic. No pharyngeal erythema. No th yromegaly. CARDIOVASCULAR: S1 and S2 present. No murmurs, rubs, or gallops. PULMONARY: Chest is clear to auscultation, no wheezing or crackles. -ABDOMEN: Soft, nontender, nondistended, normoactive bowel sounds. No palpable organomegaly. PEG tube is in place MUSCULOSKELETAL: No joint swelling or deformity. EXTREMITIES: No cyanosis, clubbing, or pedal edema. NEUROLOGICAL: Gross neurological examination did not reveal any focal deficits. SKIN: No rashes. no petechiae. - Labs CBC & Chem 7: 11/28/20 08:37 11/28/20 08:37 Labs: Abnormal Lab Results - Last 24 Hours (Table) 11/28/20 11/28/20 11/29/20 Range/Units 18:00 23:58 06:08 POC Glucose (mg/dL) 101 H 144 H 106 H (75-99) mg/dL Assessment and Plan Assessment: Bilateral recurrent aspiration pneumonia Moderate protein calorie malnutrition Dysphagia, status post PEG tube placement Severe constipation needed edema, could be due to combination of bedrest, neurological disease and medication effect Acute hypoxic respiratory failure type 2 neurofibromatosis Metabolic encephalopathy improved Plan: This is a pleasant 24 years old female presents with bilateral pneumonia, status post PEG tube placement. Continue with cefepime, pulmonary team on the case, as well as infectious disease team. Neurology consult on the case Pain management Start and edema Continue with Reglan and Senokot. Cough syrup as needed keep head of bed more than 45, but states she sleeps most of the day like this Labs and medication were reviewed.. Continue same treatment. Continue with sy mptomatic treatment. Resume home medication. Monitor lytes and vitals. DVT and GI prophylaxis. Further recommendationsas per clinical course of the patient DVT prophylaxis: Subcutaneous heparin GI Prophylaxis: Ppi Possible discharge in 24-48 hours if she keeps improvement
--- NOTE | 2020-11-29 16:12 | P.PN ---
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 Cachexia and weight loss and advance protein calorie malnourishment Intractable nausea or vomiting 11/29/2020, patient seen eval examined during the rounds labs reviewed medications reviewed care plan discussed, hemodynamic status stable, however remains tachycardic, oxygen saturation remained stable in mid 90s, chest x-ray performed today remains unchanged overall remains stable with patchy infiltrate on the left side 11/28/2020, patient's breathing K more comfortably most of time she is off of oxygen, denies chest pain, dry nonproductive, but is still present, her oxygen saturations improved to 95% on room air, blood pressure is stable and Midrin tachycardia is present, tolerating tube feed well, chest x-ray performed today heart copies reviewed some subtle infiltrate however remains stable 11/27/2020, patient seen eval examined during the rounds labs reviewed medications reviewed patient is awake and alert sitting upright on the chair breathing comfortably, patient does have a dry nonproductive cough, she has been on oxygen currently she is on off of oxygen on room air saturation is mid 90s she remains afebrile my last chest x-ray done on November 25 there is some subtle i nfiltrate on the left lower lobe present, some subtle infiltrate on the right upper lobe, patient remains on broad-spectrum antibiotics with cephapirin, has been on tube feed along with bronchodilator and electrolyte replacement protocol 11/20/2020, patient seen eval reexamined during the rounds awake and alert sitting upright on the bed breathing comfortably, intermittent bouts of coughing is present which is mostly nonproductive, hemodynamic status is much improved now patient is getting D5 appears to be helping, last chest performed overall remains stable, patient is scheduled for PEG tube later on today remains nothing by mouth, given that hemodynamic status stable renal transfer the patient post PEG tube to telemetry bed, 11/19/2020, patient seen eval examined during the rounds labs reviewed medications reviewed slightly more alert and awake, episodes of bradycardia has improved, likely related to poor by mouth intake and nutritional issues and problem, patient finally agreed for PEG tube placement, TPN is to be started in the meantime, ongoing cough intermittently is present, chest x-ray performed yesterday continue show infiltrate 11/17/2020, patient seen eval examined during the rounds labs reviewed medications reviewed care plan discussed with the mother and grandfather present at bedside, patient is arousable opens eyes follow simple commands obvious distress is present, blood pressure is intermittently high responding to therapy, patient and the family is in agreement for PEG tube placement, currently patient remains on bronchodilator along with the antihypertensive agent for DVT prophylaxis and broad-spectrum antibiotics awaiting GI evaluation 11/16/2020, patient seen eval examined during the rounds labs reviewed medications reviewed care plan discussed with the staff, patient remains nothing by mouth speech and swallow studies are pending, however discussion with the mother reveals that patient has aspiration studies done with the speech is following [facility] and they were positive for aspiration and they recommended alternative means of feeding with PEG tube, chest x-ray performed on earlier today continue show patchy airspace disease not significantly changed from yesterday exam, she remains afebrile blood pressure is intermittently running high she is on 4 L nasal cannula was relatively stable earlier but now up to 173/122 heart rate increased 139 labetalol 20 mg IV is being given will put patient on IV Lopressor 5 mg every 12 as well and continue use labetalol as needed This is a pleasant 24-year-old female well-known to me patient has a significant past history of malignant neurofibromatosis, patient gets chemotherapy at the tertiary care center in [place], she has the 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 resulting in multiple bouts of aspiration pneumonia which affected the lung bilaterally and gets complicated with abscess requiring long- term IV therapy with PICC line, she was seen last several weeks ago in the office and was in partial agreement with PEG tube, it appears that patient has been having intermittent vomiting for the last several days started having problems with chills and fever came into the hospital for further evaluation, on arrival she was afebrile but with tachypnea and tachycardia respiratory rate is in 40s heart rate 1:30 to 140, hemodynamic status is variable but with stable blood pressure temperature low-grade 100 saturation is 95-96% on 4 L supplemental oxygen, white cell count is normal hemoglobin stable 14.6, kidney functions within normal limit, lactic acid elevated 5.3, chest x-ray significant for patchy bilateral airspace disease, computed tomography scan of the brain no acute changes seen with 5 finding compatible reviewed with neurofibromatosis calcified mass noted, computed tomography scan of the chest negative for pulmonary embolism radicular nodular density noted on both side involving upper and lower lobe, patient also has a history of recent COVID-19 pneumonia requiring hospitalization several weeks ago Objective - Vital Signs Vital signs: Vital Signs Temp 98.1 F 11/29/20 09:13 Pulse 113 H 11/29/20 09:13 Resp 16 11/29/20 09:13 BP 139/92 11/29/20 09:13 Pulse Ox 95 11/29/20 09:13 Intake & Output 11/28/20 11/29/20 11/29/20 18:59 06:59 18:59 Intake Total 120 Output Total 850 700 400 Balance -850 -580 -400 Weight 39.3 kg 39.3 kg Intake: Oral 120 Output: Urine 850 700 400 Other: Voiding Method Bedside Commode Bedside Commode Bedside Commode # Voids 1 1 # Bowel Movements 1 - Exam - Constitutional General appearance: average body habitus, cooperative, disheveled - EENT Eyes: EOMI, PERRLA Ears: bilateral: normal - Neck Carotids: bilateral: upstroke normal Thyroid: bilateral: normal size - Respiratory Respiratory: bilateral: diminished - Cardiovascular Rhythm: regular Heart sounds: normal: S1, S2 - Gastrointestinal General gastrointestinal: normal bowel sounds - Integumentary Integumentary: normal turgor - Neurologic Neurologic: CNII-XII intact - Musculoskeletal Musculoskeletal: generalized weakness, strength equal bilaterally - Psychiatric Psychiatric: A&O x's 3, appropriate affect - Labs CBC & Chem 7: 11/28/20 08:37 11/28/20 08:37 Labs: Abnormal Lab Results - Last 24 Hours (Table) 11/28/20 11/28/20 11/29/20 Range/Units 18:00 23:58 06:08 POC Glucose (mg/dL) 101 H 144 H 106 H (75-99) mg/dL Assessment and Plan Assessment: Bilateral aspiration pneumonia with recurrent multiple episodes in the last 6 months patient is status post PEG tube Intermittent bradycardia and altered mental status, significantly improved now Sepsis likely related to bilateral pneumonia, on therapy 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
[2020-11-29 18:08] LABS: Glucose,Whole Blood 95 mg/dL (75-99)
--- NOTE | 2020-11-29 18:17 | PN ---
PROGRESS NOTE DATE OF SERVICE: 11/29/2020 REASON FOR FOLLOWUP: Pneumonia. INTERVAL HISTORY: The patient is afebrile. The patient is breathing comfortably. Currently on room air. The patient denies having any chest pain or any worsening cough. No abdominal pain or diarrhea. No further vomiting. PHYSICAL EXAMINATION: Blood pressure 108/57. Pulse 105. Temperature 98. She is 97% on room air. General description is a middle-aged female lying in bed in no distress. Respiratory system: Unlabored breathing. A few coarse crackles in the bases bilaterally. No wheeze. Heart S1, S2. Regular rate and rhythm. Abdomen: Soft. No tenderness. LABS: No new labs have been obtained today. DIAGNOSTIC IMPRESSION AND PLAN: Patient admitted to the hospital with vomiting for pneumonia. Patient received about two weeks of antibiotics should be more than enough. No need for further mention of antibiotics and monitor clinical course closely. Mother at the bedside. Questions were answered. MMODL / IJN: [id number] /
[2020-11-29] MEDS: SENNOSIDES 8.6 MG TAB PEG/G-TUBE SCH (20:08)
[2020-11-29] MEDS ORDERED: METOPROLOL TARTRATE 50 MG TAB PEG/G-TUBE SCH (21:00)
[2020-11-30 00:14] LABS: Glucose,Whole Blood 104 mg/dL (75-99)
[2020-11-30] MEDS: CIPROFLOXACIN 0.3% OPHTH SOLN 5 ML BTL LEFT EYE SCH ×4 (03:10→16:47)
[2020-11-30] MEDS: DEXTROSE 5% IN WATER 1,000 ML in EMPTY BAG 1 BAG IV SCH ×3 (03:10→16:47)
[2020-11-30] MEDS: METOPROLOL TARTRATE 25 MG TAB PEG/G-TUBE SCH ×2 (05:50→21:24)
[2020-11-30] MEDS: METOCLOPRAMIDE 10 MG TAB PO SCH ×3 (05:50→16:46)
[2020-11-30 06:04] LABS: Glucose,Whole Blood 136 mg/dL (75-99)
[2020-11-30] MEDS: IPRATROPIUM-ALBUTEROL 3 ML NEB INHALATION SCH ×4 (07:17→19:20)
[2020-11-30] MEDS: FLUoxetine HCL 10 MG CAP PO SCH (10:08)
[2020-11-30] MEDS: PANTOPRAZOLE 40 MG/10 ML VIAL IVP SCH (10:08)
[2020-11-30] MEDS: PYRIDOXINE 50 MG TAB PEG/G-TUBE SCH ×2 (10:09→21:24)
[2020-11-30] MEDS: METHYLPHENIDATE HCL 10 MG TAB PO SCH ×2 (10:09→13:33)
[2020-11-30] MEDS: HEPARIN SODIUM,PORCINE/PF 5,000 UNIT/0.5 ML SYRINGE SQ SCH ×2 (10:09→21:06)
[2020-11-30] MEDS: amLODIPine 5 MG TAB PO SCH (10:09)
[2020-11-30] MEDS: SENNOSIDES 8.6 MG TAB PEG/G-TUBE SCH ×2 (10:09→21:24)
[2020-11-30] MEDS: CEFEPIME 2 GM in SODIUM CHLORIDE 0.9% 100 ML IVPB SCH (10:10)
[2020-11-30 10:14] LABS: Basophils # (A) 0.1 k/uL (0-0.2); Basophils % (A) 1 %; Eosinophils # (A) 0.2 k/uL (0-0.7); Eosinophils % (A) 2 %; HCT 41.3 % (34.0-46.0); HGB 13.2 gm/dL (11.4-16.0); Lymphocytes # (A) 1.8 k/uL (1.0-4.8); Lymphocytes % (A) 14 %; MCH 30.8 pg (25.0-35.0); MCHC 31.9 g/dL (31.0-37.0); MCV 96.8 fL (80.0-100.0); Mean Platelet Volume 7.6; Monocytes # (A) 1.1 k/uL (0-1.0); Monocytes % (A) 8 %; Neutrophils # (A) 9.6 k/uL (1.3-7.7); Neutrophils % (A) 74 %; Platelet Count 329 k/uL (150-450); RBC 4.27 m/uL (3.80-5.40); RDW 15.9 % (11.5-15.5)
[2020-11-30 10:29] LABS: African American GFR (CKD) >90 (>60 ml/min/1.73 sqM); Anion Gap 8 mmol/L; Blood Urea Nitrogen 23 mg/dL (7-17); Calcium 9.7 mg/dL (8.4-10.2); Carbon Dioxide 30 mmol/L (22-30); Chloride 99 mmol/L (98-107); Glucose 104 mg/dL (74-99); Non-African American GFR(CKD) >90 (>60 ml/min/1.73 sqM); Potassium 4.6 mmol/L (3.5-5.1); Sodium 137 mmol/L (137-145)
--- NOTE | 2020-11-30 12:14 | P.PN ---
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 She follows in the office with Dr. Nelson. Cardiology was initially requested to see as a consult in the intensive care unit for further evaluation of bradycardia. She was admitted to the hospital initially with acute bilateral aspiration pneumonia and hypoxic respiratory failure. 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 Elevated troponin was related to sepsis and hypoxia. Echocardiogram on 09/22/2020 revealed EF of 55-60% without significant valvular disease. Patient is status post PEG placement on 11/20. Cardiology is re-consulted for sinus tachycardia on telemetry. Patient seen and examined at bedside. She is alert and oriented x 3. VSS. Telemetry reviewed patient in sinus mechanism, occasionally overnight tachy to 130s-140s. Is currently in 80-90s Patient had one episode of bradycardia in 40s during enema administration. No further episodes of bradycardia since 11/18/20. Blood pressure 124/81, heart rate 93, afebrile, maintaining oxygen saturation summary room air. She does complain of being hungry. HR this morning 70-low 100s, afebrile, maintaining oxygen saturations on 3 L nasal cannula. Laboratory data review WBC 13, hemoglobin 13.2, platelets 329, sodium 137, potassium 4.6, BUN 23, serum creatinine 0.4, troponin negative 1, TSH within normal limits. Patient currently maintained on IV cefepime, metoprolol titrate 75 mg twice a day. GENERAL: In no acute distress NECK: Supple without JVD or thyromegaly. LUNGS: Breath diminished in the bilateral bases. Respiration equal and unlabored. No wheezes, rales or rhonchi. HEART: Regular rate and rhythm without murmurs, rubs or gallops. S1 and S2 heard. GI: PEG tube present. Positive bowel sounds EXTREMITIES: No edema. No clubbing or cyanosis. Peripheral pulses intact. NEURO: awake and alert ASSESSMENT: Bilateral aspiration pneumonia Sinus bradycardia which has resolved Sinus tachycardia, related to normal physiological response, patient asymptomatic History of neurofibromatosis Right sided vocal cord paralysis Hypertension History of Asthma History of juvenile arthritis Cachexia and weight loss and advance protein calorie malnutrition PLAN: Patient's echocardiogram from [facility] revealed EF of 55-60% without significant valvular disease. From cardiology perspective, continue current medical regimen. No further cardiac testing needed. We will follow the patient as needed, please re-consult if any further questions or concerns. Objective - Vital Signs Vital signs: Vital Signs Temp 97.6 F 11/30/20 08:00 Pulse 93 11/30/20 08:00 Resp 18 11/30/20 08:00 BP 124/81 11/30/20 08:00 Pulse Ox 92 L 11/30/20 08:00 Intake & Output 11/29/20 11/30/20 11/30/20 18:59 06:59 18:59 Intake Total 440 0 Output Total 400 Balance 40 0 Weight 39.3 kg 39.6 kg Intake: Oral 0 Tube Feeding 440 Output: Urine 400 Other: Voiding Method Bedside Commode Bedside Commode # Voids 1 1 # Bowel Movements 1 - Labs CBC & Chem 7: 11/30/20 09:51 11/30/20 09:51 Labs: Abnormal Lab Results - Last 24 Hours (Table) 11/30/20 11/30/20 11/30/20 Range/Units 00:12 06:02 09:51 WBC 13.0 H (3.8-10.6) k/uL RDW 15.9 H (11.5-15.5) % Neutrophils # 9.6 H (1.3-7.7) k/uL Monocytes # 1.1 H (0-1.0) k/uL BUN (7-17) mg/dL Creatinine (0.52-1.04) mg/dL Glucose (74-99) mg/dL POC Glucose (mg/dL) 104 H 136 H (75-99) mg/dL 11/30/20 Range/Units 09:51 WBC (3.8-10.6) k/uL RDW (11.5-15.5) % Neutrophils # (1.3-7.7) k/uL Monocytes # (0-1.0) k/uL BUN 23 H (7-17) mg/dL Creatinine 0.41 L (0.52-1.04) mg/dL Glucose 104 H (74-99) mg/dL POC Glucose (mg/dL) (75-99) mg/dL
[2020-11-30 12:51] LABS: Glucose,Whole Blood 112 mg/dL (75-99)
[2020-11-30] MEDS ORDERED: FLUCONAZOLE 100 MG TAB PO ONE (13:21)
--- NOTE | 2020-11-30 16:12 | PN ---
PROGRESS NOTE DATE OF SERVICE: 11/30/2020 REASON FOR FOLLOWUP: Pneumonia. INTERVAL HISTORY: The patient is afebrile. The patient is currently breathing comfortably, normal cough with positive baseline. She denies any further vomiting and no diarrhea has been reported. PHYSICAL EXAMINATION: Blood pressure 124/81, pulse of 90, temperature 98.6, she is 92% on room air. General description is a middle-aged female in the room in no distress. Respiratory system: Unlabored breathing, diminished BS in the bases. Heart S1, S2. Regular. Abdomen: Soft, no tenderness. Extremities: No edema of the feet. LABS: White count slightly up to 13, BUN of 2, creatinine 0.41. DIAGNOSTIC IMPRESSION AND PLAN: 1. Patient with pneumonia, adequately treated. The patient received 2 weeks of cefepime, antibiotic will be discontinued. 2. Patient with elevated white count. Concern for possible oropharyngeal candidiasis. Will add Diflucan and see response and repeat CBC tomorrow. Mother at the bedside. Questions were answered. MMODL / IJN: [id number] /
[2020-11-30] MEDS: traMADol 50 MG TAB PO PRN (17:49)
[2020-11-30 18:23] LABS: Glucose,Whole Blood 92 mg/dL (75-99)
--- NOTE | 2020-11-30 18:50 | P.PN ---
Subjective This is a 24-year-old female who was recently admitted with change in mental status and also possible acute bilateral pneumonia along with sepsis present on admission and is being closely monitored. Patient continues to be in the ICU with multiple medical consultations following. Pulmonary shear helper Dr. Kathia bradley along with infectious disease and neurology and a consult was placed for general surgery as patient underwent swallow eval and failed and has been having difficulty with aspiration even in the outpatient setting with her [facility] specialist. Patient initially was reluctant for PEG tube per family at the bedside although they are now requesting this and the patient is agreeable. Patient continues to have shortness of breath and is maintained on 2-3 L of oxygen via nasal cannula and continues to be streaming dyspneic with minimal exertion and tachypneic as well. Patient had one episode of low-grade intermittent temp last night into this morning of 99.3 and continues on IV antibiotic therapy with infectious disease following closely. Patient continues on IV cefepime. Potassium slightly low this morning at 3.4 and will replace per protocol and monitor closely with repeat labs in the morning. Patient continues to have hypertension and is maintained on IV push Labetolol. 11/20/2020 Patient is seen and evaluated in follow-up this morning mother continues to be at the bedside. Patient is alert and oriented 3 and awake currently playing on her phone. Patient continues to be nothing by mouth and plans are for PEG tube placement was surgery this morning. Multiple medical consultations following and if patient remains stable status post procedure considering transferring out of the ICU to [facility]. Patient will continue with nothing by mouth until cleared by surgery to initiate PEG tube feedings. White blood count is 9.7, hemoglobin is 14.5, sodium is 138 with a potassium of 3.9 and current creatinine is 0.55. She continues to have a dry hacking cough and unable to expectorate any phlegm. Per mother at the bedside this is chronic. Patient denies any chest pain or worsening shortness of breath. Patient continues to have right lower quadrant abdominal discomfort on palpation. Patient is urinating and passing gas but no reports of bowel movements. Blood pressure continues to be elevated today and continued on labetalol along with IV hydralazine and will continue. 11/21/2020 This is a pleasant 24 years old female with past medical history of 2 neurofibromatosis, also she is with dysphagia status post PEG tube placement yesterday by surgery team. On admission patient was found to have bilateral aspiration pneumonia and currently she is on cefepime. This morning patient is awake, breathing quietly and states her breathing is easier today. Currently she is at 4 L oxygen via nasal cannula oxygen saturation 95%. Blood pressure is low normal 100/65, is afebrile currently however she had low-grade fever today of 100.5. Chest x-ray from today showing bilateral prominence, no change Neurologist evaluated the patient for AMS as an neurofibromatosis, and he recommended MRI of the brain with and without contrast when possible and this can be done with her oncologist. Patient has negative CTPA for pulmonary embolism on admission. Today also has been complaining of from lips hip pain, which is not new for her she is already seen an orthopedic doctor about 2 weeks ago for the same reason. No history of fall. 11/22/2020 Patient remains in the ICU, his respiratory status is improving. On 4 L oxygen nasal cannula saturating in the mid 90s. She is coughing but she declines to 0. He is hemodynamically stable. She is afebrile for more than 24 hours. Vitals are Stable tube feeding is a started today and tolerated well by the patient so far Patient remains on cefepime Keep in the ICU for now 11/23/2020 Patient moved his legs unit yesterday goes her oxygen requirement went down to 2 L/m. Today she still have significant coughing. No chest pain or dyspnea while at rest. Hemodynamically stable. Labs are stable. she remains on cefepime PEG tube is in place and fluid is running at 30 mL/h. Physical therapy evaluation is requested Patient will need to follow-up with her neurologist as an outpatient, to consider repeat an MRI of the brain per neurologist recommendation, this information I related to the patient and mother at bedside and they agree to call and follow-up with her neurologist 11/24/2020 Patient is awake, mother at bedside all the time and each time come to see the patient. Vomited one time this morning with yellow stuff, she did not eat anything and she still on PEG tube, and 30 mL/h, I discussed the case with the bedside nurse, it looks like her goal is also 30 mL/h, nurse was instructed to hold feeding and check residual per protocol. Keep head of bed more than 45. Patient is already on Zofran Patient also have urged for eating due to hunger, explained to the patient and mother the risk of its and is aspiration pneumonia and they agree to keep nothing by mouth now, give her Xanax as needed. Check labs tomorrow 11/25/2020 Patient is awake and not in distress today. No more episodes of vomiting, she has less desire for eating after Xanax help her to come down and sleep yesterday. She still coughing a lot with no phlegm. Head of bed more than 45. Oxygen saturation is at 2 L. She still tachycardic around 110-113. Not significantly tachypneic, afebrile. Her labs showing leukocytosis at 17 K. She still getting tube feeding at a rate of 13 mL/h, and also she is on cefepime for aspiration pneumonia We will check chest x-ray given her coughing, episode of vomiting yesterday and leukocytosis and for follow-up 11/26/2020 Patient has developed aspiration pneumonia secondary to dysphagia secondary to her neurological disease possibly, she has neurofibromatosis type II. Placed on PEG tube and treated with cefepime for aspiration pneumonia 2 days ago she vomited and yesterday she had mild leukocytosis and repeat chest x-ray showed new infiltrate in the LLL and RUL Patient's was advised not to eat as there is risk of aspiration and both patient and mother at bedside agree Veins from mild pain but no fall or trauma, no rash She still have mildly tachycardic, she is hemodynamically stable and she is on 2 L oxygen only to keep saturation and 90s. A febrile Leukocytosis is improving Keep the patient on cefepime for now 11/27/2020 Patient breathing is quiet, no more episodes of vomiting or choking. She remai ns on tube feeding and 30 mL/h and looks she is improving on cefepime which will be continued for now She's hemodynamically stable. We'll check labs and repeat chest x-ray tomorrow morning. Start Cipro eyedrop for bilateral conjunctivitis. Mother at bedside and all questions were answered 11/28/2020 Patient vomited also today. Repeat chest x-ray showing patchy left lower lobe infiltrate versus nipple, to repeat 2 view x-ray tomorrow for clarification Because patient is also constipated we will do abdominal x-ray to rule out bowel obstruction. However patient is tolerating her tube feeding which is increased to 50 mL/h. Her head of bed is always elevated more than 45 Vitals and labs are stable, her leukocytosis is stable at 12.8 today. She is also on metoprolol which help for her tachycardia. At Reglan, standing dose. At stool softeners as needed. And to continue with IV cefepime 11/29/2020 No more vomiting today, and in the morning. She's with head bed more than 45. She has 2. And running at 50 mL per hour. She is hemodynamically stable, mildly tachycardic around 113-120. No labs from today Patient with no bowel movement for 14 days since admission, and with mother at [facility]. Abdominal x-ray yesterday showing: Old with stool. It was placed on Senokot yesterday with no improvement. We'll do an enema today while holding to feeding 1 hour prior and after, to decrease chances of aspiration. Was switched her Senokot 2 scheduled dose. Also Reglan added. I'll see her up as needed. Continue with cefepime for now. Keep monitoring heart rate 11/30/2020 Patient keep doing well, no more coughing or aspiration symptoms. No chest pain or tachypnea. She feels better after her enema yesterday and she started having bowel movements yesterday and today. No abdominal pain. Hemodynamically stable with no fever, saturating 99% on room air, she developed tachycardia overnight to 150, metoprolol increased to 75 mg, echocardiogram was ordered which shows ejection fraction of from [facility] cardiologistt evaluated the patient and Recommended to continue same and treatment. No further cardiac workup is needed. By afternoon her heart rate decreased to 94 Labs showing leukocytosis of 13 K. C-reactive protein is normal at 0.6, TSH normal at 3.9. Resume normal at 2. Estimated normal at 4.6. Repeat chest x-ray, procalcitonin and CBC in the morning Possible discharge in 24 hours if she keep improving and cleared by consult Objective - Vital Signs Vital signs: Vital Signs Temp 97.6 F 11/30/20 08:00 Pulse 94 11/30/20 14:00 Resp 20 11/30/20 14:00 BP 100/58 11/30/20 14:00 Pulse Ox 99 11/30/20 14:00 Intake & Output 11/29/20 11/30/20 11/30/20 18:59 06:59 18:59 Intake Total 440 0 10 Output Total 400 Balance 40 0 10 Weight 39.3 kg 39.6 kg Intake: Oral 0 Tube Feeding 440 10 Output: Urine 400 Other: Voiding Method Bedside Commode Bedside Commode # Voids 1 1 # Bowel Movements 1 - Exam -GENERAL: The patient is alert and oriented x3, not in any acute distress. Thin built HEENT: Pupils are round and equally reacting to light. EOMI. No scleral icterus. No conjunctival pallor. Normocephalic, atraumatic. No pharyngeal erythema. No thyromegaly. CARDIOVASCULAR: S1 and S2 present. No murmurs, rubs, or gallops. PULMONARY: Chest is clear to auscultation, no wheezing or crackles. -ABDOMEN: Soft, nontender, nondistended, normoactive bowel sounds. No palpable organomegaly. PEG tube is in place MUSCULOSKELETAL: No joint swelling or deformity. EXTREMITIES: No cyanosis, clubbing, or pedal edema. NEUROLOGICAL: Gross neurological examination did not reveal any focal deficits. SKIN: No rashes. no petechiae. - Labs CBC & Chem 7: 11/30/20 09:51 11/30/20 09:51 Labs: Abnormal Lab Results - Last 24 Hours (Table) 11/30/20 11/30/20 11/30/20 Range/Units 00:12 06:02 09:51 WBC 13.0 H (3.8-10.6) k/uL RDW 15.9 H (11.5-15.5) % Neutrophils # 9.6 H (1.3-7.7) k/uL Monocytes # 1.1 H (0-1.0) k/uL BUN (7-17) mg/dL Creatinine (0.52-1.04) mg/dL Glucose (74-99) mg/dL POC Glucose (mg/dL) 104 H 136 H (75-99) mg/dL 11/30/20 11/30/20 Range/Units 09:51 12:13 WBC (3.8-10.6) k/uL RDW (11.5-15.5) % Neutrophils # (1.3-7.7) k/uL Monocytes # (0-1.0) k/uL BUN 23 H (7-17) mg/dL Creatinine 0.41 L (0.52-1.04) mg/dL Glucose 104 H (74-99) mg/dL POC Glucose (mg/dL) 112 H (75-99) mg/dL Assessment and Plan Assessment: Bilateral recurrent aspiration pneumonia Moderate protein calorie malnutrition Dysphagia, status post PEG tube placement Severe constipation needed edema, could be due to combination of bedrest, neuro logical disease and medication effect Acute hypoxic respiratory failure type 2 neurofibromatosis Metabolic encephalopathy improved Plan: This is a pleasant 24 years old female presents with bilateral pneumonia, status post PEG tube placement. Continue with cefepime, pulmonary team on the case, as well as infectious disease team. Neurology consult on the case Pain management Start and edema Continue with Reglan and Senokot. Cough syrup as needed keep head of bed more than 45, but states she sleeps most of the day like this Labs and medication were reviewed.. Continue same treatment. Continue with symptomatic treatment. Resume home medication. Monitor lytes and vitals. DVT and GI prophylaxis. Further recommendationsas per clinical course of the patient DVT prophylaxis: Subcutaneous heparin GI Prophylaxis: Ppi Possible discharge in 24-48 hours if she keeps improvement
[2020-11-30 21:56] VITALS: TEMP 98
[2020-11-30 23:53] LABS: Glucose,Whole Blood 104 mg/dL (75-99)
[2020-12-01 06:14] LABS: Glucose,Whole Blood 107 mg/dL (75-99)
[2020-12-01 07:28] LABS: Basophils # (A) 0.1 k/uL (0-0.2); Basophils % (A) 1 %; Eosinophils # (A) 0.2 k/uL (0-0.7); Eosinophils % (A) 2 %; HCT 41.1 % (34.0-46.0); HGB 13.4 gm/dL (11.4-16.0); Lymphocytes # (A) 2.4 k/uL (1.0-4.8); Lymphocytes % (A) 17 %; MCH 31.4 pg (25.0-35.0); MCHC 32.5 g/dL (31.0-37.0); MCV 96.8 fL (80.0-100.0); Mean Platelet Volume 7.9; Monocytes # (A) 1.3 k/uL (0-1.0); Monocytes % (A) 9 %; Neutrophils # (A) 9.9 k/uL (1.3-7.7); Neutrophils % (A) 69 %; Platelet Count 360 k/uL (150-450); RBC 4.25 m/uL (3.80-5.40); RDW 15.9 % (11.5-15.5); WBC 14.2 k/uL (3.8-10.6)
[2020-12-01] MEDS: CIPROFLOXACIN 0.3% OPHTH SOLN 5 ML BTL LEFT EYE SCH ×4 (08:05→12:55)
[2020-12-01] MEDS: DEXTROSE 5% IN WATER 1,000 ML in EMPTY BAG 1 BAG IV SCH ×2 (08:05→10:33)
[2020-12-01] MEDS: PANTOPRAZOLE 40 MG/10 ML VIAL IVP SCH (08:05)
[2020-12-01] MEDS: METHYLPHENIDATE HCL 10 MG TAB PO SCH (08:06)
[2020-12-01] MEDS: SENNOSIDES 8.6 MG TAB PEG/G-TUBE SCH (08:06)
[2020-12-01] MEDS: amLODIPine 5 MG TAB PO SCH (08:06)
[2020-12-01] MEDS: PYRIDOXINE 50 MG TAB PEG/G-TUBE SCH (08:06)
[2020-12-01] MEDS: FLUoxetine HCL 10 MG CAP PO SCH (08:06)
[2020-12-01] MEDS: METOPROLOL TARTRATE 25 MG TAB PEG/G-TUBE SCH (08:06)
[2020-12-01] MEDS: HEPARIN SODIUM,PORCINE/PF 5,000 UNIT/0.5 ML SYRINGE SQ SCH (08:07)
[2020-12-01] MEDS: METOCLOPRAMIDE 10 MG TAB PO SCH ×2 (08:15→12:55)
[2020-12-01] MEDS ORDERED: FLUCONAZOLE 100 MG TAB PO SCH (09:00)
[2020-12-01] MEDS: IPRATROPIUM-ALBUTEROL 3 ML NEB INHALATION SCH ×2 (09:16→11:56)
[2020-12-01 09:18] VITALS: PULSE 110; RESP 18
--- NOTE | 2020-12-01 09:45 | XR ---
EXAMINATION TYPE: XR chest 1V DATE OF EXAM: 12/01/2020 COMPARISON: NONE HISTORY: sob TECHNIQUE: Single frontal view of the chest is obtained. FINDINGS: Subsegmental changes left lung base. Mediport catheter noted. Hyperinflation suggests COPD . The heart size normal. There is radiopaque density left lower lobe which could be related to previo us aspiration of contrast. Tubing overlying the upper abdomen incidentally noted. IMPRESSION: 1. Subsegmental left lower lobe atelectasis or infiltrate with persistent nodular density.
[2020-12-01 10:17] VITALS: BP 103/52
--- NOTE | 2020-12-01 11:42 | ECHOF ---
Referral Reason:Rule out heart disease MEASUREMENTS -------- HEIGHT: 162.6 cm WEIGHT: 39.5 kg BP: 136/87 IVSd: 1.2 cm (0.6 - 1.1) LVIDd: 3.6 cm (3.9 - 5.3) LVPWd: 1.1 cm (0.6 - 1.1) IVSs: 1.5 cm LVIDs: 2.9 cm LVPWs: 1.5 cm Ao Diam: 2.6 cm (2.0 - 3.7) AV Cusp: 1.4 cm (1.5 - 2.6) LA Diam: 1.9 cm (2.7 - 3.8) MV EXCURSION: 15.510 mm (> 18.000) MV EF SLOPE: 108 mm/s (70 - 150) EPSS: 0.8 cm MV E Kurtis: 0.91 m/s MV DecT: 167 ms MV A Kurtis: 0.62 m/s MV E/A Ratio: 1.48 AR PHT: 560 ms RAP: 5.00 mmHg RVSP: 19.22 mmHg FINDINGS -------- This was a technically good study. The left ventricular size is normal. Left ventricular wall thickness is normal. Overall left vent ricular systolic function is normal with, an EF between 55 - 60 %. The diastolic filling pattern is normal for the age of the patient 8.42. The right ventricle is normal in size. The left atrial size is normal. Normal LA size by volume 22+/-6 ml/m2. The right atrial size is normal. The aortic valve was not well visualized. There is moderate aortic regurgitation. The mitral valve is normal. The mitral valve leaflets are mildly thickened. There is trace mitral regurgitation. The tricuspid valve appears structurally normal. Trace tricuspid regurgitation present. Right marina tricular systolic pressure is normal at < 35 mmHg. There is no pulmonic regurgitation present. The aortic root size is normal. IVC Not well visulized. There is no pericardial effusion. CONCLUSIONS -------- 1. The left ventricular size is normal. 2. Left ventricular wall thickness is normal. 3. Overall left ventricular systolic function is normal with, an EF between 55 - 60 %. 4. The diastolic filling pattern is normal for the age of the patient 8.42 5. The aortic valve was not well visualized. 6. There is moderate aortic regurgitation. 7. The mitral valve leaflets are mildly thickened. 8. There is trace mitral regurgitation. 9. Trace tricuspid regurgitation present. 10. There is no pericardial effusion. MEDICAL RECORDS COORDINATOR: Leola Meeks RDCS
[2020-12-01 12:25] LABS: Glucose,Whole Blood 115 mg/dL (75-99)
--- NOTE | 2020-12-01 15:15 | P.PN ---
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 Cachexia and weight loss and advance protein calorie malnourishment Intractable nausea or vomiting 12/01/2020 patient seen eval examined sitting upright on the bed breathing comfortably off of oxygen hemodynamic status stable, patient is being planned for discharge later on for follow-up on outpatient basis 11/29/2020, patient seen eval examined during the rounds labs reviewed medications reviewed care plan discussed, hemodynamic status stable, however remains tachycardic, oxygen saturation remained stable in mid 90s, chest x-ray performed today remains unchanged overall remains stable with patchy infiltrate on the left side 11/28/2020, patient's breathing K more comfortably most of time she is off of oxygen, denies chest pain, dry nonproductive, but is still present, her oxygen saturations improved to 95% on room air, blood pressure is stable and Midrin tachycardia is present, tolerating tube feed well, chest x-ray performed today heart copies reviewed some subtle infiltrate however remains stable 11/27/2020, patient seen eval examined during the rounds labs reviewed medi cations reviewed patient is awake and alert sitting upright on the chair breathing comfortably, patient does have a dry nonproductive cough, she has been on oxygen currently she is on off of oxygen on room air saturation is mid 90s she remains afebrile my last chest x-ray done on November 25 there is some subtle infiltrate on the left lower lobe present, some subtle infiltrate on the right upper lobe, patient remains on broad-spectrum antibiotics with cephapirin, has been on tube feed along with bronchodilator and electrolyte replacement protocol 11/20/2020, patient seen eval reexamined during the rounds awake and alert sitting upright on the bed breathing comfortably, intermittent bouts of coughing is present which is mostly nonproductive, hemodynamic status is much improved now patient is getting D5 appears to be helping, last chest performed overall remains stable, patient is scheduled for PEG tube later on today remains nothing by mouth, given that hemodynamic status stable renal transfer the patient post PEG tube to telemetry bed, 11/19/2020, patient seen eval examined during the rounds labs reviewed medications reviewed slightly more alert and awake, episodes of bradycardia has improved, likely related to poor by mouth intake and nutritional issues and problem, patient finally agreed for PEG tube placement, TPN is to be started in the meantime, ongoing cough intermittently is present, chest x-ray performed yesterday continue show infiltrate 11/17/2020, patient seen eval examined during the rounds labs reviewed medications reviewed care plan discussed with the mother and grandfather present at bedside, patient is arousable opens eyes follow simple commands obvious di stress is present, blood pressure is intermittently high responding to therapy, patient and the family is in agreement for PEG tube placement, currently patient remains on bronchodilator along with the antihypertensive agent for DVT prophylaxis and broad-spectrum antibiotics awaiting GI evaluation 11/16/2020, patient seen eval examined during the rounds labs reviewed medications reviewed care plan discussed with the staff, patient remains nothing by mouth speech and swallow studies are pending, however discussion with the mother reveals that patient has aspiration studies done with the speech is following [facility] and they were positive for aspiration and they recommended alternative means of feeding with PEG tube, chest x-ray performed on earlier today continue show patchy airspace disease not significantly changed from yesterday exam, she remains afebrile blood pressure is intermittently running high she is on 4 L nasal cannula was relatively stable earlier but now up to 173/122 heart rate increased 139 labetalol 20 mg IV is being given will put patient on IV Lopressor 5 mg every 12 as well and continue use labetalol as needed This is a pleasant 24-year-old female well-known to me patient has a significant past history of malignant neurofibromatosis, patient gets chemotherapy at the tertiary care center in [place], she has the 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 resulting in multiple bouts of aspiration pneumonia which affected the lung bilaterally and gets complicated with abscess requiring long- term IV therapy with PICC line, she was seen last several weeks ago in the office and was in partial agreement with PEG tube, it appears that patient has been having intermittent vomiting for the last several days started having problems with chills and fever came into the hospital for further evaluation, on arrival she was afebrile but with tachypnea and tachycardia respiratory rate is in 40s heart rate 1:30 to 140, hemodynamic status is variable but with stable blood pressure temperature low-grade 100 saturation is 95-96% on 4 L supplement al oxygen, white cell count is normal hemoglobin stable 14.6, kidney functions within normal limit, lactic acid elevated 5.3, chest x-ray significant for patchy bilateral airspace disease, computed tomography scan of the brain no acute changes seen with 5 finding compatible reviewed with neurofibromatosis calcified mass noted, computed tomography scan of the chest negative for pulmonary embolism radicular nodular density noted on both side involving upper and lower lobe, patient also has a history of recent COVID-19 pneumonia requiring hospitalization several weeks ago Objective - Vital Signs Vital signs: Vital Signs Temp 98.0 F 12/01/20 08:00 Pulse 110 H 12/01/20 08:00 Resp 18 12/01/20 08:00 BP 103/52 12/01/20 10:17 Pulse Ox 92 L 12/01/20 08:00 Intake & Output 11/30/20 12/01/20 12/01/20 18:59 06:59 18:59 Intake Total 10 495 220 Output Total 250 Balance 10 245 220 Weight 55.5 kg Intake: Tube Feeding 10 495 220 Output: Urine 250 Other: Voiding Method Bedside Commode # Voids 2 1 - Exam - Constitutional General appearance: average body habitus, cooperative, disheveled - EENT Eyes: EOMI, PERRLA Ears: bilateral: normal - Neck Carotids: bilateral: upstroke normal Thyroid: bilateral: normal size - Respiratory Respiratory: bilateral: diminished - Cardiovascular Rhythm: regular Heart sounds: normal: S1, S2 - Gastrointestinal General gastrointestinal: normal bowel sounds - Integumentary Integumentary: normal turgor - Neurologic Neurologic: CNII-XII intact - Musculoskeletal Musculoskeletal: generalized weakness, strength equal bilaterally - Psychiatric Psychiatric: A&O x's 3, appropriate affect - Labs CBC & Chem 7: 12/01/20 06:41 11/30/20 09:51 Labs: Abnormal Lab Results - Last 24 Hours (Table) 11/30/20 12/01/20 12/01/20 Range/Units 23:51 05:56 06:41 WBC 14.2 H (3.8-10.6) k/uL RDW 15.9 H (11.5-15.5) % Neutrophils # 9.9 H (1.3-7.7) k/uL Monocytes # 1.3 H (0-1.0) k/uL POC Glucose (mg/dL) 104 H 107 H (75-99) mg/dL 12/01/20 Range/Units 12:23 WBC (3.8-10.6) k/uL RDW (11.5-15.5) % Neutrophils # (1.3-7.7) k/uL Monocytes # (0-1.0) k/uL POC Glucose (mg/dL) 115 H (75-99) mg/dL Assessment and Plan Assessment: Bilateral aspiration pneumonia with recurrent multiple episodes in the last 6 months patient is status post PEG tube Intermittent bradycardia and altered mental status, significantly improved now Sepsis likely related to bilateral pneumonia, on therapy 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
--- NOTE | 2020-12-01 16:09 | PN ---
PROGRESS NOTE DATE OF SERVICE: 12/01/2020. FOR FOLLOWUP: 1. Pneumonia. 2. Leukocytosis. INTERVAL HISTORY: Patient is afebrile. The patient is currently breathing comfortably on room air. Denies having any chest pain. Minimal cough. No sputum. No abdominal pain. No diarrhea. No further vomiting. PHYSICAL EXAMINATION: Blood pressure 105/52 with a pulse of 110. Temperature 98. She is 92% on room air. General description is a middle-aged female up in the bed in no distress. Respiratory system: Unlabored breathing, coarse breath sounds in the base. No wheeze. Heart: S1, S2. Regular rate and rhythm. Abdomen soft, no tenderness. LABS: White count 14.2. Chest x-ray this morning, left lower lobe atelectasis or infiltrate. No worsening. DIAGNOSTIC IMPRESSION AND PLAN: Patient with left lower lobe pneumonia, received about 2 weeks of IV cefepime. Consider a short course of oral Avelox on discharge. Discussed with admitting physician on discharge as well as the family and close outpatient followup. MMODL / IJN: [id number] /
--- NOTE | 2020-12-02 01:28 | P.DS ---
Providers Date of admission: 11/15/20 11:40 Attending physician: Dwayne Avalos Consults: 11/15/20 11:40 Consult Physician Routine Consulting Provider: Ed Barry Consult Reason/Comments: ams Do you want consulting provider notified?: Yes Consult Physician Stat Consulting Provider: Jason Bae Consult Reason/Comments: dyspnea, critical care Do you want consulting provider notified?: Yes 11/15/20 12:31 Consult Physician Routine Consulting Provider: Cisco Wahl Consult Reason/Comments: sepsis Do you want consulting provider notified?: Yes 11/18/20 14:05 Consult Physician Stat Consulting Provider: Eugene Waters Consult Reason/Comments: bradycardia Do you want consulting provider notified?: Yes 11/30/20 09:22 Consult Physician Urgent Consulting Provider: Lakhwinder Nelson Consult Reason/Comments: tachycardia Do you want consulting provider notified?: Yes Primary care physician: [facility] Hospital Course: Diagnoses: Bilateral recurrent aspiration pneumonia Moderate protein calorie malnutrition Dysphagia, status post PEG tube placement Recurrent vomiting secondary to constipation for 14 days Severe constipation needed enema, resolved now having regular bowel movements. No diarrhea Persistent left lower lobe pulmonary nodule, recommend outpatient follow-up to the patient, mother and her public guardian. Most likely fibrous tissue from recurrent infection Acute hypoxic respiratory failure type 2 neurofibromatosis Metabolic encephalopathy improved Patient has public guardian Hospital course: This is a 24-year-old female who was recently admitted with change in mental status, secondary to acute bilateral pneumonia along with sepsis present on admission . Patient was found to have dysphagia most likely secondary to her history of neurofibromatosis type II. Patient has been evaluated by pulmonary and infectious disease team, she was treated with prolonged course of IV cefepime and showed interval improvement, on the day of discharge she was fully awake and oriented, no coughing or dyspnea or chest pain. She was saturating 90s on room air. Patient was cleared for discharge by pulmonary infectious disease team and she was discharged on 5 more days of avelox PER ID team recommendation Patient also status post PEG tube placement and she tolerates and tube feeding at the rate of 50-55 mL/h. Her constipation is is resolved with any medical discharge she has regular bowel movements, no diarrhea, no abdominal pain, no more vomiting on the day of discharge patient is back to her baseline and she was eager to go home since yesterday Mother at bedside and agrees with her discharge. Mother called her public guardian Mr. Domenic , whom I discussed the case with him with discharge instruction in both agrees with it Patient was cleared by all consultants for discharge Problems and management plan were discussed with the patient, her mother on her public guardian and they verbalized understanding and acceptance Patient was found stable and can be discharged home and guarded prognosis however patient is high-risk for recurrent aspiration and hospital admission she needs follow-up as an outpatient. Patient was instructed to follow up with PCP Dr. pizarro/Mally Nath within one week and patient agrees Also patient was instructed to follow up with grated cheese maker Dr. Bae in 2 weeks and repeat chest x-ray with him and both mother and patient agree Also patient was instructed to follow up with her on neurologist and oncologist Dr. Munoz in 2 weeks , Public guardian and mother told me they have contact information and they would agree with this recommendation. Informed and she will need to repeat her MRI of the brain with and without contrast and possible neurosurgical evaluation per our hospital NEUROLOGIST Dr. Armijo recommendation Note:Chest x-ray on the day of discharge showed subsegmental left lower lobe atelectasis or infiltrate with persistent nodular density. As per my discussion with Dr. Bea this could be fibrous tissue from recurrent infection. Nevertheless I instructed the patient, mother and her public guardian . Domenic, to follow-up with grated cheese maker Dr. Bae and repeat chest x-ray to confirm stability, risk of cancer explained to them and they verbalized understanding and acceptance Physical exam Gen: patient is a AAOx3, no distress CVS: S1-S2, RRR, no murmur Lungs: B/L CTA, no wheezing Abdomen: soft, no distention, no tenderness, positive bowel sounds. PEG tube is in place Extremity: no leg edema or induration Time spent more than 35 minutes Patient Condition at Discharge: Critical Plan - Discharge Summary Discharge Rx Participant: Yes New Discharge Prescriptions: New Omeprazole 40 mg PO DAILY #30 capsule. Metoclopramide [Reglan] 10 mg PO AC-TID PRN 6 Days tab PRN Reason: Nausea And Vomiting traMADol HCl [Ultram] 25 mg PO BID PRN 6 Days #6 tab PRN Reason: Pain Pyridoxine [Vitamin B-6] 50 mg PEG/G-TUBE BID #60 tab Moxifloxacin HCl [Avelox] 400 mg PO DAILY 5 Days #5 tablet Metoprolol Tartrate [Lopressor] 75 mg PEG/G-TUBE BID #60 tab guaiFENesin-DM 100-10MG/5ML [Robitussin DM] 10 ml PEG/G-TUBE Q6H PRN #1 bottle PRN Reason: Cough Albuterol Inhaler [Ventolin Hfa Inhaler] 1 puff INHALATION RT-QID PRN #1 bottle PRN Reason: Shortness Of Breath Or Wheezing Continue Methylphenidate HCl [Concerta] 36 mg PO DAILY FLUoxetine HCL [PROzac] 10 mg PO DAILY medroxyPROGESTERone [Depo-Provera] 150 mg IM Q84D Montelukast [Singulair] 10 mg PO HS Discontinued Loratadine 10 mg PO HS Diclofenac Sodium Gel [Voltaren Gel] 4 gm TOPICAL QID Ketorolac [Toradol] 10 mg PO BID PRN PRN Reason: Pain Discharge Medication List FLUoxetine HCL [PROzac] 10 mg PO DAILY 08/17/20 [History] Methylphenidate HCl [Concerta] 36 mg PO DAILY 08/17/20 [History] Montelukast [Singulair] 10 mg PO HS 08/17/20 [History] medroxyPROGESTERone [Depo-Provera] 150 mg IM Q84D 08/17/20 [History] Albuterol Inhaler [Ventolin Hfa Inhaler] 1 puff INHALATION RT-QID PRN #1 bottle 12/01/20 [Rx] Metoclopramide [Reglan] 10 mg PO AC-TID PRN 6 Days tab 12/01/20 [Rx] Metoprolol Tartrate [Lopressor] 75 mg PEG/G-TUBE BID #60 tab 12/01/20 [Rx] Moxifloxacin HCl [Avelox] 400 mg PO DAILY 5 Days #5 tablet 12/01/20 [Rx] Omeprazole 40 mg PO DAILY #30 12/01/20 [Rx] Pyridoxine [Vitamin B-6] 50 mg PEG/G-TUBE BID #60 tab 12/01/20 [Rx] guaiFENesin-DM 100-10MG/5ML [Robitussin DM] 10 ml PEG/G-TUBE Q6H PRN #1 bottle 12/01/20 [Rx] traMADol HCl [Ultram] 25 mg PO BID PRN 6 Days #6 tab 12/01/20 [Rx] Follow up Appointment(s)/Referral(s): [facility], [NON-STAFF] - Bernie Stockton MD [Primary Care Provider] - 12/12/20 9:00 am ([place] [employer]) Jason Bae MD [STAFF PHYSICIAN] - 2 Weeks (call office on Friday12/04/20 to schedule appt ([phone]) Please follow-up your left lower lung nodule with your grated cheese maker) Patient Instructions/Handouts: How to Use and Care for Your PEG Tube (DC), Aspiration Pneumonia (DC), Tube Feeding (DC) Activity/Diet/Wound Care/Special Instructions: [facility] is the provider of the tube feedings. They can be reached by calling [phone]. Tube feedings will be Vital 1.2, 6 cans daily via gravity with free water 30ml flushes q4hrs, with 14 drops per minute continuous. Activity is restricted in till you see your doctor we recommend to follow-up with your oncologist Dr. Munoz in 2 weeks we recommend to follow-up with your neurologist in 2 weeks (( You may need MRI of the brain with and without contrast with your neurologist/oncologist. Also you may need neurosurgical evaluation)) You have the contact information for your neurologist and your oncologist Dr. Duenas as you informed the medical staff. Please call to make appointment within 2 weeks Discharge Disposition: HOME WITH HOME HEALTH SERVICES
== END 2020-12-01 15:04 | disposition home health service (06) | DRG 871 ==
LOC: EC 09:06 → EEVIPCON 11:40 → 2SICU 11:40 → 3SCARD 11-23 00:58
PROVIDERS: ADMIT Hospitalist; ATTEND Hospitalist
PROC: 0DH63UZ Insertion of Feeding Device into Stomach, Percutaneous Approach (ICD-10-PCS; principal; 2020-11-20 07:30)
PROC: 3E0G76Z Introduction of Nutritional Substance into Upper GI, Via Natural or Artificial Opening (ICD-10-PCS; 2020-11-21)
DX: A41.9 Sepsis, unspecified organism (principal); R65.21 Severe sepsis with septic shock; J69.0 Pneumonitis due to inhalation of food and vomit; J96.01 Acute respiratory failure with hypoxia; G93.41 Metabolic encephalopathy; E87.2 Acidosis; Z68.1 Body mass index [BMI] 19.9 or less, adult; J98.11 Atelectasis; E87.1 Hypo-osmolality and hyponatremia; E44.0 Moderate protein-calorie malnutrition; E86.0 Dehydration; Q85.01 Neurofibromatosis, type 1; Z20.822 Contact with and (suspected) exposure to COVID-19; Z86.16 Personal history of COVID-19; E11.65 Type 2 diabetes mellitus with hyperglycemia; I16.0 Hypertensive urgency; R00.0 Tachycardia, unspecified; Q85.02 Neurofibromatosis, type 2; R13.10 Dysphagia, unspecified; R00.1 Bradycardia, unspecified; K59.00 Constipation, unspecified; R47.02 Dysphasia; Z82.0 Family history of epilepsy and other diseases of the nervous system; Z82.5 Family history of asthma and other chronic lower respiratory diseases; Z87.01 Personal history of pneumonia (recurrent); Z79.899 Other long term (current) drug therapy; J45.909 Unspecified asthma, uncomplicated; I10 Essential (primary) hypertension; H10.9 Unspecified conjunctivitis; M08.90 Juvenile arthritis, unspecified, unspecified site; J38.01 Paralysis of vocal cords and larynx, unilateral; Z92.21 Personal history of antineoplastic chemotherapy; D49.2 Neoplasm of unspecified behavior of bone, soft tissue, and skin
CPT/HCPCS: 36415; 43246; 70450; 71045; 71046; 71275; 74019; 74230; 80048; 80053; 81001; 82009; 82150; 82550; 82553; 82607; 82746; 83036; 83605; 83615; 83690; 83735; 83921; 84100; 84145; 84207; 84425; 84443; 84484; 85025; 85379; 85610; 85730; 86140; 87040; 87449; 87635; 93005; 93306; 94760; 95816; 96361; 96365; 96366; 96375; 99285

== ENCOUNTER 2020-12-11 10:02 | Inpatient (IN) | payer OTHER ==
[2020-12-11] MEDS ORDERED: ALBUTEROL NEBULIZED 2.5 MG/3 ML INHALATION STA (10:15)
[2020-12-11] MEDS ORDERED: CEFEPIME 2 GM in SODIUM CHLORIDE 0.9% 100 ML IVPB STA (10:15)
[2020-12-11] MEDS ORDERED: IPRATROPIUM-ALBUTEROL 3 ML NEB INHALATION STA (10:15)
[2020-12-11] MEDS ORDERED: SODIUM CHLORIDE 0.9% 500 ML 500 ML IV ONE (10:18)
[2020-12-11 10:21] LABS: Glucose,Whole Blood 221 mg/dL (75-99)
--- NOTE | 2020-12-11 10:51 | ED ---
General Adult HPI - General Chief complaint: Shortness of Breath Stated complaint: weakness, poss seizure Time Seen by Provider: 12/11/20 10:13 Source: family, RN notes reviewed, old records reviewed Mode of arrival: wheelchair Limitations: physical limitation - History of Present Illness Initial comments: 25-year-old female presenting in extremis by a mandatory triage. History is limited, patient unable to contribute to the history and the patient's parents were at bedside states that the patient was altered this morning. She is found to be hypoxic in the 50s upon arrival. She had a recent hospitalization and was discharged about one week ago. Apparently she was treated for an aspiration pneumonia she had some dysphagia and a PEG tube was placed. She was discharged on oral antibiotics. Further history will be obtained by review the medical record. - Related Data Home Medications Medication Instructions Recorded Confirmed FLUoxetine HCL [PROzac] 10 mg PEG/G-TUBE DAILY 08/17/20 12/11/20 Montelukast [Singulair] 10 mg PEG/G-TUBE HS 08/17/20 12/11/20 medroxyPROGESTERone [Depo-Provera] 150 mg IM Q84D 08/17/20 12/11/20 Methylphenidate HCl [Quillivant Xr] 7 mg PEG/G-TUBE DAILY 12/11/20 12/11/20 Metoclopramide [Reglan] 10 mg PEG/G-TUBE AC-TID PRN 12/11/20 12/11/20 Omeprazole 40 mg PEG/G-TUBE DAILY 12/11/20 12/11/20 traMADol HCl [Ultram] 25 mg PEG/G-TUBE BID PRN 12/11/20 12/11/20 Previous Rx's Medication Instructions Recorded Albuterol Inhaler [Ventolin Hfa 1 puff INHALATION RT-QID PRN #1 12/01/20 Inhaler] bottle Metoprolol Tartrate [Lopressor] 75 mg PEG/G-TUBE BID #60 tab 12/01/20 Pyridoxine [Vitamin B-6] 50 mg PEG/G-TUBE BID #60 tab 12/01/20 guaiFENesin-DM 100-10MG/5ML 10 ml PEG/G-TUBE Q6H PRN #1 bottle 12/01/20 [Robitussin DM] Allergies Allergy/AdvReac Type Severity Reaction Status Date / Time acetaminophen Allergy Dyspnea Verified 12/11/20 11:12 [From Tylenol-Codeine #3] amoxicillin Allergy Rash/Hives Verified 12/11/20 11:12 codeine Allergy Dyspnea Verified 12/11/20 11:12 [From Tylenol-Codeine #3] midazolam [From Versed] AdvReac Hyper Verified 12/11/20 11:12 orange juice AdvReac Abdominal Verified 12/11/20 11:12 Pain strawberry AdvReac Abdominal Verified 12/11/20 11:12 Pain Review of Systems ROS Statement: Those systems with pertinent positive or pertinent negative responses have been documented in the HPI. ROS Other: All systems not noted in ROS Statement are negative. Past Medical History Past Medical History: Asthma, Eye Disorder Additional Past Medical History / Comment(s): Neurofibromatosis History of Any Multi-Drug Resistant Organisms: None Reported Additional Past Surgical History / Comment(s): medi port, eye, dental Past Anesthesia/Blood Transfusion Reactions: No Reported Reaction Past Psychological History: No Psychological Hx Reported Smoking Status: Never smoker Past Alcohol Use History: None Reported Past Drug Use History: None Reported - Past Family History Mother Family Medical History: Asthma, Seizure Disorder General Exam Limitations: physical limitation General appearance: obtunded, in distress Head exam: Present: atraumatic, normocephalic Eye exam: Present: PERRL, other (Strabismus) ENT exam: Present: mucous membranes dry Neck exam: Present: normal inspection. Absent: tenderness Respiratory exam: Present: respiratory distress, rhonchi, accessory muscle use, decreased breath sounds Cardiovascular Exam: Present: normal rhythm, tachycardia GI/Abdominal exam: Present: soft, other (PEG tube). Absent: distended, tenderness, guarding Neurological exam: Absent: alert, oriented X3 Skin exam: Present: intact, cyanosis Course Vital Signs 12/11/20 12/11/20 12/11/20 10:09 10:13 11:03 Temperature 97.4 F L Pulse Rate 133 H 107 H Respiratory 30 H 34 H 30 H Rate Blood Pressure 141/98 102/58 O2 Sat by Pulse 87 L 97 Oximetry 12/11/20 12/11/20 12/11/20 11:04 11:09 11:20 Temperature Pulse Rate 105 H 118 H 100 Respiratory 43 H Rate Blood Pressure 102/58 O2 Sat by Pulse 79 L Oximetry 12/11/20 12/11/20 12/11/20 11:30 13:23 13:26 Temperature Pulse Rate 86 140 H 135 H Respiratory 12 47 H 40 H Rate Blood Pressure 126/72 153/97 134/66 O2 Sat by Pulse 94 L 93 L 90 L Oximetry 12/11/20 13:52 Temperature 98.7 F Pulse Rate 96 Respiratory 38 H Rate Blood Pressure O2 Sat by Pulse 94 L Oximetry - Reevaluation(s) Reevaluation #1: 12/11/20 12:32 Patient does respond to supplemental oxygen by nonrebreather, saturations are in the 90%. She quickly desaturates off the nonrebreather. I did discuss case both with the admitting physician Dr. Sanchez and with Dr. Bae who is familiar with this patient and is able to evaluate her in the emergency department. He recommends CT angiography which has been ordered, results are pending. Reevaluation #2: 12/11/20 12:35 Patient placed on BiPAP EKG Findings - EKG Comments: EKG Findings:: EKG: Sinus tachycardia, biatrial enlargement, rate of 113, SD interval 126, QRS duration 78, QTC 422, no ST segment elevation. Medical Decision Making - Medical Decision Making 25-year-old female with neurofibromatosis, aspiration, vocal cord paralysis presenting with respiratory distress and hypoxia. Initial pulse ox is in the 50s. She does respond to nonrebreather. She has tachypnea, tachycardic and hypoxic. She had recurrent aspiration and did have a PEG tube placed recently. Chest x-ray shows an interstitial pneumonia versus pneumonitis. She is started on cefepime and azithromycin. Blood cultures are pending. She has a normal CBC, relatively normal CMP with elevated blood sugar otherwise normal. She has a negative troponin, negative BNP. She had an echo obtained on last admission which showed an EF 5055%. She is evaluated in the emergency department by Dr. Bae who is familiar with her care. He does recommend CT angiography which has been ordered. Patient will be admitted to ICU for continued treatment of suspected aspiration, pneumonia, and rule out pulmonary embolism. - Lab Data Result diagrams: 12/11/20 10:22 12/11/20 10:22 Lab Results 12/11/20 12/11/20 12/11/20 Range/Units 10:20 10:22 10:22 WBC 7.5 (3.8-10.6) k/uL RBC 4.46 (3.80-5.40) m/uL Hgb 14.2 (11.4-16.0) gm/dL Hct 43.6 (34.0-46.0) % MCV 97.6 (80.0-100.0) fL MCH 31.8 (25.0-35.0) pg MCHC 32.6 (31.0-37.0) g/dL RDW 16.1 H (11.5-15.5) % Plt Count 230 (150-450) k/uL MPV 8.1 Neutrophils % Not Reportable Neutrophils % (Manual) 76 % Band Neuts % (Manual) 5 % Lymphocytes % Not Reportable Lymphocytes % (Manual) 10 % Monocytes % Not Reportable Monocytes % (Manual) 9 % Eosinophils % Not Reportable Basophils % Not Reportable Neutrophils # Not Reportable Neutrophils # (Manual) 6.00 (1.3-7.7) k/uL Lymphocytes # Not Reportable Lymphocytes # (Manual) 0.75 L (1.0-4.8) k/uL Monocytes # Not Reportable Monocytes # (Manual) 0.68 (0-1.0) k/uL Eosinophils # Not Reportable Basophils # Not Reportable Nucleated RBCs 0 (0-0) /100 WBC Manual Slide Review Performed Anisocytosis Slight PT (9.0-12.0) sec INR (<1.2) APTT (22.0-30.0) sec Sodium (137-145) mmol/L Potassium (3.5-5.1) mmol/L Chloride (98-107) mmol/L Carbon Dioxide (22-30) mmol/L Anion Gap mmol/L BUN (7-17) mg/dL Creatinine (0.52-1.04) mg/dL Est GFR (CKD-EPI)AfAm (>60 ml/min/1.73 sqM) Est GFR (CKD-EPI)NonAf (>60 ml/min/1.73 sqM) Glucose (74-99) mg/dL POC Glucose (mg/dL) 221 H (75-99) mg/dL POC Glu [employer] Dianelys Davis Plasma Lactic Acid Joseph (0.7-2.0) mmol/L Calcium (8.4-10.2) mg/dL Magnesium (1.6-2.3) mg/dL Total Bilirubin (0.2-1.3) mg/dL AST (14-36) U/L ALT (4-34) U/L Alkaline Phosphatase (38-126) U/L Troponin I (0.000-0.034) ng/mL NT-Pro-B Natriuret Pep pg/mL Total Protein (6.3-8.2) g/dL Albumin (3.5-5.0) g/dL Urine Color Yellow Urine Appearance Clear (Clear) Urine pH 6.0 (5.0-8.0) Ur Specific [place] 1.021 (1.001-1.035) Urine Protein 1+ H (Negative) Urine Glucose (UA) 3+ H (Negative) Urine Ketones Negative (Negative) Urine Blood Negative (Negative) Urine Nitrite Negative (Negative) Urine Bilirubin Negative (Negative) Urine Urobilinogen <2.0 (<2.0) mg/dL Ur Leukocyte Esterase Negative (Negative) Urine RBC <1 (0-5) /hpf Urine WBC 1 (0-5) /hpf Ur Squamous Epith Cells <1 (0-4) /hpf Urine Mucus Rare H (None) /hpf Coronavirus (PCR) (Not Detectd) 12/11/20 12/11/20 12/11/20 Range/Units 10:22 10:22 10:22 WBC (3.8-10.6) k/uL RBC (3.80-5.40) m/uL Hgb (11.4-16.0) gm/dL Hct (34.0-46.0) % MCV (80.0-100.0) fL MCH (25.0-35.0) pg MCHC (31.0-37.0) g/dL RDW (11.5-15.5) % Plt Count (150-450) k/uL MPV Neutrophils % Neutrophils % (Manual) % Band Neuts % (Manual) % Lymphocytes % Lymphocytes % (Manual) % Monocytes % Monocytes % (Manual) % Eosinophils % Basophils % Neutrophils # Neutrophils # (Manual) (1.3-7.7) k/uL Lymphocytes # Lymphocytes # (Manual) (1.0-4.8) k/uL Monocytes # Monocytes # (Manual) (0-1.0) k/uL Eosinophils # Basophils # Nucleated RBCs (0-0) /100 WBC Manual Slide Review Anisocytosis PT (9.0-12.0) sec INR (<1.2) APTT (22.0-30.0) sec Sodium 138 (137-145) mmol/L Potassium 4.4 (3.5-5.1) mmol/L Chloride 98 (98-107) mmol/L Carbon Dioxide 29 (22-30) mmol/L Anion Gap 11 mmol/L BUN 22 H (7-17) mg/dL Creatinine 0.35 L (0.52-1.04) mg/dL Est GFR (CKD-EPI)AfAm >90 (>60 ml/min/1.73 sqM) Est GFR (CKD-EPI)NonAf >90 (>60 ml/min/1.73 sqM) Glucose 260 H (74-99) mg/dL POC Glucose (mg/dL) (75-99) mg/dL POC Glu [employer] ID Plasma Lactic Acid Joseph 1.9 (0.7-2.0) mmol/L Calcium 9.6 (8.4-10.2) mg/dL Magnesium 1.8 (1.6-2.3) mg/dL Total Bilirubin 0.2 (0.2-1.3) mg/dL AST 43 H (14-36) U/L ALT 46 H (4-34) U/L Alkaline Phosphatase 103 (38-126) U/L Troponin I <0.012 (0.000-0.034) ng/mL NT-Pro-B Natriuret Pep pg/mL Total Protein 7.3 (6.3-8.2) g/dL Albumin 3.9 (3.5-5.0) g/dL Urine Color Urine Appearance (Clear) Urine pH (5.0-8.0) Ur Specific [place] (1.001-1.035) Urine Protein (Negative) Urine Glucose (UA) (Negative) Urine Ketones (Negative) Urine Blood (Negative) Urine Nitrite (Negative) Urine Bilirubin (Negative) Urine Urobilinogen (<2.0) mg/dL Ur Leukocyte Esterase (Negative) Urine RBC (0-5) /hpf Urine WBC (0-5) /hpf Ur Squamous Epith Cells (0-4) /hpf Urine Mucus (None) /hpf Coronavirus (PCR) (Not Detectd) 12/11/20 12/11/20 12/11/20 Range/Units 10:22 10:22 11:36 WBC (3.8-10.6) k/uL RBC (3.80-5.40) m/uL Hgb (11.4-16.0) gm/dL Hct (34.0-46.0) % MCV (80.0-100.0) fL MCH (25.0-35.0) pg MCHC (31.0-37.0) g/dL RDW (11.5-15.5) % Plt Count (150-450) k/uL MPV Neutrophils % Neutrophils % (Manual) % Band Neuts % (Manual) % Lymphocytes % Lymphocytes % (Manual) % Monocytes % Monocytes % (Manual) % Eosinophils % Basophils % Neutrophils # Neutrophils # (Manual) (1.3-7.7) k/uL Lymphocytes # Lymphocytes # (Manual) (1.0-4.8) k/uL Monocytes # Monocytes # (Manual) (0-1.0) k/uL Eosinophils # Basophils # Nucleated RBCs (0-0) /100 WBC Manual Slide Review Anisocytosis PT 10.6 (9.0-12.0) sec INR 1.0 (<1.2) APTT 21.2 L (22.0-30.0) sec Sodium (137-145) mmol/L Potassium (3.5-5.1) mmol/L Chloride (98-107) mmol/L Carbon Dioxide (22-30) mmol/L Anion Gap mmol/L BUN (7-17) mg/dL Creatinine (0.52-1.04) mg/dL Est GFR (CKD-EPI)AfAm (>60 ml/min/1.73 sqM) Est GFR (CKD-EPI)NonAf (>60 ml/min/1.73 sqM) Glucose (74-99) mg/dL POC Glucose (mg/dL) (75-99) mg/dL POC Glu [employer] Technician ID Plasma Lactic Acid Joseph (0.7-2.0) mmol/L Calcium (8.4-10.2) mg/dL Magnesium (1.6-2.3) mg/dL Total Bilirubin (0.2-1.3) mg/dL AST (14-36) U/L ALT (4-34) U/L Alkaline Phosphatase (38-126) U/L Troponin I (0.000-0.034) ng/mL NT-Pro-B Natriuret Pep 582 pg/mL Total Protein (6.3-8.2) g/dL Albumin (3.5-5.0) g/dL Urine Color Urine Appearance (Clear) Urine pH (5.0-8.0) Ur Specific [place] (1.001-1.035) Urine Protein (Negative) Urine Glucose (UA) (Negative) Urine Ketones (Negative) Urine Blood (Negative) Urine Nitrite (Negative) Urine Bilirubin (Negative) Urine Urobilinogen (<2.0) mg/dL Ur Leukocyte Esterase (Negative) Urine RBC (0-5) /hpf Urine WBC (0-5) /hpf Ur Squamous Epith Cells (0-4) /hpf Urine Mucus (None) /hpf Coronavirus (PCR) Not Detected (Not Detectd) Critical Care Time Critical Care Time: Yes Total Critical Care Time: 35 Disposition Clinical Impression: Aspiration pneumonia, Neurofibromatosis, Hypoxia Disposition: ADMITTED IP TO THIS [facility] Condition: Serious Is patient prescribed a controlled substance at d/c from ED?: No Decision to Admit Reason: Admit from EC Decision Date: 12/11/20 Decision Time: 12:33
[2020-12-11] MEDS: SODIUM CHLORIDE 0.9% 1,000 ML IV SCH ×2 (10:53→21:04)
[2020-12-11 11:06] LABS: ALT 46 U/L (4-34); AST 43 U/L (14-36); African American GFR (CKD) >90 (>60 ml/min/1.73 sqM); Albumin 3.9 g/dL (3.5-5.0); Alkaline Phosphatase 103 U/L (38-126); Anion Gap 11 mmol/L; Blood Urea Nitrogen 22 mg/dL (7-17); Calcium 9.6 mg/dL (8.4-10.2); Carbon Dioxide 29 mmol/L (22-30); Chloride 98 mmol/L (98-107); Glucose 260 mg/dL (74-99); Magnesium 1.8 mg/dL (1.6-2.3); Non-African American GFR(CKD) >90 (>60 ml/min/1.73 sqM); Potassium 4.4 mmol/L (3.5-5.1); Sodium 138 mmol/L (137-145); Total Bilirubin 0.2 mg/dL (0.2-1.3); Total Protein 7.3 g/dL (6.3-8.2)
[2020-12-11 11:09] LABS: Anisocytosis Slight; HCT 43.6 % (34.0-46.0); HGB 14.2 gm/dL (11.4-16.0); MCH 31.8 pg (25.0-35.0); MCHC 32.6 g/dL (31.0-37.0); MCV 97.6 fL (80.0-100.0); Mean Platelet Volume 8.1; Platelet Count 230 k/uL (150-450); RBC 4.46 m/uL (3.80-5.40); RDW 16.1 % (11.5-15.5); WBC 7.5 k/uL (3.8-10.6)
--- NOTE | 2020-12-11 11:10 | XR ---
EXAMINATION TYPE: XR chest 1V portable DATE OF EXAM: 12/11/2020 COMPARISON: 12/01/2020 HISTORY: Hypoxia TECHNIQUE: Single frontal view of the chest is obtained. FINDINGS: Mediport again noted there is a diffuse interstitial pattern with subsegmental changes left lung base . Hyperdensity again noted in the left lower lobe. Tubing overlying the abdomen. Tiny pleural effusio n suspected with no sizable pneumothorax. IMPRESSION: 1. Correlate for interstitial pneumonitis or venous congestion which is new from the prior exam.
[2020-12-11] MEDS ORDERED: AZITHROMYCIN 500 MG in SODIUM CHLORIDE 0.9% 250 ML IVPB STA (11:12)
[2020-12-11 12:01] LABS: Band Neutrophils % 5 %; Lymphocytes # (M) 0.75 k/uL (1.0-4.8); Monocytes # (M) 0.68 k/uL (0-1.0); Neutrophils % (M) 76 %; Nucleated Red Blood Cells 0 /100 WBC (0-0); Total Cells Counted 100
[2020-12-11 12:06] LABS: Prothrombin Time 10.6 sec (9.0-12.0)
[2020-12-11 12:13] LABS: Partial Thromboplastin Time 21.2 sec (22.0-30.0)
[2020-12-11] MEDS ORDERED: ONDANSETRON 4 MG/2 ML VIAL IVP PRN (12:30)
[2020-12-11] MEDS ORDERED: NALOXONE 0.4 MG/ML 1 ML VIAL IV PRN (12:30)
[2020-12-11] MEDS ORDERED: ALBUTEROL HFA INHALER INHALATION PRN (12:44)
[2020-12-11 13:45] LABS: Appearance,Urine Clear (Clear); Bilirubin,Urine Negative (Negative); Blood,Urine Negative (Negative); Color,Urine Yellow; Glucose,Urine (UA) 3+ (Negative); Ketones,Urine Negative (Negative); Leukocyte Esterase,Urine Negative (Negative); Mucus,Urine Rare /hpf; Nitrite,Urine Negative (Negative); Protein,Urine 1+ (Negative); RBC,Urine <1 /hpf (0-5); Specific Gravity,Urine 1.021 (1.001-1.035); Squamous Epithelial Cell,Urine <1 /hpf (0-4); Urobilinogen,Urine <2.0 mg/dL (<2.0); WBC,Urine 1 /hpf (0-5)
--- NOTE | 2020-12-11 14:45 | P.HPIM ---
History of Present Illness Patient is a 24-year-old female with history of neurofibromatosis came in severely hypoxic with oxygen saturating around 50% and altered mental status secondary to hypoxemia. Patient had a chest x-ray which showed which is showing a pulmonary vascular prominence. Patient had appears to be vomiting quite a bit and patient had aspiration pneumonia in the past patient appears to have aspiration pneumonia again patient was recently discharged from the hospital. Patient has a PEG tube. Patient was discharged on oral antibiotics. Patient was up really doing well until today morning since morning patient became hypoxic, not doing well. Patient was recently discharged from the hospital after she was treated for bilateral aspiration pneumonia. 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 REVIEW OF SYSTEMS: Unable to obtain due to her clinical condition PHYSICAL EXAMINATION: GENERAL: Thin built cachectic female, when I evaluated patient was vomiting quite a bit was in significant distress BiPAP was present neck to her. HEENT: Pupils are round and equally reacting to light. EOMI. No scleral icterus. No conjunctival pallor. Normocephalic, atraumatic. No pharyngeal erythema. No thyromegaly. CARDIOVASCULAR: S1 and S2 present. No murmurs, rubs, or gallops. PULMONARY: Diffuse bilateral rhonchi ABDOMEN: Soft, nontender, nondistended, normoactive bowel sounds. No palpable organomegaly. PEG tube in place MUSCULOSKELETAL: No joint swelling or deformity. EXTREMITIES: No cyanosis, clubbing, or pedal edema. NEUROLOGICAL: Gross neurological examination did not reveal any focal deficits. SKIN: No rashes. Assessment and plan 1 acute hypoxic respiratory failure secondary to aspiration pneumonia/pneumonitis, patient will be continued on respiratory support pulmonary will evaluate the patient. Patient will be started on broad-spectrum antibiotics cefepime and clindamycin patient is ALLERGIC to penicillins. And in you with BiPAP support -Severe nausea vomiting patient was started on Protonix will watch for any diarrhea since patient was discharged on broad-spectrum antibiotics C. diff is a consideration. 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 DVT prophylaxis: Lovenox Past Medical History Past Medical History: Asthma, Eye Disorder Additional Past Medical History / Comment(s): Neurofibromatosis History of Any Multi-Drug Resistant Organisms: None Reported Additional Past Surgical History / Comment(s): medi port, eye, dental Past Anesthesia/Blood Transfusion Reactions: No Reported Reaction Past Psychological History: No Psychological Hx Reported Smoking Status: Never smoker Past Alcohol Use History: None Reported Past Drug Use History: None Reported - Past Family History Mother Family Medical History: Asthma, Seizure Disorder Medications and Allergies Home Medications Medication Instructions Recorded Confirmed Type FLUoxetine HCL [PROzac] 10 mg PEG/G-TUBE DAILY 08/17/20 12/11/20 History Montelukast [Singulair] 10 mg PEG/G-TUBE HS 08/17/20 12/11/20 History medroxyPROGESTERone [Depo-Provera] 150 mg IM Q84D 08/17/20 12/11/20 History Albuterol Inhaler [Ventolin Hfa 1 puff INHALATION RT-QID PRN #1 12/01/20 12/11/20 Rx Inhaler] bottle Metoprolol Tartrate [Lopressor] 75 mg PEG/G-TUBE BID #60 tab 12/01/20 12/11/20 Rx Pyridoxine [Vitamin B-6] 50 mg PEG/G-TUBE BID #60 tab 12/01/20 12/11/20 Rx guaiFENesin-DM 100-10MG/5ML 10 ml PEG/G-TUBE Q6H PRN #1 bottle 12/01/20 12/11/20 Rx [Robitussin DM] Methylphenidate HCl [Quillivant Xr] 7 mg PEG/G-TUBE DAILY 12/11/20 12/11/20 History Metoclopramide [Reglan] 10 mg PEG/G-TUBE AC-TID PRN 12/11/20 12/11/20 History Omeprazole 40 mg PEG/G-TUBE DAILY 12/11/20 12/11/20 History traMADol HCl [Ultram] 25 mg PEG/G-TUBE BID PRN 12/11/20 12/11/20 History Allergies Allergy/AdvReac Type Severity Reaction Status Date / Time acetaminophen Allergy Dyspnea Verified 12/11/20 11:12 [From Tylenol-Codeine #3] amoxicillin Allergy Rash/Hives Verified 12/11/20 11:12 codeine Allergy Dyspnea Verified 12/11/20 11:12 [From Tylenol-Codeine #3] midazolam [From Versed] AdvReac Hyper Verified 12/11/20 11:12 orange juice AdvReac Abdominal Verified 12/11/20 11:12 Pain strawberry AdvReac Abdominal Verified 12/11/20 11:12 Pain Physical Exam Vitals: Vital Signs Temp Pulse Resp BP Pulse Ox 12/11/20 13:52 98.7 F 96 38 H 94 L 12/11/20 13:26 135 H 40 H 134/66 90 L 12/11/20 13:23 140 H 47 H 153/97 93 L 12/11/20 11:30 86 12 126/72 94 L 12/11/20 11:20 100 12/11/20 11:09 118 H 12/11/20 11:04 105 H 43 H 102/58 79 L 12/11/20 11:03 107 H 30 H 102/58 97 12/11/20 10:13 34 H 12/11/20 10:09 97.4 F L 133 H 30 H 141/98 87 L Intake and Output 12/10/20 12/11/20 12/11/20 22:59 06:59 14:59 Other: Weight 36.287 kg Results CBC & Chem 7: 12/11/20 10:22 12/11/20 10:22 Labs: Abnormal Lab Results - Last 24 Hours (Table) 12/11/20 12/11/20 12/11/20 Range/Units 10:20 10:22 10:22 RDW 16.1 H (11.5-15.5) % Lymphocytes # (Manual) 0.75 L (1.0-4.8) k/uL APTT (22.0-30.0) sec BUN (7-17) mg/dL Creatinine (0.52-1.04) mg/dL Glucose (74-99) mg/dL POC Glucose (mg/dL) 221 H (75-99) mg/dL AST (14-36) U/L ALT (4-34) U/L Urine Protein 1+ H (Negative) Urine Glucose (UA) 3+ H (Negative) Urine Mucus Rare H (None) /hpf 12/11/20 12/11/20 Range/Units 10:22 11:36 RDW (11.5-15.5) % Lymphocytes # (Manual) (1.0-4.8) k/uL APTT 21.2 L (22.0-30.0) sec BUN 22 H (7-17) mg/dL Creatinine 0.35 L (0.52-1.04) mg/dL Glucose 260 H (74-99) mg/dL POC Glucose (mg/dL) (75-99) mg/dL AST 43 H (14-36) U/L ALT 46 H (4-34) U/L Urine Protein (Negative) Urine Glucose (UA) (Negative) Urine Mucus (None) /hpf
[2020-12-11] MEDS: PANTOPRAZOLE 40 MG/10 ML VIAL IVP SCH (15:11)
[2020-12-11 15:50] LABS: Glucose,Whole Blood 121 mg/dL (75-99)
--- NOTE | 2020-12-11 16:44 | P.CNPUL ---
History of Present Illness Consult date: 12/11/20 Reason for consult: dyspnea, cough, hypoxemia, pneumonia Chief complaint: Shortness of breath coughing tachycardia History of present illness: Patient is a 25-year-old female well-known to be him into the hospital earlier after she was feeling respiratory distress at home data predominantly obtained from the grandfather and mother at bedside, patient had the usual to feed bolus today after that she goes into coughing spell and short of breath tachycardic advise and requested to be evaluated to the hospital by patient, on arrival when I saw the patient at that time she had emesis drop down her saturation into 70s the nonrebreather mask was removed transiently at that time and put back with that saturation slightly and slowly improved however patient remains tachypneic tachycardic with diffuse radials bilaterally as per discussion with staff patient is being admitted into the ICU patient appeared to be unstable to admit to telemetry [facility] medical floor, Patient has extensive history of neurofibromatosis and likely complications related to that including paralyzed right vocal cord with frequent bouts of aspiration pneumonia bilaterally requiring multiple hospitalization patient was is very thin and emaciated and malnourished recently had a PEG tube placement last hospitalization Review of Systems All systems: negative Past Medical History Past Medical History: Asthma, Eye Disorder Additional Past Medical History / Comment(s): Neurofibromatosis History of Any Multi-Drug Resistant Organisms: None Reported Additional Past Surgical History / Comment(s): medi port, eye, dental Past Anesthesia/Blood Transfusion Reactions: No Reported Reaction Past Psychological History: No Psychological Hx Reported Smoking Status: Never smoker Past Alcohol Use History: None Reported Past Drug Use History: None Reported - Past Family History Mother Family Medical History: Asthma, Seizure Disorder Medications and Allergies Home Medications Medication Instructions Recorded Confirmed Type FLUoxetine HCL [PROzac] 10 mg PEG/G-TUBE DAILY 08/17/20 12/11/20 History Montelukast [Singulair] 10 mg PEG/G-TUBE HS 08/17/20 12/11/20 History medroxyPROGESTERone [Depo-Provera] 150 mg IM Q84D 08/17/20 12/11/20 History Albuterol Inhaler [Ventolin Hfa 1 puff INHALATION RT-QID PRN #1 12/01/20 12/11/20 Rx Inhaler] bottle Metoprolol Tartrate [Lopressor] 75 mg PEG/G-TUBE BID #60 tab 12/01/20 12/11/20 Rx Pyridoxine [Vitamin B-6] 50 mg PEG/G-TUBE BID #60 tab 12/01/20 12/11/20 Rx guaiFENesin-DM 100-10MG/5ML 10 ml PEG/G-TUBE Q6H PRN #1 bottle 12/01/20 12/11/20 Rx [Robitussin DM] Methylphenidate HCl [Quillivant Xr] 7 mg PEG/G-TUBE DAILY 12/11/20 12/11/20 History Metoclopramide [Reglan] 10 mg PEG/G-TUBE AC-TID PRN 12/11/20 12/11/20 History Omeprazole 40 mg PEG/G-TUBE DAILY 12/11/20 12/11/20 History traMADol HCl [Ultram] 25 mg PEG/G-TUBE BID PRN 12/11/20 12/11/20 History Allergies Allergy/AdvReac Type Severity Reaction Status Date / Time acetaminophen Allergy Dyspnea Verified 12/11/20 11:12 [From Tylenol-Codeine #3] amoxicillin Allergy Rash/Hives Verified 12/11/20 11:12 codeine Allergy Dyspnea Verified 12/11/20 11:12 [From Tylenol-Codeine #3] midazolam [From Versed] AdvReac Hyper Verified 12/11/20 11:12 orange juice AdvReac Abdominal Verified 12/11/20 11:12 Pain strawberry AdvReac Abdominal Verified 12/11/20 11:12 Pain Physical Exam Vitals: Vital Signs Temp Pulse Resp BP Pulse Ox 12/11/20 15:23 128 H 36 H 114/50 95 12/11/20 14:50 113 H 32 H 109/46 90 L 12/11/20 13:52 98.7 F 96 38 H 94 L 12/11/20 13:26 135 H 40 H 134/66 90 L 12/11/20 13:23 140 H 47 H 153/97 93 L 12/11/20 11:30 86 12 126/72 94 L 12/11/20 11:20 100 12/11/20 11:09 118 H 12/11/20 11:04 105 H 43 H 102/58 79 L 12/11/20 11:03 107 H 30 H 102/58 97 12/11/20 10:13 34 H 08/09/21 10:09 97.4 F L 133 H 30 H 141/98 87 L Intake and Output 12/11/20 12/11/20 12/11/20 06:59 14:59 22:59 Other: Weight 36.287 kg - Constitutional General appearance: disheveled, severe distress, thin - EENT Eyes: anicteric sclerae Ears: bilateral: normal - Neck Neck: normal ROM Carotids: bilateral: upstroke normal - Respiratory Respiratory: bilateral: rales - Cardiovascular Rhythm: regular Heart sounds: normal: S1, S2 - Gastrointestinal General gastrointestinal: decreased bowel sounds, soft - Neurologic Neurologic: CNII-XII intact - Musculoskeletal Musculoskeletal: generalized weakness, strength equal bilaterally - Psychiatric Psychiatric: appropriate affect, intact judgment & insight Results - Laboratory Findings CBC and BMP: 12/11/20 10:22 12/11/20 10:22 PT/INR, D-dimer PT 10.6 sec (9.0-12.0) 12/11/20 11:36 INR 1.0 (<1.2) 12/11/20 11:36 Abnormal lab findings: Abnormal Labs 12/11/20 12/11/20 12/11/20 10:20 10:22 10:22 RDW 16.1 H Lymphocytes # (Manual) 0.75 L APTT BUN Creatinine Glucose POC Glucose (mg/dL) 221 H AST ALT Urine Protein 1+ H Urine Glucose (UA) 3+ H Urine Mucus Rare H 12/11/20 12/11/20 12/11/20 10:22 11:36 15:48 RDW Lymphocytes # (Manual) APTT 21.2 L BUN 22 H Creatinine 0.35 L Glucose 260 H POC Glucose (mg/dL) 121 H AST 43 H ALT 46 H Urine Protein Urine Glucose (UA) Urine Mucus - Diagnostic Findings Chest x-ray: report reviewed, image reviewed (Bilateral interstitial pneumonia with increased vascular congestion) Assessment and Plan Assessment: Acute hypoxic respiratory failure Sepsis due to hypoxic respiratory failure Aspiration pneumonia Paralyzed right vocal cord Severe degree of protein calorie malnourishment Plan: Broad-spectrum antibiotics Keep patient nothing by mouth Aspiration precautions Supplemental oxygen and BiPAP as needed Anti-medic and Reglan Resume home medications as tolerated Once patient is stable will do computed tomography scan of the chest to rule out pulmonary embolism Time with Patient: Greater than 30
[2020-12-11] MEDS: INSULIN ASPART (NovoLOG) 100 UNIT/ML VIAL SQ SCH ×2 (17:01→21:00)
[2020-12-11] MEDS: CLINDAMYCIN 600 MG in DEXTROSE 5% IN WATER 50 ML IVPB SCH ×4 (17:03→23:55)
[2020-12-11] MEDS: METOCLOPRAMIDE 5 MG/ML 2 ML VIAL IVP SCH ×2 (17:03→23:56)
[2020-12-11 20:58] LABS: Glucose,Whole Blood 113 mg/dL (75-99)
[2020-12-11] MEDS: PYRIDOXINE 50 MG TAB PEG/G-TUBE SCH (21:01)
[2020-12-11] MEDS: METOPROLOL TARTRATE 25 MG TAB PEG/G-TUBE SCH (21:01)
[2020-12-11] MEDS: CEFEPIME 2 GM in SODIUM CHLORIDE 0.9% 100 ML IVPB SCH (21:05)
[2020-12-12] MEDS ORDERED: LORazepam 2 MG/ML INJ IV PRN (00:49)
[2020-12-12] MEDS ORDERED: METOPROLOL TARTRATE 12.5 MG TAB PO STA (00:52)
[2020-12-12 02:16] LABS: Appearance,Urine Clear (Clear); Bilirubin,Urine Negative (Negative); Blood,Urine Negative (Negative); Color,Urine Yellow; Glucose,Urine (UA) 2+ (Negative); Hyaline Casts,Urine 5 /lpf (0-2); Ketones,Urine Negative (Negative); Leukocyte Esterase,Urine Negative (Negative); Mucus,Urine Few /hpf; Nitrite,Urine Negative (Negative); PH, Urine 6.5 (5.0-8.0); Protein,Urine 1+ (Negative); RBC,Urine 2 /hpf (0-5); Specific Gravity,Urine 1.021 (1.001-1.035); Squamous Epithelial Cell,Urine <1 /hpf (0-4); Urobilinogen,Urine <2.0 mg/dL (<2.0); WBC,Urine 2 /hpf (0-5)
[2020-12-12 03:46] LABS: HCT 34.2 % (34.0-46.0); Hypochromasia Slight; MCHC 32.7 g/dL (31.0-37.0); MCV 97.8 fL (80.0-100.0); Mean Platelet Volume 7.7; Platelet Count 223 k/uL (150-450); RDW 15.4 % (11.5-15.5); WBC 7.5 k/uL (3.8-10.6)
[2020-12-12 03:51] LABS: HGB 11.2 gm/dL (11.4-16.0)
[2020-12-12 04:03] LABS: ALT 31 U/L (4-34); AST 33 U/L (14-36); African American GFR (CKD) >90 (>60 ml/min/1.73 sqM); Albumin 2.9 g/dL (3.5-5.0); Alkaline Phosphatase 74 U/L (38-126); Anion Gap 6 mmol/L; Blood Urea Nitrogen 16 mg/dL (7-17); Carbon Dioxide 27 mmol/L (22-30); Chloride 105 mmol/L (98-107); Glucose 109 mg/dL (74-99); Non-African American GFR(CKD) >90 (>60 ml/min/1.73 sqM); Potassium 4.3 mmol/L (3.5-5.1); Sodium 138 mmol/L (137-145); Total Bilirubin 0.2 mg/dL (0.2-1.3); Total Protein 5.8 g/dL (6.3-8.2)
[2020-12-12 06:45] LABS: Glucose,Whole Blood 89 mg/dL (75-99)
[2020-12-12] MEDS: INSULIN ASPART (NovoLOG) 100 UNIT/ML VIAL SQ SCH ×4 (06:51→21:00)
[2020-12-12] MEDS: METOCLOPRAMIDE 5 MG/ML 2 ML VIAL IVP SCH ×4 (06:53→23:44)
--- NOTE | 2020-12-12 08:29 | P.PN ---
Subjective Progress Note Date: 12/12/20 Principal diagnosis: Acute hypoxic respiratory failure Sepsis due to hypoxic respiratory failure Aspiration pneumonia Sinus tachycardia with hypotension Paralyzed right vocal cord Severe degree of protein calorie malnourishment 12/12/2020, patient seen eval examined during the rounds labs reviewed medications reviewed care plan discussed with the staff at length he wants from last night and yesterday reviewed as well, patient relatively more stable on BiPAP of 10 and 5 with 80% oxygen saturation into mid 90s, she was restless and agitated with that heart rate was 160 and blood pressure marginal low-dose beta blockers have been restarted patient appears to be tolerating well, patient has been started on Reglan, bolused Keofeed appears to be an issue at this point of time, we will start continues to feed nutrition has been consulted, will keep the same dose of beta feng low-dose Ativan, noted couple of episodes of bradycardia while she was sleeping spontaneously resolve however, her labs are reviewed no dismayed of a hemoglobin drop from 14-11 now and the CBC will be checked later on this morning, chemistry stable with normal BUN and creatinine showed stable, chest x-ray not done will order the labs and x-ray tomorrow plan is to resume the tube feed but as a continuous low-dose and observe clinical course may need to slowly go up on Lopressor as hemodynamics case better, continue Reglan Patient is a 25-year-old female well-known to be him into the hospital earlier after she was feeling respiratory distress at home data predominantly obtained from the grandfather and mother at bedside, patient had the usual to feed bolus today after that she goes into coughing spell and short of breath tachycardic advise and requested to be evaluated to the hospital by patient, on arrival when I saw the patient at that time she had emesis drop down her saturation into 70s the nonrebreather mask was removed transiently at that time and put back with that saturation slightly and slowly improved however patient remains tachypneic tachycardic with diffuse radials bilaterally as per discussion with staff patient is being admitted into the ICU patient appeared to be unstable [facility], Patient has extensive history of neurofibromatosis and likely complications related to that including paralyzed right vocal cord with frequent bouts of aspiration pneumonia bilaterally requiring multiple hospitalization patient was is very thin and emaciated and malnourished recently had a PEG tube placement last hospitalization Objective - Vital Signs Vital signs: Vital Signs Temp 97.8 F 12/12/20 04:00 Pulse 122 H 12/12/20 07:00 Resp 46 H 12/12/20 07:00 BP 113/61 12/12/20 07:00 Pulse Ox 100 12/12/20 07:00 Intake & Output 12/11/20 12/12/20 12/12/20 18:59 06:59 18:59 Intake Total 200 1200 100 Output Total 545 35 Balance 200 655 65 Weight 36.287 kg 44.4 kg Intake: IV 200 1200 100 0.9 200 1200 100 Output: Urine 545 35 Other: Voiding Method Bedpan - Exam - Constitutional General appearance: disheveled, severe distress, thin - EENT Eyes: anicteric sclerae Ears: bilateral: normal - Neck Neck: normal ROM Carotids: bilateral: upstroke normal - Respiratory Respiratory: bilateral: rales - Cardiovascular Rhythm: regular Heart sounds: normal: S1, S2 - Gastrointestinal General gastrointestinal: decreased bowel sounds, soft - Neurologic Neurologic: CNII-XII intact - Musculoskeletal Musculoskeletal: generalized weakness, strength equal bilaterally - Psychiatric Psychiatric: appropriate affect, intact judgment & insight - Labs CBC & Chem 7: 12/12/20 03:33 12/12/20 03:33 Labs: Abnormal Lab Results - Last 24 Hours (Table) 12/11/20 12/11/20 12/11/20 Range/Units 10:20 10:22 10:22 RBC (3.80-5.40) m/uL Hgb (11.4-16.0) gm/dL RDW 16.1 H (11.5-15.5) % Lymphocytes # (Manual) 0.75 L (1.0-4.8) k/uL APTT (22.0-30.0) sec BUN (7-17) mg/dL Creatinine (0.52-1.04) mg/dL Glucose (74-99) mg/dL POC Glucose (mg/dL) 221 H (75-99) mg/dL AST (14-36) U/L ALT (4-34) U/L Total Protein (6.3-8.2) g/dL Albumin (3.5-5.0) g/dL Urine Protein 1+ H (Negative) Urine Glucose (UA) 3+ H (Negative) Hyaline Casts (0-2) /lpf Urine Mucus Rare H (None) /hpf 12/11/20 12/11/20 12/11/20 Range/Units 10:22 11:36 15:48 RBC (3.80-5.40) m/uL Hgb (11.4-16.0) gm/dL RDW (11.5-15.5) % Lymphocytes # (Manual) (1.0-4.8) k/uL APTT 21.2 L (22.0-30.0) sec BUN 22 H (7-17) mg/dL Creatinine 0.35 L (0.52-1.04) mg/dL Glucose 260 H (74-99) mg/dL POC Glucose (mg/dL) 121 H (75-99) mg/dL AST 43 H (14-36) U/L ALT 46 H (4-34) U/L Total Protein (6.3-8.2) g/dL Albumin (3.5-5.0) g/dL Urine Protein (Negative) Urine Glucose (UA) (Negative) Hyaline Casts (0-2) /lpf Urine Mucus (None) /hpf 12/11/20 12/12/20 12/12/20 Range/Units 20:57 02:00 03:33 RBC 3.50 L (3.80-5.40) m/uL Hgb 11.2 L D (11.4-16.0) gm/dL RDW (11.5-15.5) % Lymphocytes # (Manual) (1.0-4.8) k/uL APTT (22.0-30.0) sec BUN (7-17) mg/dL Creatinine (0.52-1.04) mg/dL Glucose (74-99) mg/dL POC Glucose (mg/dL) 113 H (75-99) mg/dL AST (14-36) U/L ALT (4-34) U/L Total Protein (6.3-8.2) g/dL Albumin (3.5-5.0) g/dL Urine Protein 1+ H (Negative) Urine Glucose (UA) 2+ H (Negative) Hyaline Casts 5 H (0-2) /lpf Urine Mucus Few H (None) /hpf 12/12/20 Range/Units 03:33 RBC (3.80-5.40) m/uL Hgb (11.4-16.0) gm/dL RDW (11.5-15.5) % Lymphocytes # (Manual) (1.0-4.8) k/uL APTT (22.0-30.0) sec BUN (7-17) mg/dL Creatinine 0.32 L (0.52-1.04) mg/dL Glucose 109 H (74-99) mg/dL POC Glucose (mg/dL) (75-99) mg/dL AST (14-36) U/L ALT (4-34) U/L Total Protein 5.8 L (6.3-8.2) g/dL Albumin 2.9 L (3.5-5.0) g/dL Urine Protein (Negative) Urine Glucose (UA) (Negative) Hyaline Casts (0-2) /lpf Urine Mucus (None) /hpf Assessment and Plan Assessment: Acute hypoxic respiratory failure Sepsis due to hypoxic respiratory failure Aspiration pneumonia Sinus tachycardia and hypertension Paralyzed right vocal cord Severe degree of protein calorie malnourishment Plan: Broad-spectrum antibiotics Resume low-dose Lopressor slowly increase the dose to optimal Resume low-dose to feed Keep patient nothing by mouth Aspiration precautions Supplemental oxygen and BiPAP as needed Anti-medic and Reglan Resume home medications as tolerated Once patient is stable will do computed tomography scan of the chest to rule out pulmonary embolism Time with Patient: Greater than 30
[2020-12-12] MEDS ORDERED: METHYLPHENIDATE PEG/G-TUBE SCH (09:00)
[2020-12-12] MEDS ORDERED: PANTOPRAZOLE SODIUM 40 MG GRANULE PKT PEG/G-TUBE SCH (09:00)
[2020-12-12] MEDS: SODIUM CHLORIDE 0.9% 1,000 ML IV SCH ×3 (10:25→20:50)
[2020-12-12] MEDS: PYRIDOXINE 50 MG TAB PEG/G-TUBE SCH ×2 (10:26→20:23)
[2020-12-12] MEDS: ENOXAPARIN 40 MG/0.4 ML SYRINGE SQ SCH (10:26)
[2020-12-12] MEDS: FLUoxetine HCL 10 MG CAP PEG/G-TUBE SCH (10:26)
[2020-12-12] MEDS: CEFEPIME 2 GM in SODIUM CHLORIDE 0.9% 100 ML IVPB SCH ×2 (10:27→20:23)
[2020-12-12] MEDS: CLINDAMYCIN 600 MG in DEXTROSE 5% IN WATER 50 ML IVPB SCH ×6 (10:27→23:44)
[2020-12-12] MEDS: PANTOPRAZOLE 40 MG/10 ML VIAL IVP SCH (10:27)
[2020-12-12] MEDS: METOPROLOL TARTRATE 25 MG TAB PEG/G-TUBE SCH (10:27)
--- NOTE | 2020-12-12 11:30 | P.PN ---
Subjective Patient is a 24-year-old female with history of neurofibromatosis came in severely hypoxic with oxygen saturating around 50% and altered mental status secondary to hypoxemia. Patient had a chest x-ray which showed which is showing a pulmonary vascular prominence. Patient had appears to be vomiting quite a bit and patient had aspiration pneumonia in the past patient appears to have aspiration pneumonia again patient was recently discharged from the hospital. Patient has a PEG tube. Patient was discharged on oral antibiotics. Patient was up really doing well until today morning since morning patient became hypoxic, not doing well. Patient was recently discharged from the hospital after she was treated for bilateral aspiration pneumonia. 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 12/12/2020 Patient means on 80% FiO2 on BiPAP. Patient means on broad-spectrum antibiotics . Patient heart rate is a still a bit elevated. Methylphenidate will discontinued patient will be continued on home dose of metoprolol. Review of systems: Unable to obtain due to her clinical condition All inpatient medications were reviewed and appropriate changes in these medications as dictated in the interval history and assessment and plan. PHYSICAL EXAMINATION: GENERAL: Thin built cachectic female, when I evaluated patient was vomiting quite a bit was in significant distress BiPAP was present neck to her. HEENT: Pupils are round and equally reacting to light. EOMI. No scleral icterus. No conjunctival pallor. Normocephalic, atraumatic. No pharyngeal erythema. No thyromegaly. CARDIOVASCULAR: S1 and S2 present. No murmurs, rubs, or gallops. PULMONARY: Diffuse bilateral rhonchi ABDOMEN: Soft, nontender, nondistended, normoactive bowel sounds. No palpable organomegaly. PEG tube in place MUSCULOSKELETAL: No joint swelling or deformity. EXTREMITIES: No cyanosis, clubbing, or pedal edema. NEUROLOGICAL: Gross neurological examination did not reveal any focal deficits. SKIN: No rashes. Assessment and plan 1 acute hypoxic respiratory failure secondary to aspiration pneu monia/pneumonitis, patient will be continued on respiratory support pulmonary will evaluate the patient. Patient will be started on broad-spectrum antibiotics cefepime and clindamycin patient is ALLERGIC to penicillins. And in you with BiPAP support -Severe nausea vomiting patient was started on Protonix -Neurofibromatosis type II with a fibroma in the neck area leading to vocal cord paralysis on the right side -Mild protein calorie malnutrition [place] and her PEG tube feedings. -Metabolic and some property secondary to hypoxemia -Mildly elevated liver enzymes due to sepsis and improving now -Mild hyperglycemia sliding scale insulin, hemoglobin A1c is pending DVT prophylaxis: Lovenox Objective - Vital Signs Vital signs: Vital Signs Temp 97.2 F L 12/12/20 08:00 Pulse 96 12/12/20 11:00 Resp 41 H 12/12/20 11:00 BP 132/64 12/12/20 11:00 Pulse Ox 98 12/12/20 11:00 Intake & Output 12/11/20 12/12/20 12/12/20 18:59 06:59 18:59 Intake Total 200 1200 500 Output Total 545 185 Balance 200 655 315 Weight 36.287 kg 44.4 kg 44.2 kg Intake: IV 200 1200 500 0.9 200 1200 500 Output: Urine 545 185 Other: Voiding Method Bedpan Bedpan - Labs CBC & Chem 7: 12/12/20 03:33 12/12/20 03:33 Labs: Abnormal Lab Results - Last 24 Hours (Table) 12/11/20 12/11/20 12/11/20 Range/Units 10:22 10:22 11:36 RBC (3.80-5.40) m/uL Hgb (11.4-16.0) gm/dL Lymphocytes # (Manual) 0.75 L (1.0-4.8) k/uL APTT 21.2 L (22.0-30.0) sec Creatinine (0.52-1.04) mg/dL Glucose (74-99) mg/dL POC Glucose (mg/dL) (75-99) mg/dL Total Protein (6.3-8.2) g/dL Albumin (3.5-5.0) g/dL Urine Protein 1+ H (Negative) Urine Glucose (UA) 3+ H (Negative) Hyaline Casts (0-2) /lpf Urine Mucus Rare H (None) /hpf 12/11/20 12/11/20 12/12/20 Range/Units 15:48 20:57 02:00 RBC (3.80-5.40) m/uL Hgb (11.4-16.0) gm/dL Lymphocytes # (Manual) (1.0-4.8) k/uL APTT (22.0-30.0) sec Creatinine (0.52-1.04) mg/dL Glucose (74-99) mg/dL POC Glucose (mg/dL) 121 H 113 H (75-99) mg/dL Total Protein (6.3-8.2) g/dL Albumin (3.5-5.0) g/dL Urine Protein 1+ H (Negative) Urine Glucose (UA) 2+ H (Negative) Hyaline Casts 5 H (0-2) /lpf Urine Mucus Few H (None) /hpf 12/12/20 12/12/20 Range/Units 03:33 03:33 RBC 3.50 L (3.80-5.40) m/uL Hgb 11.2 L D (11.4-16.0) gm/dL Lymphocytes # (Manual) (1.0-4.8) k/uL APTT (22.0-30.0) sec Creatinine 0.32 L (0.52-1.04) mg/dL Glucose 109 H (74-99) mg/dL POC Glucose (mg/dL) (75-99) mg/dL Total Protein 5.8 L (6.3-8.2) g/dL Albumin 2.9 L (3.5-5.0) g/dL Urine Protein (Negative) Urine Glucose (UA) (Negative) Hyaline Casts (0-2) /lpf Urine Mucus (None) /hpf
--- NOTE | 2020-12-12 11:30 | CDI ---
Documentation Clarification Form Date: 12/12/2020 10:41:46 AM From: Liseth Ward RN CCDS Admit Date: 12/11/2020 12:30:00 PM Patient Name: Brenton Bolton Visit Number: [id number] Discharge Date: ATTENTION: The Clinical Documentation Specialists (CDI) and [facility] Coding Staff appreciate your assistance in clarifying documentation. Please respond to the clarification below the line at the bottom and electronically sign. The CDI & [facility] Coding staff will review the response and follow-up if needed. Please note: Queries are made part of the Legal Health Record. If you have any questions, please contact the author of this message via ITS. Dr. Daniel Sanchez Your patient has the documented symptom of Altered Mental Status 12/11, H&P. Additional clarification regarding the etiology/cause of this symptom is requested. History/Risk Factors: 25-year-old female presents to the ED for altered mental status per her parents, patient was hypoxic in the 50s upon arrival. 12/11 ED note. Medical History: Recently hospitalized with aspiration pneumonia discharged on oral antibiotics. 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 12/11, H&P. Clinical Indicators: RR and SpO2: 12/11 10:09 RR 30, SpO2 87% 15L nonrebreather; 12/11 13:00 RR 47 SpO2 93 % BiPAP; 12/11 14:30 RR 43, SpO2 91% BiPAP FiO2 80%. X Ray: 12/11 Correlate for interstitial pneumonitis or venous congestion. Treatment: 12/11 10:09 Nonrebreather changed to BiPAP 12/11 13:23 to current. Please clarify the etiology of the symptom of Altered Mental Status: [ ] Metabolic Encephalopathy [x ] Hypoxic Encephalopathy [ ] Other condition (please specify) [ ] Unable to determine (Template Last Revised: June 2020) MTDD
--- NOTE | 2020-12-12 11:45 | CDI ---
Documentation Clarification Form Date: 12/12/2020 11:33:56 AM From: Liseth Ward RN CCDS Admit Date: 12/11/2020 12:30:00 PM Patient Name: Brenton Bolton Visit Number: [id number] Discharge Date: ATTENTION: The Clinical Documentation Specialists (CDI) and [facility] Coding Staff appreciate your assistance in clarifying documentation. Please respond to the clarification below the line at the bottom and electronically sign. The CDI & [facility] Coding staff will review the response and follow-up if needed. Please note: Queries are made part of the Legal Health Record. If you have any questions, please contact the author of this message via ITS. Dr. Daniel Sanchez The patient presented with the following clinical indicators. Additional clarification regarding the etiology/cause of the clinical indicators is requested. History/Risk Factors: 25-year-old female presents to the ED for altered mental status per her parents, patient was hypoxic in the 50s upon arrival. 12/11 ED note. Medical History: Recently hospitalized with aspiration pneumonia discharged on oral antibiotics. 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 12/11, H&P. Clinical Indicators: Sepsis due to hypoxic respiratory failure. 12/11, Pulmonary consult. CXR: 12/11 Correlate for interstitial pneumonitis or venous congestion which is new from the prior exam. WBC: 12/11 7.5 Lactic acid: 12/11 1.9 Vitals signs: 12/11 B/P 141/98, HR 133, Temp 97.4 F Axillary, RR 30, SpO2 87% Non- rebreather 15L Treatment: Antibiotics: 12/11 Azithromycin 500mg IVPB x1; 12/11 Cefepime HCL 2gm IVPB x 1; 12/11 Cefepime HCL 2gm IVPB Q12HR to current. IV Bolus: 0.9NS 500mls Bolus x 1. In your professional opinion, please clarify if these findings signify one of the following conditions: [ x ] Sepsis POA [ ] Sepsis ruled out [ ] Other, please specify [ ] Unable to determine SIRS Criteria: 2 or more of the following may indicate SIRS -Temperature < 96.8F (36C) or > 101.0F (38.3C) -Heart Rate > 90 bpm -Respiratory Rate > 20 breaths/min or PaCO2 < 32 mmHg -White Blood Cell Count > 12,000 or < 4,000 cells/mm3 or > 10% bands (Template Last Reviewed: June 2020) MTDD
[2020-12-12 11:51] LABS: Glucose,Whole Blood 103 mg/dL (75-99)
[2020-12-12 12:20] LABS: HCT 34.6 % (34.0-46.0); HGB 11.3 gm/dL (11.4-16.0); MCH 31.7 pg (25.0-35.0); MCHC 32.7 g/dL (31.0-37.0); MCV 97.1 fL (80.0-100.0); Mean Platelet Volume 7.4; Platelet Count 245 k/uL (150-450); RBC 3.56 m/uL (3.80-5.40); RDW 15.9 % (11.5-15.5); WBC 9.4 k/uL (3.8-10.6)
[2020-12-12] MEDS: traMADol 50 MG TAB PEG/G-TUBE PRN ×2 (14:19→21:12)
[2020-12-12 14:38] LABS: Band Neutrophils % 7 %; Eosinophils # (M) 0.28 k/uL (0-0.7); Lymphocytes # (M) 0.94 k/uL (1.0-4.8); Metamyelocytes # (M) 0.19 k/uL (0); Metamyelocytes % 2 %; Monocytes # (M) 0.75 k/uL (0-1.0); Neutrophils % (M) 70 %; Nucleated Red Blood Cells 0 /100 WBC (0-0); Polychromasia Present; Total Cells Counted 100
[2020-12-12 16:45] LABS: Glucose,Whole Blood 84 mg/dL (75-99)
[2020-12-12] MEDS: DICLOFENAC SODIUM GEL 100 GM TUBE TOPICAL SCH ×2 (19:08→20:48)
[2020-12-12 20:56] LABS: Glucose,Whole Blood 102 mg/dL (75-99)
[2020-12-12] MEDS ORDERED: METOPROLOL TARTRATE 12.5 MG TAB PEG/G-TUBE SCH (21:00)
--- NOTE | 2020-12-12 23:06 | P.CONS ---
History of Present Illness - Reason for Consult Consult date: 12/12/20 recurrent pneumonia Requesting physician: Daniel Sanchez - Chief Complaint mental status changes x 1 day - History of Present Illness History of present illness : Patient is a 25-year-old female with a past medical history significant for neurofibromatosis and did have a history of recurrent aspiration pneumonia, recently did have a prolonged stay for episode of aspiration pneumonia during the admission the patient also had a PEG tube for feeding patient was brought to [facility] ER yesterday afternoon after the patient was noticed to be hypoxic and mental status changes patient symptoms started the day of presentation to the hospital there is no clear history of any nausea or vomiting and the patient denies having any chest pain she did have a cough not bringing the sputum no abdominal pain or diarrhea has been tolerating her tube feeds on arrival to the ER the patient was afebrile she was tachycardic hypoxic with O2 sats of 80 to 87% currently on supplemental oxygen patient did have a normal white count with some lymphopenia kidney function was normal liver sounds are normal urine was negative miranda PCR was negative patient did have a chest x-ray interstitial pneumonitis versus venous congestion patient diagnosed with concern for possible multifocal pneumonia she was started on cefepime and clindamycin infectious disease was consulted for further management of antibiotic therapy Review of system: Positive point has been mentioned in HPI rest of the systems are negative Past medical history : Reviewed , documented below Past surgical history : Reviewed documented below Social history: Reviewed documented below Medications: Reviewed documented below GENERAL DESCRIPTION: Middle-aged female lying in bed, no distress. No tachypnea or accessory muscle of respiration use. HEENT: Shows Pallor , no scleral icterus. Oral mucous membrane is dry. NECK: Trachea central, no thyromegaly. LUNGS: Unlabored breathing. Coarse breath sounds bilaterally. No wheeze or crackle. HEART: S1, S2, regular rate and rhythm. ABDOMEN: Soft, no tenderness , guarding or rigidity EXTREMITIES: No edema of feet. SKIN: No rash, no masses palpable. NEUROLOGICAL: The patient is awake, alert, oriented x3, mood and affect normal. LABS AND RADIOLOGY: Reviewed results see below Assessment : Patient presenting to the hospital with mental status changes in this patient who was hypoxic and did have evidence of bilateral recitation infiltrate with concern for possible recurrent aspiration pneumonitis multiple excluded versus other etiologies for her underlying respiratory status Plan: 1-we will try to obtain a sputum for Gram stain and culture 2-check a CRP procalcitonin level 3-continue with cefepime and clindamycin We will follow on clinical condition and cultures to further adjust medication if needed Thank you for this consultation we will follow the patient along with you Past Medical History Past Medical History: Asthma, Eye Disorder Additional Past Medical History / Comment(s): Neurofibromatosis History of Any Multi-Drug Resistant Organisms: None Reported Additional Past Surgical History / Comment(s): medi port, eye, dental Past Anesthesia/Blood Transfusion Reactions: No Reported Reaction Past Psychological History: No Psychological Hx Reported Smoking Status: Never smoker Past Alcohol Use History: None Reported Past Drug Use History: None Reported - Past Family History Mother Family Medical History: Asthma, Seizure Disorder Medications and Allergies Home Medications Medication Instructions Recorded Confirmed Type FLUoxetine HCL [PROzac] 10 mg PEG/G-TUBE DAILY 08/17/20 12/11/20 History Montelukast [Singulair] 10 mg PEG/G-TUBE HS 08/17/20 12/11/20 History medroxyPROGESTERone [Depo-Provera] 150 mg IM Q84D 08/17/20 12/11/20 History Albuterol Inhaler [Ventolin Hfa 1 puff INHALATION RT-QID PRN #1 12/01/20 12/11/20 Rx Inhaler] bottle Metoprolol Tartrate [Lopressor] 75 mg PEG/G-TUBE BID #60 tab 12/01/20 12/11/20 Rx Pyridoxine [Vitamin B-6] 50 mg PEG/G-TUBE BID #60 tab 12/01/20 12/11/20 Rx guaiFENesin-DM 100-10MG/5ML 10 ml PEG/G-TUBE Q6H PRN #1 bottle 12/01/20 12/11/20 Rx [Robitussin DM] Methylphenidate HCl [Quillivant Xr] 7 mg PEG/G-TUBE DAILY 12/11/20 12/11/20 History Metoclopramide [Reglan] 10 mg PEG/G-TUBE AC-TID PRN 12/11/20 12/11/20 History Omeprazole 40 mg PEG/G-TUBE DAILY 12/11/20 12/11/20 History traMADol HCl [Ultram] 25 mg PEG/G-TUBE BID PRN 12/11/20 12/11/20 History Allergies Allergy/AdvReac Type Severity Reaction Status Date / Time acetaminophen Allergy Dyspnea Verified 12/11/20 11:12 [From Tylenol-Codeine #3] amoxicillin Allergy Rash/Hives Verified 12/11/20 11:12 codeine Allergy Dyspnea Verified 12/11/20 11:12 [From Tylenol-Codeine #3] midazolam [From Versed] AdvReac Hyper Verified 12/11/20 11:12 orange juice AdvReac Abdominal Verified 12/11/20 11:12 Pain strawberry AdvReac Abdominal Verified 12/11/20 11:12 Pain Physical Exam Vitals: Vital Signs Temp Pulse Resp BP Pulse Ox 12/12/20 14:00 125 H 30 H 153/88 98 12/12/20 13:00 122 H 22 147/91 99 12/12/20 12:00 99.6 F 141 H 17 130/95 97 12/12/20 11:00 96 41 H 132/64 98 12/12/20 10:00 84 43 H 156/78 98 12/12/20 09:00 113 H 42 H 160/100 98 12/12/20 08:00 97.2 F L 114 H 45 H 161/120 98 12/12/20 07:00 122 H 46 H 113/61 100 12/12/20 06:00 106 H 45 H 106/63 100 12/12/20 05:00 87 44 H 89/64 100 12/12/20 04:00 97.8 F 93 44 H 108/73 98 12/12/20 03:00 120 H 46 H 126/82 98 12/12/20 02:30 112 H 42 H 134/84 99 12/12/20 02:00 121 H 41 H 137/85 98 12/12/20 01:30 125 H 37 H 143/90 98 12/12/20 01:00 129 H 49 H 93/52 95 12/12/20 00:30 101 H 36 H 95/61 98 12/12/20 00:00 97.3 F L 108 H 37 H 95/61 97 12/11/20 23:30 99 38 H 113/62 97 12/11/20 23:00 111 H 34 H 139/98 99 12/11/20 22:30 133 H 41 H 104/50 99 12/11/20 22:00 116 H 35 H 108/68 97 12/11/20 21:30 109 H 45 H 105/66 96 12/11/20 21:00 114 H 46 H 94/61 95 12/11/20 20:00 99.6 F 121 H 44 H 91/48 95 12/11/20 19:00 112 H 49 H 93/60 97 12/11/20 18:00 109 H 54 H 94/47 97 12/11/20 17:30 117 H 47 H 94/47 97 12/11/20 17:00 126 H 42 H 97/74 98 12/11/20 16:30 123 H 44 H 97/74 97 Intake and Output 12/12/20 12/12/20 12/12/20 06:59 14:59 22:59 Intake Total 800 800 Output Total 545 375 Balance 255 425 Intake: IV 800 800 0.9 800 800 Output: Urine 545 375 Other: Voiding Method Bedpan Bedpan Weight 44.4 kg 44.2 kg Results CBC & Chem 7: 12/12/20 11:38 12/12/20 03:33 Labs: Abnormal Lab Results - Last 24 Hours (Table) 12/11/20 12/12/20 12/12/20 Range/Units 20:57 02:00 03:33 RBC 3.50 L (3.80-5.40) m/uL Hgb 11.2 L D (11.4-16.0) gm/dL RDW (11.5-15.5) % Lymphocytes # (Manual) (1.0-4.8) k/uL Metamyelocytes # (Man) (0) k/uL Creatinine (0.52-1.04) mg/dL Glucose (74-99) mg/dL POC Glucose (mg/dL) 113 H (75-99) mg/dL Total Protein (6.3-8.2) g/dL Albumin (3.5-5.0) g/dL Urine Protein 1+ H (Negative) Urine Glucose (UA) 2+ H (Negative) Hyaline Casts 5 H (0-2) /lpf Urine Mucus Few H (None) /hpf 12/12/20 12/12/20 12/12/20 Range/Units 03:33 11:38 11:50 RBC 3.56 L (3.80-5.40) m/uL Hgb 11.3 L (11.4-16.0) gm/dL RDW 15.9 H (11.5-15.5) % Lymphocytes # (Manual) 0.94 L (1.0-4.8) k/uL Metamyelocytes # (Man) 0.19 H (0) k/uL Creatinine 0.32 L (0.52-1.04) mg/dL Glucose 109 H (74-99) mg/dL POC Glucose (mg/dL) 103 H (75-99) mg/dL Total Protein 5.8 L (6.3-8.2) g/dL Albumin 2.9 L (3.5-5.0) g/dL Urine Protein (Negative) Urine Glucose (UA) (Negative) Hyaline Casts (0-2) /lpf Urine Mucus (None) /hpf Microbiology - Last 24 Hours (Table) 12/11/20 10:15 Blood Culture - Preliminary Blood No Growth after 24 hours
[2020-12-13 03:59] LABS: Basophils % (A) 0 %; Eosinophils # (A) 0.3 k/uL (0-0.7); Eosinophils % (A) 2 %; Hypochromasia Slight; Lymphocytes # (A) 1.5 k/uL (1.0-4.8); Lymphocytes % (A) 13 %; MCH 31.5 pg (25.0-35.0); MCHC 32.4 g/dL (31.0-37.0); MCV 97.1 fL (80.0-100.0); Mean Platelet Volume 8.1; Monocytes # (A) 0.8 k/uL (0-1.0); Monocytes % (A) 7 %; Neutrophils # (A) 8.8 k/uL (1.3-7.7); Neutrophils % (A) 76 %; Platelet Count 264 k/uL (150-450); RBC 3.81 m/uL (3.80-5.40); RDW 15.3 % (11.5-15.5); WBC 11.7 k/uL (3.8-10.6)
[2020-12-13 04:11] LABS: ALT 33 U/L (4-34); AST 32 U/L (14-36); African American GFR (CKD) >90 (>60 ml/min/1.73 sqM); Alkaline Phosphatase 114 U/L (38-126); Anion Gap 10 mmol/L; Blood Urea Nitrogen 10 mg/dL (7-17); Calcium 9.2 mg/dL (8.4-10.2); Carbon Dioxide 26 mmol/L (22-30); Chloride 101 mmol/L (98-107); Glucose 95 mg/dL (74-99); Magnesium 1.8 mg/dL (1.6-2.3); Non-African American GFR(CKD) >90 (>60 ml/min/1.73 sqM); Phosphorus 3.3 mg/dL (2.5-4.5); Potassium 3.7 mmol/L (3.5-5.1); Sodium 137 mmol/L (137-145); Total Bilirubin 0.2 mg/dL (0.2-1.3); Total Protein 5.9 g/dL (6.3-8.2)
[2020-12-13] MEDS ORDERED: Potassium Replacement Protocol 1 EACH MISC MISCELLANE PRN (04:30)
[2020-12-13] MEDS: METOCLOPRAMIDE 5 MG/ML 2 ML VIAL IVP SCH ×3 (05:18→17:42)
[2020-12-13] MEDS ORDERED: POTASSIUM BICARBONATE/CIT AC 20 MEQ TABLET.EFF NG-TUBE SCH (06:00)
[2020-12-13] MEDS: INSULIN ASPART (NovoLOG) 100 UNIT/ML VIAL SQ SCH ×3 (06:34→17:35)
--- NOTE | 2020-12-13 08:09 | XR ---
EXAMINATION TYPE: XR chest 1V portable DATE OF EXAM: 12/13/2020 COMPARISON: 12/11/2020 HISTORY: Hypoxia TECHNIQUE: Single frontal view of the chest is obtained. FINDINGS: Subsegmental changes left lung base. Mediport catheter noted. The heart size normal. There is radiopaque density left lower lobe which could be related to previous aspiration of contrast. Int erstitial pattern seen with small left effusion. IMPRESSION: Bilateral patchy infiltrate and pleural effusion stable. Correlate for CHF versus pneumo peña.
--- NOTE | 2020-12-13 08:26 | P.PN ---
Subjective Progress Note Date: 12/13/20 Principal diagnosis: Acute hypoxic respiratory failure Sepsis due to hypoxic respiratory failure Aspiration pneumonia Sinus tachycardia with hypotension Paralyzed right vocal cord Severe degree of protein calorie malnourishment 12/13/2020, patient seen and evaluated examined during the rounds she is sitting upright, breathing comfortably, on 4 L oxygen, oxygen saturation mid 90s, off of BiPAP, chest x-ray reviewed labs reviewed, mother is present at bedside, I was told family is considering transfer to [facility] very ENT surgeon is available who will operate on her vocal cords, chest x-ray reviewed overall stable, she is tachycardic is still blood pressure is running high we'll increase the dose of Lopressor 25 twice a day and eventually plan is after 24-48 hours to up to baseline of 75 twice a day, to feed his also been escalated as per dietary recommendation with continuation of Reglan and aspiration precautions 12/12/2020, patient seen eval examined during the rounds labs reviewed medications reviewed care plan discussed with the staff at length he wants from last night and yesterday reviewed as well, patient relatively more stable on BiPAP of 10 and 5 with 80% oxygen saturation into mid 90s, she was restless and agitated with that heart rate was 160 and blood pressure marginal low-dose beta blockers have been restarted patient appears to be tolerating well, patient has been started on Reglan, bolused Keofeed appears to be an issue at this point of time, we will start continues to feed nutrition has been consulted, will keep the same dose of beta feng low-dose Ativan, noted couple of episodes of bradycardia while she was sleeping spontaneously resolve however, her labs are reviewed no dismayed of a hemoglobin drop from 14-11 now and the CBC will be checked later on this morning, chemistry stable with normal BUN and creatinine showed stable, chest x-ray not done will order the labs and x-ray tomorrow plan is to resume the tube feed but as a continuous low-dose and observe clinical course may need to slowly go up on Lopressor as hemodynamics case better, continue Reglan Patient is a 25-year-old female well-known to be him into the hospital earlier after she was feeling respiratory distress at home data predominantly obtained from the grandfather and mother at bedside, patient had the usual to feed bolus today after that she goes into coughing spell and short of breath tachycardic advise and requested to be evaluated to the hospital by patient, on arrival when I saw the patient at that time she had emesis drop down her saturation into 70s the nonrebreather mask was removed transiently at that time and put back with that saturation slightly and slowly improved however patient remains tachypneic tachycardic with diffuse radials bilaterally as per discussion with staff patient is being admitted into the ICU patient appeared to be unstable to admit to telemetry [facility] medical floor, Patient has extensive history of neurofibromatosis and likely complications related to that including paralyzed right vocal cord with frequent bouts of aspiration pneumonia bilaterally requiring multiple hospitalization patient was is very thin and emaciated and malnourished recently had a PEG tube placement last hospitalization Objective - Vital Signs Vital signs: Vital Signs Temp 97.9 F 12/13/20 00:00 Pulse 113 H 12/13/20 07:00 Resp 35 H 12/13/20 07:00 BP 142/95 12/13/20 07:00 Pulse Ox 96 12/13/20 07:00 Intake & Output 12/12/20 12/13/20 12/13/20 18:59 06:59 18:59 Intake Total 1200 1595 Output Total 580 525 Balance 620 1070 Weight 44.2 kg 45.4 kg Intake: IV 1200 1300 0.9 1200 1300 Tube Feeding 205 Other 90 Output: Urine 580 525 Other: Voiding Method Bedpan Indwelling Catheter - Exam - Constitutional General appearance: disheveled, mild shortness of breath - EENT Eyes: anicteric sclerae Ears: bilateral: normal - Neck Neck: normal ROM Carotids: bilateral: upstroke normal - Respiratory Respiratory: bilateral: rales improved compared to yesterday exam - Cardiovascular Rhythm: regular Heart sounds: normal: S1, S2 - Gastrointestinal General gastrointestinal: decreased bowel sounds, soft - Neurologic Neurologic: CNII-XII intact - Musculoskeletal Musculoskeletal: generalized weakness, strength equal bilaterally - Psychiatric Psychiatric: appropriate affect, intact judgment & insight - Labs CBC & Chem 7: 12/13/20 03:14 12/13/20 03:14 Labs: Abnormal Lab Results - Last 24 Hours (Table) 12/12/20 12/12/20 12/12/20 Range/Units 11:38 11:50 20:55 WBC (3.8-10.6) k/uL RBC 3.56 L (3.80-5.40) m/uL Hgb 11.3 L (11.4-16.0) gm/dL RDW 15.9 H (11.5-15.5) % Neutrophils # (1.3-7.7) k/uL Lymphocytes # (Manual) 0.94 L (1.0-4.8) k/uL Metamyelocytes # (Man) 0.19 H (0) k/uL Creatinine (0.52-1.04) mg/dL POC Glucose (mg/dL) 103 H 102 H (75-99) mg/dL Total Protein (6.3-8.2) g/dL Albumin (3.5-5.0) g/dL 12/13/20 12/13/20 Range/Units 03:14 03:14 WBC 11.7 H (3.8-10.6) k/uL RBC (3.80-5.40) m/uL Hgb (11.4-16.0) gm/dL RDW (11.5-15.5) % Neutrophils # 8.8 H (1.3-7.7) k/uL Lymphocytes # (Manual) (1.0-4.8) k/uL Metamyelocytes # (Man) (0) k/uL Creatinine 0.29 L (0.52-1.04) mg/dL POC Glucose (mg/dL) (75-99) mg/dL Total Protein 5.9 L (6.3-8.2) g/dL Albumin 3.0 L (3.5-5.0) g/dL Microbiology - Last 24 Hours (Table) 12/11/20 10:15 Blood Culture - Preliminary Blood No Growth after 24 hours Assessment and Plan Assessment: Acute hypoxic respiratory failure Sepsis due to hypoxic respiratory failure Aspiration pneumonia Sinus tachycardia and hypertension Paralyzed right vocal cord Severe degree of protein calorie malnourishment Plan: Escalated the dose of beta feng as tolerated in next 24-48 hours to baseline of 75 twice a day, today we'll increase it to 25 twice a day Increase tube feed with aspiration precautions Broad-spectrum antibiotics Keep patient nothing by mouth Aspiration precautions Supplemental oxygen and BiPAP as needed Continue Reglan Resume home medications as tolerated Patient is relatively more stable for transfer to tertiary care center now as per family wishes Time with Patient: Greater than 30
[2020-12-13] MEDS: PANTOPRAZOLE 40 MG/10 ML VIAL IVP SCH (08:36)
[2020-12-13] MEDS: PYRIDOXINE 50 MG TAB PEG/G-TUBE SCH ×2 (08:36→22:50)
[2020-12-13] MEDS: METOPROLOL TARTRATE 25 MG TAB PEG/G-TUBE SCH ×2 (08:36→22:49)
[2020-12-13] MEDS: ENOXAPARIN 40 MG/0.4 ML SYRINGE SQ SCH ×2 (08:37→09:03)
[2020-12-13] MEDS: CEFEPIME 2 GM in SODIUM CHLORIDE 0.9% 100 ML IVPB SCH ×2 (08:37→22:45)
[2020-12-13] MEDS: DICLOFENAC SODIUM GEL 100 GM TUBE TOPICAL SCH ×4 (08:38→22:51)
[2020-12-13] MEDS: CLINDAMYCIN 600 MG in DEXTROSE 5% IN WATER 50 ML IVPB SCH ×4 (08:41→15:28)
[2020-12-13] MEDS: FLUoxetine HCL 10 MG CAP PEG/G-TUBE SCH (08:41)
--- NOTE | 2020-12-13 10:32 | CDI ---
Documentation Clarification Form Date: 12/13/2020 10:16:31 AM From: Liseth Ward RN CCDS Admit Date: 12/11/2020 12:30:00 PM Patient Name: Brenton Bolton Visit Number: [id number] Discharge Date: ATTENTION: The Clinical Documentation Specialists (CDI) and [facility] Coding Staff appreciate your assistance in clarifying documentation. Please respond to the clarification below the line at the bottom and electronically sign. The CDI & [facility] Coding staff will review the response and follow-up if needed. Please note: Queries are made part of the Legal Health Record. If you have any questions, please contact the author of this message via ITS. Dr. Daniel Sanchez Conflicting documentation has been found in the medical record. As attending physician, please provide clarification. Severe degree of protein calorie malnourishment, Pulmonary Consult 12/11 and Pulmonary progress notes 12/12 & 12/13. Mild protein calorie malnutrition, H&P 12/11 and Medicine progress notes 12/12. History/Risk Factors: 24-year-old female presents to the ED with altered mental status, hypoxia and vomiting. Medical History: Recently hospitalized with aspiration pneumonia discharged on oral antibiotics. 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 12/11, H&P. Clinical Indicators: frequent bouts of aspiration pneumonia bilaterally requiring multiple hospitalization patient was is very thin and emaciated and malnourished recently had a PEG tube placement last hospitalization. Pulmonary Consult 12/11 Nutrition Diagnosis Intake- less than optimal enteral nutrition composition or modality 12/12, [employer] consult Treatment: 12/11 Peg tube feeding to current Please clarify which diagnosis is most appropriate: [ ] Severe Protein Calorie Malnutrition [ ] Mild Protein Calorie Malnutrition [ ] Other (please specify) [ ] Unable to determine (Template Last Revised: July 2020) MTDD
[2020-12-13 11:28] LABS: Glucose,Whole Blood 111 mg/dL (75-99)
[2020-12-13] MEDS: SODIUM CHLORIDE 0.9% 1,000 ML IV SCH ×2 (12:36→22:44)
--- NOTE | 2020-12-13 13:46 | PN ---
PROGRESS NOTE DATE OF SERVICE: 12/13/2020 REASON FOR FOLLOWUP: Recurrent aspiration pneumonia. INTERVAL HISTORY: Patient is afebrile. The patient is breathing more comfortably. Currently on 4 L nasal cannula. The patient denies having any chest pain. She did have a cough, not bringing up any sputum. No abdominal pain. No diarrhea. PHYSICAL EXAMINATION: Blood pressure is 107/70 with a pulse of 83, temperature 99.6, she is 96% on room air. General description is a middle-aged female lying in bed in no distress. Respiratory system: Unlabored breathing, decreased breath sounds in the bases. No wheeze. Heart: S1, S2. Regular rate and rhythm. Abdomen: Soft, no tenderness. Extremities: No edema of the feet. LABS: Hemoglobin is 12, white count is 11.7, BUN of 10 and creatinine 0.29. DIAGNOSTIC IMPRESSION AND PLAN: Patient presented to hospital with shortness of breath, hypoxemia with diffuse infiltrate concern for possible recurrent aspiration pneumonia. Patient is covered with cefepime and clindamycin to continue. Try to obtain a sputum to narrow down antibiotics and continue supportive care. MMODL / IJN: [id number] /
--- NOTE | 2020-12-13 14:43 | P.PN ---
Subjective Progress Note Date: 12/13/20 Patient is a 24-year-old female with history of neurofibromatosis came in severely hypoxic with oxygen saturating around 50% and altered mental status secondary to hypoxemia. Patient had a chest x-ray which showed which is showing a pulmonary vascular prominence. Patient had appears to be vomiting quite a bit and patient had aspiration pneumonia in the past patient appears to have aspiration pneumonia again patient was recently discharged from the hospital. Patient has a PEG tube. Patient was discharged on oral antibiotics. Patient was up really doing well until today morning since morning patient became hypoxic, not doing well. Patient was recently discharged from the hospital after she was treated for bilateral aspiration pneumonia. 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 12/12/2020 Patient remains on 80% FiO2 on BiPAP. Patient remains on broad-spectrum antibiotics. Patient heart rate is a still a bit elevated. Methylphenidate will be discontinued patient will be continued on home dose of metoprolol. Review of systems: Unable to obtain due to her clinical condition 12/13/2020 Patient is seen in follow-up this morning continues to be closely monitored in the ICU. Patient has been off of the BiPAP and currently maintaining oxygen saturations of 96-97% on 4 L via nasal cannula. Patient is much more awake and alert and responding appropriately to questions and commands. Mother is at the bedside. Legal guardian also on the phone and had a discussion with him as there was discussion about possible transfer to a doctor out of [facility] that will be performing vocal cord surgery to improve functionality of life and possible resume oral intake. Patient continues on PEG tube feedings and tolerating with no reports of nausea or vomiting noted. Continue with strict aspiration precautions and head of the bed elevated 30-45 at all times. Patient states she has not been eating or drinking anything by mouth. Patient continues to be tachycardic and metoprolol dose being increased. Patient remains on cefepime and clindamycin and will continue. Multiple medical consultations including pulmonary Dr. Bae, and infectious disease following. Chest x-ray today shows bilateral patchy infiltrate and pleural effusion that is stable to correlate for possible CHF versus pneumonia. Social work also fol lowing for possible discharge planning to [facility] for continued PT/OT therapy. Review of systems: Constitutional: No reports of fatigue, fever, or chills Cardiovascular: No reports of chest pain or palpitations Respiratory: No reports of shortness of breath or cough GI: No reports of nausea, vomiting, or diarrhea : No reports of dysuria or retention Neurovascular: Reports generalized weakness All inpatient medications were reviewed and appropriate changes in these medications as dictated in the interval history and assessment and plan. PHYSICAL EXAMINATION: GENERAL: Thin built cachectic female, awake, alert and oriented 3. Off BiPAP and on 4 L with 96-97% oxygen saturation HEENT: Pupils are round and equally reacting to light. EOMI. No scleral icterus. No conjunctival pallor. Normocephalic, atraumatic. No pharyngeal erythema. No thyromegaly. CARDIOVASCULAR: S1 and S2 present. No murmurs, rubs, or gallops. PULMONARY: Diffuse bilateral rhonchi with no wheezing noted. ABDOMEN: Soft, nontender, nondistended, normoactive bowel sounds. No palpable organomegaly. PEG tube in place MUSCULOSKELETAL: No joint swelling or deformity. EXTREMITIES: No cyanosis, clubbing, or pedal edema. NEUROLOGICAL: Gross neurological examination did not reveal any focal deficits. SKIN: No rashes. Assessment and plan: -acute hypoxic respiratory failure secondary to aspiration pneumonia/pneu monitis, patient currently off of BiPAP and on 4 L tolerating well. Pulmonary Dr. Bae is following long with infectious disease and patient is maintained on IV antibiotics and will continue for now. -Sepsis, present on admission secondary to hypoxemic respiratory failure and aspiration pneumonia -Severe nausea vomiting patient was started on Protonix -Neurofibromatosis type II with a fibroma in the neck area leading to vocal cord paralysis on the right side -Mild protein calorie malnutrition with a BMI of 17.2, secondary to above -Metabolic encephalopathy secondary to hypoxemia -Altered mental status secondary to metabolic encephalopathy as well as hypoxemia, improved -Mildly elevated liver enzymes due to sepsis and improving now -Mild hyperglycemia; continue with sliding scale insulin, hemoglobin A1c is pending -DVT prophylaxis: Lovenox Plan: Continue with respiratory support and patient is off BiPAP and maintaining 96- 97% on 4 L via nasal cannula. Patient is tolerating tube feedings and will continue and continue with nothing by mouth. Discussion was had about possible transfer to [facility] to have vocal cord surgery and this was discussed in detail with legal guardian and this is to be on an outpatient basis and not recommending transfer at this time. Social work also following as patient continues to be weak and would benefit from subacute rehab for continued PT/OT therapy. Family at the bedside along with legal guardian is agreeable to this and will discuss with her medical doctor along with specialist out of [facility] about outpatient follow-up in regards to this surgery of the vocal cords. Patient heart rate continued to be elevated and metoprolol increased and will continue to monitor. Patient continues on clindamycin and cefepime and will discuss with infectious disease about discharge antibiotic recommendations. Objective - Vital Signs Vital signs: Vital Signs Temp 97.9 F 12/13/20 00:00 Pulse 113 H 12/13/20 07:00 Resp 35 H 12/13/20 07:00 BP 142/95 12/13/20 07:00 Pulse Ox 96 12/13/20 07:00 Intake & Output 12/12/20 12/13/20 12/13/20 18:59 06:59 18:59 Intake Total 1200 1595 Output Total 580 525 Balance 620 1070 Weight 44.2 kg 45.4 kg Intake: IV 1200 1300 0.9 1200 1300 Tube Feeding 205 Other 90 Output: Urine 580 525 Other: Voiding Method Bedpan Indwelling Catheter - Labs CBC & Chem 7: 12/13/20 03:14 12/13/20 03:14 Labs: Abnormal Lab Results - Last 24 Hours (Table) 12/12/20 12/12/20 12/12/20 Range/Units 11:38 11:50 20:55 WBC (3.8-10.6) k/uL RBC 3.56 L (3.80-5.40) m/uL Hgb 11.3 L (11.4-16.0) gm/dL RDW 15.9 H (11.5-15.5) % Neutrophils # (1.3-7.7) k/uL Lymphocytes # (Manual) 0.94 L (1.0-4.8) k/uL Metamyelocytes # (Man) 0.19 H (0) k/uL Creatinine (0.52-1.04) mg/dL POC Glucose (mg/dL) 103 H 102 H (75-99) mg/dL Total Protein (6.3-8.2) g/dL Albumin (3.5-5.0) g/dL 12/13/20 12/13/20 Range/Units 03:14 03:14 WBC 11.7 H (3.8-10.6) k/uL RBC (3.80-5.40) m/uL Hgb (11.4-16.0) gm/dL RDW (11.5-15.5) % Neutrophils # 8.8 H (1.3-7.7) k/uL Lymphocytes # (Manual) (1.0-4.8) k/uL Metamyelocytes # (Man) (0) k/uL Creatinine 0.29 L (0.52-1.04) mg/dL POC Glucose (mg/dL) (75-99) mg/dL Total Protein 5.9 L (6.3-8.2) g/dL Albumin 3.0 L (3.5-5.0) g/dL Microbiology - Last 24 Hours (Table) 12/11/20 10:15 Blood Culture - Preliminary Blood No Growth after 24 hours
[2020-12-13 17:04] LABS: Glucose,Whole Blood 135 mg/dL (75-99)
[2020-12-13] MEDS: traMADol 50 MG TAB PEG/G-TUBE PRN (18:23)
[2020-12-13] MEDS: HEPARIN SODIUM,PORCINE/PF 5,000 UNIT/0.5 ML SYRINGE SQ SCH (23:03)
[2020-12-14 00:18] LABS: Glucose,Whole Blood 102 mg/dL (75-99)
[2020-12-14] MEDS: METOCLOPRAMIDE 5 MG/ML 2 ML VIAL IVP SCH ×3 (01:01→11:40)
[2020-12-14] MEDS: INSULIN ASPART (NovoLOG) 100 UNIT/ML VIAL SQ SCH ×3 (01:02→11:41)
[2020-12-14] MEDS: CLINDAMYCIN 600 MG in DEXTROSE 5% IN WATER 50 ML IVPB SCH ×4 (01:02→08:22)
[2020-12-14 05:01] LABS: Basophils % (A) 0 %; Eosinophils # (A) 0.2 k/uL (0-0.7); Eosinophils % (A) 2 %; HCT 37.9 % (34.0-46.0); HGB 12.2 gm/dL (11.4-16.0); Hypochromasia Slight; Lymphocytes # (A) 1.2 k/uL (1.0-4.8); Lymphocytes % (A) 12 %; MCHC 32.2 g/dL (31.0-37.0); MCV 96.4 fL (80.0-100.0); Mean Platelet Volume 7.6; Monocytes # (A) 0.5 k/uL (0-1.0); Monocytes % (A) 5 %; Neutrophils # (A) 7.9 k/uL (1.3-7.7); Neutrophils % (A) 79 %; Platelet Count 286 k/uL (150-450); RBC 3.93 m/uL (3.80-5.40); RDW 15.2 % (11.5-15.5)
[2020-12-14 05:12] LABS: African American GFR (CKD) >90 (>60 ml/min/1.73 sqM); Anion Gap 7 mmol/L; Blood Urea Nitrogen 9 mg/dL (7-17); Calcium 8.6 mg/dL (8.4-10.2); Carbon Dioxide 27 mmol/L (22-30); Chloride 103 mmol/L (98-107); Glucose 128 mg/dL (74-99); Non-African American GFR(CKD) >90 (>60 ml/min/1.73 sqM); Potassium 3.4 mmol/L (3.5-5.1); Sodium 137 mmol/L (137-145)
[2020-12-14 06:38] LABS: Glucose,Whole Blood 99 mg/dL (75-99)
[2020-12-14] MEDS: SODIUM CHLORIDE 0.9% 1,000 ML IV SCH (06:47)
[2020-12-14 08:40] VITALS: TEMP 98.2
[2020-12-14] MEDS: HEPARIN SODIUM,PORCINE/PF 5,000 UNIT/0.5 ML SYRINGE SQ SCH (09:47)
[2020-12-14] MEDS: PYRIDOXINE 50 MG TAB PEG/G-TUBE SCH (09:49)
[2020-12-14] MEDS: PANTOPRAZOLE 40 MG/10 ML VIAL IVP SCH (09:49)
[2020-12-14] MEDS: METOPROLOL TARTRATE 25 MG TAB PEG/G-TUBE SCH (09:49)
[2020-12-14] MEDS: POTASSIUM BICARBONATE/CIT AC 20 MEQ TABLET.EFF NG-TUBE SCH ×2 (09:49→11:40)
[2020-12-14] MEDS: FLUoxetine HCL 10 MG CAP PEG/G-TUBE SCH (09:49)
[2020-12-14] MEDS: CEFEPIME 2 GM in SODIUM CHLORIDE 0.9% 100 ML IVPB SCH (09:49)
[2020-12-14] MEDS: DICLOFENAC SODIUM GEL 100 GM TUBE TOPICAL SCH (09:51)
[2020-12-14 11:07] VITALS: BP 93/51; PULSE 101; RESP 11
[2020-12-14 11:36] LABS: Glucose,Whole Blood 123 mg/dL (75-99)
[2020-12-14] MEDS ORDERED: POTASSIUM BICARBONATE/CIT AC 20 MEQ TABLET.EFF PO ONE (12:30)
[2020-12-14 12:36] VITALS: BMI 17.4
--- NOTE | 2020-12-14 15:10 | P.DS ---
Providers Date of admission: 12/11/20 12:30 Expected date of discharge: 12/14/20 Attending physician: Daniel Sanchez Consults: 12/11/20 12:30 Consult Physician Urgent Consulting Provider: Jason Bae Consult Reason/Comments: Aspiration, pneumonia, hypoxia Do you want consulting provider notified?: Already Contacted 12/11/20 14:42 Consult Physician Routine Consulting Provider: Cisco Wahl Consult Reason/Comments: Aspiration pneumonia Do you want consulting provider notified?: Yes Primary care physician: Bernie Stockton [facility] Course: Final diagnosis -acute hypoxic respiratory failure secondary to aspiration pneumonia/pneumonitis -Sepsis, present on admission secondary to hypoxemic respiratory failure and aspiration pneumonia -Severe nausea vomiting -Neurofibromatosis type II with a fibroma in the neck area leading to vocal cord paralysis on the right side -Mild protein calorie malnutrition with a BMI of 17.2, secondary to above -Metabolic encephalopathy secondary to hypoxemia -Altered mental status secondary to metabolic encephalopathy as well as hypoxemia, improved -Mildly elevated liver enzymes due to sepsis and improving now -Mild hyperglycemia, improved -DVT prophylaxis Discharge disposition Patient is being discharged in a stable condition with guarded prognosis to [facility] for continued PT/OT therapy. Patient will follow-up with Dr. Cabrera in the outpatient setting upon discharge. Patient is to continue with Avelox 400 mg daily for the next 7 days and then may discontinue. Patient will need to follow-up with [facility] specialist in regards to possible vocal cord surgery once medically stable and discharged from [facility]. Patient needs aggressive continued PT/OT therapy secondary to her weakness. Total time taken is greater than 35 minutes. Hospital course Patient is a 24-year-old female with history of neurofibromatosis came in severely hypoxic with oxygen saturating around 50% and altered mental status secondary to hypoxemia. Patient had a chest x-ray which showed which is showing a pulmonary vascular prominence. Patient had appears to be vomiting quite a bit and patient had aspiration pneumonia in the past patient appears to have aspiration pneumonia again patient was recently discharged from the hospital. Patient has a PEG tube. Patient was discharged on oral antibiotics. Patient was up really doing well until today morning since morning patient became hypoxic, not doing well. Patient was recently discharged from the hospital after she was treated for bilateral aspiration pneumonia. 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 12/12/2020 Patient remains on 80% FiO2 on BiPAP. Patient remains on broad-spectrum antibiotics. Patient heart rate is a still a bit elevated. Methylphenidate will be discontinued patient will be continued on home dose of metoprolol. Review of systems: Unable to obtain due to her clinical condition 12/13/2020 Patient is seen in follow-up this morning continues to be closely monitored in the ICU. Patient has been off of the BiPAP and currently maintaining oxygen saturations of 96-97% on 4 L via nasal cannula. Patient is much more awake and alert and responding appropriately to questions and commands. Mother is at the bedside. Legal guardian also on the phone and had a discussion with him as there was discussion about possible transfer to a doctor out of [facility] that will be performing vocal cord surgery to improve functionality of life and possible resume oral intake. Patient continues on PEG tube feedings and tolerating with no reports of nausea or vomiting noted. Continue with strict aspiration precautions and head of the bed elevated 30-45 at all times. Patien t states she has not been eating or drinking anything by mouth. Patient continues to be tachycardic and metoprolol dose being increased. Patient remains on cefepime and clindamycin and will continue. Multiple medical consultations including pulmonary Dr. Bae, and infectious disease following. Chest x-ray today shows bilateral patchy infiltrate and pleural effusion that is stable to correlate for possible CHF versus pneumonia. Social work also following for possible discharge planning to [facility] for continued PT/OT therapy. 12/14/2020 Patient is seen this morning with no acute overnight issues. Patient continues to tolerate 4 L via nasal cannula well and pulmonary following closely. Patient was continued on IV antibiotic therapy and is transitioning to oral Avelox 400 mg daily for the next 7 days and then may discontinue. Patient also continues on metoprolol and will continue with 50 mg twice daily. Patient will need outpatient follow-up with her specialist out of [facility] for possible vocal cord surgery once patient has stabilized and medically clear. This was discussed in detail with legal guardian along with mother at the bedside. Patient is to remain strict nothing by mouth and aspiration precautions of head of the bed elevated 30-45 at all times. Patient to continue with PEG tube feedings as mentioned below. Recommend continue with sliding scale as needed as she had some mild hyperglycemia on admission. She has not required insulin over the last 2 days as blood sugars have normalized. Potassium was 3.4 and replaced today and recommend repeat labs in 2-3 days to monitor electrolytes. Currently no reports of chest pain, shortness of breath, or palpitations. Patient is afebrile. No reports of nausea or vomiting and patient is tolerating diet. Andie padilla will be going to [facility] on the [place] today. GENERAL: Thin built cachectic female, awake, alert and oriented 3. on 4 L with 96-97% oxygen saturation HEENT: Pupils are round and equally reacting to light. EOMI. No scleral icterus. No conjunctival pallor. Normocephalic, atraumatic. No pharyngeal erythema. No thyromegaly. CARDIOVASCULAR: S1 and S2 present. No murmurs, rubs, or gallops. PULMONARY: Diffuse bilateral rhonchi with no wheezing noted. ABDOMEN: Soft, nontender, nondistended, normoactive bowel sounds. No palpable organomegaly. PEG tube in place MUSCULOSKELETAL: No joint swelling or deformity. EXTREMITIES: No cyanosis, clubbing, or pedal edema. NEUROLOGICAL: Gross neurological examination did not reveal any focal deficits. SKIN: No rashes. On exam vital signs are stable. Cardio S1, S2 are muffled. Respiratory system shows diminished breath sounds at the bases with no wheezing or rhonchi noted. Abdomen is soft and nontender. Nervous system shows diffuse weakness. Please refer to medication reconciliation sheet for a list of medications. Patient Condition at Discharge: Stable Plan - Discharge Summary New Discharge Prescriptions: New INSULIN ASPART (NovoLOG) [NovoLOG (formulary)] 0 unit SQ Q6H vial Pantoprazole Sodium [Protonix] 40 mg PO DAILY #30 tablet. Moxifloxacin HCl [Avelox] 400 mg PO DAILY 7 Days #7 tablet Diclofenac Sodium Gel [Voltaren Gel] 4 gm TOPICAL QID #1 tube Continue FLUoxetine HCL [PROzac] 10 mg PEG/G-TUBE DAILY Pyridoxine [Vitamin B-6] 50 mg PEG/G-TUBE BID #60 tab Omeprazole 40 mg PEG/G-TUBE DAILY medroxyPROGESTERone [Depo-Provera] 150 mg IM Q84D Montelukast [Singulair] 10 mg PEG/G-TUBE HS guaiFENesin-DM 100-10MG/5ML [Robitussin DM] 10 ml PEG/G-TUBE Q6H PRN #1 bottle PRN Reason: Cough Albuterol Inhaler [Ventolin Hfa Inhaler] 1 puff INHALATION RT-QID PRN #1 bottle PRN Reason: Shortness Of Breath Or Wheezing Changed Metoprolol Tartrate [Lopressor] 50 mg PEG/G-TUBE BID #60 tab Metoclopramide [Reglan] 10 mg PEG/G-TUBE AC-TID #0 traMADol HCl [Ultram] 25 mg PEG/G-TUBE BID PRN #10 tab PRN Reason: Pain Discontinued Methylphenidate HCl [Quillivant Xr] 7 mg PEG/G-TUBE DAILY Discharge Medication List FLUoxetine HCL [PROzac] 10 mg PEG/G-TUBE DAILY 08/17/20 [History] Montelukast [Singulair] 10 mg PEG/G-TUBE HS 08/17/20 [History] medroxyPROGESTERone [Depo-Provera] 150 mg IM Q84D 08/17/20 [History] Albuterol Inhaler [Ventolin Hfa Inhaler] 1 puff INHALATION RT-QID PRN #1 bottle 12/01/20 [Rx] Pyridoxine [Vitamin B-6] 50 mg PEG/G-TUBE BID #60 tab 12/01/20 [Rx] guaiFENesin-DM 100-10MG/5ML [Robitussin DM] 10 ml PEG/G-TUBE Q6H PRN #1 bottle 12/01/20 [Rx] Omeprazole 40 mg PEG/G-TUBE DAILY 12/11/20 [History] Diclofenac Sodium Gel [Voltaren Gel] 4 gm TOPICAL QID #1 tube 12/14/20 [Rx] INSULIN ASPART (NovoLOG) [NovoLOG (formulary)] 0 unit SQ Q6H vial 12/14/20 [Rx] Metoclopramide [Reglan] 10 mg PEG/G-TUBE AC-TID #0 12/14/20 [Rx] Metoprolol Tartrate [Lopressor] 50 mg PEG/G-TUBE BID #60 tab 12/14/20 [Rx] Moxifloxacin HCl [Avelox] 400 mg PO DAILY 7 Days #7 tablet 12/14/20 [Rx] Pantoprazole Sodium [Protonix] 40 mg PO DAILY #30 tablet. 12/14/20 [Rx] traMADol HCl [Ultram] 25 mg PEG/G-TUBE BID PRN #10 tab 12/14/20 [Rx] Follow up Appointment(s)/Referral(s): Bernie Stockton MD [Primary Care Provider] - 1-2 days Activity/Diet/Wound Care/Special Instructions: Patient is going to [facility] on the [employer] Activity as tolerated Continue with 4 L via nasal cannula and wean as tolerated Continue with antibiotics for the next 7 days and then may discontinue Continue tube feedings of vital AF 1.2 with a goal rate of 55 ML per hour and continue with free water flushes of 30 mL's every 4 hours and monitor closely for residual Strict nothing by mouth Continue with aspiration precautions with head of the bed elevated 30-45 Patient will need outpatient follow-up with her vocal cord surgeon at [facility] as discussed with legal guardian Continue with Opteform gentle to the sacral area and frequent position changes Discharge Disposition: TRANSFER TO SNF/ECF
--- NOTE | 2020-12-14 16:05 | PN ---
PROGRESS NOTE DATE OF SERVICE: 12/14/2020 REASON FOR FOLLOWUP: Recurrent aspiration pneumonia. INTERVAL HISTORY: Patient is afebrile. The patient is breathing comfortably. Denies any chest pain. No worsening cough. No abdominal pain. No diarrhea. PHYSICAL EXAMINATION: Blood pressure is 91/67, pulse of 105, temperature 98.2. She is 92% on 4 L nasal cannula. General description is a middle-aged female up in the bed in no distress. Respiratory system: Unlabored breathing, decreased intensity of breath sounds. No wheeze. Heart S1, S2. Regular rate. Abdomen: Soft, no tenderness. LABS: Hemoglobin is 12.8, white count 10 with a BUN of 9, creatinine 0.33. DIAGNOSTIC IMPRESSION AND PLAN: Patient admitted to the hospital with increasing shortness of breath, hypoxemia with concern for possible recurrent aspiration pneumonitis. The patient is covered with switched to Avelox 400 for another week and close outpatient followup. Discussed with the nurse practitioner for the primary team. MMODL / IJN: [id number] /
== END 2020-12-14 16:52 | DRG 871 ==
LOC: EC 10:02 → 3SCARD 12:30 → 2SICU 15:09 → 3SCARD 12-14 12:01
PROVIDERS: ADMIT Internal Medicine; ATTEND Internal Medicine
DX: A41.9 Sepsis, unspecified organism (principal); G93.41 Metabolic encephalopathy; J69.0 Pneumonitis due to inhalation of food and vomit; J96.01 Acute respiratory failure with hypoxia; E44.1 Mild protein-calorie malnutrition; Z68.1 Body mass index [BMI] 19.9 or less, adult; G93.1 Anoxic brain damage, not elsewhere classified; R73.9 Hyperglycemia, unspecified; R74.8 Abnormal levels of other serum enzymes; R00.0 Tachycardia, unspecified; I10 Essential (primary) hypertension; J38.00 Paralysis of vocal cords and larynx, unspecified; J45.909 Unspecified asthma, uncomplicated; Q85.02 Neurofibromatosis, type 2; Z20.822 Contact with and (suspected) exposure to COVID-19; Z79.899 Other long term (current) drug therapy; Z87.01 Personal history of pneumonia (recurrent); Z88.0 Allergy status to penicillin; Z93.1 Gastrostomy status; R11.2 Nausea with vomiting, unspecified; Z88.6 Allergy status to analgesic agent; Z88.1 Allergy status to other antibiotic agents; Z91.02 Food additives allergy status
CPT/HCPCS: 36415; 71045; 80048; 80053; 81001; 83605; 83735; 83880; 84100; 84484; 85025; 85027; 85610; 85730; 87040; 87635; 93005; 94640; 94660; 96361; 96365; 96367; 96375; 99291

== ENCOUNTER 2020-12-16 05:07 | Inpatient (IN) | payer OTHER ==
[2020-12-16] MEDS ORDERED: SODIUM CHLORIDE 0.9% 1,000 ML IV STA (05:11)
[2020-12-16] MEDS ORDERED: SODIUM CHLORIDE 0.9% 500 ML 500 ML IV STA (05:11)
--- NOTE | 2020-12-16 05:28 | ED ---
SOB HPI - General Chief Complaint: Shortness of Breath Stated Complaint: MARTY Time Seen by Provider: 12/16/20 05:09 Source: patient, EMS, Caregiver Mode of arrival: EMS Limitations: language barrier, physical limitation - Related Data Home Medications Medication Instructions Recorded Confirmed FLUoxetine HCL [PROzac] 10 mg PEG/G-TUBE DAILY 08/17/20 12/11/20 Montelukast [Singulair] 10 mg PEG/G-TUBE HS 08/17/20 12/11/20 medroxyPROGESTERone [Depo-Provera] 150 mg IM Q84D 08/17/20 12/11/20 Omeprazole 40 mg PEG/G-TUBE DAILY 12/11/20 12/11/20 Previous Rx's Medication Instructions Recorded Albuterol Inhaler [Ventolin Hfa 1 puff INHALATION RT-QID PRN #1 12/01/20 Inhaler] bottle Pyridoxine [Vitamin B-6] 50 mg PEG/G-TUBE BID #60 tab 12/01/20 guaiFENesin-DM 100-10MG/5ML 10 ml PEG/G-TUBE Q6H PRN #1 bottle 12/01/20 [Robitussin DM] Diclofenac Sodium Gel [Voltaren 4 gm TOPICAL QID #1 tube 12/14/20 Gel] INSULIN ASPART (NovoLOG) [NovoLOG 0 unit SQ Q6H vial 12/14/20 (formulary)] Metoclopramide [Reglan] 10 mg PEG/G-TUBE AC-TID #0 12/14/20 Metoprolol Tartrate [Lopressor] 50 mg PEG/G-TUBE BID #60 tab 12/14/20 Moxifloxacin HCl [Avelox] 400 mg PO DAILY 7 Days #7 tablet 12/14/20 Pantoprazole Sodium [Protonix] 40 mg PO DAILY #30 tablet. 12/14/20 traMADol HCl [Ultram] 25 mg PEG/G-TUBE BID PRN #10 tab 12/14/20 Allergies Allergy/AdvReac Type Severity Reaction Status Date / Time acetaminophen Allergy Dyspnea Verified 12/11/20 11:12 [From Tylenol-Codeine #3] amoxicillin Allergy Rash/Hives Verified 12/11/20 11:12 codeine Allergy Dyspnea Verified 12/11/20 11:12 [From Tylenol-Codeine #3] midazolam [From Versed] AdvReac Hyper Verified 12/11/20 11:12 orange juice AdvReac Abdominal Verified 12/11/20 11:12 Pain strawberry AdvReac Abdominal Verified 12/11/20 11:12 Pain Review of Systems ROS Statement: Those systems with pertinent positive or pertinent negative responses have been documented in the HPI. ROS Other: All systems not noted in ROS Statement are negative. Past Medical History Past Medical History: Asthma, Eye Disorder Additional Past Medical History / Comment(s): Neurofibromatosis History of Any Multi-Drug Resistant Organisms: None Reported Additional Past Surgical History / Comment(s): medi port, eye, dental Past Anesthesia/Blood Transfusion Reactions: No Reported Reaction Past Psychological History: No Psychological Hx Reported Smoking Status: Never smoker Past Alcohol Use History: None Reported Past Drug Use History: None Reported - Past Family History Mother Family Medical History: Asthma, Seizure Disorder General Exam Limitations: language barrier, physical limitation General appearance: alert, in no apparent distress, anxious Head exam: Present: atraumatic, normocephalic, normal inspection Eye exam: Present: normal appearance, PERRL, EOMI. Absent: scleral icterus, conjunctival injection, periorbital swelling ENT exam: Present: normal exam, mucous membranes moist Neck exam: Present: normal inspection. Absent: tenderness, meningismus, lymphadenopathy Respiratory exam: Present: respiratory distress, rhonchi, accessory muscle use, decreased breath sounds, prolonged expiratory. Absent: wheezes, rales, stridor Cardiovascular Exam: Present: normal rhythm, tachycardia, normal heart sounds. Absent: systolic murmur, diastolic murmur, rubs, gallop, clicks GI/Abdominal exam: Present: soft, normal bowel sounds. Absent: distended, tenderness, guarding, rebound, rigid Extremities exam: Present: normal inspection, full ROM, normal capillary refill. Absent: tenderness, pedal edema, joint swelling, calf tenderness Back exam: Present: normal inspection Neurological exam: Present: alert, oriented X3, CN II-XII intact Psychiatric exam: Present: normal affect, normal mood Skin exam: Present: warm, dry, intact, normal color. Absent: rash Course Vital Signs 12/16/20 12/16/20 12/16/20 05:10 05:44 05:52 Temperature 97.8 F Pulse Rate 114 H 121 H 116 H Respiratory 36 H 36 H 42 H Rate Blood Pressure 145/90 183/116 O2 Sat by Pulse 98 99 98 Oximetry 12/16/20 12/16/20 12/16/20 06:14 06:15 06:25 Temperature 98 F Pulse Rate 85 120 H 88 Respiratory 45 H 40 H Rate Blood Pressure 103/47 89/43 O2 Sat by Pulse 99 80 L Oximetry 12/16/20 12/16/20 12/16/20 06:31 07:07 07:14 Temperature Pulse Rate 97 118 H Respiratory 32 H Rate Blood Pressure 143/69 O2 Sat by Pulse 100 92 L Oximetry 12/16/20 07:44 Temperature Pulse Rate 110 H Respiratory 38 H Rate Blood Pressure O2 Sat by Pulse 97 Oximetry - Reevaluation(s) Reevaluation #1: 12/16/20 07:42 Attic record is reviewed 12/16/20 07:42 Prior ER visit has been reviewed - Consultations Consultation #1: Spoke with Dr. Jason Bae regarding ICU he does agree to ICU admission Medical Decision Making - Medical Decision Making 25 female DF for evaluation, patient unable to provide accurate history presents with severe hypoxia and rest for a stress lays on BiPAP significantly labile blood pressure with pneumonia, patient will be readmitted to the ICU for continued evaluation management - Lab Data Result diagrams: 12/16/20 05:18 12/16/20 05:18 Lab Results 12/16/20 12/16/20 12/16/20 Range/Units 05:18 05:18 05:18 WBC 14.5 H (3.8-10.6) k/uL RBC 3.82 (3.80-5.40) m/uL Hgb 11.8 (11.4-16.0) gm/dL Hct 37.7 (34.0-46.0) % MCV 98.6 (80.0-100.0) fL MCH 30.9 (25.0-35.0) pg MCHC 31.3 (31.0-37.0) g/dL RDW 15.8 H (11.5-15.5) % Plt Count 303 (150-450) k/uL MPV 7.0 Neutrophils % 85 % Lymphocytes % 10 % Monocytes % 3 % Eosinophils % 1 % Basophils % 0 % Neutrophils # 12.3 H (1.3-7.7) k/uL Lymphocytes # 1.4 (1.0-4.8) k/uL Monocytes # 0.5 (0-1.0) k/uL Eosinophils # 0.1 (0-0.7) k/uL Basophils # 0.0 (0-0.2) k/uL Hypochromasia Moderate Macrocytosis Slight PT 10.4 (9.0-12.0) sec INR 1.0 (<1.2) APTT 22.9 (22.0-30.0) sec Sodium (137-145) mmol/L Potassium (3.5-5.1) mmol/L Chloride (98-107) mmol/L Carbon Dioxide (22-30) mmol/L Anion Gap mmol/L BUN (7-17) mg/dL Creatinine (0.52-1.04) mg/dL Est GFR (CKD-EPI)AfAm (>60 ml/min/1.73 sqM) Est GFR (CKD-EPI)NonAf (>60 ml/min/1.73 sqM) Glucose (74-99) mg/dL Plasma Lactic Acid Joseph (0.7-2.0) mmol/L Calcium (8.4-10.2) mg/dL Phosphorus (2.5-4.5) mg/dL Magnesium (1.6-2.3) mg/dL Total Bilirubin (0.2-1.3) mg/dL AST (14-36) U/L ALT (4-34) U/L Alkaline Phosphatase (38-126) U/L Creatine Kinase (30-135) U/L Troponin I (0.000-0.034) ng/mL NT-Pro-B Natriuret Pep pg/mL Total Protein (6.3-8.2) g/dL Albumin (3.5-5.0) g/dL Urine Color Light Yellow Urine Appearance Cloudy H (Clear) Urine pH 7.0 (5.0-8.0) Ur Specific [place] 1.011 (1.001-1.035) Urine Protein Negative (Negative) Urine Glucose (UA) Negative (Negative) Urine Ketones Negative (Negative) Urine Blood Negative (Negative) Urine Nitrite Negative (Negative) Urine Bilirubin Negative (Negative) Urine Urobilinogen <2.0 (<2.0) mg/dL Ur Leukocyte Esterase Negative (Negative) Urine WBC 3 (0-5) /hpf Ur Squamous Epith Cells <1 (0-4) /hpf Amorphous Sediment Many H (None) /hpf Hyaline Casts 7 H (0-2) /lpf Urine Mucus Rare H (None) /hpf 12/16/20 12/16/20 12/16/20 Range/Units 05:18 05:18 05:18 WBC (3.8-10.6) k/uL RBC (3.80-5.40) m/uL Hgb (11.4-16.0) gm/dL Hct (34.0-46.0) % MCV (80.0-100.0) fL MCH (25.0-35.0) pg MCHC (31.0-37.0) g/dL RDW (11.5-15.5) % Plt Count (150-450) k/uL MPV Neutrophils % % Lymphocytes % % Monocytes % % Eosinophils % % Basophils % % Neutrophils # (1.3-7.7) k/uL Lymphocytes # (1.0-4.8) k/uL Monocytes # (0-1.0) k/uL Eosinophils # (0-0.7) k/uL Basophils # (0-0.2) k/uL Hypochromasia Macrocytosis PT (9.0-12.0) sec INR (<1.2) APTT (22.0-30.0) sec Sodium 142 (137-145) mmol/L Potassium 4.0 (3.5-5.1) mmol/L Chloride 103 (98-107) mmol/L Carbon Dioxide 29 (22-30) mmol/L Anion Gap 10 mmol/L BUN 14 (7-17) mg/dL Creatinine 0.34 L (0.52-1.04) mg/dL Est GFR (CKD-EPI)AfAm >90 (>60 ml/min/1.73 sqM) Est GFR (CKD-EPI)NonAf >90 (>60 ml/min/1.73 sqM) Glucose 113 H (74-99) mg/dL Plasma Lactic Acid Joseph 1.3 (0.7-2.0) mmol/L Calcium 8.9 (8.4-10.2) mg/dL Phosphorus 4.0 (2.5-4.5) mg/dL Magnesium 2.0 (1.6-2.3) mg/dL Total Bilirubin 0.2 (0.2-1.3) mg/dL AST 50 H (14-36) U/L ALT 49 H (4-34) U/L Alkaline Phosphatase 99 (38-126) U/L Creatine Kinase <20 L (30-135) U/L Troponin I <0.012 (0.000-0.034) ng/mL NT-Pro-B Natriuret Pep pg/mL Total Protein 6.7 (6.3-8.2) g/dL Albumin 3.5 (3.5-5.0) g/dL Urine Color Urine Appearance (Clear) Urine pH (5.0-8.0) Ur Specific [place] (1.001-1.035) Urine Protein (Negative) Urine Glucose (UA) (Negative) Urine Ketones (Negative) Urine Blood (Negative) Urine Nitrite (Negative) Urine Bilirubin (Negative) Urine Urobilinogen (<2.0) mg/dL Ur Leukocyte Esterase (Negative) Urine WBC (0-5) /hpf Ur Squamous Epith Cells (0-4) /hpf Amorphous Sediment (None) /hpf Hyaline Casts (0-2) /lpf Urine Mucus (None) /hpf 12/16/20 Range/Units 05:18 WBC (3.8-10.6) k/uL RBC (3.80-5.40) m/uL Hgb (11.4-16.0) gm/dL Hct (34.0-46.0) % MCV (80.0-100.0) fL MCH (25.0-35.0) pg MCHC (31.0-37.0) g/dL RDW (11.5-15.5) % Plt Count (150-450) k/uL MPV Neutrophils % % Lymphocytes % % Monocytes % % Eosinophils % % Basophils % % Neutrophils # (1.3-7.7) k/uL Lymphocytes # (1.0-4.8) k/uL Monocytes # (0-1.0) k/uL Eosinophils # (0-0.7) k/uL Basophils # (0-0.2) k/uL Hypochromasia Macrocytosis PT (9.0-12.0) sec INR (<1.2) APTT (22.0-30.0) sec Sodium (137-145) mmol/L Potassium (3.5-5.1) mmol/L Chloride (98-107) mmol/L Carbon Dioxide (22-30) mmol/L Anion Gap mmol/L BUN (7-17) mg/dL Creatinine (0.52-1.04) mg/dL Est GFR (CKD-EPI)AfAm (>60 ml/min/1.73 sqM) Est GFR (CKD-EPI)NonAf (>60 ml/min/1.73 sqM) Glucose (74-99) mg/dL Plasma Lactic Acid Joseph (0.7-2.0) mmol/L Calcium (8.4-10.2) mg/dL Phosphorus (2.5-4.5) mg/dL Magnesium (1.6-2.3) mg/dL Total Bilirubin (0.2-1.3) mg/dL AST (14-36) U/L ALT (4-34) U/L Alkaline Phosphatase (38-126) U/L Creatine Kinase (30-135) U/L Troponin I (0.000-0.034) ng/mL NT-Pro-B Natriuret Pep 454 pg/mL Total Protein (6.3-8.2) g/dL Albumin (3.5-5.0) g/dL Urine Color Urine Appearance (Clear) Urine pH (5.0-8.0) Ur Specific [place] (1.001-1.035) Urine Protein (Negative) Urine Glucose (UA) (Negative) Urine Ketones (Negative) Urine Blood (Negative) Urine Nitrite (Negative) Urine Bilirubin (Negative) Urine Urobilinogen (<2.0) mg/dL Ur Leukocyte Esterase (Negative) Urine WBC (0-5) /hpf Ur Squamous Epith Cells (0-4) /hpf Amorphous Sediment (None) /hpf Hyaline Casts (0-2) /lpf Urine Mucus (None) /hpf - EKG Data -: EKG Interpreted by Me (EKG is sinus tachycardia 118 ER 100 QRS 60 QTC 426) - Radiology Data Radiology results: report reviewed (Chest x-ray shows worsening pneumonia), image reviewed Critical Care Time Critical Care Time: Yes Total Critical Care Time: 65 Disposition Clinical Impression: Acute respiratory failure, Hypoxia, Aspiration pneumonia, Pneumonia, Community acquired pneumonia Disposition: ADMITTED IP TO THIS HOSP Condition: Serious Is patient prescribed a controlled substance at d/c from ED?: No
[2020-12-16] MEDS ORDERED: ONDANSETRON 4 MG/2 ML VIAL IVP STA (05:44)
[2020-12-16] MEDS ORDERED: IPRATROPIUM-ALBUTEROL 3 ML NEB INHALATION STA (05:54)
--- NOTE | 2020-12-16 05:54 | XR ---
EXAMINATION TYPE: XR chest 1V portable DATE OF EXAM: 12/16/2020 COMPARISON: 12/13/2020 HISTORY: Short of breath TECHNIQUE: Single view FINDINGS: Heart is enlarged. There is patchy infiltrate in the left lung. This is more in the left up per lobe. There is left-sided central venous catheter with tip in the superior vena cava. There is so me amorphous calcification at the left lung base. Right lung is fairly clear. There are chest leads. IMPRESSION: There is some left side pneumonia that is slightly worse than recent exam. Mild cardiomeg heath. Mild heart failure not excluded.
[2020-12-16 06:20] LABS: Basophils % (A) 0 %; Eosinophils # (A) 0.1 k/uL (0-0.7); Eosinophils % (A) 1 %; HCT 37.7 % (34.0-46.0); HGB 11.8 gm/dL (11.4-16.0); Hypochromasia Moderate; Lymphocytes # (A) 1.4 k/uL (1.0-4.8); Lymphocytes % (A) 10 %; MCH 30.9 pg (25.0-35.0); MCHC 31.3 g/dL (31.0-37.0); MCV 98.6 fL (80.0-100.0); Macrocytosis Slight; Monocytes # (A) 0.5 k/uL (0-1.0); Monocytes % (A) 3 %; Neutrophils # (A) 12.3 k/uL (1.3-7.7); Neutrophils % (A) 85 %; Platelet Count 303 k/uL (150-450); RBC 3.82 m/uL (3.80-5.40); RDW 15.8 % (11.5-15.5); WBC 14.5 k/uL (3.8-10.6)
[2020-12-16] MEDS ORDERED: PNEUMONIA PROTOCOL UTILIZED 1 EACH MISC PO PRN (06:27)
[2020-12-16] MEDS ORDERED: NALOXONE 0.4 MG/ML 1 ML VIAL IV PRN (06:27)
[2020-12-16] MEDS ORDERED: AZITHROMYCIN 500 MG in SODIUM CHLORIDE 0.9% 250 ML IVPB STA (06:27)
[2020-12-16 06:30] LABS: ALT 49 U/L (4-34); AST 50 U/L (14-36); African American GFR (CKD) >90 (>60 ml/min/1.73 sqM); Albumin 3.5 g/dL (3.5-5.0); Alkaline Phosphatase 99 U/L (38-126); Anion Gap 10 mmol/L; Blood Urea Nitrogen 14 mg/dL (7-17); Calcium 8.9 mg/dL (8.4-10.2); Carbon Dioxide 29 mmol/L (22-30); Chloride 103 mmol/L (98-107); Creatine Kinase <20 U/L (30-135); Glucose 113 mg/dL (74-99); Non-African American GFR(CKD) >90 (>60 ml/min/1.73 sqM); Sodium 142 mmol/L (137-145); Total Bilirubin 0.2 mg/dL (0.2-1.3); Total Protein 6.7 g/dL (6.3-8.2)
[2020-12-16 06:33] LABS: Partial Thromboplastin Time 22.9 sec (22.0-30.0); Prothrombin Time 10.4 sec (9.0-12.0)
[2020-12-16] MEDS ORDERED: LORazepam 2 MG/ML INJ IV STA (06:45)
[2020-12-16] MEDS ORDERED: PROCHLORPERAZINE INJ 10 MG/2 ML VIAL IVP STA (06:45)
[2020-12-16] MEDS: SODIUM CHLORIDE 0.9% 1,000 ML IV SCH ×3 (06:56→23:36)
[2020-12-16 07:01] LABS: Amorphous Sediment,Urine Many /hpf; Appearance,Urine Cloudy (Clear); Bilirubin,Urine Negative (Negative); Blood,Urine Negative (Negative); Color,Urine Light Yellow; Glucose,Urine (UA) Negative (Negative); Hyaline Casts,Urine 7 /lpf (0-2); Ketones,Urine Negative (Negative); Leukocyte Esterase,Urine Negative (Negative); Mucus,Urine Rare /hpf; Nitrite,Urine Negative (Negative); Protein,Urine Negative (Negative); Specific Gravity,Urine 1.011 (1.001-1.035); Squamous Epithelial Cell,Urine <1 /hpf (0-4); Urobilinogen,Urine <2.0 mg/dL (<2.0); WBC,Urine 3 /hpf (0-5)
[2020-12-16] MEDS: ALBUTEROL NEBULIZED 2.5 MG/3 ML INHALATION SCH ×4 (07:04→19:03)
[2020-12-16] MEDS ORDERED: NALOXONE 0.4 MG/ML 1 ML VIAL IVP STA ×2 (07:40)
[2020-12-16 08:45] LABS: Glucose,Whole Blood 136 mg/dL (75-99)
[2020-12-16] MEDS: PANTOPRAZOLE 40 MG/10 ML VIAL IV SCH (09:22)
[2020-12-16] MEDS: metroNIDAZOLE-NS PMX 500 MG in SALINE 1 100ML.BAG IVPB SCH ×3 (09:26→23:36)
[2020-12-16] MEDS ORDERED: SODIUM CHLORIDE 0.9% 1,000 ML IV ONE (09:45)
--- NOTE | 2020-12-16 09:52 | P.CNPUL ---
History of Present Illness Consult date: 12/16/20 Reason for consult: dyspnea, cough, hypoxemia, pneumonia Chief complaint: Shortness of breath and cough History of present illness: This is an 25-year-old female well-known to me with multiple medical problems including neurofibromatosis paralyzed right vocal cords, recently discharged from the hospital to [facility] patient has been doing fairly well for the 2 days however today started having cough shortness of breath oxygen saturation dropped down and she was transferred to [facility], the admitted chest x-ray is positive for left-sided infiltrate slight worsening to the right side, patient admitted into the hospital for further evaluation but the episode appears to be more likely aspiration Review of Systems ROS unobtainable: due to mental status All systems: negative Constitutional: Reports lethargy, Reports sweats Ears, nose, mouth and throat: Reports dental pain Past Medical History Past Medical History: Asthma, Eye Disorder Additional Past Medical History / Comment(s): Neurofibromatosis History of Any Multi-Drug Resistant Organisms: None Reported Additional Past Surgical History / Comment(s): medi port, eye, dental Past Anesthesia/Blood Transfusion Reactions: No Reported Reaction Past Psychological History: No Psychological Hx Reported Smoking Status: Never smoker Past Alcohol Use History: None Reported Past Drug Use History: None Reported - Past Family History Mother Family Medical History: Asthma, Seizure Disorder Medications and Allergies Home Medications Medication Instructions Recorded Confirmed Type FLUoxetine HCL [PROzac] 10 mg PEG/G-TUBE DAILY 08/17/20 12/11/20 History Montelukast [Singulair] 10 mg PEG/G-TUBE HS 08/17/20 12/11/20 History medroxyPROGESTERone [Depo-Provera] 150 mg IM Q84D 08/17/20 12/11/20 History Albuterol Inhaler [Ventolin Hfa 1 puff INHALATION RT-QID PRN #1 12/01/20 12/11/20 Rx Inhaler] bottle Pyridoxine [Vitamin B-6] 50 mg PEG/G-TUBE BID #60 tab 12/01/20 12/11/20 Rx guaiFENesin-DM 100-10MG/5ML 10 ml PEG/G-TUBE Q6H PRN #1 bottle 12/01/20 12/11/20 Rx [Robitussin DM] Omeprazole 40 mg PEG/G-TUBE DAILY 12/11/20 12/11/20 History Diclofenac Sodium Gel [Voltaren 4 gm TOPICAL QID #1 tube 12/14/20 Rx Gel] INSULIN ASPART (NovoLOG) [NovoLOG 0 unit SQ Q6H vial 12/14/20 Rx (formulary)] Metoclopramide [Reglan] 10 mg PEG/G-TUBE AC-TID #0 12/14/20 12/11/20 Rx Metoprolol Tartrate [Lopressor] 50 mg PEG/G-TUBE BID #60 tab 12/14/20 12/11/20 Rx Moxifloxacin HCl [Avelox] 400 mg PO DAILY 7 Days #7 tablet 12/14/20 Rx Pantoprazole Sodium [Protonix] 40 mg PO DAILY #30 tablet.dr 12/14/20 Rx traMADol HCl [Ultram] 25 mg PEG/G-TUBE BID PRN #10 tab 12/14/20 Rx Allergies Allergy/AdvReac Type Severity Reaction Status Date / Time acetaminophen Allergy Dyspnea Verified 12/11/20 11:12 [From Tylenol-Codeine #3] amoxicillin Allergy Rash/Hives Verified 12/11/20 11:12 codeine Allergy Dyspnea Verified 12/11/20 11:12 [From Tylenol-Codeine #3] midazolam [From Versed] AdvReac Hyper Verified 12/11/20 11:12 orange juice AdvReac Abdominal Verified 12/11/20 11:12 Pain strawberry AdvReac Abdominal Verified 12/11/20 11:12 Pain Physical Exam Vitals: Vital Signs Temp Pulse Resp BP Pulse Ox 12/16/20 09:01 97.9 F 118 H 41 H 90 L 12/16/20 08:12 98 18 83/41 100 12/16/20 07:44 110 H 38 H 97 12/16/20 07:14 118 H 32 H 143/69 92 L 12/16/20 07:07 100 12/16/20 06:31 97 12/16/20 06:25 88 12/16/20 06:15 98 F 120 H 40 H 89/43 80 L 12/16/20 06:14 85 45 H 103/47 99 12/16/20 05:52 116 H 42 H 183/116 98 12/16/20 05:44 121 H 36 H 99 12/16/20 05:10 97.8 F 114 H 36 H 145/90 98 Intake and Output 08/13/21 08/14/21 08/14/21 22:59 06:59 14:59 Other: Weight 45.359 kg - Constitutional General appearance: cooperative, disheveled - EENT Eyes: abnormal pupil, PERRLA Ears: bilateral: bulging - Neck Neck: lymphadenopathy, normal ROM Thyroid: bilateral: normal size - Respiratory Respiratory: bilateral: diminished, prolonged expiration - Cardiovascular Rhythm: regular Heart sounds: normal: S1, S2 - Gastrointestinal General gastrointestinal: absent bowel sounds, hepatomegaly - Neurologic Neurologic: CNII-XII intact - Musculoskeletal Musculoskeletal: generalized weakness Results - Laboratory Findings CBC and BMP: 12/16/20 05:18 12/16/20 05:18 PT/INR, D-dimer PT 10.4 sec (9.0-12.0) 12/16/20 05:18 INR 1.0 (<1.2) 12/16/20 05:18 Abnormal lab findings: Abnormal Labs 12/16/20 12/16/20 12/16/20 05:18 05:18 05:18 WBC 14.5 H RDW 15.8 H Neutrophils # 12.3 H Creatinine 0.34 L Glucose 113 H POC Glucose (mg/dL) AST 50 H ALT 49 H Creatine Kinase <20 L Urine Appearance Cloudy H Amorphous Sediment Many H Hyaline Casts 7 H Urine Mucus Rare H 12/16/20 08:42 WBC RDW Neutrophils # Creatinine Glucose POC Glucose (mg/dL) 136 H AST ALT Creatine Kinase Urine Appearance Amorphous Sediment Hyaline Casts Urine Mucus - Diagnostic Findings Chest x-ray: report reviewed, image reviewed Assessment and Plan Assessment: Left-sided pneumonia likely aspiration pneumonia Paralyzed right vocal cord High risk of intermittent aspiration Sinus tachycardia palpitations Plan: Plan to start patient on IV antibiotics, will discontinue IV steroids and bronchodilator continue current therapy and further plan of care as per clinical response of patient Time with Patient: Greater than 30
[2020-12-16] MEDS: methylPREDNISolone SOD SUCCI 40 MG/ML 1 ML VIAL IV SCH ×2 (10:42→20:09)
--- NOTE | 2020-12-16 12:24 | P.HPIM ---
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 Patient does have leukocytosis, no fever. Patient is mostly nonverbal. Patient has sinus tachycardia with mildly elevated liver enzymes. REVIEW OF SYSTEMS: Unable to obtain due to her clinical condition PHYSICAL EXAMINATION: GENERAL: Thin built female on BiPAP nonverbal HEENT: Pupils are round and equally reacting to light. EOMI. No scleral icterus. No conjunctival pallor. Normocephalic, atraumatic. No pharyngeal erythema. No thyromegaly. CARDIOVASCULAR: S1 and S2 present tachycardic PULMONARY: Diffuse bilateral rhonchi ABDOMEN: Soft, nontender, nondistended, normoactive bowel sounds. No palpable organomegaly. MUSCULOSKELETAL: No joint swelling or deformity. EXTREMITIES: No cyanosis, clubbing, or pedal edema. NEUROLOGICAL: Significant muscle atrophy in all 4 extremities nonverbal but responsive to verbal stimuli SKIN: No rashes. Assessment and plan -Acute hypoxic respiratory failure: Possibly secondary to chemical pneumonitis from aspiration are aspiration pneumonia patient will be continued on above- mentioned antibiotics may not need azithromycin will discuss with the pulmonology regarding this. Continue BiPAP support wean off as tolerated -Sinus tachycardia secondary to hypoxemia -Neurofibromatosis with chronic vocal cord paralysis and patient has neurofibroma of the neck. Patient is supposed to undergo surgery for this paralyzed vocal cord in either [facility] to [place] -Asthma without any significant exacerbation DVT prophylaxis: Lovenox Past Medical History Past Medical History: Asthma, Eye Disorder Additional Past Medical History / Comment(s): Neurofibromatosis History of Any Multi-Drug Resistant Organisms: None Reported Additional Past Surgical History / Comment(s): medi port, eye, dental Past Anesthesia/Blood Transfusion Reactions: No Reported Reaction Past Psychological History: No Psychological Hx Reported Smoking Status: Never smoker Past Alcohol Use History: None Reported Past Drug Use History: None Reported - Past Family History Mother Family Medical History: Asthma, Seizure Disorder Medications and Allergies Home Medications Medication Instructions Recorded Confirmed Type Montelukast [Singulair] 10 mg PEG/G-TUBE HS 08/17/20 12/11/20 History medroxyPROGESTERone [Depo-Provera] 150 mg IM Q84D 08/17/20 12/11/20 History guaiFENesin-DM 100-10MG/5ML 10 ml PEG/G-TUBE Q6H PRN #1 bottle 12/01/20 12/11/20 Rx [Robitussin DM] Omeprazole 40 mg PEG/G-TUBE DAILY 12/11/20 12/11/20 History Albuterol Inhaler [Ventolin Hfa 1 puff INHALATION 12/16/20 12/16/20 History Inhaler] RT-QID@,,, Diclofenac Sodium Gel [Voltaren 4 gm TOPICAL QID@,,,12/16/20 12/16/20 History Gel] INSULIN LISPRO (humaLOG) [humaLOG] See Protocol SQ QID@00,06,12,18 12/16/20 12/16/20 History Metoclopramide [Reglan] 10 mg PEG/G-TUBE TID@0700,1100,1600 12/16/20 12/16/20 History Metoprolol Tartrate [Lopressor] 50 mg PEG/G-TUBE BID@0900,2100 12/16/20 12/16/20 History Moxifloxacin HCl [Avelox] 400 mg PEG/G-TUBE DAILY@0900 12/16/20 12/16/20 History Pyridoxine [Vitamin B-6] 50 mg PEG/G-TUBE BID@0900,2100 12/16/20 12/16/20 History traMADol HCl [Ultram] 25 mg PEG/G-TUBE BID PRN 12/16/20 12/16/20 History Allergies Allergy/AdvReac Type Severity Reaction Status Date / Time acetaminophen Allergy Dyspnea Verified 12/11/20 11:12 [From Tylenol-Codeine #3] amoxicillin Allergy Rash/Hives Verified 12/11/20 11:12 codeine Allergy Dyspnea Verified 12/11/20 11:12 [From Tylenol-Codeine #3] midazolam [From Versed] AdvReac Hyper Verified 12/11/20 11:12 orange juice AdvReac Abdominal Verified 12/11/20 11:12 Pain strawberry AdvReac Abdominal Verified 12/11/20 11:12 Pain Physical Exam Vitals: Vital Signs Temp Pulse Resp BP Pulse Ox 12/16/20 12:00 98 F 71 42 H 160/117 88 L 12/16/20 11:35 128 H 12/16/20 11:30 137 H 35 H 88/44 99 12/16/20 11:20 120 H 12/16/20 11:00 104 H 44 H 146/91 96 12/16/20 10:30 133 H 44 H 153/105 99 12/16/20 10:00 78 37 H 97 12/16/20 09:45 104 H 39 H 93/49 96 12/16/20 09:30 129 H 28 H 70/33 90 L 12/16/20 09:15 82 40 H 87/40 84 L 12/16/20 09:01 97.9 F 118 H 41 H 90 L 12/16/20 08:12 98 18 83/41 100 12/16/20 07:44 110 H 38 H 97 12/16/20 07:14 118 H 32 H 143/69 92 L 12/16/20 07:07 100 12/16/20 06:31 97 12/16/20 06:25 88 12/16/20 06:15 98 F 120 H 40 H 89/43 80 L 12/16/20 06:14 85 45 H 103/47 99 12/16/20 05:52 116 H 42 H 183/116 98 12/16/20 05:44 121 H 36 H 99 12/16/20 05:10 97.8 F 114 H 36 H 145/90 98 Intake and Output 12/15/20 12/16/20 12/16/20 22:59 06:59 14:59 Intake Total 1500 Output Total 445 Balance 1055 Intake: IV 1400 Sodium Chloride 0.9% 1, 400 000 ml @ 100 mls/hr IV . Q10H [facility] Rx#:[id number] Sodium Chloride 0.9% 1, 1000 000 ml @ 999 mls/hr IV . Q1H1M ONE Rx#:[id number] Intake, IV Titration 100 Amount metroNIDAZOLE-NS PMX 500 100 mg In Saline 1 100ml.bag @ 100 mls/hr IVPB Q8HR [facility] Rx#:[id number] Output: Urine 445 Other: Voiding Method Indwelling Catheter Weight 45.359 kg 42.6 kg Results CBC & Chem 7: 12/16/20 05:18 12/16/20 05:18 Labs: Abnormal Lab Results - Last 24 Hours (Table) 12/16/20 12/16/20 12/16/20 Range/Units 05:18 05:18 05:18 WBC 14.5 H (3.8-10.6) k/uL RDW 15.8 H (11.5-15.5) % Neutrophils # 12.3 H (1.3-7.7) k/uL Creatinine 0.34 L (0.52-1.04) mg/dL Glucose 113 H (74-99) mg/dL POC Glucose (mg/dL) (75-99) mg/dL AST 50 H (14-36) U/L ALT 49 H (4-34) U/L Creatine Kinase <20 L (30-135) U/L Urine Appearance Cloudy H (Clear) Amorphous Sediment Many H (None) /hpf Hyaline Casts 7 H (0-2) /lpf Urine Mucus Rare H (None) /hpf 12/16/20 Range/Units 08:42 WBC (3.8-10.6) k/uL RDW (11.5-15.5) % Neutrophils # (1.3-7.7) k/uL Creatinine (0.52-1.04) mg/dL Glucose (74-99) mg/dL POC Glucose (mg/dL) 136 H (75-99) mg/dL AST (14-36) U/L ALT (4-34) U/L Creatine Kinase (30-135) U/L Urine Appearance (Clear) Amorphous Sediment (None) /hpf Hyaline Casts (0-2) /lpf Urine Mucus (None) /hpf Thrombosis Risk Factor Assmnt - Choose All That Apply Any of the Below Risk Factors Present?: Yes Each Factor Represents 1 point: Medical pt on bed rest Thrombosis Risk Factor Assessment Total Risk Factor Score: 1 Thrombosis Risk Factor Assessment Level: Low Risk
[2020-12-16] MEDS: MORPHINE SULFATE 4 MG/ML SYRINGE IV PRN ×2 (13:36→23:43)
[2020-12-16] MEDS ORDERED: ATROPINE SULFATE 0.1 MG/ML 10ML SYRINGE ONE (18:09)
[2020-12-16] MEDS ORDERED: AZITHROMYCIN 500 MG TAB PO SCH (21:00)
[2020-12-16] MEDS: ONDANSETRON 4 MG/2 ML VIAL IVP PRN (23:55)
[2020-12-17 04:03] LABS: Basophils % (A) 0 %; Eosinophils % (A) 0 %; HCT 35.2 % (34.0-46.0); HGB 10.9 gm/dL (11.4-16.0); Hypochromasia Moderate; Lymphocytes # (A) 1.2 k/uL (1.0-4.8); Lymphocytes % (A) 6 %; MCH 30.7 pg (25.0-35.0); MCHC 30.8 g/dL (31.0-37.0); MCV 99.6 fL (80.0-100.0); Macrocytosis Slight; Mean Platelet Volume 7.6; Monocytes # (A) 0.8 k/uL (0-1.0); Monocytes % (A) 4 %; Neutrophils # (A) 16.7 k/uL (1.3-7.7); Neutrophils % (A) 88 %; Platelet Count 287 k/uL (150-450); RBC 3.54 m/uL (3.80-5.40); RDW 15.2 % (11.5-15.5)
[2020-12-17 04:19] LABS: ALT 43 U/L (4-34); AST 41 U/L (14-36); African American GFR (CKD) >90 (>60 ml/min/1.73 sqM); Albumin 3.1 g/dL (3.5-5.0); Alkaline Phosphatase 89 U/L (38-126); Anion Gap 8 mmol/L; Blood Urea Nitrogen 13 mg/dL (7-17); Calcium 9.2 mg/dL (8.4-10.2); Carbon Dioxide 30 mmol/L (22-30); Chloride 104 mmol/L (98-107); Glucose 101 mg/dL (74-99); Non-African American GFR(CKD) >90 (>60 ml/min/1.73 sqM); Potassium 4.3 mmol/L (3.5-5.1); Sodium 142 mmol/L (137-145); Total Bilirubin 0.2 mg/dL (0.2-1.3); Total Protein 6.1 g/dL (6.3-8.2)
[2020-12-17] MEDS: MORPHINE SULFATE 4 MG/ML SYRINGE IV PRN ×3 (05:35→21:44)
[2020-12-17] MEDS: ALBUTEROL NEBULIZED 2.5 MG/3 ML INHALATION SCH ×4 (07:04→22:04)
--- NOTE | 2020-12-17 07:30 | XR ---
EXAMINATION TYPE: XR chest 1V DATE OF EXAM: 12/17/2020 COMPARISON: 12/16/2020 HISTORY: 25 years Female. STUDY INDICATION GIVEN: cough . TECHNIQUE: AP portable semiupright chest radiograph FINDINGS AND IMPRESSION: Accessed portacatheter over the left chest, tip in the lower SVC. There is a coil projecting over the upper mediastinum, was not seen on prior study, correlation with surgical history and equipment present over the patient's body recommended. Worsening bilateral opacities likely representing multifocal pneumonia with subsegmental atelectasis. Moderate pulmonary edema which has also worsened in the interval. Left pleural effusion, increased compared to prior study. No pneumothorax seen. The heart is normal in size. Scattered punctate foci again seen over the left lower chest.
--- NOTE | 2020-12-17 08:42 | P.PN ---
Subjective Progress Note Date: 12/17/20 Principal diagnosis: Acute on chronic hypoxic respiratory failure Left-sided pneumonia likely aspiration pneumonia Paralyzed right vocal cord High risk of intermittent aspiration Sinus tachycardia palpitations 12/17/2020, patient seen eval reexamined during the rounds labs reviewed medications reviewed care plan discussed with the staff at length, patient to remains on BiPAP with IPAP of 12 and EPAP of 6 along with 50% oxygen she has been on BiPAP all along, she also have problems associated with the intermittent sinus tachycardia and bradycardia most of the cardiac variation happens while she is sleeping, patient used to be on Lopressor 75 twice a day at home have not been started. 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, recently discharged from the hospital to [facility] patient has been doing fairly well for the 2 days however today started having cough shortness of breath oxygen saturation dropped down and she was transferred to [facility], the admitted chest x-ray is positive for left-sided infiltrate slight worsening to the right side, patient admitted into the hospital for further evaluation but the episode appears to be more likely aspiration Objective - Vital Signs Vital signs: Vital Signs Temp 98.6 F 12/17/20 04:00 Pulse 94 12/17/20 07:17 Resp 20 12/17/20 07:00 BP 91/52 12/17/20 07:00 Pulse Ox 94 L 12/17/20 07:00 Intake & Output 12/16/20 12/17/20 12/17/20 18:59 06:59 18:59 Intake Total 2100 1300 Output Total 720 905 Balance 1380 395 Weight 42.6 kg Intake: IV 2000 1300 Sodium Chloride 0.9% 1, 1000 1300 000 ml @ 100 mls/hr IV . Q10H [facility] Rx#:[id number] Sodium Chloride 0.9% 1, 1000 000 ml @ 999 mls/hr IV . Q1H1M [facility] Rx#:[id number] Intake, IV Titration 100 Amount metroNIDAZOLE-NS PMX 500 100 mg In Saline 1 100ml.bag @ 100 mls/hr IVPB Q8HR [facility] Rx#:[id number] Output: Urine 720 905 Other: Voiding Method Indwelling Catheter Indwelling Catheter Indwelling Catheter - Exam - Constitutional General appearance: cooperative, disheveled - EENT Eyes: abnormal pupil, PERRLA Ears: bilateral: bulging - Neck Neck: lymphadenopathy, normal ROM Thyroid: bilateral: normal size - Respiratory Respiratory: bilateral: diminished, prolonged expiration - Cardiovascular Rhythm: regular Heart sounds: normal: S1, S2 - Gastrointestinal General gastrointestinal: absent bowel sounds, hepatomegaly - Neurologic Neurologic: CNII-XII intact - Musculoskeletal Musculoskeletal: generalized weakness - Labs CBC & Chem 7: 12/17/20 03:24 12/17/20 03:24 Labs: Abnormal Lab Results - Last 24 Hours (Table) 12/16/20 12/17/20 12/17/20 Range/Units 08:42 03:24 03:24 WBC 19.0 H (3.8-10.6) k/uL RBC 3.54 L (3.80-5.40) m/uL Hgb 10.9 L (11.4-16.0) gm/dL MCHC 30.8 L (31.0-37.0) g/dL Neutrophils # 16.7 H (1.3-7.7) k/uL Creatinine 0.34 L (0.52-1.04) mg/dL Glucose 101 H (74-99) mg/dL POC Glucose (mg/dL) 136 H (75-99) mg/dL AST 41 H (14-36) U/L ALT 43 H (4-34) U/L Total Protein 6.1 L (6.3-8.2) g/dL Albumin 3.1 L (3.5-5.0) g/dL Microbiology - Last 24 Hours (Table) 12/16/20 05:18 Blood Culture - Preliminary Blood No Growth after 24 hours Assessment and Plan Assessment: Left-sided pneumonia likely aspiration pneumonia Paralyzed right vocal cord High risk of intermittent aspiration Sinus tachycardia palpitations Acute on chronic hypoxic respiratory failure Plan: Plan continue IV antibiotics, Continue IV steroids and bronchodilator continue current therapy Resume low-dose Lopressor escalated dose as tolerated to 75 twice a day Attempt to take off of BiPAP machine later on today with nasal cannula but needs to keep on at nighttime and further plan of care as per clinical response of patient
[2020-12-17] MEDS: AZITHROMYCIN 500 MG TAB PO SCH (08:46)
[2020-12-17] MEDS: metroNIDAZOLE-NS PMX 500 MG in SALINE 1 100ML.BAG IVPB SCH ×2 (08:46→15:39)
[2020-12-17] MEDS: ENOXAPARIN 40 MG/0.4 ML SYRINGE SQ SCH ×2 (08:47→09:02)
[2020-12-17] MEDS: methylPREDNISolone SOD SUCCI 40 MG/ML 1 ML VIAL IV SCH ×2 (08:48→20:11)
[2020-12-17] MEDS: METOPROLOL TARTRATE 12.5 MG TAB PEG/G-TUBE SCH ×2 (09:00→20:07)
[2020-12-17] MEDS: PANTOPRAZOLE 40 MG/10 ML VIAL IV SCH (09:00)
--- NOTE | 2020-12-17 09:06 | P.CRDCN ---
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 She follows in the office with myself. . She was admitted recently 09/22- to [facility] with increased shortness of breath and congestion, health and wellness coordinator consultation due to mildly elevated cardiac enzymes. Elevated troponin was related to sepsis and hypoxia. Echocardiogram on 09/22/2020 revealed EF of 55-60% without significant valvular disease. Patient is status post PEG placement on 11/20. Patient has been having issues with bradycardia and sinus tachycardia the past. Her beta feng was increased last hospitalization. She went to rehab and had been doing well apparently and then was found to be hypoxic. Chest x-ray 12/03 showed left-sided pneumonia slightly worse than before. She has been receiving tube feeds however concern of possibly bolus with aspiration. She has not been eating anything by mouth. She is currently on BiPAP and somewhat somnolent however arousable. No chest pain or pressure. Initial EKG shows sinus tachycardia 118 bpm, right atrial enlargement, no specific ST or T wave abnormalities. Blood work shows white blood cell count 14.5, hemoglobin 11.8, sodium 142, creatinine 0.34, AST 15, ALP 49, troponin less than 0.012, pro BNP 454. REVIEW OF SYSTEMS At the time of my exam: CONSTITUTIONAL: Denies fever or chills. CARDIOVASCULAR: Denies chest pain, +shortness of breath, no orthopnea, PND or palpitations. RESPIRATORY: Denies cough. GASTROINTESTINAL: Denies abdominal pain, diarrhea, constipation, nausea or vomiting. MUSCULOSKELETAL: Denies myalgias. NEUROLOGIC: Denies numbness, tingling or weakness. ENDOCRINE: Denies fatigue, weight change, polydipsia or polyurina. GENITOURINARY: Denies burning, hematuria or urgency with micturation. HEMATOLOGIC: Denies history of anemia or bleeding. PHYSICAL EXAMINATION Vital signs reviewed. CONSTITUTIONAL: No apparent distress, chronically ill appearing, frail HEENT: Head is normocephalic. Pupils are equal, round. Sclerae anicteric. Mucous membranes of the mouth are moist. No JVD. No carotid bruit. CHEST EXAMINATION: Lungs bilateral rhonchi HEART EXAMINATION: Regular rate and rhythm. S1, S2 heard. No murmurs, gallops or rub. ABDOMEN: Soft, nontender. Positive bowel sounds. EXTREMITIES: 2+ peripheral pulses, no lower extremity edema and no calf tenderness. NEUROLOGIC EXAMINATION: Patient is awake, alert and oriented x3. ASSESSMENT 1. Acute respiratory failure likely related to aspiration pneumonia 2. Sinus bradycardia likely mainly related to hypoxia, some vagal activity as well as beta feng. Currently asymptomatic 3. Sinus tachycardia related to normal physiologic response. Asymptomatic. Patient has been on beta feng in the past however would avoid increasing beta feng. Appears normal physiologic response. 4. History of neurofibromatosis 5. Right-sided vocal cord paralysis 6. Hypertension 7. History of asthma 8. History of juvenile arthritis 9. Cachexia and weight loss with protein calorie malnutrition status post PEG tube placement PLAN Decrease metoprolol to 12.5 mg twice a day. Would avoid increasing as patient is asymptomatic from her sinus tachycardia related to multiple issues with aspiration, protein calorie malnutrition, anxiety. Asymptomatic sinus bradycardia and no current indication for pacemaker. Continue to monitor. Past Medical History Past Medical History: Asthma, Eye Disorder Additional Past Medical History / Comment(s): Neurofibromatosis History of Any Multi-Drug Resistant Organisms: None Reported Additional Past Surgical History / Comment(s): medi port, eye, dental Past Anesthesia/Blood Transfusion Reactions: No Reported Reaction Past Psychological History: No Psychological Hx Reported Smoking Status: Never smoker Past Alcohol Use History: None Reported Past Drug Use History: None Reported - Past Family History Mother Family Medical History: Asthma, Seizure Disorder Medications and Allergies Home Medications Medication Instructions Recorded Confirmed Type Montelukast [Singulair] 10 mg PEG/G-TUBE DAILY@0900 08/17/20 12/16/20 History medroxyPROGESTERone [Depo-Provera] 150 mg IM Q84D 08/17/20 12/16/20 History guaiFENesin-DM 100-10MG/5ML 10 ml PEG/G-TUBE Q6H PRN #1 bottle 12/01/20 12/16/20 Rx [Robitussin DM] Omeprazole 40 mg PEG/G-TUBE DAILY@0900 12/11/20 12/16/20 History Albuterol Inhaler [Ventolin Hfa 1 puff INHALATION 12/16/20 12/16/20 History Inhaler] RT-QID@,,, Diclofenac Sodium Gel [Voltaren 4 gm TOPICAL QID@,,,12/16/20 12/16/20 History Gel] INSULIN LISPRO (humaLOG) [humaLOG] See Protocol SQ QID@00,06,12,18 12/16/20 12/16/20 History Metoclopramide [Reglan] 10 mg PEG/G-TUBE TID@0700,1100,1600 12/16/20 12/16/20 History Metoprolol Tartrate [Lopressor] 50 mg PEG/G-TUBE BID@0900,2100 12/16/20 12/16/20 History Moxifloxacin HCl [Avelox] 400 mg PEG/G-TUBE DAILY@0900 12/16/20 12/16/20 History Pyridoxine [Vitamin B-6] 50 mg PEG/G-TUBE BID@0900,2100 12/16/20 12/16/20 History traMADol HCl [Ultram] 25 mg PEG/G-TUBE BID PRN 12/16/20 12/16/20 History Allergies Allergy/AdvReac Type Severity Reaction Status Date / Time acetaminophen Allergy Dyspnea Verified 12/11/20 11:12 [From Tylenol-Codeine #3] amoxicillin Allergy Rash/Hives Verified 12/11/20 11:12 codeine Allergy Dyspnea Verified 12/11/20 11:12 [From Tylenol-Codeine #3] midazolam [From Versed] AdvReac Hyper Verified 12/11/20 11:12 orange juice AdvReac Abdominal Verified 12/11/20 11:12 Pain strawberry AdvReac Abdominal Verified 12/11/20 11:12 Pain Physical Exam Vitals: Vital Signs Temp Pulse Resp BP Pulse Ox 12/17/20 08:00 97.0 F L 130 H 26 H 109/68 100 12/17/20 07:17 94 12/17/20 07:04 90 12/17/20 07:00 90 20 91/52 94 L 12/17/20 06:18 96 12/17/20 06:00 117 H 27 H 112/73 95 12/17/20 05:00 135 H 37 H 125/80 97 12/17/20 04:00 98.6 F 93 28 H 93/52 96 12/17/20 03:00 114 H 26 H 100/58 99 12/17/20 02:00 101 H 30 H 103/73 97 12/17/20 01:00 101 H 29 H 105/71 93 L 12/17/20 00:00 98.2 F 138 H 33 H 196/139 97 12/16/20 23:00 105 H 31 H 112/69 97 12/16/20 22:00 112 H 30 H 186/141 96 12/16/20 21:18 149 H 38 H 97 12/16/20 21:00 126 H 36 H 93/57 98 12/16/20 20:00 97.0 F L 93 30 H 119/87 97 12/16/20 19:09 92 12/16/20 19:05 89 12/16/20 19:00 98 28 H 164/115 99 12/16/20 18:30 122 H 29 H 112/86 100 12/16/20 18:00 59 L 31 H 83/46 96 12/16/20 17:30 94 31 H 101/54 95 12/16/20 17:00 121 H 35 H 135/102 94 L 12/16/20 16:30 66 21 158/118 94 L 12/16/20 16:00 99.9 F H 105 H 27 H 100/65 95 12/16/20 15:34 94 12/16/20 15:30 98 29 H 96/55 98 12/16/20 15:27 98 12/16/20 15:00 99 41 H 94/50 97 12/16/20 14:30 93 39 H 92/53 96 12/16/20 14:00 96 38 H 217/154 96 12/16/20 13:30 152 H 50 H 151/99 97 12/16/20 13:00 142 H 39 H 89/65 95 12/16/20 12:30 93 39 H 73/38 93 L 12/16/20 12:00 98 F 71 42 H 160/117 88 L 12/16/20 11:35 128 H 12/16/20 11:30 137 H 35 H 88/44 99 12/16/20 11:20 120 H 12/16/20 11:00 104 H 44 H 146/91 96 12/16/20 10:30 133 H 44 H 153/105 99 12/16/20 10:00 78 37 H 97 12/16/20 09:45 104 H 39 H 93/49 96 12/16/20 09:30 129 H 28 H 70/33 90 L 12/16/20 09:15 82 40 H 87/40 84 L 12/16/20 09:01 97.9 F 118 H 41 H 90 L Intake and Output 12/16/20 12/17/20 12/17/20 22:59 06:59 14:59 Intake Total 800 900 100 Output Total 380 645 50 Balance 420 255 50 Intake: IV 800 900 100 Sodium Chloride 0.9% 1, 800 900 100 000 ml @ 100 mls/hr IV . Q10H [facility] Rx#:[id number] Output: Urine 380 645 50 Other: Voiding Method Indwelling Catheter Indwelling Catheter Indwelling Catheter Results 12/17/20 03:24 12/17/20 03:24 Cardiac Enzymes 12/17/20 Range/Units 03:24 AST 41 H (14-36) U/L CBC 12/17/20 Range/Units 03:24 WBC 19.0 H (3.8-10.6) k/uL RBC 3.54 L (3.80-5.40) m/uL Hgb 10.9 L (11.4-16.0) gm/dL Hct 35.2 (34.0-46.0) % Plt Count 287 (150-450) k/uL Comprehensive Metabolic Panel 12/17/20 Range/Units 03:24 Sodium 142 (137-145) mmol/L Potassium 4.3 (3.5-5.1) mmol/L Chloride 104 (98-107) mmol/L Carbon Dioxide 30 (22-30) mmol/L BUN 13 (7-17) mg/dL Creatinine 0.34 L (0.52-1.04) mg/dL Glucose 101 H (74-99) mg/dL Calcium 9.2 (8.4-10.2) mg/dL AST 41 H (14-36) U/L ALT 43 H (4-34) U/L Alkaline Phosphatase 89 (38-126) U/L Total Protein 6.1 L (6.3-8.2) g/dL Albumin 3.1 L (3.5-5.0) g/dL Current Medications Generic Name Dose Route Start Last Admin Trade Name Freq PRN Reason Stop Dose Admin Albuterol Sulfate 2.5 mg 12/16/20 08:00 12/17/20 07:04 Albuterol Nebulized 2.5 Mg/3 Ml INHALATION 2.5 mg RT-QID ANDERSON Administration Albuterol/Ipratropium 3 ml 12/16/20 06:27 Ipratropium-Albuterol 3 Ml Neb INHALATION RT-Q4H PRN shortness of breath Azithromycin 500 mg 12/17/20 08:00 12/17/20 08:46 Azithromycin 500 Mg Tab PO 500 mg DAILY@0800 ANDERSON Administration Enoxaparin Sodium 40 mg 12/17/20 09:00 12/17/20 08:47 Enoxaparin 40 Mg/0.4 Ml Syringe SQ 40 mg DAILY ANDERSON Administration Sodium Chloride 1,000 mls @ 100 mls/hr 12/16/20 06:30 12/16/20 23:36 Saline 0.9% IV 100 mls/hr .Q10H ANDERSON Administration Metronidazole 500 mg/ IV 100 mls @ 100 mls/hr 12/16/20 08:00 12/17/20 08:46 Solution IVPB 100 mls/hr Q8HR ANDERSON Administration Ceftriaxone Sodium 1 gm/ 50 mls @ 100 mls/hr 12/17/20 09:00 12/17/20 08:47 Sodium Chloride IVPB 100 mls/hr Q24HR ANDERSON Administration Lorazepam 1 mg 12/16/20 06:45 Lorazepam 2 Mg/Ml Inj IV Q4HR PRN Anxiety Methylprednisolone Sodium Succinate 40 mg 12/16/20 10:00 12/17/20 08:48 Methylprednisolone Sod Succi 40 Mg/Ml 1 Ml Vial IV 40 mg Q12HR ANDERSON Administration Metoprolol Tartrate 12.5 mg 12/17/20 09:00 Metoprolol Tartrate 12.5 Mg Tab PEG/G-TUBE BID ANDERSON Miscellaneous Information 1 each 12/16/20 06:27 Pneumonia Protocol Utilized 1 Each Misc PO ONCE PRN Per Protocol Morphine Sulfate 4 mg 12/16/20 06:27 12/17/20 05:35 Morphine Sulfate 4 Mg/Ml Syringe IV 4 mg Q4HR PRN Administration Severe Pain Naloxone HCl 0.2 mg 12/16/20 06:27 Naloxone 0.4 Mg/Ml 1 Ml Vial IV Q2M PRN Opioid Reversal Ondansetron HCl 4 mg 12/16/20 06:27 12/16/20 23:55 Ondansetron 4 Mg/2 Ml Vial IVP 4 mg Q8HR PRN Administration Nausea And Vomiting Pantoprazole Sodium 40 mg 12/16/20 09:00 12/16/20 09:22 Pantoprazole 40 Mg/10 Ml Vial IV 40 mg DAILY ANDERSON Administration Prochlorperazine Edisylate 5 mg 12/16/20 06:45 Prochlorperazine Inj 10 Mg/2 Ml Vial IVP Q4H PRN Nausea And Vomiting Intake and Output 12/16/20 12/17/20 12/17/20 22:59 06:59 14:59 Intake Total 800 900 100 Output Total 380 645 50 Balance 420 255 50 Intake: IV 800 900 100 Sodium Chloride 0.9% 1, 800 900 100 000 ml @ 100 mls/hr IV . Q10H [facility] Rx#:[id number] Output: Urine 380 645 50 Other: Voiding Method Indwelling Catheter Indwelling Catheter Indwelling Catheter 12/17/20 03:24 12/17/20 03:24
[2020-12-17] MEDS: ONDANSETRON 4 MG/2 ML VIAL IVP PRN ×2 (09:34→20:11)
--- NOTE | 2020-12-17 09:47 | P.PN ---
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 Patient does have leukocytosis, no fever. Patient is mostly nonverbal. Patient has sinus tachycardia with mildly elevated liver enzymes. 12/17/2020 Patient has a PEG tube PEG tube feedings are on hold up in spite of which patient started vomiting and retching, patient is coughing with whenever she vomits probably aspirating patient is sitting upright at this time we will obtain abdominal x-ray. Patient remains tachycardic patient denied any pain. Constitutional: Denied any fatigue denied any fever. Cardio vascular: denied any chest pain, palpitations Gastrointestinal as mentioned in the interval history Pulmonary: Denied any shortness of breath cough Neurologic denied any new focal deficits All inpatient medications were reviewed and appropriate changes in these medications as dictated in the interval history and assessment and plan. PHYSICAL EXAMINATION: GENERAL: Thin built female on BiPAP nonverbal HEENT: Pupils are round and equally reacting to light. EOMI. No scleral icterus. No conjunctival pallor. Normocephalic, atraumatic. No pharyngeal erythema. No thyromegaly. CARDIOVASCULAR: S1 and S2 present tachycardic PULMONARY: Diffuse bilateral rhonchi ABDOMEN: Soft, nontender, nondistended, No palpable organomegaly. PEG tube in place MUSCULOSKELETAL: No joint swelling or deformity. EXTREMITIES: No cyanosis, clubbing, or pedal edema. NEUROLOGICAL: Significant muscle atrophy in all 4 extremities nonverbal but responsive to verbal stimuli SKIN: No rashes. Assessment and plan -Acute hypoxic respiratory failure: Possibly secondary to chemical pneumonitis from aspiration are aspiration pneumonia patient will be continued on above- mentioned antibiotics may not need azithromycin will discuss with the pulmonology regarding this. Patient is presently on nasal cannula oxygen can nula oxygen -Nausea vomiting: We will obtain an abdominal x-ray to rule out any ileus. -Sinus tachycardia secondary to hypoxemia -Neurofibromatosis with chronic vocal cord paralysis and patient has ne urofibroma of the neck. Patient is supposed to undergo surgery for this paralyzed vocal cord in either [facility] to [place] -Asthma without any significant exacerbation DVT prophylaxis: Lovenox Objective - Vital Signs Vital signs: Vital Signs Temp 97.0 F L 12/17/20 08:00 Pulse 130 H 12/17/20 08:00 Resp 26 H 12/17/20 08:00 BP 109/68 12/17/20 08:00 Pulse Ox 100 12/17/20 08:00 Intake & Output 12/16/20 12/17/20 12/17/20 18:59 06:59 18:59 Intake Total 2100 1300 100 Output Total 720 905 50 Balance 1380 395 50 Weight 42.6 kg Intake: IV 2000 1300 100 Sodium Chloride 0.9% 1, 1000 1300 100 000 ml @ 100 mls/hr IV . Q10H [facility] Rx#:[id number] Sodium Chloride 0.9% 1, 1000 000 ml @ 999 mls/hr IV . Q1H1M [facility] Rx#:[id number] Intake, IV Titration 100 Amount metroNIDAZOLE-NS PMX 500 100 mg In Saline 1 100ml.bag @ 100 mls/hr IVPB Q8HR [facility] Rx#:[id number] Output: Urine 720 905 50 Other: Voiding Method Indwelling Catheter Indwelling Catheter Indwelling Catheter - Labs CBC & Chem 7: 12/17/20 03:24 12/17/20 03:24 Labs: Abnormal Lab Results - Last 24 Hours (Table) 12/17/20 12/17/20 Range/Units 03:24 03:24 WBC 19.0 H (3.8-10.6) k/uL RBC 3.54 L (3.80-5.40) m/uL Hgb 10.9 L (11.4-16.0) gm/dL MCHC 30.8 L (31.0-37.0) g/dL Neutrophils # 16.7 H (1.3-7.7) k/uL Creatinine 0.34 L (0.52-1.04) mg/dL Glucose 101 H (74-99) mg/dL AST 41 H (14-36) U/L ALT 43 H (4-34) U/L Total Protein 6.1 L (6.3-8.2) g/dL Albumin 3.1 L (3.5-5.0) g/dL Microbiology - Last 24 Hours (Table) 12/16/20 05:18 Blood Culture - Preliminary Blood No Growth after 24 hours
[2020-12-17 11:41] LABS: Glucose,Whole Blood 129 mg/dL (75-99)
--- NOTE | 2020-12-17 12:00 | XR ---
EXAMINATION TYPE: XR abdomen acute w cxr DATE OF EXAM: 12/17/2020 COMPARISON: 12/17/2020 and 11/28/2020 HISTORY: 25 years Female. STUDY INDICATION GIVEN: vomiting . TECHNIQUE: Upright AP chest radiograph and supine and upright abdominal radiographs. Total 3 views. FINDINGS AND IMPRESSION: Chest radiograph: Compared to chest radiograph performed on 12/17/2020 5:30 AM there is worsening airs pace disease and/or atelectasis in the left chest with stable air disease on the right. The remaining lung/chest x-ray findings are without significant change. Abdomen radiographs: Gastrostomy tube projects over the midline upper abdomen. There are gas-filled normal caliber large bowel loops. There is no definite evidence of intestinal obstruction or free abd ominal air. There may be some thickened bowel loops in the left upper abdomen in this could indicate a inflammatory or infectious enteritis or colitis. Generalized osteopenia is noted without acute osse ous abnormality in the lumbar spine, pelvic bones or proximal lower extremity.
[2020-12-17] MEDS: SODIUM CHLORIDE 0.9% 1,000 ML IV SCH ×2 (15:43→20:14)
[2020-12-17 17:47] LABS: Glucose,Whole Blood 140 mg/dL (75-99)
[2020-12-18] MEDS: PROCHLORPERAZINE INJ 10 MG/2 ML VIAL IVP PRN ×3 (02:31→14:39)
[2020-12-18] MEDS: MORPHINE SULFATE 4 MG/ML SYRINGE IV PRN ×2 (02:35→20:45)
[2020-12-18 04:17] LABS: African American GFR (CKD) >90 (>60 ml/min/1.73 sqM); Anion Gap 11 mmol/L; Blood Urea Nitrogen 11 mg/dL (7-17); Calcium 9.3 mg/dL (8.4-10.2); Carbon Dioxide 31 mmol/L (22-30); Chloride 97 mmol/L (98-107); Glucose 123 mg/dL (74-99); Non-African American GFR(CKD) >90 (>60 ml/min/1.73 sqM); Potassium 3.9 mmol/L (3.5-5.1); Sodium 139 mmol/L (137-145)
[2020-12-18 04:22] LABS: HCT 38.3 % (34.0-46.0); HGB 12.2 gm/dL (11.4-16.0); Hypochromasia Moderate; MCH 31.1 pg (25.0-35.0); MCHC 31.9 g/dL (31.0-37.0); MCV 97.6 fL (80.0-100.0); Mean Platelet Volume 7.2; Platelet Count 333 k/uL (150-450); RBC 3.93 m/uL (3.80-5.40); RDW 15.5 % (11.5-15.5); WBC 18.9 k/uL (3.8-10.6)
[2020-12-18] MEDS: ALBUTEROL NEBULIZED 2.5 MG/3 ML INHALATION SCH ×4 (07:20→19:27)
--- NOTE | 2020-12-18 07:26 | XR ---
EXAMINATION TYPE: XR chest 1V portable DATE OF EXAM: 12/18/2020 Comparison: 12/17/2020 Clinical History: 25-year-old female aspiration pneumonia Findings: Left anterior chest wall injection port with catheter tip at the lower SVC. Heart upper limits of nor mal in size. Bilateral patchy and confluent consolidation, greatest in the lower lungs. Opacity in th e right upper lobe and right lower lobe have slightly increased in the interval. Small left pleural e ffusion persists. Hypodensity material at the left base suggests previously aspirated barium. Impression: Bilateral patchy and confluent airspace disease, slight interval worsening on the right. Continued sm all left pleural effusion. Previously aspirated barium at the left base unchanged.
[2020-12-18] MEDS: methylPREDNISolone SOD SUCCI 40 MG/ML 1 ML VIAL IV SCH ×2 (08:42→20:45)
[2020-12-18] MEDS: METOPROLOL TARTRATE 12.5 MG TAB PEG/G-TUBE SCH (08:43)
[2020-12-18] MEDS: PANTOPRAZOLE 40 MG/10 ML VIAL IV SCH (08:43)
[2020-12-18] MEDS: ENOXAPARIN 40 MG/0.4 ML SYRINGE SQ SCH (08:43)
[2020-12-18] MEDS: metroNIDAZOLE-NS PMX 500 MG in SALINE 1 100ML.BAG IVPB SCH ×3 (08:43→16:58)
--- NOTE | 2020-12-18 08:45 | P.PN ---
Subjective Progress Note Date: 12/18/20 Principal diagnosis: Sinus tachycardia/hypertensive Acute on chronic hypoxic respiratory failure Left-sided pneumonia likely aspiration pneumonia Paralyzed right vocal cord High risk of intermittent aspiration Sinus tachycardia palpitations 12/18/2020, patient seen eval reexamined during on Medications reviewed care plan discussed with the staff at length, patient slightly and now on the hypertensive side remains tachycardic, patient currently getting 12.5 twice a day we will increase it to 25 gradually with erythema up to 75 twice a day in next 48-72 hours, patient is on BiPAP at nighttime 04/10 with 50% oxygen during the day she is on 10 L nasal cannula sats in mid 90s, white cell count is the 18,900, hemoglobin and hematocrit remained stable, patient is reviewed, chest x- ray continue show patchy bilateral confluent is for his disease slight worsening on the right side has been noted possibly related to interstitial edema, patient remains on IV fluid 100 mL an hour would recommend to stop it as it appears that patient is going slow into fluid overload 12/17/2020, patient seen eval reexamined during the rounds labs reviewed medications reviewed care plan discussed with the staff at length, patient to remains on BiPAP with IPAP of 12 and EPAP of 6 along with 50% oxygen she has been on BiPAP all along, she also have problems associated with the intermittent sinus tachycardia and bradycardia most of the cardiac variation happens while she is sleeping, patient used to be on Lopressor 75 twice a day at home have not been started. 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, recently discharged from the hospital to [facility] patient has been doing fairly well for the 2 days however today started having cough shortness of breath oxygen saturation dropped down and she was transferred to [facility], the admitted chest x-ray is positive for left-sided infiltrate slight worsening to the right side, patient admitted into the hospital for further evaluation but the episode appears to be more likely aspiration Objective - Vital Signs Vital signs: Vital Signs Temp 98.6 F 12/18/20 00:00 Pulse 126 H 12/18/20 07:29 Resp 36 H 12/18/20 06:00 BP 142/92 12/18/20 06:00 Pulse Ox 99 12/18/20 07:20 Intake & Output 12/17/20 12/18/20 12/18/20 18:59 06:59 18:59 Intake Total 1350 1100 200 Output Total 600 670 150 Balance 750 430 50 Weight 42.5 kg Intake: IV 1200 1100 200 Sodium Chloride 0.9% 1, 1200 1100 200 000 ml @ 100 mls/hr IV . Q10H [facility] Rx#:[id number] Intake, IV Titration 150 Amount cefTRIAXone 1 gm In 50 Sodium Chloride 0.9% 50 ml @ 100 mls/hr IVPB Q24HR [facility] Rx#:[id number] metroNIDAZOLE-NS PMX 500 100 mg In Saline 1 100ml.bag @ 100 mls/hr IVPB Q8HR [facility] Rx#:[id number] Output: Urine 600 670 150 Other: Voiding Method Indwelling Catheter Indwelling Catheter Indwelling Catheter - Exam - Constitutional General appearance: cooperative, disheveled - EENT Eyes: abnormal pupil, PERRLA Ears: bilateral: bulging - Neck Neck: lymphadenopathy, normal ROM Thyroid: bilateral: normal size - Respiratory Respiratory: bilateral: diminished, prolonged expiration - Cardiovascular Rhythm: regular Heart sounds: normal: S1, S2 - Gastrointestinal General gastrointestinal: absent bowel sounds, hepatomegaly - Neurologic Neurologic: CNII-XII intact - Musculoskeletal Musculoskeletal: generalized weakness - Labs CBC & Chem 7: 12/18/20 03:18 12/18/20 03:18 Labs: Abnormal Lab Results - Last 24 Hours (Table) 12/17/20 12/17/20 12/18/20 Range/Units 11:39 17:45 03:18 WBC 18.9 H (3.8-10.6) k/uL Chloride (98-107) mmol/L Carbon Dioxide (22-30) mmol/L Creatinine (0.52-1.04) mg/dL Glucose (74-99) mg/dL POC Glucose (mg/dL) 129 H 140 H (75-99) mg/dL 12/18/20 Range/Units 03:18 WBC (3.8-10.6) k/uL Chloride 97 L (98-107) mmol/L Carbon Dioxide 31 H (22-30) mmol/L Creatinine 0.25 L (0.52-1.04) mg/dL Glucose 123 H (74-99) mg/dL POC Glucose (mg/dL) (75-99) mg/dL Microbiology - Last 24 Hours (Table) 12/16/20 05:18 Blood Culture - Preliminary Blood No Growth after 48 hours Assessment and Plan Assessment: Sinus tachycardia Now on hypertensive side, blood pressure persistently elevated Left-sided pneumonia likely aspiration pneumonia Paralyzed right vocal cord High risk of intermittent aspiration Sinus tachycardia palpitations Acute on chronic hypoxic respiratory failure Plan: Plan continue IV antibiotics, Recommend to stop the IV fluids will be KVO Escalated Lopressor 25 mg twice a day Awaiting further recommendation from cardiovascular services Continue IV steroids and bronchodilator continue current therapy Resume low-dose Lopressor escalated dose as tolerated to 75 twice a day Attempt to take off of BiPAP machine later on today with nasal cannula but needs to keep on at nighttime and further plan of care as per clinical response of patient Time with Patient: Greater than 30
[2020-12-18] MEDS: SODIUM CHLORIDE 0.9% 1,000 ML IV SCH ×2 (08:47→20:45)
[2020-12-18] MEDS: AZITHROMYCIN 500 MG TAB PO SCH (08:47)
--- NOTE | 2020-12-18 11:14 | P.PN ---
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 Patient does have leukocytosis, no fever. Patient is mostly nonverbal. Patient has sinus tachycardia with mildly elevated liver enzymes. 12/17/2020 Patient has a PEG tube PEG tube feedings are on hold up in spite of which patient started vomiting and retching, patient is coughing with whenever she vomits probably aspirating patient is sitting upright at this time we will obtain abdominal x-ray. Patient remains tachycardic patient denied any pain. 12/18/2020 She remains tachycardic is receiving metoprolol 12.5 twice a day which is being increased to 25 mg twice a day patient was on BiPAP last night is presently until we discussed cannula oxygen her overall clinical condition did not change much patient had was having nausea vomiting all day yesterday which resolved at this time. Constitutional: Denied any fatigue denied any fever. Cardio vascular: denied any chest pain, palpitations Gastrointestinal as mentioned in the interval history Pulmonary: Denied any shortness of breath cough Neurologic denied any new focal deficits All inpatient medications were reviewed and appropriate changes in these medications as dictated in the interval history and assessment and plan. PHYSICAL EXAMINATION: GENERAL: Thin built female on nonverbal HEENT: Pupils are round and equally reacting to light. EOMI. No scleral icterus. No conjunctival pallor. Normocephalic, atraumatic. No pharyngeal erythema. No thyromegaly. CARDIOVASCULAR: S1 and S2 present tachycardic PULMONARY: Diffuse bilateral rhonchi ABDOMEN: Soft, nontender, nondistended, No palpable organomegaly. PEG tube in place MUSCULOSKELETAL: No joint swelling or deformity. EXTREMITIES: No cyanosis, clubbing, or pedal edema. NEUROLOGICAL: Significant muscle atrophy in all 4 extremities nonverbal but responsive to verbal stimuli SKIN: No rashes. Assessment and plan -Acute hypoxic respiratory failure: Possibly secondary to chemical pneumonitis from aspiration are aspiration pneumonia patient will be continued on above- mentioned antibiotics was on BiPAP last night and is presently until he discussed cannula oxygen -Nausea vomiting: Resolved at this time -Sinus tachycardia secondary to hypoxemia -Neurofibromatosis with chronic vocal cord paralysis and patient has neurofibroma of the neck. Patient is supposed to undergo surgery for this paralyzed vocal cord in either [facility] to [place] -Asthma without any significant exacerbation DVT prophylaxis: Lovenox Objective - Vital Signs Vital signs: Vital Signs Temp 98.6 F 12/18/20 00:00 Pulse 123 H 12/18/20 11:01 Resp 36 H 12/18/20 06:00 BP 142/92 12/18/20 06:00 Pulse Ox 99 12/18/20 07:20 Intake & Output 12/17/20 12/18/20 12/18/20 18:59 06:59 18:59 Intake Total 1350 1100 200 Output Total 600 670 150 Balance 750 430 50 Weight 42.5 kg 42.5 kg Intake: IV 1200 1100 200 Sodium Chloride 0.9% 1, 1200 1100 200 000 ml @ 100 mls/hr IV . Q10H [facility] Rx#:[id number] Intake, IV Titration 150 Amount cefTRIAXone 1 gm In 50 Sodium Chloride 0.9% 50 ml @ 100 mls/hr IVPB Q24HR [facility] Rx#:[id number] metroNIDAZOLE-NS PMX 500 100 mg In Saline 1 100ml.bag @ 100 mls/hr IVPB Q8HR [facility] Rx#:[id number] Output: Urine 600 670 150 Other: Voiding Method Indwelling Catheter Indwelling Catheter Indwelling Catheter - Labs CBC & Chem 7: 12/18/20 03:18 12/18/20 03:18 Labs: Abnormal Lab Results - Last 24 Hours (Table) 12/17/20 12/17/20 12/18/20 Range/Units 11:39 17:45 03:18 WBC 18.9 H (3.8-10.6) k/uL Chloride (98-107) mmol/L Carbon Dioxide (22-30) mmol/L Creatinine (0.52-1.04) mg/dL Glucose (74-99) mg/dL POC Glucose (mg/dL) 129 H 140 H (75-99) mg/dL 12/18/20 Range/Units 03:18 WBC (3.8-10.6) k/uL Chloride 97 L (98-107) mmol/L Carbon Dioxide 31 H (22-30) mmol/L Creatinine 0.25 L (0.52-1.04) mg/dL Glucose 123 H (74-99) mg/dL POC Glucose (mg/dL) (75-99) mg/dL Microbiology - Last 24 Hours (Table) 12/16/20 05:18 Blood Culture - Preliminary Blood No Growth after 48 hours
[2020-12-18 11:53] LABS: Glucose,Whole Blood 133 mg/dL (75-99)
[2020-12-18 17:29] LABS: Glucose,Whole Blood 150 mg/dL (75-99)
--- NOTE | 2020-12-18 19:26 | P.PN ---
Subjective Patient remains in sinus tachycardia 112 beats a minute She was unable to tolerate a higher dose of beta blockers and therefore Dr. Nelson reduce this dose She is hemodynamically stable otherwise Heart sounds are tachycardic, no murmurs I discussed this with the mother For now as well as the patient is stable from a cardiac restless standpoint I would not overtreat sinus tachycardia Please call us if there is any change in his status Continue low-dose beta blockers Follow-up with Dr. Nelson as before as an outpatient Objective - Vital Signs Vital signs: Vital Signs Temp 96.9 F L 12/18/20 12:00 Pulse 111 H 12/18/20 19:00 Resp 34 H 12/18/20 19:00 BP 141/102 12/18/20 19:00 Pulse Ox 100 12/18/20 19:00 Intake & Output 12/18/20 12/18/20 12/19/20 06:59 18:59 06:59 Intake Total 1100 1425 Output Total 670 1190 Balance 430 235 Weight 42.5 kg 42.5 kg Intake: IV 1100 1300 Sodium Chloride 0.9% 1, 1100 1300 000 ml @ 100 mls/hr IV . Q10H [facility] Rx#:[id number] Tube Feeding 95 Other 30 Output: Urine 670 1190 Other: Voiding Method Indwelling Catheter Indwelling Catheter - Labs CBC & Chem 7: 12/18/20 03:18 12/18/20 03:18 Labs: Abnormal Lab Results - Last 24 Hours (Table) 12/18/20 12/18/20 12/18/20 Range/Units 03:18 03:18 11:52 WBC 18.9 H (3.8-10.6) k/uL Chloride 97 L (98-107) mmol/L Carbon Dioxide 31 H (22-30) mmol/L Creatinine 0.25 L (0.52-1.04) mg/dL Glucose 123 H (74-99) mg/dL POC Glucose (mg/dL) 133 H (75-99) mg/dL 12/18/20 Range/Units 17:28 WBC (3.8-10.6) k/uL Chloride (98-107) mmol/L Carbon Dioxide (22-30) mmol/L Creatinine (0.52-1.04) mg/dL Glucose (74-99) mg/dL POC Glucose (mg/dL) 150 H (75-99) mg/dL Microbiology - Last 24 Hours (Table) 12/16/20 05:18 Blood Culture - Preliminary Blood No Growth after 48 hours
[2020-12-18] MEDS: ONDANSETRON 4 MG/2 ML VIAL IVP PRN (20:45)
[2020-12-18] MEDS ORDERED: METOPROLOL TARTRATE 25 MG TAB PEG/G-TUBE SCH (21:00)
[2020-12-19] MEDS ORDERED: METOPROLOL TARTRATE 25 MG TAB PO STA (00:43)
[2020-12-19] MEDS: metroNIDAZOLE-NS PMX 500 MG in SALINE 1 100ML.BAG IVPB SCH ×3 (00:52→19:05)
[2020-12-19] MEDS: MORPHINE SULFATE 4 MG/ML SYRINGE IV PRN ×2 (01:11→19:08)
[2020-12-19 03:51] LABS: Basophils # (A) 0.1 k/uL (0-0.2); Basophils % (A) 0 %; Eosinophils % (A) 0 %; HCT 39.9 % (34.0-46.0); HGB 12.5 gm/dL (11.4-16.0); Hypochromasia Moderate; Lymphocytes # (A) 0.7 k/uL (1.0-4.8); Lymphocytes % (A) 3 %; MCH 30.8 pg (25.0-35.0); MCHC 31.3 g/dL (31.0-37.0); MCV 98.6 fL (80.0-100.0); Monocytes # (A) 0.5 k/uL (0-1.0); Monocytes % (A) 3 %; Neutrophils # (A) 19.7 k/uL (1.3-7.7); Neutrophils % (A) 93 %; Platelet Count 423 k/uL (150-450); RBC 4.04 m/uL (3.80-5.40); RDW 15.2 % (11.5-15.5); WBC 21.2 k/uL (3.8-10.6)
[2020-12-19 04:08] LABS: African American GFR (CKD) >90 (>60 ml/min/1.73 sqM); Anion Gap 7 mmol/L; Blood Urea Nitrogen 11 mg/dL (7-17); Calcium 8.8 mg/dL (8.4-10.2); Carbon Dioxide 39 mmol/L (22-30); Chloride 93 mmol/L (98-107); Glucose 151 mg/dL (74-99); Magnesium 1.7 mg/dL (1.6-2.3); Non-African American GFR(CKD) >90 (>60 ml/min/1.73 sqM); Potassium 3.8 mmol/L (3.5-5.1); Sodium 139 mmol/L (137-145)
[2020-12-19] MEDS ORDERED: cloNIDine 0.3 MG/24HR PATCH TRANSDERM SCH (04:15)
[2020-12-19] MEDS: LABETALOL 200 MG in SODIUM CHLORIDE 0.9% 160 ML IV SCH ×6 (06:34→23:11)
[2020-12-19] MEDS: SODIUM CHLORIDE 0.9% 1,000 ML IV SCH ×2 (06:36→11:12)
[2020-12-19] MEDS ORDERED: POTASSIUM BICARBONATE/CIT AC 20 MEQ TABLET.EFF NG-TUBE SCH (07:00)
[2020-12-19] MEDS: ALBUTEROL NEBULIZED 2.5 MG/3 ML INHALATION SCH ×4 (07:19→19:48)
--- NOTE | 2020-12-19 08:31 | XR ---
EXAMINATION TYPE: XR chest 1V DATE OF EXAM: 12/19/2020 COMPARISON: 12/18/2020 HISTORY: Shortness of breath TECHNIQUE: Single frontal view of the chest is obtained. FINDINGS: Diffuse interstitial pattern with patchy bilateral areas of the right are stable. Mediport catheter seen in there is a small left effusion. No sizable pneumothorax. Osseous structures stable. Radiopaque density in the left lower lobe may be on the basis of previous aspiration. IMPRESSION: 1. Bilateral patchy infiltrate with interstitial pattern and small left effusion stable. Correlate fo r multifocal pneumonia versus venous congestion.
--- NOTE | 2020-12-19 08:38 | XR ---
EXAMINATION TYPE: XR KUB DATE OF EXAM: 12/19/2020 COMPARISON: 12/17/2020 HISTORY: Vomiting TECHNIQUE: One view abdominal series FINDINGS: A PEG tube is noted. There is air throughout the bowel loops in the abdomen with no diagnostic eviden ce of obstruction. Osseous structures intact. Aspirated barium in the left lower lobe chronic basis i s suspected. IMPRESSION: 1. Nonspecific abdomen.
[2020-12-19] MEDS ORDERED: METOPROLOL TARTRATE 50 MG TAB PO SCH (09:00)
--- NOTE | 2020-12-19 09:25 | P.CRDCN ---
History of Present Illness Consult date: 12/19/20 History of present illness: HISTORY OF PRESENT ILLNESS: HISTORY OF PRESENTING ILLNESS This is a 25-year-old female with a past medical history of hypertension, neurofibromatosis with multiple tumors status post multiple chemotherapy, right sided vocal cord paralysis, asthma, aspiration pneumonia, pneumonia with polymicrobial right-sided lung abscess in April 2020, juvenile arthritis. She follows in the office with myself. . She was admitted recently 09/22- to [facility] with increased shortness of breath and congestion, deputy chief counsel consultation due to mildly elevated cardiac enzymes. Elevated troponin was related to sepsis and hypoxia. Echocardiogram on 09/22/2020 revealed EF of 55-60% without significant valvular disease. Patient is status post PEG placement on 11/20. Patient has been having issues with bradycardia and sinus tachycardia the past. Her beta feng was increased last hospitalization. She went to rehab and had been doing well apparently and then was found to be hypoxic. Chest x-ray showed left-sided pneumonia slightly worse than before. She has been receiving tube feeds however concern of possibly bolus with aspiration. She has not been eating anything by mouth. She is currently on BiPAP and somewhat somnolent however arousable. No chest pain or pressure. Initial EKG shows sinus tachycardia 118 bpm, right atrial enlargement, no specific ST or T wave abnormalities. Blood work shows white blood cell count 14.5, hemoglobin 11.8, sodium 142, creatinine 0.34, AST 15, ALP 49, troponin less than 0.012, pro BNP 454. 12/18/[address] with a heart rate around 112. No med changes made. 12/19/2020 Patient examined in the ICU with Dr. Perry. Mother at bedside. Patient became hypertensive overnight. She is currently receiving metoprolol via PEG tube and a catapres patch. Patient was also started on a labetalol drip this morning. Currently infusing at 0.5mg/min. Heart rate around 100. SBP ranging from 90-100. PHYSICAL EXAM: VITAL SIGNS: Reviewed. GENERAL: Well-developed in no acute distress. NECK: Supple. No JVD or thyromegaly LUNGS: Respirations even and unlabored. Lungs essentially clear to auscultation bilaterally. HEART: Regular rate and rhythm. S1 and S2 heard. EXTREMITIES: Normal range of motion. No clubbing or cyanosis. Peripheral pulses intact. No lower extremity edema ASSESSMENT: 1. Acute respiratory failure likely related to aspiration pneumonia 2. Sinus bradycardia likely mainly related to hypoxia, some vagal activity as well as beta feng. Currently asymptomatic 3. Sinus tachycardia 4. History of neurofibromatosis, type II 5. Right-sided vocal cord paralysis 6. Hypertension, uncontrolled overnight 7. History of asthma 8. History of juvenile arthritis 9. Cachexia and weight loss with protein calorie malnutrition status post PEG tube placement PLAN: Discontinue catapres patch Discontinue metoprolol Continue labetalol. Titrate for systolic blood pressure [id number] Obtain renal artery ultrasound Metanephrines ordered. Await results Further recommendations pending patient course Nurse practitioner note has been reviewed by physician. Signing provider agrees with the documented findings, assessment, and plan of care. Past Medical History Past Medical History: Asthma, Eye Disorder Additional Past Medical History / Comment(s): Neurofibromatosis History of Any Multi-Drug Resistant Organisms: None Reported Additional Past Surgical History / Comment(s): medi port, eye, dental Past Anesthesia/Blood Transfusion Reactions: No Reported Reaction Past Psychological History: No Psychological Hx Reported Smoking Status: Never smoker Past Alcohol Use History: None Reported Past Drug Use History: None Reported - Past Family History Mother Family Medical History: Asthma, Seizure Disorder Medications and Allergies Home Medications Medication Instructions Recorded Confirmed Type Montelukast [Singulair] 10 mg PEG/G-TUBE DAILY@0900 08/17/20 12/16/20 History medroxyPROGESTERone [Depo-Provera] 150 mg IM Q84D 08/17/20 12/16/20 History guaiFENesin-DM 100-10MG/5ML 10 ml PEG/G-TUBE Q6H PRN #1 bottle 12/01/20 12/16/20 Rx [Robitussin DM] Omeprazole 40 mg PEG/G-TUBE DAILY@0900 12/11/20 12/16/20 History Albuterol Inhaler [Ventolin Hfa 1 puff INHALATION 12/16/20 12/16/20 History Inhaler] RT-QID@,,, Diclofenac Sodium Gel [Voltaren 4 gm TOPICAL QID@,,,12/16/20 12/16/20 History Gel] INSULIN LISPRO (humaLOG) [humaLOG] See Protocol SQ QID@00,06,12,18 12/16/20 12/16/20 History Metoclopramide [Reglan] 10 mg PEG/G-TUBE TID@0700,1100,1600 12/16/20 12/16/20 History Metoprolol Tartrate [Lopressor] 50 mg PEG/G-TUBE BID@0900,2100 12/16/20 12/16/20 History Moxifloxacin HCl [Avelox] 400 mg PEG/G-TUBE DAILY@0900 12/16/20 12/16/20 History Pyridoxine [Vitamin B-6] 50 mg PEG/G-TUBE BID@0900,2100 12/16/20 12/16/20 History traMADol HCl [Ultram] 25 mg PEG/G-TUBE BID PRN 12/16/20 12/16/20 History Allergies Allergy/AdvReac Type Severity Reaction Status Date / Time acetaminophen Allergy Dyspnea Verified 12/11/20 11:12 [From Tylenol-Codeine #3] amoxicillin Allergy Rash/Hives Verified 12/11/20 11:12 codeine Allergy Dyspnea Verified 12/11/20 11:12 [From Tylenol-Codeine #3] midazolam [From Versed] AdvReac Hyper Verified 12/11/20 11:12 orange juice AdvReac Abdominal Verified 12/11/20 11:12 Pain strawberry AdvReac Abdominal Verified 12/11/20 11:12 Pain Physical Exam Vitals: Vital Signs Temp Pulse Resp BP Pulse Ox 12/19/20 07:31 104 H 12/19/20 07:19 109 H 12/19/20 07:00 106 H 26 H 113/73 95 12/19/20 06:00 144 H 27 H 208/152 96 12/19/20 05:00 129 H 28 H 205/144 95 12/19/20 04:00 126 H 28 H 171/111 94 L 12/19/20 03:00 126 H 27 H 193/139 96 12/19/20 02:00 122 H 16 186/139 100 12/19/20 01:00 117 H 22 221/154 97 12/19/20 00:00 96 33 H 176/136 98 12/18/20 23:00 104 H 33 H 145/99 99 12/18/20 22:00 122 H 35 H 169/126 98 12/18/20 21:02 115 H 24 93 L 12/18/20 21:00 75 33 H 144/120 97 12/18/20 20:00 98.1 F 110 H 40 H 151/117 97 12/18/20 19:00 111 H 34 H 141/102 100 12/18/20 18:00 96 38 H 157/102 100 12/18/20 17:00 110 H 37 H 150/95 99 12/18/20 16:00 116 H 38 H 138/108 98 12/18/20 15:22 125 H 12/18/20 15:12 123 H 12/18/20 15:11 99 12/18/20 15:00 85 39 H 136/102 97 12/18/20 14:00 92 30 H 135/100 100 12/18/20 13:00 134 H 28 H 142/108 98 12/18/20 12:00 96.9 F L 130 H 29 H 159/116 98 12/18/20 11:15 126 H 12/18/20 11:01 123 H 12/18/20 11:00 124 H 20 135/95 100 12/18/20 10:00 126 H 27 H 114/71 99 Intake and Output 12/18/20 12/19/20 12/19/20 22:59 06:59 14:59 Intake Total 980 797 67.375 Output Total 875 735 60 Balance 105 62 7.375 Intake: IV 800 400 20 Sodium Chloride 0.9% 1, 800 400 000 ml @ 100 mls/hr IV . Q10H [facility] Rx#:[id number] Sodium Chloride 0.9% 1, 20 000 ml @ 20 mls/hr IV . Q24H [facility] Rx#:[id number] Intake, IV Titration 107 12.375 Amount Labetalol 200 mg In 7 12.375 Sodium Chloride 0.9% 160 ml @ 1 MG/MIN 60 mls/hr IV .Q3H20M [facility] Rx#: [id number] metroNIDAZOLE-NS PMX 500 100 mg In Saline 1 100ml.bag @ 100 mls/hr IVPB Q8HR [facility] Rx#:[id number] Tube Feeding 150 230 35 Other 30 60 Output: Urine 875 735 60 Other: Voiding Method Indwelling Catheter Indwelling Catheter Results 12/19/20 03:16 12/19/20 03:16 CBC 08/17/21 Range/Units 03:16 WBC 21.2 H (3.8-10.6) k/uL RBC 4.04 (3.80-5.40) m/uL Hgb 12.5 (11.4-16.0) gm/dL Hct 39.9 (34.0-46.0) % Plt Count 423 (150-450) k/uL Comprehensive Metabolic Panel 12/19/20 Range/Units 03:16 Sodium 139 (137-145) mmol/L Potassium 3.8 (3.5-5.1) mmol/L Chloride 93 L (98-107) mmol/L Carbon Dioxide 39 H (22-30) mmol/L BUN 11 (7-17) mg/dL Creatinine 0.28 L (0.52-1.04) mg/dL Glucose 151 H (74-99) mg/dL Calcium 8.8 (8.4-10.2) mg/dL Current Medications Generic Name Dose Route Start Last Admin Trade Name Freq PRN Reason Stop Dose Admin Albuterol Sulfate 2.5 mg 12/16/20 08:00 12/19/20 07:19 Albuterol Nebulized 2.5 Mg/3 Ml INHALATION 2.5 mg RT-QID [facility] Administration Albuterol/Ipratropium 3 ml 12/16/20 06:27 Ipratropium-Albuterol 3 Ml Neb INHALATION RT-Q4H PRN shortness of breath Azithromycin 500 mg 12/17/20 08:00 12/18/20 08:47 Azithromycin 500 Mg Tab PO 500 mg DAILY@0800 [facility] Administration Clonidine HCl 1 patch 12/19/20 04:15 12/19/20 04:42 Clonidine 0.3 Mg/24hr Patch TRANSDERM 1 patch Q7D [facility] Administration Enoxaparin Sodium 40 mg 12/17/20 09:00 12/18/20 08:43 Enoxaparin 40 Mg/0.4 Ml Syringe SQ 40 mg DAILY [facility] Administration Metronidazole 500 mg/ IV 100 mls @ 100 mls/hr 12/16/20 08:00 12/19/20 00:52 Solution IVPB 100 mls/hr Q8HR [facility] Administration Ceftriaxone Sodium 1 gm/ 50 mls @ 100 mls/hr 12/17/20 09:00 12/18/20 08:43 Sodium Chloride IVPB 100 mls/hr Q24HR [facility] Administration Labetalol HCl 200 mg/ Sodium 200 mls @ 60 mls/hr 12/19/20 06:30 12/19/20 08:55 Chloride IV 0 mg/min .Q3H20M [facility] 0 mls/hr Infusion Protocol 1 MG/MIN Sodium Chloride 1,000 mls @ 20 mls/hr 12/19/20 07:00 Saline 0.9% IV .Q24H [facility] Lorazepam 1 mg 12/16/20 06:45 Lorazepam 2 Mg/Ml Inj IV Q4HR PRN Anxiety Methylprednisolone Sodium Succinate 40 mg 12/16/20 10:00 12/18/20 20:45 Methylprednisolone Sod Succi 40 Mg/Ml 1 Ml Vial IV 40 mg Q12HR [facility] Administration Miscellaneous Information 1 each 12/16/20 06:27 Pneumonia Protocol Utilized 1 Each Misc PO ONCE PRN Per Protocol Morphine Sulfate 4 mg 12/16/20 06:27 12/19/20 01:11 Morphine Sulfate 4 Mg/Ml Syringe IV 4 mg Q4HR PRN Administration Severe Pain Naloxone HCl 0.2 mg 12/16/20 06:27 Naloxone 0.4 Mg/Ml 1 Ml Vial IV Q2M PRN Opioid Reversal Ondansetron HCl 4 mg 12/16/20 06:27 12/18/20 20:45 Ondansetron 4 Mg/2 Ml Vial IVP 4 mg Q8HR PRN Administration Nausea And Vomiting Pantoprazole Sodium 40 mg 12/16/20 09:00 12/18/20 08:43 Pantoprazole 40 Mg/10 Ml Vial IV 40 mg DAILY [facility] Administration Prochlorperazine Edisylate 5 mg 12/16/20 06:45 12/18/20 14:39 Prochlorperazine Inj 10 Mg/2 Ml Vial IVP 5 mg Q4H PRN Administration Nausea And Vomiting Intake and Output 12/18/20 12/19/20 12/19/20 22:59 06:59 14:59 Intake Total 980 797 67.375 Output Total 875 735 60 Balance 105 62 7.375 Intake: IV 800 400 20 Sodium Chloride 0.9% 1, 800 400 000 ml @ 100 mls/hr IV . Q10H [facility] Rx#:[id number] Sodium Chloride 0.9% 1, 20 000 ml @ 20 mls/hr IV . Q24H [facility] Rx#:[id number] Intake, IV Titration 107 12.375 Amount Labetalol 200 mg In 7 12.375 Sodium Chloride 0.9% 160 ml @ 1 MG/MIN 60 mls/hr IV .Q3H20M [facility] Rx#: [id number] metroNIDAZOLE-NS PMX 500 100 mg In Saline 1 100ml.bag @ 100 mls/hr IVPB Q8HR [facility] Rx#:[id number] Tube Feeding 150 230 35 Other 30 60 Output: Urine 875 735 60 Other: Voiding Method Indwelling Catheter Indwelling Catheter 12/19/20 03:16 12/19/20 03:16
--- NOTE | 2020-12-19 10:17 | US ---
EXAMINATION TYPE: US renal artery duplex complet DATE OF EXAM: 12/19/2020 COMPARISON: NONE CLINICAL HISTORY: r/o renal artery stenosis. ICU patient with new controlled HTN MEASUREMENTS: RENAL SIZE: Rt Kidney: 10.0 x 4.5 x 4.6cm Lt Kidney: 10.8 x 5.5 x 4.4cm RESISTANCE INDEX Right: 0.56 Left: 0.59 RA/AO RATIO (< 3.5 ) Right: 1.5 Left: 1.8 RA VELOCITY ( < 180 cm/s) Right: 145.3cm/s Left: 171.6cm/s Technical limitations due to feeding tube and patient on a bypap machine - deep heavy breathing mov ements . aorta and renals appear unremarkable. no evidence of renal artery stenosis as visualized IMPRESSION: Limited exam as discussed above demonstrates no diagnostic evidence of renal artery stenosis.
--- NOTE | 2020-12-19 10:42 | P.PN ---
Subjective Progress Note Date: 12/19/20 Principal diagnosis: Sinus tachycardia/hypertensive Acute on chronic hypoxic respiratory failure Left-sided pneumonia likely aspiration pneumonia Paralyzed right vocal cord High risk of intermittent aspiration Sinus tachycardia palpitations 1317 2020, patient seen eval examined during the rounds remains on BiPAP 100% oxygen 12 x 6, patient remains tachycardic hypertensive Lopressor dose up requiring labetalol drip, family insist on surgery patient is very unstable transferred to tertiary care center, ENT consult has been requested as per request of the family, patient remains on broad-spectrum antibiotics workup for hypertension is in progress, feet is being given patient remains on Reglan, chest x-ray continue show a left-sided infiltrate 12/18/2020, patient seen eval reexamined during on Medications reviewed care plan discussed with the staff at length, patient slightly and now on the hypertensive side remains tachycardic, patient currently getting 12.5 twice a day we will increase it to 25 gradually with erythema up to 75 twice a day in next 48-72 hours, patient is on BiPAP at nighttime 04/10 with 50% oxygen during the day she is on 10 L nasal cannula sats in mid 90s, white cell count is the 18,900, hemoglobin and hematocrit remained stable, patient is reviewed, chest x- ray continue show patchy bilateral confluent is for his disease slight worsening on the right side has been noted possibly related to interstitial edema, patient remains on IV fluid 100 mL an hour would recommend to stop it as it appears that patient is going slow into fluid overload 12/17/2020, patient seen eval reexamined during the rounds labs reviewed medications reviewed care plan discussed with the staff at length, patient to remains on BiPAP with IPAP of 12 and EPAP of 6 along with 50% oxygen she has been on BiPAP all along, she also have problems associated with the intermittent sinus tachycardia and bradycardia most of the cardiac variation happens while she is sleeping, patient used to be on Lopressor 75 twice a day at home have not been started. 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, recently discharged from the hospital to [facility] patient has been doing fairly well for the 2 days however today started having cough shortness of breath oxygen saturation dropped down and she was transferred to [facility], the admitted chest x-ray is positive for left-sided infiltrate slight worsening to the right side, patient admitted into the hospital for further evaluation but the episode appears to be more likely aspiration Objective - Vital Signs Vital signs: Vital Signs Temp 98.1 F 12/18/20 20:00 Pulse 104 H 12/19/20 07:31 Resp 26 H 12/19/20 07:00 BP 113/73 12/19/20 07:00 Pulse Ox 95 12/19/20 07:00 Intake & Output 12/18/20 12/19/20 12/19/20 18:59 06:59 18:59 Intake Total 1425 1202 67.375 Output Total 1190 1060 60 Balance 235 142 7.375 Weight 42.5 kg Intake: IV 1300 700 20 Sodium Chloride 0.9% 1, 1300 700 000 ml @ 100 mls/hr IV . Q10H [facility] Rx#:[id number] Sodium Chloride 0.9% 1, 20 000 ml @ 20 mls/hr IV . Q24H [facility] Rx#:[id number] Intake, IV Titration 107 12.375 Amount Labetalol 200 mg In 7 12.375 Sodium Chloride 0.9% 160 ml @ 1 MG/MIN 60 mls/hr IV .Q3H20M [facility] Rx#: [id number] metroNIDAZOLE-NS PMX 500 100 mg In Saline 1 100ml.bag @ 100 mls/hr IVPB Q8HR [facility] Rx#:[id number] Tube Feeding 95 305 35 Other 30 90 Output: Urine 1190 1060 60 Other: Voiding Method Indwelling Catheter Indwelling Catheter - Exam - Constitutional General appearance: cooperative, disheveled - EENT Eyes: abnormal pupil, PERRLA Ears: bilateral: bulging - Neck Neck: lymphadenopathy, normal ROM Thyroid: bilateral: normal size - Respiratory Respiratory: bilateral: diminished, prolonged expiration - Cardiovascular Rhythm: regular Heart sounds: normal: S1, S2 - Gastrointestinal General gastrointestinal: absent bowel sounds, hepatomegaly - Neurologic Neurologic: CNII-XII intact - Musculoskeletal Musculoskeletal: generalized weakness - Labs CBC & Chem 7: 12/19/20 03:16 12/19/20 03:16 Labs: Abnormal Lab Results - Last 24 Hours (Table) 12/18/20 12/18/20 12/19/20 Range/Units 11:52 17:28 03:16 WBC 21.2 H (3.8-10.6) k/uL Neutrophils # 19.7 H (1.3-7.7) k/uL Lymphocytes # 0.7 L (1.0-4.8) k/uL Chloride (98-107) mmol/L Carbon Dioxide (22-30) mmol/L Creatinine (0.52-1.04) mg/dL Glucose (74-99) mg/dL POC Glucose (mg/dL) 133 H 150 H (75-99) mg/dL 12/19/20 Range/Units 03:16 WBC (3.8-10.6) k/uL Neutrophils # (1.3-7.7) k/uL Lymphocytes # (1.0-4.8) k/uL Chloride 93 L (98-107) mmol/L Carbon Dioxide 39 H (22-30) mmol/L Creatinine 0.28 L (0.52-1.04) mg/dL Glucose 151 H (74-99) mg/dL POC Glucose (mg/dL) (75-99) mg/dL Microbiology - Last 24 Hours (Table) 12/16/20 05:18 Blood Culture - Preliminary Blood No Growth after 72 hours Assessment and Plan Assessment: Acute on chronic hypoxic respiratory failure Malignant hypertension/hypertensive emergency Sinus tachycardia Now on hypertensive side, blood pressure persistently elevated Left-sided pneumonia likely aspiration pneumonia Paralyzed right vocal cord High risk of intermittent aspiration Sinus tachycardia palpitations Acute on chronic hypoxic respiratory failure Plan: Continue beta feng as well as amiodarone drip with aim to improve blood pressure, ENT consultation can be obtained however overall prognosis does not look very good Plan continue IV antibiotics, Recommend to stop the IV fluids will be KVO Continue labetalol drip Awaiting further recommendation from cardiovascular services Continue IV steroids and bronchodilator continue current therapy Resume low-dose Lopressor escalated dose as tolerated to 75 twice a day Attempt to take off of BiPAP machine later on today with nasal cannula but needs to keep on at nighttime and further plan of care as per clinical response of patient
[2020-12-19] MEDS: PANTOPRAZOLE 40 MG/10 ML VIAL IV SCH (11:11)
[2020-12-19] MEDS: ENOXAPARIN 40 MG/0.4 ML SYRINGE SQ SCH (11:11)
[2020-12-19] MEDS: methylPREDNISolone SOD SUCCI 40 MG/ML 1 ML VIAL IV SCH ×2 (11:11→22:04)
[2020-12-19] MEDS: AZITHROMYCIN 500 MG TAB PO SCH (11:12)
--- NOTE | 2020-12-19 12:43 | P.PN ---
Subjective This is a pleasant 25 years old female with past medical history of neurofibromatosis type II, aspiration pneumonia, vocal cord paralysis for the la [facility] 3 years as per family at bedside. Dysphagia status post PEG tube placement, Patient was discharged from hospital with prolonged hospital stay 11/15-30. And again 12/11-12/14 for recurrent aspiration pneumonia and she was admitted with the same this time. She is in the hospital from 12/16, she is currently in the ICU, patient is sleepy on BiPAP machine and could not provide information, information was obtained from mother at bedside, legal guardian on the phone and bedside nurse and staff. Patient with no vomiting or nausea since yesterday. She has bowel movement earlier She is tachycardic, tachypneic and hypoxic needed BiPAP most of the time. Her diligence about the patient today and start her on labetalol drip for tachycardia, renal arteries duplex ultrasound is negative for artery stenosis. KUB of the abdomen is negative for acute process. X-ray showing bilateral infiltrate. Several consultants on the case including ICU/pulmonary team cardiology team. She was on ceftriaxone and Zithromax and started Medrol 40 mg twice daily as well as normal saline at 100 mL per hour. Also she is on metoprolol 12.5 mg twice a day. She has tube feeding running at 35 ml/h Because of worsening leukocytosis and respiratory distress and mild hypothermia. Internal antibiotics to cefepime and consulted infectious disease team. Last admission on November she was getting cefepime as well Review of systems:/A Active Medications Generic Name Dose Route Start Last Admin Trade Name Freq PRN Reason Stop Dose Admin Albuterol Sulfate 2.5 mg 12/16/20 08:00 12/19/20 07:19 Albuterol Nebulized 2.5 Mg/3 Ml INHALATION 2.5 mg RT-QID ANDERSON Administration Albuterol/Ipratropium 3 ml 12/16/20 06:27 Ipratropium-Albuterol 3 Ml Neb INHALATION RT-Q4H PRN shortness of breath Azithromycin 500 mg 12/17/20 08:00 12/19/20 11:12 Azithromycin 500 Mg Tab PO 500 mg DAILY@0800 ANDERSON Administration Enoxaparin Sodium 40 mg 12/17/20 09:00 12/19/20 11:11 Enoxaparin 40 Mg/0.4 Ml Syringe SQ 40 mg DAILY ANDERSON Administration Metronidazole 500 mg/ IV 100 mls @ 100 mls/hr 12/16/20 08:00 12/19/20 11:12 Solution IVPB 100 mls/hr Q8HR ANDERSON Administration Labetalol HCl 200 mg/ Sodium 200 mls @ 60 mls/hr 12/19/20 06:30 12/19/20 10:38 Chloride IV 0.125 mg/min .Q3H20M ANDERSON 7.5 mls/hr Infusion Protocol 1 MG/MIN Sodium Chloride 1,000 mls @ 20 mls/hr 12/19/20 07:00 12/19/20 11:12 Saline 0.9% IV Not Given .Q24H ANDERSON Cefepime HCl 2 gm/ Sodium 100 mls @ 25 mls/hr 12/19/20 12:00 Chloride IVPB Q8H ANDERSON Lorazepam 1 mg 12/16/20 06:45 Lorazepam 2 Mg/Ml Inj IV Q4HR PRN Anxiety Methylprednisolone Sodium Succinate 40 mg 12/16/20 10:00 12/19/20 11:11 Methylprednisolone Sod Succi 40 Mg/Ml 1 Ml Vial IV 40 mg Q12HR ANDERSON Administration Miscellaneous Information 1 each 12/16/20 06:27 Pneumonia Protocol Utilized 1 Each Misc PO ONCE PRN Per Protocol Morphine Sulfate 4 mg 12/16/20 06:27 12/19/20 01:11 Morphine Sulfate 4 Mg/Ml Syringe IV 4 mg Q4HR PRN Administration Severe Pain Naloxone HCl 0.2 mg 12/16/20 06:27 Naloxone 0.4 Mg/Ml 1 Ml Vial IV Q2M PRN Opioid Reversal Ondansetron HCl 4 mg 12/16/20 06:27 12/18/20 20:45 Ondansetron 4 Mg/2 Ml Vial IVP 4 mg Q8HR PRN Administration Nausea And Vomiting Pantoprazole Sodium 40 mg 12/16/20 09:00 12/19/20 11:11 Pantoprazole 40 Mg/10 Ml Vial IV 40 mg DAILY ANDERSON Administration Prochlorperazine Edisylate 5 mg 12/16/20 06:45 12/18/20 14:39 Prochlorperazine Inj 10 Mg/2 Ml Vial IVP 5 mg Q4H PRN Administration Nausea And Vomiting Objective - Vital Signs Vital signs: Vital Signs Temp 96.9 F L 12/19/20 12:00 Pulse 105 H 12/19/20 12:15 Resp 29 H 12/19/20 12:15 BP 112/75 12/19/20 12:15 Pulse Ox 92 L 12/19/20 12:15 Intake & Output 12/18/20 12/19/20 12/19/20 18:59 06:59 18:59 Intake Total 1425 1202 102.375 Output Total 1190 1060 60 Balance 235 142 42.375 Weight 42.5 kg Intake: IV 1300 700 20 Sodium Chloride 0.9% 1, 1300 700 000 ml @ 100 mls/hr IV . Q10H [facility] Rx#:[id number] Sodium Chloride 0.9% 1, 20 000 ml @ 20 mls/hr IV . Q24H ANDERSON Rx#:[id number] Intake, IV Titration 107 12.375 Amount Labetalol 200 mg In 7 12.375 Sodium Chloride 0.9% 160 ml @ 1 MG/MIN 60 mls/hr IV .Q3H20M ANDERSON Rx#: [id number] metroNIDAZOLE-NS PMX 500 100 mg In Saline 1 100ml.bag @ 100 mls/hr IVPB Q8HR [facility]ERSON Rx#:[id number] Tube Feeding 95 305 70 Other 30 90 Output: Urine 1190 1060 60 Other: Voiding Method Indwelling Catheter Indwelling Catheter - Exam -GENERAL: The patient is sleepy on BiPAP. Does not wake up to verbal or tactile stimuli. She is thin built HEENT: Pupils are round and equally reacting to light. EOMI. No scleral icterus. No conjunctival pallor. Normocephalic, atraumatic. No pharyngeal erythema. No thyromegaly. CARDIOVASCULAR: S1 and S2 present. No murmurs, rubs, or gallops. -PULMONARY: Chest is clear to auscultation, bilateral basal crepitation ABDOMEN: Soft, nontender, nondistended, normoactive bowel sounds. No palpable organomegaly. MUSCULOSKELETAL: No joint swelling or deformity. EXTREMITIES: No cyanosis, clubbing, or pedal edema. NEUROLOGICAL: Gross neurological examination did not reveal any focal deficits. SKIN: No rashes. no petechiae. - Labs CBC & Chem 7: 12/19/20 03:16 12/19/20 03:16 Labs: Abnormal Lab Results - Last 24 Hours (Table) 08/12/19/20 12/19/20 Range/Units 17:28 03:16 03:16 WBC 21.2 H (3.8-10.6) k/uL Neutrophils # 19.7 H (1.3-7.7) k/uL Lymphocytes # 0.7 L (1.0-4.8) k/uL Chloride 93 L (98-107) mmol/L Carbon Dioxide 39 H (22-30) mmol/L Creatinine 0.28 L (0.52-1.04) mg/dL Glucose 151 H (74-99) mg/dL POC Glucose (mg/dL) 150 H (75-99) mg/dL Microbiology - Last 24 Hours (Table) 12/16/20 05:18 Blood Culture - Preliminary Blood No Growth after 72 hours Assessment and Plan Assessment: recurrent Bilateral aspiration pneumonia Moderate protein calorie malnutrition Dysphagia, status post PEG tube placement History of constipation, with an active issue Acute hypoxic respiratory failure type 2 neurofibromatosis Metabolic encephalopathy History of vocal cord paralysis Plan: This is a pleasant 24 years old female presents with bilateral pneumonia, status post PEG tube placement. Continue with cefepime, pulmonary team on the case, as well as infectious disease team. Cartilage team on the case Continue with BiPAP as needed keep head of bed more than 45, but states she sleeps most of the day like this Labs and medication were reviewed.. Continue same treatment. Continue with symptomatic treatment. Resume home medication. Monitor lytes and vitals. DVT and GI prophylaxis. Further recommendationsas per clinical course of the patient DVT prophylaxis: Subcutaneous Lovenox GI Prophylaxis: Ppi
[2020-12-19 12:57] LABS: ABG PO2 126 mmHg (83-108); Allen Test Performed? Yes
[2020-12-19 13:01] LABS: ABG PH 7.14 (7.35-7.45)
[2020-12-19 13:02] LABS: ABG PCO2 >120 mmHg (35-45)
--- NOTE | 2020-12-19 13:03 | CONS ---
CONSULTATION REASON FOR CONSULTATION: Vocal cord paralysis. HISTORY OF PRESENT ILLNESS: This is a 25-year-old white female with history of neurofibromatosis since age 10. Her history is obtained from her mother and father as she is nonverbal. She has had some issues since last year with recurrent pneumonias felt to be aspiration induced. These will clear up ut then recur at least 3 times in the last year and currently she has a left-sided pneumonia, which is felt to be possibly aspiration related. She does have a feeding tube. She has had a feeding tube placed due to this, and therefore does not take any oral intake. She is currently on antibiotics and intermittent BiPAP in the ICU. She has seen Dr. Mayo at [facility] with proposed surgery for her paralyzed vocal cord on the right, which sounds like a thyroplasty, but also according to her parents to do some type of procedure to move the tumor, which sounds as though it may be affecting the vagus nerve on the right. This is as much detail as they can give me presently. There is no known hoarseness as she is nonverbal. PAST MEDICAL HISTORY: As above as well as asthma, eye disorder. PAST SURGICAL HISTORY: MediPort, eye surgery, dental surgery. SOCIAL HISTORY: Does not smoke or drink alcohol. FAMILY HISTORY: Positive for asthma and seizure disorder. HOME MEDICATIONS: Prozac, Singulair, Depo-Provera, Ventolin, multivitamins, omeprazole, Voltaren, NovoLog, Raglan, Lopressor, Protonix, Ultram. ALLERGIES: TO TYLENOL WITH CODEINE. AMOXICILLIN. MIDAZOLAM. REVIEW OF SYSTEMS: Is otherwise as above, but could not be obtained due to her mental status. PHYSICAL EXAMINATION: GENERAL: This is a diminutive white female in no acute distress. She is nonverbal and sedated and is on BiPAP. EARS: Canals are clear. Tympanic membranes unremarkable mobile. NOSE shows no drainage or obstruction. MOUTH and throat as far as oropharynx is unremarkable. NECK: Supple without adenopathy or tenderness. Right mid jugular chain fullness approximate 4 to 5 cm. Laryngeal exam was not performed with flexible laryngoscopy as her mother declined this evaluation. ASSESSMENT: 1. Right vocal cord paralysis. 2. 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 MRI of the neck showed multiple neurofibromas including the intra auditory canals and even central. PLAN: It sounds as though the patient had some plans to have these procedures performed by Dr. Mayo through [facility]. This would be the most ideal due to the severity of the case and especially due to the large size of the mass in the right neck as this may make an even thyroplasty more difficulty and would generally be referred to Dr. Mayo expertise in laryngology. Certainly, the patient would need to be improved medically prior to any procedures requiring anesthesia or any surgical procedure, and therefore we will continue her medical management through her organ tuner. We will attempt to contact Dr. Mayo also regarding this patient otherwise, but preference would generally be once she is cleared medically enough to have procedure I would prefer to have this done at a tertiary care institution due to their expertise in this type of procedure especially again with the large neck mass in the vicinity of the surgical field. If there are questions or concerns, please feel free to contact me. MICHAEL / JAYNAN: [phone] /
[2020-12-19] MEDS ORDERED: propofoL 100 ML IV ONE (13:30)
[2020-12-19] MEDS ORDERED: NOREPINEPHRIN 4 MG-0.9% NS PMX 4 MG/250 ML ML IV ONE (14:14)
[2020-12-19] MEDS ORDERED: CHLORHEXIDINE GLUCONATE 15 ML CUP MUCOUS MEM ONE (14:34)
[2020-12-19] MEDS: CEFEPIME 2 GM in SODIUM CHLORIDE 0.9% 100 ML IVPB SCH ×2 (14:49→21:07)
--- NOTE | 2020-12-19 15:15 | XR ---
EXAMINATION TYPE: XR chest 1V portable DATE OF EXAM: 12/19/2020 Comparison: 12/19/2020 Clinical History: 25-year-old female post intubation Findings: Satisfactory ET tube, tip at the medial clavicular heads. Left anterior chest wall injection port wit h catheter tip at the lower SVC. Heart upper limits of normal in size. Worsening consolidation right upper lobe. New complete opacification right lower lobe. Worsening opacification left base. Diffuse i nterstitial densities persist. Old aspirated barium contrast material left base. Lucency at the right apex. Follow-up to exclude a subtle pneumothorax here. Impression: 1. Lucency at the right apex could reflect some residual aerated lung. Follow-up to exclude a subtle pneumothorax here. 2. Bilateral worsening multifocal airspace disease. Correlate for pneumonia.
[2020-12-19 15:51] LABS: ABG Base Excess 13.9 mmol/L; ABG Oxygen Saturation 99.8 % (94-97); ABG PH 7.29 (7.35-7.45); ABG PO2 176 mmHg (83-108); ABG TCO2 43 mmol/L (19-24); Allen Test Performed? Yes
[2020-12-19 15:53] LABS: ABG HCO3 41 mmol/L (21-25); ABG PCO2 84 mmHg (35-45)
[2020-12-19] MEDS: IPRATROPIUM-ALBUTEROL 3 ML NEB INHALATION PRN ×2 (16:10→19:47)
[2020-12-19] MEDS: NOREPINEPHRINE 4 MG in SODIUM CHLORIDE 0.9% 250 ML IV SCH ×2 (18:35→21:08)
[2020-12-19 20:08] LABS: ABG Base Excess 13.5 mmol/L; ABG Oxygen Saturation 96.7 % (94-97); ABG PH 7.28 (7.35-7.45); ABG PO2 87 mmHg (83-108); ABG TCO2 43 mmol/L (19-24); Allen Test Performed? Yes
[2020-12-19 20:09] LABS: ABG HCO3 40 mmol/L (21-25); ABG PCO2 85 mmHg (35-45)
[2020-12-19] MEDS: CHLORHEXIDINE GLUCONATE 15 ML CUP MUCOUS MEM SCH (22:04)
--- NOTE | 2020-12-19 23:02 | P.CONS ---
History of Present Illness - Reason for Consult Consult date: 12/19/20 aspiration pneumonia Requesting physician: Son E Sheet - Chief Complaint shortness of breath x few days - History of Present Illness History of present illness : Patient is 25-year-old female with a past medical history significant for neurofibromatosis in this patient who did have a vocal cord paralysis and history of recurrent aspiration pneumonia for which the patient did have a PEG tube placement patient was recently admitted at this facility and she was treated for pneumonia subsequently discharged to longterm on oral antibiotic patient presented back to the hospital few days ago with worsening shortness of breath that apparently started suddenly there is no clear history of any vomiting or aspiration as per history obtained from the mother at the bedside patient was brought to the hospital on arrival to the ER the patient was afebrile subsequent did have a low-grade fever of 99.9 and has been afebrile mostly no hypotension was noticed did have some tachycardia patient did have a white count of 14.1 which is slowly gone up to 21.2 however the patient has been treated with Solu-Medrol since admission infectious was consulted today with concern for elevated white count and antibiotic therapy patient did have a chest x-ray on admission which shows left-sided pneumonia slightly worse repeat chest x-ray this morning patient bilateral interstitial infiltrate with some left effusion most information has been obtained from review the chart and talking to the family as the patient herself was not provide any history Review of system: Positive point has been mentioned in HPI rest of the systems are negative Past medical history : Reviewed, documented below Past surgical history : Reviewed, documented below Social history: Reviewed, documented below Medications: Reviewed, as documented below GENERAL DESCRIPTION: Middle-aged female lying in bed, no distress. No tachypnea or accessory muscle of respiration use. HEENT: Shows Pallor , no scleral icterus. Oral mucous membrane is dry. NECK: Trachea central, no thyromegaly. LUNGS: Unlabored breathing. Decreased breath sound at the base. No wheeze or crackle. HEART: S1, S2, regular rate and rhythm. ABDOMEN: Soft, no tenderness , guarding or rigidity EXTREMITIES: No edema of feet. SKIN: No rash, no masses palpable. NEUROLOGICAL: The patient is lethargic orientation could not be determined LABS AND RADIOLOGY: Reviewed results see below Assessment : 1-Patient presented to hospital with acute respiratory failure in this patient who did have significant hypoxemia patient chest x-ray has been suggestive of increasing infiltrate at the left lower lobe concern for possible recurrent aspiration versus gram-negative pneumonia 2- worsening leukocytosis more likely steroid effect Plan: 1-we will try to obtain sputum for Gram stain culture 2-check a CRP procalcitonin level 3-continue with cefepime and Flagyl We will follow on clinical condition and cultures to further adjust medication if needed Thank you for this consultation we will follow the patient along with you Past Medical History Past Medical History: Asthma, Eye Disorder Additional Past Medical History / Comment(s): Neurofibromatosis History of Any Multi-Drug Resistant Organisms: None Reported Additional Past Surgical History / Comment(s): medi port, eye, dental Past Anesthesia/Blood Transfusion Reactions: No Reported Reaction Past Psychological History: No Psychological Hx Reported Smoking Status: Never smoker Past Alcohol Use History: None Reported Past Drug Use History: None Reported - Past Family History Mother Family Medical History: Asthma, Seizure Disorder Medications and Allergies Home Medications Medication Instructions Recorded Confirmed Type Montelukast [Singulair] 10 mg PEG/G-TUBE DAILY@0900 08/17/20 12/16/20 History medroxyPROGESTERone [Depo-Provera] 150 mg IM Q84D 08/17/20 12/16/20 History guaiFENesin-DM 100-10MG/5ML 10 ml PEG/G-TUBE Q6H PRN #1 bottle 12/01/20 12/16/20 Rx [Robitussin DM] Omeprazole 40 mg PEG/G-TUBE DAILY@0900 12/11/20 12/16/20 History Albuterol Inhaler [Ventolin Hfa 1 puff INHALATION 12/16/20 12/16/20 History Inhaler] RT-QID@,,, Diclofenac Sodium Gel [Voltaren 4 gm TOPICAL QID@,,,12/16/20 12/16/20 History Gel] INSULIN LISPRO (humaLOG) [humaLOG] See Protocol SQ QID@00,06,12,18 12/16/20 12/16/20 History Metoclopramide [Reglan] 10 mg PEG/G-TUBE TID@0700,1100,1600 12/16/20 12/16/20 History Metoprolol Tartrate [Lopressor] 50 mg PEG/G-TUBE BID@0900,2100 12/16/20 12/16/20 History Moxifloxacin HCl [Avelox] 400 mg PEG/G-TUBE DAILY@0900 12/16/20 12/16/20 History Pyridoxine [Vitamin B-6] 50 mg PEG/G-TUBE BID@0900,2100 12/16/20 12/16/20 History traMADol HCl [Ultram] 25 mg PEG/G-TUBE BID PRN 12/16/20 12/16/20 History Allergies Allergy/AdvReac Type Severity Reaction Status Date / Time acetaminophen Allergy Dyspnea Verified 12/11/20 11:12 [From Tylenol-Codeine #3] amoxicillin Allergy Rash/Hives Verified 12/11/20 11:12 codeine Allergy Dyspnea Verified 12/11/20 11:12 [From Tylenol-Codeine #3] midazolam [From Versed] AdvReac Hyper Verified 12/11/20 11:12 orange juice AdvReac Abdominal Verified 12/11/20 11:12 Pain strawberry AdvReac Abdominal Verified 12/11/20 11:12 Pain Physical Exam Vitals: Vital Signs Temp Pulse Resp BP Pulse Ox 12/19/20 07:31 104 H 12/19/20 07:19 109 H 12/19/20 07:00 106 H 26 H 113/73 95 12/19/20 06:00 144 H 27 H 208/152 96 12/19/20 05:00 129 H 28 H 205/144 95 12/19/20 04:00 126 H 28 H 171/111 94 L 12/19/20 03:00 126 H 27 H 193/139 96 12/19/20 02:00 122 H 16 186/139 100 12/19/20 01:00 117 H 22 221/154 97 12/19/20 00:00 96 33 H 176/136 98 12/18/20 23:00 104 H 33 H 145/99 99 12/18/20 22:00 122 H 35 H 169/126 98 12/18/20 21:02 115 H 24 93 L 12/18/20 21:00 75 33 H 144/120 97 12/18/20 20:00 98.1 F 110 H 40 H 151/117 97 12/18/20 19:00 111 H 34 H 141/102 100 12/18/20 18:00 96 38 H 157/102 100 12/18/20 17:00 110 H 37 H 150/95 99 12/18/20 16:00 116 H 38 H 138/108 98 12/18/20 15:22 125 H 12/18/20 15:12 123 H 12/18/20 15:11 99 12/18/20 15:00 85 39 H 136/102 97 12/18/20 14:00 92 30 H 135/100 100 12/18/20 13:00 134 H 28 H 142/108 98 12/18/20 12:00 96.9 F L 130 H 29 H 159/116 98 Intake and Output 12/18/20 12/19/20 12/19/20 22:59 06:59 14:59 Intake Total 980 797 67.375 Output Total 875 735 60 Balance 105 62 7.375 Intake: IV 800 400 20 Sodium Chloride 0.9% 1, 800 400 000 ml @ 100 mls/hr IV . Q10H [facility] Rx#:[id number] Sodium Chloride 0.9% 1, 20 000 ml @ 20 mls/hr IV . Q24H [facility] Rx#:[id number] Intake, IV Titration 107 12.375 Amount Labetalol 200 mg In 7 12.375 Sodium Chloride 0.9% 160 ml @ 1 MG/MIN 60 mls/hr IV .Q3H20M [facility] Rx#: [id number] metroNIDAZOLE-NS PMX 500 100 mg In Saline 1 100ml.bag @ 100 mls/hr IVPB Q8HR [facility] Rx#:[id number] Tube Feeding 150 230 35 Other 30 60 Output: Urine 875 735 60 Other: Voiding Method Indwelling Catheter Indwelling Catheter Results CBC & Chem 7: 12/19/20 03:16 12/19/20 03:16 Labs: Abnormal Lab Results - Last 24 Hours (Table) 12/18/20 12/18/20 12/19/20 Range/Units 11:52 17:28 03:16 WBC 21.2 H (3.8-10.6) k/uL Neutrophils # 19.7 H (1.3-7.7) k/uL Lymphocytes # 0.7 L (1.0-4.8) k/uL Chloride (98-107) mmol/L Carbon Dioxide (22-30) mmol/L Creatinine (0.52-1.04) mg/dL Glucose (74-99) mg/dL POC Glucose (mg/dL) 133 H 150 H (75-99) mg/dL 12/19/20 Range/Units 03:16 WBC (3.8-10.6) k/uL Neutrophils # (1.3-7.7) k/uL Lymphocytes # (1.0-4.8) k/uL Chloride 93 L (98-107) mmol/L Carbon Dioxide 39 H (22-30) mmol/L Creatinine 0.28 L (0.52-1.04) mg/dL Glucose 151 H (74-99) mg/dL POC Glucose (mg/dL) (75-99) mg/dL Microbiology - Last 24 Hours (Table) 12/16/20 05:18 Blood Culture - Preliminary Blood No Growth after 72 hours
[2020-12-20] MEDS: metroNIDAZOLE-NS PMX 500 MG in SALINE 1 100ML.BAG IVPB SCH ×4 (00:03→23:23)
[2020-12-20 04:14] LABS: Glucose,Whole Blood 148 mg/dL (75-99)
[2020-12-20] MEDS: CEFEPIME 2 GM in SODIUM CHLORIDE 0.9% 100 ML IVPB SCH ×3 (04:32→20:43)
[2020-12-20] MEDS: NOREPINEPHRINE 4 MG in SODIUM CHLORIDE 0.9% 250 ML IV SCH (04:32)
[2020-12-20] MEDS: LABETALOL 200 MG in SODIUM CHLORIDE 0.9% 160 ML IV SCH ×6 (04:33→23:09)
[2020-12-20 04:44] LABS: Basophils # (A) 0.1 k/uL (0-0.2); Basophils % (A) 0 %; Eosinophils % (A) 0 %; HCT 34.7 % (34.0-46.0); HGB 10.8 gm/dL (11.4-16.0); Hypochromasia Marked; Lymphocytes # (A) 0.6 k/uL (1.0-4.8); Lymphocytes % (A) 2 %; MCH 30.7 pg (25.0-35.0); MCV 98.8 fL (80.0-100.0); Macrocytosis Slight; Mean Platelet Volume 6.9; Monocytes # (A) 0.6 k/uL (0-1.0); Monocytes % (A) 2 %; Neutrophils # (A) 32.2 k/uL (1.3-7.7); Neutrophils % (A) 96 %; Platelet Count 413 k/uL (150-450); RBC 3.51 m/uL (3.80-5.40); RDW 15.5 % (11.5-15.5); WBC 33.7 k/uL (3.8-10.6)
[2020-12-20 04:45] LABS: African American GFR (CKD) >90 (>60 ml/min/1.73 sqM); Anion Gap 5 mmol/L; Blood Urea Nitrogen 16 mg/dL (7-17); Calcium 8.4 mg/dL (8.4-10.2); Carbon Dioxide 36 mmol/L (22-30); Chloride 101 mmol/L (98-107); Glucose 135 mg/dL (74-99); Non-African American GFR(CKD) >90 (>60 ml/min/1.73 sqM); Potassium 3.3 mmol/L (3.5-5.1); Sodium 142 mmol/L (137-145)
[2020-12-20 04:56] LABS: C Reactive Protein 25.8 mg/dL (<1.0)
[2020-12-20 05:32] LABS: ABG HCO3 38 mmol/L (21-25); ABG Oxygen Saturation 98.6 % (94-97); ABG PCO2 65 mmHg (35-45); ABG PH 7.38 (7.35-7.45); ABG PO2 105 mmHg (83-108); ABG TCO2 40 mmol/L (19-24); Allen Test Performed? Yes
[2020-12-20] MEDS: LORazepam 2 MG/ML INJ IV PRN ×2 (05:46→20:42)
[2020-12-20] MEDS ORDERED: Potassium Replacement Protocol 1 EACH MISC MISCELLANE PRN (06:16)
[2020-12-20 06:41] LABS: Anisocytosis (M) Present; Polychromasia Present
[2020-12-20 06:44] LABS: Toxic Granulation Present
[2020-12-20] MEDS: POTASSIUM BICARBONATE/CIT AC 20 MEQ TABLET.EFF NG-TUBE SCH ×2 (06:50→08:38)
[2020-12-20] MEDS ORDERED: POTASSIUM CHLORIDE ER 20 MEQ TAB.ER PO SCH (07:00)
[2020-12-20] MEDS: SODIUM CHLORIDE 0.9% 1,000 ML IV SCH (07:12)
[2020-12-20] MEDS: ALBUTEROL NEBULIZED 2.5 MG/3 ML INHALATION SCH ×4 (07:20→19:15)
--- NOTE | 2020-12-20 08:24 | XR ---
EXAMINATION TYPE: XR chest 1V portable DATE OF EXAM: 12/20/2020 COMPARISON: 12/19/2020 HISTORY: Shortness of breath FINDINGS: There are bilateral pleural effusions with cardiomegaly and bibasilar infiltrate. There is a diffuse interstitial pattern. Aspirated barium suspected in the left lower lobe. Mediport catheter and ET tu be stable. No definite sizable pneumothorax. IMPRESSION: 1. Diffuse pleural-parenchymal changes stable correlate for diffuse pneumonia versus CHF with pulmona ry edema.
[2020-12-20] MEDS: PANTOPRAZOLE 40 MG/10 ML VIAL IV SCH (08:39)
[2020-12-20] MEDS: methylPREDNISolone SOD SUCCI 40 MG/ML 1 ML VIAL IV SCH ×2 (08:39→21:34)
[2020-12-20] MEDS: CHLORHEXIDINE GLUCONATE 15 ML CUP MUCOUS MEM SCH ×2 (08:39→21:35)
[2020-12-20] MEDS: ENOXAPARIN 40 MG/0.4 ML SYRINGE SQ SCH (08:39)
[2020-12-20] MEDS: AZITHROMYCIN 500 MG TAB PO SCH (08:40)
[2020-12-20] MEDS: METOPROLOL TARTRATE 25 MG TAB PO SCH ×2 (11:46→21:34)
[2020-12-20] MEDS: MORPHINE SULFATE 4 MG/ML SYRINGE IV PRN ×2 (11:46→17:31)
--- NOTE | 2020-12-20 12:32 | P.PN ---
Subjective Progress Note Date: 12/19/20 HISTORY OF PRESENT ILLNESS: HISTORY OF PRESENTING ILLNESS This is a 25-year-old female with a past medical history of hypertension, neurofibromatosis with multiple tumors status post multiple chemotherapy, right sided vocal cord paralysis, asthma, aspiration pneumonia, pneumonia with polymicrobial right-sided lung abscess in April 2020, juvenile arthritis. She follows in the office with myself. . She was admitted recently 09/22- to [facility] with increased shortness of breath and congestion, silk finisher consultation due to mildly elevated cardiac enzymes. Elevated troponin was related to sepsis and hypoxia. Echocardiogram on 09/22/2020 revealed EF of 55-60% without significant valvular disease. Patient is status post PEG placement on 11/20. Patient has been having issues with bradycardia and sinus tachycardia the past. Her beta feng was increased last hospitalization. She went to rehab and had been doing well apparently and then was found to be hypoxic. Chest x-ray 12/16/2020 showed left-sided pneumonia slightly worse than before. She has been receiving tube feeds however concern of possibly bolus with aspiration. She has not been eating anything by mouth. She is currently on BiPAP and somewhat somnolent however arousable. No chest pain or pressure. Initial EKG shows sinus tachycardia 118 bpm, right atrial enlargement, no specific ST or T wave abnormalities. Blood work shows white blood cell count 14.5, hemoglobin 11.8, sodium 142, creatinine 0.34, AST 15, ALP 49, troponin less than 0.012, pro BNP 454. 12/18/[address] with a heart rate around 112. No med changes made. 12/19/2020 Patient examined in the ICU with Dr. Perry. Mother at bedside. Patient became hypertensive overnight. She is currently receiving metoprolol via PEG tube and a catapres patch. Patient was also started on a labetalol drip this morning. Currently infusing at 0.5mg/min. Heart rate around 100. SBP ranging from 90-100. PHYSICAL EXAM: VITAL SIGNS: Reviewed. GENERAL: Well-developed in no acute distress. NECK: Supple. No JVD or thyromegaly LUNGS: Respirations even and unlabored. Lungs essentially clear to auscultation bilaterally. HEART: Regular rate and rhythm. S1 and S2 heard. EXTREMITIES: Normal range of motion. No clubbing or cyanosis. Peripheral pulses intact. No lower extremity edema ASSESSMENT: 1. Acute respiratory failure likely related to aspiration pneumonia 2. Sinus bradycardia likely mainly related to hypoxia, some vagal activity as well as beta fegn. Currently asymptomatic 3. Sinus tachycardia 4. History of neurofibromatosis, type II 5. Right-sided vocal cord paralysis 6. Hypertension, uncontrolled overnight 7. History of asthma 8. History of juvenile arthritis 9. Cachexia and weight loss with protein calorie malnutrition status post PEG tube placement PLAN: Discontinue catapres patch Discontinue metoprolol Continue labetalol. Titrate for systolic blood pressure [id number] Obtain renal artery ultrasound Metanephrines ordered. Await results Further recommendations pending patient course Nurse practitioner note has been reviewed by physician. Signing provider agrees with the documented findings, assessment, and plan of care. Objective - Vital Signs Vital signs: Vital Signs Temp 100.4 F H 12/20/20 12:00 Pulse 133 H 12/20/20 12:00 Resp 21 12/20/20 12:00 BP 199/142 12/20/20 12:00 Pulse Ox 93 L 12/20/20 12:00 Intake & Output 12/19/20 12/20/20 12/20/20 18:59 06:59 18:59 Intake Total 1556.375 876.945 128.67 Output Total 1258 450 195 Balance 298.375 426.945 -66.33 Weight 44.5 kg 44.5 kg Intake: IV 350 250 120 Sodium Chloride 0.9% 1, 350 250 120 000 ml @ 20 mls/hr IV . Q24H [facility] Rx#:[id number] Intake, IV Titration 1136.375 626.945 8.67 Amount Cefepime 2 gm In Sodium 100 Chloride 0.9% 100 ml @ 25 mls/hr IVPB Q8H [facility] Rx#: [id number] Labetalol 200 mg In 36.375 Sodium Chloride 0.9% 160 ml @ 1 MG/MIN 60 mls/hr IV .Q3H20M [facility] Rx#: [id number] Norepinephrine 4 mg In 360.304 Sodium Chloride 0.9% 250 ml @ 0.05 MCG/KG/MIN 8. 096 mls/hr IV .Q24H [facility] Rx#:[id number] Sodium Chloride 0.9% 1, 1000 000 ml @ 100 mls/hr IV . Q10H [facility] Rx#:[id number] metroNIDAZOLE-NS PMX 500 100 mg In Saline 1 100ml.bag @ 100 mls/hr IVPB Q8HR [facility] Rx#:[id number] propofoL 1,000 mg In 166.641 8.67 Empty Bag 1 bag @ Titrate IV .Q0M [facility] Rx#: [id number] Tube Feeding 70 Output: Urine 1258 450 195 Other: Voiding Method Indwelling Catheter Indwelling Catheter Indwelling Catheter ABP, PAP, CO, CI - Last Documented Arterial Blood Pressure 103/55 - Labs CBC & Chem 7: 12/20/20 04:10 12/20/20 04:10 Labs: Abnormal Lab Results - Last 24 Hours (Table) 12/19/20 12/19/20 12/19/20 Range/Units 03:16 12:55 15:50 WBC (3.8-10.6) k/uL RBC (3.80-5.40) m/uL Hgb (11.4-16.0) gm/dL Neutrophils # (1.3-7.7) k/uL Lymphocytes # (1.0-4.8) k/uL ABG pH 7.14 L* 7.29 L (7.35-7.45) ABG pCO2 >120 H* 84 H* (35-45) mmHg ABG pO2 126 H 176 H (83-108) mmHg ABG HCO3 41 H* (21-25) mmol/L ABG Total CO2 43 H (19-24) mmol/L ABG O2 Saturation 98.0 H 99.8 H (94-97) % Potassium (3.5-5.1) mmol/L Carbon Dioxide (22-30) mmol/L Creatinine (0.52-1.04) mg/dL Glucose (74-99) mg/dL POC Glucose (mg/dL) (75-99) mg/dL C-Reactive Protein (<1.0) mg/dL Procalcitonin 0.55 H (0.02-0.09) ng/mL 12/19/20 12/20/20 12/20/20 Range/Units 20:02 04:10 04:10 WBC 33.7 H (3.8-10.6) k/uL RBC 3.51 L (3.80-5.40) m/uL Hgb 10.8 L (11.4-16.0) gm/dL Neutrophils # 32.2 H (1.3-7.7) k/uL Lymphocytes # 0.6 L (1.0-4.8) k/uL ABG pH 7.28 L (7.35-7.45) ABG pCO2 85 H* (35-45) mmHg ABG pO2 (83-108) mmHg ABG HCO3 40 H* (21-25) mmol/L ABG Total CO2 43 H (19-24) mmol/L ABG O2 Saturation (94-97) % Potassium 3.3 L (3.5-5.1) mmol/L Carbon Dioxide 36 H (22-30) mmol/L Creatinine 0.30 L (0.52-1.04) mg/dL Glucose 135 H (74-99) mg/dL POC Glucose (mg/dL) (75-99) mg/dL C-Reactive Protein 25.8 H (<1.0) mg/dL Procalcitonin (0.02-0.09) ng/mL 12/20/20 12/20/20 Range/Units 04:11 05:32 WBC (3.8-10.6) k/uL RBC (3.80-5.40) m/uL Hgb (11.4-16.0) gm/dL Neutrophils # (1.3-7.7) k/uL Lymphocytes # (1.0-4.8) k/uL ABG pH (7.35-7.45) ABG pCO2 65 H (35-45) mmHg ABG pO2 (83-108) mmHg ABG HCO3 38 H (21-25) mmol/L ABG Total CO2 40 H (19-24) mmol/L ABG O2 Saturation 98.6 H (94-97) % Potassium (3.5-5.1) mmol/L Carbon Dioxide (22-30) mmol/L Creatinine (0.52-1.04) mg/dL Glucose (74-99) mg/dL POC Glucose (mg/dL) 148 H (75-99) mg/dL C-Reactive Protein (<1.0) mg/dL Procalcitonin (0.02-0.09) ng/mL Microbiology - Last 24 Hours (Table) 12/19/20 14:26 Gram Stain - Preliminary Sputum Sputum Culture - Preliminary 12/16/20 05:18 Blood Culture - Preliminary Blood No Growth after 96 hours
--- NOTE | 2020-12-20 12:44 | P.PN ---
Subjective Progress Note Date: 12/20/20 HISTORY OF PRESENT ILLNESS: HISTORY OF PRESENTING ILLNESS This is a 25-year-old female with a past medical history of hypertension, neurofibromatosis with multiple tumors status post multiple chemotherapy, right sided vocal cord paralysis, asthma, aspiration pneumonia, pneumonia with polymicrobial right-sided lung abscess in April 2020, juvenile arthritis. She follows in the office with myself. . She was admitted recently 09/22- to [facility] with increased shortness of breath and congestion, hearing aid mechanic consultation due to mildly elevated cardiac enzymes. Elevated troponin was related to sepsis and hypoxia. Echocardiogram on 09/22/2020 revealed EF of 55-60% without significant valvular disease. Patient is status post PEG placement on 11/20. Patient has been having issues with bradycardia and sinus tachycardia the past. Her beta feng was increased last hospitalization. She went to rehab and had been doing well apparently and then was found to be hypoxic. Chest x-ray 12/16/2020 showed left-sided pneumonia slightly worse than before. She has been receiving tube feeds however concern of possibly bolus with aspiration. She has not been eating anything by mouth. She is currently on BiPAP and somewhat somnolent however arousable. No chest pain or pressure. Initial EKG shows sinus tachycardia 118 bpm, right atrial enlargement, no specific ST or T wave abnormalities. Blood work shows white blood cell count 14.5, hemoglobin 11.8, sodium 142, creatinine 0.34, AST 15, ALP 49, troponin less than 0.012, pro BNP 454. 12/18/[address] with a heart rate around 112. No med changes made. 12/19/2020 Patient examined in the ICU with Dr. Perry. Mother at bedside. Patient became hypertensive overnight. She is currently receiving metoprolol via PEG tube and a catapres patch. Patient was also started on a labetalol drip this morning. Currently infusing at 0.5mg/min. Heart rate around 100. SBP ranging from 90-100. 12/20/2020 Patient became less responsive yesterday. She was intubated yesterday. She boom ins on mechanical ventilation. She was started on vasopressor support yesterday due to hypotension which has been weaned off this morning. Blood pressure stable. Monitor reveals sinus tachycardia with a heart rate in the 120s. Renal artery US does not reveal evidence of renal artery stenosis. Chest xray reveals diffuse pleural-parenchymal changes stable early for diffuse pneumonia versus CHF with pulmonary edema. PHYSICAL EXAM: VITAL SIGNS: Reviewed. GENERAL: Well-developed in no acute distress. NECK: Supple. No JVD or thyromegaly LUNGS: Respirations even and unlabored. Lungs diminished to auscultation bilaterally. HEART: Regular rate and rhythm. S1 and S2 heard. EXTREMITIES: Normal range of motion. No clubbing or cyanosis. Peripheral pulses intact. No lower extremity edema ASSESSMENT: 1. Acute respiratory failure likely related to aspiration pneumonia 2. Sinus bradycardia likely mainly related to hypoxia, some vagal activity as well as beta feng 3. Sinus tachycardia 4. History of neurofibromatosis, type II 5. Right-sided vocal cord paralysis 6. Hypertension, uncontrolled overnight 7. History of asthma 8. History of juvenile arthritis 9. Cachexia and weight loss with protein calorie malnutrition status post PEG tube placement PLAN: Begin metoprolol 25mg BID Continue to monitor blood pressure and heart rate Further ICU management per Dr. Bae Further recommendations pending patient course Nurse practitioner note has been reviewed by physician. Signing provider agrees with the documented findings, assessment, and plan of care. Objective - Vital Signs Vital signs: Vital Signs Temp 100.4 F H 12/20/20 12:00 Pulse 133 H 12/20/20 12:00 Resp 21 12/20/20 12:00 BP 199/142 12/20/20 12:00 Pulse Ox 93 L 12/20/20 12:00 Intake & Output 12/19/20 12/20/20 12/20/20 18:59 06:59 18:59 Intake Total 1556.375 876.945 128.67 Output Total 1258 450 195 Balance 298.375 426.945 -66.33 Weight 44.5 kg 44.5 kg Intake: IV 350 250 120 Sodium Chloride 0.9% 1, 350 250 120 000 ml @ 20 mls/hr IV . Q24H [facility] Rx#:[id number] Intake, IV Titration 1136.375 626.945 8.67 Amount Cefepime 2 gm In Sodium 100 Chloride 0.9% 100 ml @ 25 mls/hr IVPB Q8H [facility] Rx#: [id number] Labetalol 200 mg In 36.375 Sodium Chloride 0.9% 160 ml @ 1 MG/MIN 60 mls/hr IV .Q3H20M [facility] Rx#: [id number] Norepinephrine 4 mg In 360.304 Sodium Chloride 0.9% 250 ml @ 0.05 MCG/KG/MIN 8. 096 mls/hr IV .Q24H [facility] Rx#:[id number] Sodium Chloride 0.9% 1, 1000 000 ml @ 100 mls/hr IV . Q10H [facility] Rx#:[id number] metroNIDAZOLE-NS PMX 500 100 mg In Saline 1 100ml.bag @ 100 mls/hr IVPB Q8HR [facility] Rx#:[id number] propofoL 1,000 mg In 166.641 8.67 Empty Bag 1 bag @ Titrate IV .Q0M [facility] Rx#: [id number] Tube Feeding 70 Output: Urine 1258 450 195 Other: Voiding Method Indwelling Catheter Indwelling Catheter Indwelling Catheter ABP, PAP, CO, CI - Last Documented Arterial Blood Pressure 103/55 - Labs CBC & Chem 7: 12/20/20 04:10 12/20/20 04:10 Labs: Abnormal Lab Results - Last 24 Hours (Table) 12/19/20 12/19/20 12/19/20 Range/Units 03:16 12:55 15:50 WBC (3.8-10.6) k/uL RBC (3.80-5.40) m/uL Hgb (11.4-16.0) gm/dL Neutrophils # (1.3-7.7) k/uL Lymphocytes # (1.0-4.8) k/uL ABG pH 7.14 L* 7.29 L (7.35-7.45) ABG pCO2 >120 H* 84 H* (35-45) mmHg ABG pO2 126 H 176 H (83-108) mmHg ABG HCO3 41 H* (21-25) mmol/L ABG Total CO2 43 H (19-24) mmol/L ABG O2 Saturation 98.0 H 99.8 H (94-97) % Potassium (3.5-5.1) mmol/L Carbon Dioxide (22-30) mmol/L Creatinine (0.52-1.04) mg/dL Glucose (74-99) mg/dL POC Glucose (mg/dL) (75-99) mg/dL C-Reactive Protein (<1.0) mg/dL Procalcitonin 0.55 H (0.02-0.09) ng/mL 12/19/20 12/20/20 12/20/20 Range/Units 20:02 04:10 04:10 WBC 33.7 H (3.8-10.6) k/uL RBC 3.51 L (3.80-5.40) m/uL Hgb 10.8 L (11.4-16.0) gm/dL Neutrophils # 32.2 H (1.3-7.7) k/uL Lymphocytes # 0.6 L (1.0-4.8) k/uL ABG pH 7.28 L (7.35-7.45) ABG pCO2 85 H* (35-45) mmHg ABG pO2 (83-108) mmHg ABG HCO3 40 H* (21-25) mmol/L ABG Total CO2 43 H (19-24) mmol/L ABG O2 Saturation (94-97) % Potassium 3.3 L (3.5-5.1) mmol/L Carbon Dioxide 36 H (22-30) mmol/L Creatinine 0.30 L (0.52-1.04) mg/dL Glucose 135 H (74-99) mg/dL POC Glucose (mg/dL) (75-99) mg/dL C-Reactive Protein 25.8 H (<1.0) mg/dL Procalcitonin (0.02-0.09) ng/mL 12/20/20 12/20/20 Range/Units 04:11 05:32 WBC (3.8-10.6) k/uL RBC (3.80-5.40) m/uL Hgb (11.4-16.0) gm/dL Neutrophils # (1.3-7.7) k/uL Lymphocytes # (1.0-4.8) k/uL ABG pH (7.35-7.45) ABG pCO2 65 H (35-45) mmHg ABG pO2 (83-108) mmHg ABG HCO3 38 H (21-25) mmol/L ABG Total CO2 40 H (19-24) mmol/L ABG O2 Saturation 98.6 H (94-97) % Potassium (3.5-5.1) mmol/L Carbon Dioxide (22-30) mmol/L Creatinine (0.52-1.04) mg/dL Glucose (74-99) mg/dL POC Glucose (mg/dL) 148 H (75-99) mg/dL C-Reactive Protein (<1.0) mg/dL Procalcitonin (0.02-0.09) ng/mL Microbiology - Last 24 Hours (Table) 12/19/20 14:26 Gram Stain - Preliminary Sputum Sputum Culture - Preliminary 12/16/20 05:18 Blood Culture - Preliminary Blood No Growth after 96 hours
--- NOTE | 2020-12-20 15:31 | P.GSCN ---
History of Present Illness Consult date: 12/20/20 Reason for Consult: Pneumothorax Requesting physician: Jason Bae History of present illness: This is a 25-year-old female patient of Dr. Cabrera. 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 She presented to [facility] emergency room from [facility] with complaints of shortness of breath and acute hypoxic respiratory failure. Apparently this young lady has been discharged twice in the last month after admission for aspiration pneumonia. Her most recent discharge was 12/14/20 2 [facility] for PT and OT therapy. She was admitted again for what appears to be the same with consultations placed to pulmonology, infectious disease, cardiology, and ENT. Her chest x-rays have been followed daily, however yesterday there was a mention by radiology of lucency at the right apex with recommendations for follow-up to exclude subtle pneumothorax. Due to this finding cardiothoracic surgery was consulted for recommendations. Review of Systems Review of systems was completed by chart review as the patient is currently mechanically ventilated - Respiratory Reports as per HPI, Reports dyspnea Past Medical History Past Medical History: Asthma, Eye Disorder Additional Past Medical History / Comment(s): Neurofibromatosis type II with vocal cord paralysis; aspiration pneumonia History of Any Multi-Drug Resistant Organisms: None Reported Additional Past Surgical History / Comment(s): medi port, eye, dental Past Anesthesia/Blood Transfusion Reactions: No Reported Reaction Past Psychological History: No Psychological Hx Reported Smoking Status: Never smoker Past Alcohol Use History: None Reported Past Drug Use History: None Reported - Past Family History Mother Family Medical History: Asthma, Seizure Disorder Medications and Allergies Home Medications Medication Instructions Recorded Confirmed Type Montelukast [Singulair] 10 mg PEG/G-TUBE DAILY@0900 08/17/20 12/16/20 History medroxyPROGESTERone [Depo-Provera] 150 mg IM Q84D 08/17/20 12/16/20 History guaiFENesin-DM 100-10MG/5ML 10 ml PEG/G-TUBE Q6H PRN #1 bottle 12/01/20 12/16/20 Rx [Robitussin DM] Omeprazole 40 mg PEG/G-TUBE DAILY@0900 12/11/20 12/16/20 History Albuterol Inhaler [Ventolin Hfa 1 puff INHALATION 12/16/20 12/16/20 History Inhaler] RT-QID@,,, Diclofenac Sodium Gel [Voltaren 4 gm TOPICAL QID@,,,12/16/20 12/16/20 History Gel] INSULIN LISPRO (humaLOG) [humaLOG] See Protocol SQ QID@00,06,12,18 12/16/20 12/16/20 History Metoclopramide [Reglan] 10 mg PEG/G-TUBE TID@0700,1100,1600 12/16/20 12/16/20 H istory Metoprolol Tartrate [Lopressor] 50 mg PEG/G-TUBE BID@0900,2100 12/16/20 12/16/20 History Moxifloxacin HCl [Avelox] 400 mg PEG/G-TUBE DAILY@0900 12/16/20 12/16/20 History Pyridoxine [Vitamin B-6] 50 mg PEG/G-TUBE BID@0900,2100 12/16/20 12/16/20 History traMADol HCl [Ultram] 25 mg PEG/G-TUBE BID PRN 12/16/20 12/16/20 History Allergies Allergy/AdvReac Type Severity Reaction Status Date / Time acetaminophen Allergy Dyspnea Verified 12/11/20 11:12 [From Tylenol-Codeine #3] amoxicillin Allergy Rash/Hives Verified 12/11/20 11:12 codeine Allergy Dyspnea Verified 12/11/20 11:12 [From Tylenol-Codeine #3] midazolam [From Versed] AdvReac Hyper Verified 12/11/20 11:12 orange juice AdvReac Abdominal Verified 12/11/20 11:12 Pain strawberry AdvReac Abdominal Verified 12/11/20 11:12 Pain Surgical - Exam Vital Signs Temp Pulse Resp BP Pulse Ox 97.8 F 114 H 36 H 145/90 98 12/16/20 05:10 12/16/20 05:10 12/16/20 05:10 12/16/20 05:10 12/16/20 05:10 CONSTITUTIONAL: Remains sedated and intubated in the intensive care unit in no current acute distress EYES: Pupils equal, round, reactive to light ENT: Moist mucous membranes without oral lesions present NECK: No masses, no bruits, trachea midline RESPIRATORY: Lungs sounds coarse in the bases. Respirations even, nonlabored on mechanical ventilation with current settings assist control mode, FiO2 60%, tidal volume 300, respiratory rate 20, PEEP 5. CARDIOVASCULAR: S1, S2 present. Tachy but regular rate and rhythm, sinus tach on telemetry. Palpable peripheral pulses bilaterally. No edema present. GASTROINTESTINAL: Abdomen soft, nontender, nondistended. Active bowel sounds present 4 quadrants. PEG tube present GENITOURINARY: Bahena catheter present draining yellow urine at 30-50 mL per hour INTEGUMENTARY: Skin is warm and dry PSYCHIATRIC: Unable to assess as patient is mechanically ventilated, per charting patient is nonverbal at baseline Results - Labs 12/20/20 04:10 12/20/20 04:10 Abnormal Lab Results - Last 24 Hours (Table) 12/19/20 12/19/20 12/19/20 Range/Units 03:16 12:55 15:50 WBC (3.8-10.6) k/uL RBC (3.80-5.40) m/uL Hgb (11.4-16.0) gm/dL Neutrophils # (1.3-7.7) k/uL Lymphocytes # (1.0-4.8) k/uL ABG pH 7.14 L* 7.29 L (7.35-7.45) ABG pCO2 >120 H* 84 H* (35-45) mmHg ABG pO2 126 H 176 H (83-108) mmHg ABG HCO3 41 H* (21-25) mmol/L ABG Total CO2 43 H (19-24) mmol/L ABG O2 Saturation 98.0 H 99.8 H (94-97) % Potassium (3.5-5.1) mmol/L Carbon Dioxide (22-30) mmol/L Creatinine (0.52-1.04) mg/dL Glucose (74-99) mg/dL POC Glucose (mg/dL) (75-99) mg/dL C-Reactive Protein (<1.0) mg/dL Procalcitonin 0.55 H (0.02-0.09) ng/mL 12/19/20 12/20/20 12/20/20 Range/Units 20:02 04:10 04:10 WBC 33.7 H (3.8-10.6) k/uL RBC 3.51 L (3.80-5.40) m/uL Hgb 10.8 L (11.4-16.0) gm/dL Neutrophils # 32.2 H (1.3-7.7) k/uL Lymphocytes # 0.6 L (1.0-4.8) k/uL ABG pH 7.28 L (7.35-7.45) ABG pCO2 85 H* (35-45) mmHg ABG pO2 (83-108) mmHg ABG HCO3 40 H* (21-25) mmol/L ABG Total CO2 43 H (19-24) mmol/L ABG O2 Saturation (94-97) % Potassium 3.3 L (3.5-5.1) mmol/L Carbon Dioxide 36 H (22-30) mmol/L Creatinine 0.30 L (0.52-1.04) mg/dL Glucose 135 H (74-99) mg/dL POC Glucose (mg/dL) (75-99) mg/dL C-Reactive Protein 25.8 H (<1.0) mg/dL Procalcitonin (0.02-0.09) ng/mL 12/20/20 12/20/20 Range/Units 04:11 05:32 WBC (3.8-10.6) k/uL RBC (3.80-5.40) m/uL Hgb (11.4-16.0) gm/dL Neutrophils # (1.3-7.7) k/uL Lymphocytes # (1.0-4.8) k/uL ABG pH (7.35-7.45) ABG pCO2 65 H (35-45) mmHg ABG pO2 (83-108) mmHg ABG HCO3 38 H (21-25) mmol/L ABG Total CO2 40 H (19-24) mmol/L ABG O2 Saturation 98.6 H (94-97) % Potassium (3.5-5.1) mmol/L Carbon Dioxide (22-30) mmol/L Creatinine (0.52-1.04) mg/dL Glucose (74-99) mg/dL POC Glucose (mg/dL) 148 H (75-99) mg/dL C-Reactive Protein (<1.0) mg/dL Procalcitonin (0.02-0.09) ng/mL Microbiology - Last 24 Hours (Table) 12/19/20 14:26 Gram Stain - Preliminary Sputum Sputum Culture - Preliminary 12/16/20 05:18 Blood Culture - Preliminary Blood No Growth after 96 hours Diabetes panel 12/20/20 Range/Units 04:10 Sodium 142 (137-145) mmol/L Potassium 3.3 L (3.5-5.1) mmol/L Chloride 101 (98-107) mmol/L Carbon Dioxide 36 H (22-30) mmol/L BUN 16 (7-17) mg/dL Creatinine 0.30 L (0.52-1.04) mg/dL Glucose 135 H (74-99) mg/dL Calcium 8.4 (8.4-10.2) mg/dL Calcium panel 12/20/20 Range/Units 04:10 Calcium 8.4 (8.4-10.2) mg/dL Pituitary panel 12/20/20 Range/Units 04:10 Sodium 142 (137-145) mmol/L Potassium 3.3 L (3.5-5.1) mmol/L Chloride 101 (98-107) mmol/L Carbon Dioxide 36 H (22-30) mmol/L BUN 16 (7-17) mg/dL Creatinine 0.30 L (0.52-1.04) mg/dL Glucose 135 H (74-99) mg/dL Calcium 8.4 (8.4-10.2) mg/dL Adrenal panel 12/20/20 Range/Units 04:10 Sodium 142 (137-145) mmol/L Potassium 3.3 L (3.5-5.1) mmol/L Chloride 101 (98-107) mmol/L Carbon Dioxide 36 H (22-30) mmol/L BUN 16 (7-17) mg/dL Creatinine 0.30 L (0.52-1.04) mg/dL Glucose 135 H (74-99) mg/dL Calcium 8.4 (8.4-10.2) mg/dL - Imaging Chest x-ray: report reviewed, image reviewed Assessment and Plan Assessment: 1. Acute hypoxic respiratory failure, likely aspiration pneumonia 2. Lucency present at the right apex, questionable subtle tiny pneumothorax on yesterday's x-ray per radiology read 3. 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 Asthma Plan: The patient was seen and examined at the bedside. Chart/diagnostics reviewed. All chest x-rays were reviewed with Dr. Corona. From cardiothoracic surgery standpoint there is no surgical intervention warranted, no chest tube is warranted, and in fact radiology's read of today's x-ray demonstrates no pneumothorax. Continue medical management of other comorbidities per primary c are, pulmonology, infectious disease. Thank you Dr. Bae for this consult. Please call us with any further questions. Time with Patient: Greater than 30
--- NOTE | 2020-12-20 16:34 | P.PN ---
Subjective Progress Note Date: 12/20/20 (Critical care time 35 minutes) Principal diagnosis: Sinus tachycardia/hypertensive Small postintubation pneumothorax not very visible today Acute on chronic hypoxic respiratory failure Left-sided pneumonia likely aspiration pneumonia Paralyzed right vocal cord High risk of intermittent aspiration Sinus tachycardia palpitations 12/20/2020, patient seen eval examined during the rounds labs reviewed medications reviewed care plan discussed, care plan discussed not relieved the staff with the family at length, events from yesterday noted as patient has been intubated due to severe respiratory acidosis ventilator setting adjusted and currently patient is on assist control rate of 20 breathing 20 tidal volume of 300 oxygen 60% +5 of PEEP, sedated with propofol with a rise of -1, currently on 20 mics, 2 feet is on hold discussed with the staff at length will do it trickle of to feed and not more than 10-15 mL an hour however for unclear reason Reglan has been discontinued we'll resume it, T-max is 100.4, pulse is 133 hemodynamic status stable, cardiovascular services following for tachycardia syndrome, patient remains on bronchodilator along with fourth generation cephalosporins also on labetalol drip IV steroids, discussed with the family they want her to be transferred to [facility] for evaluation and ENT, need to stabilize with better hemodynamics and respiratory parameters in next 24 hours then will seek transfer currently patient is too unstable December 19 2020, patient seen eval examined during the rounds remains on BiPAP 100% oxygen 12 x 6, patient remains tachycardic hypertensive Lopressor dose up requiring labetalol drip, family insist on surgery patient is very unstable transferred to tertiary care center, ENT consult has been requested as per request of the family, patient remains on broad-spectrum antibiotics workup for hypertension is in progress, feet is being given patient remains on Reglan, chest x-ray continue show a left-sided infiltrate 12/18/2020, patient seen eval reexamined during on Medications reviewed care pl an discussed with the staff at length, patient slightly and now on the hypertensive side remains tachycardic, patient currently getting 12.5 twice a day we will increase it to 25 gradually with erythema up to 75 twice a day in next 48-72 hours, patient is on BiPAP at nighttime 12/7 with 50% oxygen during the day she is on 10 L nasal cannula sats in mid 90s, white cell count is the 18,900, hemoglobin and hematocrit remained stable, patient is reviewed, chest x- ray continue show patchy bilateral confluent is for his disease slight worsening on the right side has been noted possibly related to interstitial edema, patient remains on IV fluid 100 mL an hour would recommend to stop it as it appears that patient is going slow into fluid overload 12/17/2020, patient seen eval reexamined during the rounds labs reviewed medications reviewed care plan discussed with the staff at length, patient to remains on BiPAP with IPAP of 12 and EPAP of 6 along with 50% oxygen she has been on BiPAP all along, she also have problems associated with the intermittent sinus tachycardia and bradycardia most of the cardiac variation happens while she is sleeping, patient used to be on Lopressor 75 twice a day at home have not been started. 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, recently discharged from the hospital to [facility] patient has been doing fairly well for the 2 days however today started having cough shortness of breath oxygen saturation dropped down and she was transferred to [facility], the admitted chest x-ray is positive for left-sided infiltrate slight worsening to the right side, patient admitted into the hospital for further evaluation but the episode appears to be more likely aspiration Objective - Vital Signs Vital signs: Vital Signs Temp 100.4 F H 12/20/20 12:00 Pulse 133 H 12/20/20 13:00 Resp 22 12/20/20 13:00 BP 113/76 12/20/20 13:00 Pulse Ox 94 L 12/20/20 13:00 Intake & Output 12/19/20 12/20/20 12/20/20 18:59 06:59 18:59 Intake Total 1556.375 876.945 238.293 Output Total 1258 450 245 Balance 298.375 426.945 -6.707 Weight 44.5 kg 44.5 kg Intake: IV 350 250 140 Sodium Chloride 0.9% 1, 350 250 140 000 ml @ 20 mls/hr IV . Q24H [facility] Rx#:[id number] Intake, IV Titration 1136.375 626.945 98.293 Amount Cefepime 2 gm In Sodium 100 Chloride 0.9% 100 ml @ 25 mls/hr IVPB Q8H [facility] Rx#: [id number] Labetalol 200 mg In 36.375 Sodium Chloride 0.9% 160 ml @ 1 MG/MIN 60 mls/hr IV .Q3H20M [facility] Rx#: [id number] Norepinephrine 4 mg In 360.304 Sodium Chloride 0.9% 250 ml @ 0.05 MCG/KG/MIN 8. 096 mls/hr IV .Q24H [facility] Rx#:[id number] Sodium Chloride 0.9% 1, 1000 000 ml @ 100 mls/hr IV . Q10H [facility] Rx#:[id number] metroNIDAZOLE-NS PMX 500 100 mg In Saline 1 100ml.bag @ 100 mls/hr IVPB Q8HR [facility] Rx#:[id number] propofoL 1,000 mg In 166.641 98.293 Empty Bag 1 bag @ Titrate IV .Q0M [facility] Rx#: [id number] Tube Feeding 70 Output: Urine 1258 450 245 Other: Voiding Method Indwelling Catheter Indwelling Catheter Indwelling Catheter ABP, PAP, CO, CI - Last Documented Arterial Blood Pressure 127/66 - Exam - Constitutional General appearance: Intubated on full ventilator support chief information officer - EENT Eyes: abnormal pupil, PERRLA Ears: bilateral: bulging - Neck Neck: lymphadenopathy, normal ROM Thyroid: bilateral: normal size - Respiratory Respiratory: bilateral: diminished, prolonged expiration - Cardiovascular Rhythm: regular Heart sounds: normal: S1, S2 - Gastrointestinal General gastrointestinal: absent bowel sounds, hepatomegaly - Neurologic Neurologic: CNII-XII intact - Musculoskeletal Musculoskeletal: Sedated with propofol drip - Labs CBC & Chem 7: 12/20/20 04:10 12/20/20 04:10 Labs: Abnormal Lab Results - Last 24 Hours (Table) 12/19/20 12/20/20 12/20/20 Range/Units 20:02 04:10 04:10 WBC 33.7 H (3.8-10.6) k/uL RBC 3.51 L (3.80-5.40) m/uL Hgb 10.8 L (11.4-16.0) gm/dL Neutrophils # 32.2 H (1.3-7.7) k/uL Lymphocytes # 0.6 L (1.0-4.8) k/uL ABG pH 7.28 L (7.35-7.45) ABG pCO2 85 H* (35-45) mmHg ABG HCO3 40 H* (21-25) mmol/L ABG Total CO2 43 H (19-24) mmol/L ABG O2 Saturation (94-97) % Potassium 3.3 L (3.5-5.1) mmol/L Carbon Dioxide 36 H (22-30) mmol/L Creatinine 0.30 L (0.52-1.04) mg/dL Glucose 135 H (74-99) mg/dL POC Glucose (mg/dL) (75-99) mg/dL C-Reactive Protein 25.8 H (<1.0) mg/dL 12/20/20 12/20/20 Range/Units 04:11 05:32 WBC (3.8-10.6) k/uL RBC (3.80-5.40) m/uL Hgb (11.4-16.0) gm/dL Neutrophils # (1.3-7.7) k/uL Lymphocytes # (1.0-4.8) k/uL ABG pH (7.35-7.45) ABG pCO2 65 H (35-45) mmHg ABG HCO3 38 H (21-25) mmol/L ABG Total CO2 40 H (19-24) mmol/L ABG O2 Saturation 98.6 H (94-97) % Potassium (3.5-5.1) mmol/L Carbon Dioxide (22-30) mmol/L Creatinine (0.52-1.04) mg/dL Glucose (74-99) mg/dL POC Glucose (mg/dL) 148 H (75-99) mg/dL C-Reactive Protein (<1.0) mg/dL Microbiology - Last 24 Hours (Table) 12/19/20 14:26 Gram Stain - Preliminary Sputum Sputum Culture - Preliminary Gram Neg Bacilli 12/16/20 05:18 Blood Culture - Preliminary Blood No Growth after 96 hours Assessment and Plan Assessment: Acute on chronic hypoxic respiratory failure Malignant hypertension/hypertensive emergency Sinus tachycardia Now on hypertensive side, blood pressure persistently elevated Small residual left-sided postintubation pneumothorax not very visible and heparin today Left-sided pneumonia likely aspiration pneumonia Paralyzed right vocal cord High risk of intermittent aspiration Sinus tachycardia palpitations Acute on chronic hypoxic respiratory failure Plan: Continue beta feng as well as labetalol drip with aim to improve blood pressure, ENT not available to the level expertise patient and family seeks, would recommend to transfer to [facility] once more stable Plan continue IV antibiotics, Continue labetalol drip Awaiting further recommendation from cardiovascular services Continue IV steroids and bronchodilator continue current therapy Resume low-dose Lopressor escalated dose as tolerated to 75 twice a day Case discussed with ID, staff, patient's mother at length Time with Patient: Greater than 30
--- NOTE | 2020-12-20 17:14 | PN ---
PROGRESS NOTE DATE OF SERVICE: 12/20/2020 REASON FOR FOLLOWUP: Pneumonia. INTERVAL HISTORY: The patient intubated. Now she does have a low-grade fever of 100.6 to 100.4 degrees Fahrenheit. The patient is hemodynamically stable. ET and no diarrhea has been reported. PHYSICAL EXAMINATION: On examination, blood pressure 113/ with a pulse of temperature 97.4. She is 94% on GENERAL DESCRIPTION: General description is an elderly female lying in bed in no distress. RESPIRATORY SYSTEM: Unlabored breathing. Decreased intensity of breath sounds. No wheeze. HEART: S1, S2. Regular rate and rhythm. ABDOMEN: Soft. No tenderness. LABS: Hemoglobin , white count BUN of , creatinine 0.30. DIAGNOSTIC IMPRESSION AND PLAN: Patient with respiratory failure aspiration pneumonia. Patient is currently covered with cefepime to continue MMODL / IJN: [id number] /
[2020-12-20] MEDS: METOCLOPRAMIDE 5 MG/ML 2 ML VIAL IVP SCH ×2 (17:27→23:23)
--- NOTE | 2020-12-20 19:05 | P.PN ---
Subjective This is a pleasant 25 years old female with past medical history of neurofibromatosis type II, aspiration pneumonia, vocal cord paralysis for the la [facility] 3 years as per family at bedside. Dysphagia status post PEG tube placement, Patient was discharged from hospital with prolonged hospital stay 11/15-30. And again 12/11-12/14 for recurrent aspiration pneumonia and she was admitted with the same this time. She is in the hospital from 12/16, she is currently in the ICU, patient is sleepy on BiPAP machine and could not provide information, information was obtained from mother at bedside, legal guardian on the phone and bedside nurse and staff. Patient with no vomiting or nausea since yesterday. She has bowel movement earlier She is tachycardic, tachypneic and hypoxic needed BiPAP most of the time. Her diligence about the patient today and start her on labetalol drip for tachycardia, renal arteries duplex ultrasound is negative for artery stenosis. KUB of the abdomen is negative for acute process. X-ray showing bilateral infiltrate. Several consultants on the case including ICU/pulmonary team cardiology team. She was on ceftriaxone and Zithromax and started Medrol 40 mg twice daily as well as normal saline at 100 mL per hour. Also she is on metoprolol 12.5 mg twice a day. She has tube feeding running at 35 ml/h Because of worsening leukocytosis and respiratory distress and mild hypothermia. Internal antibiotics to cefepime and consulted infectious disease team. Last admission on November she was getting cefepime as well 12/20/2020 Patient remains in the ICU. Patient yesterday after rounded found to have severe respiratory acidosis and she got intubated and sedated by pulmonary/critical care team. She remains on mechanical ventilation this morning. She is breathing at a rate of 21, with FiO2 of 60%, PEEP of 5 and tid al volume of 300. Pulmonary team helping with the vent management. However ABG is improved today and pH back to normal at 7.3. PCO2 improved down to 66 and O2 is 105. Chest x-ray showing evidence of bilateral diffuse pneumonia rather than CHF. She remains on cefepime to cover for gram-negative bacilli. Actually her sputum culture showing gram-negative bacilli. Also she remains on Solu-Medrol 40 mg and normal saline at 75 mL/h. Cardiology team following the patient for tachycardia and decreasing her metoprolol 12.5 up to 25 mg twice a day WBC is increased to 30 3K however patient is on steroids. She has a low-grade temperature today of 100.6. Vascular surgery evaluated the patient and they recommended no chest tube needed. ENT service evaluated the patient yesterday for right vocal cord paralysis and right neck neurofibroma and he recommended patient to be stabilized medically before this could be done at a tertiary care institution due to her large neck mass. Family and caregiver are asking the patient to be transferred however patient is medically stable for transfer per critical care team. Patient is still intubated and in critical condition, and she'll be high-risk for transfer as well as for undergoing any anesthesia and procedure for now. Review of systems:/A Active Medications Generic Name Dose Route Start Last Admin Trade Name Freq PRN Reason Stop Dose Admin Albuterol Sulfate 2.5 mg 12/16/20 08:00 12/20/20 14:54 Albuterol Nebulized 2.5 Mg/3 Ml INHALATION Not Given RT-QID ANDERSON Albuterol/Ipratropium 3 ml 12/16/20 06:27 12/19/20 19:47 Ipratropium-Albuterol 3 Ml Neb INHALATION 3 ml RT-Q4H PRN Administration shortness of breath Chlorhexidine Gluconate 15 ml 12/19/20 21:00 12/20/20 08:39 Chlorhexidine Gluconate 15 Ml Cup MUCOUS MEM 15 ml BID ANDERSON Administration Enoxaparin Sodium 40 mg 12/17/20 09:00 12/20/20 08:39 Enoxaparin 40 Mg/0.4 Ml Syringe SQ 40 mg DAILY ANDERSON Administration Metronidazole 500 mg/ IV 100 mls @ 100 mls/hr 12/16/20 08:00 12/20/20 17:27 Solution IVPB 100 mls/hr Q8HR ANDERSON Administration Labetalol HCl 200 mg/ Sodium 200 mls @ 60 mls/hr 12/19/20 06:30 12/20/20 16:30 Chloride IV Not Given .Q3H20M ANDERSON Protocol 1 MG/MIN Sodium Chloride 1,000 mls @ 75 mls/hr 12/19/20 07:00 12/20/20 07:12 Saline 0.9% IV 20 mls/hr .[id number] ANDERSON Administration Cefepime HCl 2 gm/ Sodium 100 mls @ 25 mls/hr 12/19/20 12:00 12/20/20 11:51 Chloride IVPB 25 mls/hr Q8H ANDERSON Administration Norepinephrine Bitartrate 4 mg 254 mls @ 8.096 mls/hr 12/19/20 14:45 12/20/20 16:58 / Sodium Chloride IV 0 mcg/kg/min .Q24H ANDERSON 0 mls/hr Titration Protocol 0.05 MCG/KG/MIN Propofol 1,000 mg/ IV Solution 100 mls @ 0 mls/hr 12/19/20 14:45 12/20/20 15:05 IV 20 mcg/kg/min .Q0M ANDERSON 5.34 mls/hr Titration Protocol Titrate Lorazepam 1 mg 12/16/20 06:45 12/20/20 05:46 Lorazepam 2 Mg/Ml Inj IV 1 mg Q4HR PRN Administration Anxiety Methylprednisolone Sodium Succinate 40 mg 12/16/20 10:00 12/20/20 08:39 Methylprednisolone Sod Succi 40 Mg/Ml 1 Ml Vial IV 40 mg Q12HR ANDERSON Administration Metoclopramide HCl 10 mg 12/20/20 18:00 12/20/20 17:27 Metoclopramide 5 Mg/Ml 2 Ml Vial IVP 10 mg Q6HR ANDERSON Administration Metoprolol Tartrate 25 mg 12/20/20 10:15 12/20/20 11:46 Metoprolol Tartrate 25 Mg Tab PO 25 mg BID ANDERSON Administration Miscellaneous Information 1 each 12/16/20 06:27 Pneumonia Protocol Utilized 1 Each Misc PO ONCE PRN Per Protocol Miscellaneous Information 1 each 12/20/20 06:16 Potassium Replacement Protocol 1 Each Misc MISCELLANE DAILY PRN Per Protocol Protocol Morphine Sulfate 4 mg 12/16/20 06:27 12/20/20 17:31 Morphine Sulfate 4 Mg/Ml Syringe IV 4 mg Q4HR PRN Administration Severe Pain Naloxone HCl 0.2 mg 12/16/20 06:27 Naloxone 0.4 Mg/Ml 1 Ml Vial IV Q2M PRN Opioid Reversal Ondansetron HCl 4 mg 12/16/20 06:27 12/18/20 20:45 Ondansetron 4 Mg/2 Ml Vial IVP 4 mg Q8HR PRN Administration Nausea And Vomiting Pantoprazole Sodium 40 mg 12/16/20 09:00 12/20/20 08:39 Pantoprazole 40 Mg/10 Ml Vial IV 40 mg DAILY ANDERSON Administration Prochlorperazine Edisylate 5 mg 12/16/20 06:45 12/18/20 14:39 Prochlorperazine Inj 10 Mg/2 Ml Vial IVP 5 mg Q4H PRN Administration Nausea And Vomiting Objective - Vital Signs Vital signs: Vital Signs Temp 100.4 F H 12/20/20 12:00 Pulse 133 H 12/20/20 12:00 Resp 21 12/20/20 12:00 BP 199/142 12/20/20 12:00 Pulse Ox 93 L 12/20/20 12:00 Intake & Output 12/19/20 12/20/20 12/20/20 18:59 06:59 18:59 Intake Total 1556.375 876.945 128.67 Output Total 1258 450 195 Balance 298.375 426.945 -66.33 Weight 44.5 kg 44.5 kg Intake: IV 350 250 120 Sodium Chloride 0.9% 1, 350 250 120 000 ml @ 20 mls/hr IV . Q24H [facility] Rx#:[id number] Intake, IV Titration 1136.375 626.945 8.67 Amount Cefepime 2 gm In Sodium 100 Chloride 0.9% 100 ml @ 25 mls/hr IVPB Q8H [facility] Rx#: [id number] Labetalol 200 mg In 36.375 Sodium Chloride 0.9% 160 ml @ 1 MG/MIN 60 mls/hr IV .Q3H20M [facility] Rx#: [id number] Norepinephrine 4 mg In 360.304 Sodium Chloride 0.9% 250 ml @ 0.05 MCG/KG/MIN 8. 096 mls/hr IV .Q24H [facility] Rx#:[id number] Sodium Chloride 0.9% 1, 1000 000 ml @ 100 mls/hr IV . Q10H [facility] Rx#:[id number] metroNIDAZOLE-NS PMX 500 100 mg In Saline 1 100ml.bag @ 100 mls/hr IVPB Q8HR [facility] Rx#:[id number] propofoL 1,000 mg In 166.641 8.67 Empty Bag 1 bag @ Titrate IV .Q0M [facility] Rx#: [id number] Tube Feeding 70 Output: Urine 1258 450 195 Other: Voiding Method Indwelling Catheter Indwelling Catheter Indwelling Catheter ABP, PAP, CO, CI - Last Documented Arterial Blood Pressure 103/55 - Exam -GENERAL: The patient is sedated and intubated HEENT: Pupils are round and equally reacting to light. EOMI. No scleral icterus. No conjunctival pallor. Normocephalic, atraumatic. No pharyngeal erythema. No thyromegaly. CARDIOVASCULAR: S1 and S2 present. No murmurs, rubs, or gallops. -PULMONARY: Chest is clear to auscultation, bilateral basal crepitation ABDOMEN: Soft, nontender, nondistended, normoactive bowel sounds. No palpable organomegaly. MUSCULOSKELETAL: No joint swelling or deformity. EXTREMITIES: No cyanosis, clubbing, or pedal edema. NEUROLOGICAL: Gross neurological examination did not reveal any focal deficits. SKIN: No rashes. no petechiae. - Labs CBC & Chem 7: 12/20/20 04:10 12/20/20 04:10 Labs: Abnormal Lab Results - Last 24 Hours (Table) 12/19/20 12/19/20 12/19/20 Range/Units 03:16 15:50 20:02 WBC (3.8-10.6) k/uL RBC (3.80-5.40) m/uL Hgb (11.4-16.0) gm/dL Neutrophils # (1.3-7.7) k/uL Lymphocytes # (1.0-4.8) k/uL ABG pH 7.29 L 7.28 L (7.35-7.45) ABG pCO2 84 H* 85 H* (35-45) mmHg ABG pO2 176 H (83-108) mmHg ABG HCO3 41 H* 40 H* (21-25) mmol/L ABG Total CO2 43 H 43 H (19-24) mmol/L ABG O2 Saturation 99.8 H (94-97) % Potassium (3.5-5.1) mmol/L Carbon Dioxide (22-30) mmol/L Creatinine (0.52-1.04) mg/dL Glucose (74-99) mg/dL POC Glucose (mg/dL) (75-99) mg/dL C-Reactive Protein (<1.0) mg/dL Procalcitonin 0.55 H (0.02-0.09) ng/mL 12/20/20 12/20/20 12/20/20 Range/Units 04:10 04:10 04:11 WBC 33.7 H (3.8-10.6) k/uL RBC 3.51 L (3.80-5.40) m/uL Hgb 10.8 L (11.4-16.0) gm/dL Neutrophils # 32.2 H (1.3-7.7) k/uL Lymphocytes # 0.6 L (1.0-4.8) k/uL ABG pH (7.35-7.45) ABG pCO2 (35-45) mmHg ABG pO2 (83-108) mmHg ABG HCO3 (21-25) mmol/L ABG Total CO2 (19-24) mmol/L ABG O2 Saturation (94-97) % Potassium 3.3 L (3.5-5.1) mmol/L Carbon Dioxide 36 H (22-30) mmol/L Creatinine 0.30 L (0.52-1.04) mg/dL Glucose 135 H (74-99) mg/dL POC Glucose (mg/dL) 148 H (75-99) mg/dL C-Reactive Protein 25.8 H (<1.0) mg/dL Procalcitonin (0.02-0.09) ng/mL 12/20/20 Range/Units 05:32 WBC (3.8-10.6) k/uL RBC (3.80-5.40) m/uL Hgb (11.4-16.0) gm/dL Neutrophils # (1.3-7.7) k/uL Lymphocytes # (1.0-4.8) k/uL ABG pH (7.35-7.45) ABG pCO2 65 H (35-45) mmHg ABG pO2 (83-108) mmHg ABG HCO3 38 H (21-25) mmol/L ABG Total CO2 40 H (19-24) mmol/L ABG O2 Saturation 98.6 H (94-97) % Potassium (3.5-5.1) mmol/L Carbon Dioxide (22-30) mmol/L Creatinine (0.52-1.04) mg/dL Glucose (74-99) mg/dL POC Glucose (mg/dL) (75-99) mg/dL C-Reactive Protein (<1.0) mg/dL Procalcitonin (0.02-0.09) ng/mL Microbiology - Last 24 Hours (Table) 12/19/20 14:26 Gram Stain - Preliminary Sputum Sputum Culture - Preliminary 12/16/20 05:18 Blood Culture - Preliminary Blood No Growth after 96 hours Assessment and Plan Assessment: recurrent Bilateral aspiration pneumonia Severe hypoxic hypercapnic respiratory failure needing intubation and mechanica l ventilation, secondary to gram-negative bacilli Moderate protein calorie malnutrition Dysphagia, status post PEG tube placement History of constipation, with an active issue Sinus tachycardia type 2 neurofibromatosis Metabolic encephalopathy History of vocal cord paralysis, secondary to right neck mass and neurofibroma. ENT service recommended to transfer to tertiary care center when patient is medically stable. Plan: This is a pleasant 25 years old female presents with bilateral pneumonia, status post PEG tube placement. Also she has hypoxia and hypercapnia status post intubation. Continue with cefepime, follow-up sputum culture which grown gram-negative dacia illi pulmonary team on the case, as well as infectious disease team. Cardiology team on the case for her tachycardia and she was placed on beta feng Continue with mechanical ventilation as per recommendation of pulmonary/critical care team The ENT service recommended to transfer the patient to [facility] When patient is more medically stable. Labs and medication were reviewed.. Continue same treatment. Continue with symptomatic treatment. Resume home medication. Monitor lytes and vitals. DVT and GI prophylaxis. Further recommendations as per clinical course of the p atient DVT prophylaxis: Subcutaneous Lovenox GI prophylaxis PPI GI Prophylaxis: Ppi Prognosis remains guarded
[2020-12-21] MEDS: LABETALOL 200 MG in SODIUM CHLORIDE 0.9% 160 ML IV SCH ×3 (01:49→08:21)
[2020-12-21] MEDS: MORPHINE SULFATE 4 MG/ML SYRINGE IV PRN ×5 (01:50→21:29)
[2020-12-21 04:36] LABS: Glucose,Whole Blood 130 mg/dL (75-99)
[2020-12-21 04:43] LABS: Basophils % (A) 0 %; Eosinophils % (A) 0 %; HCT 35.7 % (34.0-46.0); HGB 10.9 gm/dL (11.4-16.0); Hypochromasia Marked; Lymphocytes # (A) 0.8 k/uL (1.0-4.8); Lymphocytes % (A) 4 %; MCH 30.4 pg (25.0-35.0); MCHC 30.4 g/dL (31.0-37.0); Macrocytosis Slight; Mean Platelet Volume 7.9; Monocytes # (A) 0.5 k/uL (0-1.0); Monocytes % (A) 2 %; Neutrophils # (A) 20.5 k/uL (1.3-7.7); Neutrophils % (A) 93 %; Platelet Count 409 k/uL (150-450); RBC 3.57 m/uL (3.80-5.40); RDW 15.9 % (11.5-15.5); WBC 21.9 k/uL (3.8-10.6)
[2020-12-21] MEDS: CEFEPIME 2 GM in SODIUM CHLORIDE 0.9% 100 ML IVPB SCH ×3 (04:45→19:59)
[2020-12-21 04:58] LABS: ALT 21 U/L (4-34); AST 22 U/L (14-36); African American GFR (CKD) >90 (>60 ml/min/1.73 sqM); Albumin 2.4 g/dL (3.5-5.0); Alkaline Phosphatase 107 U/L (38-126); Anion Gap 3 mmol/L; Blood Urea Nitrogen 15 mg/dL (7-17); Calcium 8.6 mg/dL (8.4-10.2); Carbon Dioxide 37 mmol/L (22-30); Chloride 99 mmol/L (98-107); Glucose 119 mg/dL (74-99); Non-African American GFR(CKD) >90 (>60 ml/min/1.73 sqM); Potassium 3.8 mmol/L (3.5-5.1); Sodium 139 mmol/L (137-145); Total Bilirubin <0.1 mg/dL (0.2-1.3); Total Protein 5.1 g/dL (6.3-8.2)
[2020-12-21] MEDS: METOCLOPRAMIDE 5 MG/ML 2 ML VIAL IVP SCH ×4 (05:27→23:37)
[2020-12-21 05:52] LABS: ABG Base Excess 14.9 mmol/L; ABG Oxygen Saturation 97.3 % (94-97); ABG PH 7.35 (7.35-7.45); ABG PO2 88 mmHg (83-108); ABG TCO2 43 mmol/L (19-24); Allen Test Performed? Yes
[2020-12-21 05:54] LABS: ABG HCO3 40 mmol/L (21-25); ABG PCO2 73 mmHg (35-45)
[2020-12-21] MEDS ORDERED: POTASSIUM BICARBONATE/CIT AC 20 MEQ TABLET.EFF NG-TUBE SCH (06:00)
[2020-12-21] MEDS: ALBUTEROL NEBULIZED 2.5 MG/3 ML INHALATION SCH ×4 (08:01→19:22)
--- NOTE | 2020-12-21 08:20 | XR ---
EXAMINATION TYPE: XR chest 1V portable DATE OF EXAM: 12/21/2020 COMPARISON: 12/20/2020 HISTORY: Tube placement TECHNIQUE: Single frontal view of the chest is obtained. FINDINGS: ET tube and Mediport catheter stable. Diffuse interstitial pattern with bilateral infiltra te and pleural effusion. Heart size stable. No pneumothorax. Remote aspirated. Suspect left lower lob e. IMPRESSION: 1. Diffuse pleural-parenchymal changes are stable correlate for CHF versus diffuse pneumonia
[2020-12-21] MEDS: SODIUM CHLORIDE 0.9% 1,000 ML IV SCH ×2 (08:21→19:59)
[2020-12-21] MEDS: CHLORHEXIDINE GLUCONATE 15 ML CUP MUCOUS MEM SCH ×2 (08:44→19:59)
[2020-12-21] MEDS: metroNIDAZOLE-NS PMX 500 MG in SALINE 1 100ML.BAG IVPB SCH ×3 (08:44→23:37)
[2020-12-21] MEDS: PANTOPRAZOLE 40 MG/10 ML VIAL IV SCH (08:45)
[2020-12-21] MEDS: ENOXAPARIN 40 MG/0.4 ML SYRINGE SQ SCH (08:45)
[2020-12-21] MEDS: methylPREDNISolone SOD SUCCI 40 MG/ML 1 ML VIAL IV SCH ×2 (08:45→19:59)
[2020-12-21] MEDS: LABETALOL 100 MG TAB PO SCH ×2 (09:31→21:26)
[2020-12-21] MEDS: LORazepam 2 MG/ML INJ IV PRN (09:55)
--- NOTE | 2020-12-21 10:38 | P.PN ---
Subjective Progress Note Date: 12/21/20 HISTORY OF PRESENT ILLNESS: HISTORY OF PRESENTING ILLNESS This is a 25-year-old female with a past medical history of hypertension, neurofibromatosis with multiple tumors status post multiple chemotherapy, right sided vocal cord paralysis, asthma, aspiration pneumonia, pneumonia with polymicrobial right-sided lung abscess in April 2020, juvenile arthritis. She follows in the office with myself. . She was admitted recently 09/22- to [facility] with increased shortness of breath and congestion, access liaison consultation due to mildly elevated cardiac enzymes. Elevated troponin was related to sepsis and hypoxia. Echocardiogram on 09/22/2020 revealed EF of 55-60% without significant valvular disease. Patient is status post PEG placement on 11/20. Patient has been having issues with bradycardia and sinus tachycardia the past. Her beta feng was increased last hospitalization. She went to rehab and had been doing well apparently and then was found to be hypoxic. Chest x-ray 12/16/2020 showed left-sided pneumonia slightly worse than before. She has been receiving tube feeds however concern of possibly bolus with aspiration. She has not been eating anything by mouth. She is currently on BiPAP and somewhat somnolent however arousable. No chest pain or pressure. Initial EKG shows sinus tachycardia 118 bpm, right atrial enlargement, no specific ST or T wave abnormalities. Blood work shows white blood cell count 14.5, hemoglobin 11.8, sodium 142, creatinine 0.34, AST 15, ALP 49, troponin less than 0.012, pro BNP 454. 12/18/[address] with a heart rate around 112. No med changes made. 12/19/2020 Patient examined in the ICU with Dr. Perry. Mother at bedside. Patient became hypertensive overnight. She is currently receiving metoprolol via PEG tube and a catapres patch. Patient was also started on a labetalol drip this morning. Currently infusing at 0.5mg/min. Heart rate around 100. SBP ranging from 90-100. 12/20/2020 Patient became less responsive yesterday. She was intubated yesterday. She boom ins on mechanical ventilation. She was started on vasopressor support yesterday due to hypotension which has been weaned off this morning. Blood pressure stable. Monitor reveals sinus tachycardia with a heart rate in the 120s. Renal artery US does not reveal evidence of renal artery stenosis. Chest xray reveals diffuse pleural-parenchymal changes stable early for diffuse pneumonia versus CHF with pulmonary edema. 12/21/2020 Patient examined this morning in the ICU with Dr. Perry. Patient remains intubated on mechanical ventilation. She is not requiring vasopressor support. Telemetry reveals sinus tachycardia with a heart rate in the [id number]. Patient's blood pressure is also elevated this morning. PHYSICAL EXAM: VITAL SIGNS: Reviewed. GENERAL: Well-developed in no acute distress. NECK: Supple. No JVD or thyromegaly LUNGS: Respirations even and unlabored. Lungs diminished to auscultation bilaterally. HEART: Regular rate and rhythm. S1 and S2 heard. EXTREMITIES: Normal range of motion. No clubbing or cyanosis. Peripheral pulses intact. No lower extremity edema ASSESSMENT: 1. Acute respiratory failure likely related to aspiration pneumonia 2. Sinus bradycardia likely mainly related to hypoxia, some vagal activity as well as beta feng 3. Sinus tachycardia 4. History of neurofibromatosis, type II 5. Right-sided vocal cord paralysis 6. Hypertension, uncontrolled overnight 7. History of asthma 8. History of juvenile arthritis 9. Cachexia and weight loss with protein calorie malnutrition status post PEG tube placement PLAN: Discontinue metoprolol. Begin labetalol 100 mg twice a day Continue to monitor blood pressure and heart rate Further ICU management per Dr. Bae Patient to be transferred to [facility] when bed available Further recommendations pending patient course Nurse practitioner note has been reviewed by physician. Signing provider agrees with the documented findings, assessment, and plan of care. Objective - Vital Signs Vital signs: Vital Signs Temp 98.7 F 12/21/20 08:00 Pulse 123 H 12/21/20 09:00 Resp 20 12/21/20 09:00 BP 139/90 12/21/20 09:00 Pulse Ox 97 12/21/20 09:00 Intake & Output 12/20/20 12/21/20 12/21/20 18:59 06:59 18:59 Intake Total 652.229 6147.571 235 Output Total 415 730 120 Balance 99.273 328.571 115 Weight 44.5 kg 47.1 kg Intake: IV 405 875 225 Sodium Chloride 0.9% 1, 405 875 225 000 ml @ 75 mls/hr IV . [id number] [facility] Rx#:[id number] Intake, IV Titration 109.273 83.571 Amount Norepinephrine 4 mg In 3.104 Sodium Chloride 0.9% 250 ml @ 0.05 MCG/KG/MIN 8. 096 mls/hr IV .Q24H [facility] Rx#:[id number] propofoL 1,000 mg In 106.169 83.571 Empty Bag 1 bag @ Titrate IV .Q0M ANDERSON Rx#: [id number] Tube Feeding 70 10 Other 30 Output: Urine 415 730 120 Other: Voiding Method Indwelling Catheter Indwelling Catheter Indwelling Catheter ABP, PAP, CO, CI - Last Documented Arterial Blood Pressure 190/101 - Labs CBC & Chem 7: 12/21/20 04:25 12/21/20 04:25 Labs: Abnormal Lab Results - Last 24 Hours (Table) 12/20/20 12/21/20 12/21/20 Range/Units 04:10 04:25 04:25 WBC 21.9 H (3.8-10.6) k/uL RBC 3.57 L (3.80-5.40) m/uL Hgb 10.9 L (11.4-16.0) gm/dL MCHC 30.4 L (31.0-37.0) g/dL RDW 15.9 H (11.5-15.5) % Neutrophils # 20.5 H (1.3-7.7) k/uL Lymphocytes # 0.8 L (1.0-4.8) k/uL ABG pCO2 (35-45) mmHg ABG HCO3 (21-25) mmol/L ABG Total CO2 (19-24) mmol/L ABG O2 Saturation (94-97) % Carbon Dioxide 37 H (22-30) mmol/L Creatinine 0.31 L (0.52-1.04) mg/dL Glucose 119 H (74-99) mg/dL POC Glucose (mg/dL) (75-99) mg/dL Total Bilirubin <0.1 L (0.2-1.3) mg/dL Total Protein 5.1 L (6.3-8.2) g/dL Albumin 2.4 L (3.5-5.0) g/dL Procalcitonin 1.53 H (0.02-0.09) ng/mL 12/21/20 12/21/20 Range/Units 04:32 05:48 WBC (3.8-10.6) k/uL RBC (3.80-5.40) m/uL Hgb (11.4-16.0) gm/dL MCHC (31.0-37.0) g/dL RDW (11.5-15.5) % Neutrophils # (1.3-7.7) k/uL Lymphocytes # (1.0-4.8) k/uL ABG pCO2 73 H* (35-45) mmHg ABG HCO3 40 H* (21-25) mmol/L ABG Total CO2 43 H (19-24) mmol/L ABG O2 Saturation 97.3 H (94-97) % Carbon Dioxide (22-30) mmol/L Creatinine (0.52-1.04) mg/dL Glucose (74-99) mg/dL POC Glucose (mg/dL) 130 H (75-99) mg/dL Total Bilirubin (0.2-1.3) mg/dL Total Protein (6.3-8.2) g/dL Albumin (3.5-5.0) g/dL Procalcitonin (0.02-0.09) ng/mL Microbiology - Last 24 Hours (Table) 12/19/20 14:26 Gram Stain - Final Sputum Sputum Culture - Final Enterobacter cloacae 12/16/20 05:18 Blood Culture - Preliminary Blood No Growth after 120 hours 12/20/20 11:25 Gram Stain - Preliminary Sputum Sputum Culture - Preliminary
--- NOTE | 2020-12-21 13:41 | P.PN ---
Subjective This is a pleasant 25 years old female with past medical history of neurofibromatosis type II, aspiration pneumonia, vocal cord paralysis for the [facility] 3 years as per family at bedside. Dysphagia status post PEG tube placement, Patient was discharged from hospital with prolonged hospital stay 11/15-30. And again 12/11-12/14 for recurrent aspiration pneumonia and she was admitted with the same this time. She is in the hospital from 12/16, she is currently in the ICU, patient is sleepy on BiPAP machine and could not provide information, information was obtained from mother at bedside, legal guardian on the phone and bedside nurse and staff. Patient with no vomiting or nausea since yesterday. She has bowel movement earlier She is tachycardic, tachypneic and hypoxic needed BiPAP most of the time. Her diligence about the patient today and start her on labetalol drip for tachycardia, renal arteries duplex ultrasound is negative for artery stenosis. KUB of the abdomen is negative for acute process. X-ray showing bilateral infiltrate. Several consultants on the case including ICU/pulmonary team cardiology team. She was on ceftriaxone and Zithromax and started Medrol 40 mg twice daily as well as normal saline at 100 mL per hour. Also she is on metoprolol 12.5 mg twice a day. She has tube feeding running at 35 ml/h Because of worsening leukocytosis and respiratory distress and mild hypothermia. Internal antibiotics to cefepime and consulted infectious disease team. Last admission on November she was getting cefepime as well 12/20/2020 Patient remains in the ICU. Patient yesterday after rounded found to have severe respiratory acidosis and she got intubated and sedated by pulmonary/critical care team. She remains on mechanical ventilation this morning. She is breathing at a rate of 21, with FiO2 of 60%, PEEP of 5 and tid al volume of 300. Pulmonary team helping with the vent management. However ABG is improved today and pH back to normal at 7.3. PCO2 improved down to 66 and O2 is 105. Chest x-ray showing evidence of bilateral diffuse pneumonia rather than CHF. She remains on cefepime to cover for gram-negative bacilli. Actually her sputum culture showing gram-negative bacilli. Also she remains on Solu-Medrol 40 mg and normal saline at 75 mL/h. Cardiology team following the patient for tachycardia and decreasing her metoprolol 12.5 up to 25 mg twice a day WBC is increased to 30 3K however patient is on steroids. She has a low-grade temperature today of 100.6. Vascular surgery evaluated the patient and they recommended no chest tube needed. ENT service evaluated the patient yesterday for right vocal cord paralysis and right neck neurofibroma and he recommended patient to be stabilized medically before this could be done at a tertiary care institution due to her large neck mass. Family and caregiver are asking the patient to be transferred however patient is medically stable for transfer per critical care team. Patient is still intubated and in critical condition, and she'll be high-risk for transfer as well as for undergoing any anesthesia and procedure for now. 12/21/2020 Patient in the ICU, intubated and sedated on mechanical ventilation. She still tachypneic and tachycardic with heart rate around 117. A tensor this morning 187/102, and her metoprolol was switched to labetalol 100 mg twice a day by cardiology team, are improved 122/75. Has good urine output. She is afebrile. Labs review was and showing trending down and leukocytosis 21K. BMP is reviewed with no significant change. ABG showing normal pH 7.35, high pCO2 73, PaO2 at 88. Sputum culture is growing Enterobacter cloacae, J sensitive to cefepime she is getting right now. Infectious disease team on the case as well. Chest x-ray from today, diffuse pleural parenchymal changes are stable correlate for CHF versus diffuse pneumonia. Several consultants on the case including pulmonary/critical care team, cardio logist, infectious disease and ENT. As per Dr. Vega patient's need to be transferred to her ENT surgeon at [facility] when she is medically stable.. I discussed with the patient mother and guardian over the phone already that patient is high-risk for any surgery currently. However family and guardian 8 called yesterday and wanted her to be transferred to [facility], they had to contact Dr. Escoto from the hospital administration Department who gave the okay for the patient to be transferred, patient was already accepted by her report waiting for bed. No family at bedside today. Review of systems:/A Active Medications Generic Name Dose Route Start Last Admin Trade Name Freq PRN Reason Stop Dose Admin Albuterol Sulfate 2.5 mg 12/16/20 08:00 12/21/20 11:07 Albuterol Nebulized 2.5 Mg/3 Ml INHALATION 2.5 mg RT-QID ANDERSON Administration Albuterol/Ipratropium 3 ml 12/16/20 06:27 12/19/20 19:47 Ipratropium-Albuterol 3 Ml Neb INHALATION 3 ml RT-Q4H PRN Administration shortness of breath Chlorhexidine Gluconate 15 ml 12/19/20 21:00 12/21/20 08:44 Chlorhexidine Gluconate 15 Ml Cup MUCOUS MEM 15 ml BID ANDERSON Administration Enoxaparin Sodium 40 mg 12/17/20 09:00 12/21/20 08:45 Enoxaparin 40 Mg/0.4 Ml Syringe SQ 40 mg DAILY ANDERSON Administration Metronidazole 500 mg/ IV 100 mls @ 100 mls/hr 12/16/20 08:00 12/21/20 08:44 Solution IVPB 100 mls/hr Q8HR ANDERSON Administration Sodium Chloride 1,000 mls @ 75 mls/hr 12/19/20 07:00 12/21/20 08:21 Saline 0.9% IV Not Given .[id number] [facility] Cefepime HCl 2 gm/ Sodium 100 mls @ 25 mls/hr 12/19/20 12:00 12/21/20 04:45 Chloride IVPB 25 mls/hr Q8H ANDERSON Administration Norepinephrine Bitartrate 4 mg 254 mls @ 8.096 mls/hr 12/19/20 14:45 12/20/20 16:58 / Sodium Chloride IV 0 mcg/kg/min .Q24H ANDERSON 0 mls/hr Titration Protocol 0.05 MCG/KG/MIN Propofol 1,000 mg/ IV Solution 100 mls @ 0 mls/hr 12/19/20 14:45 12/21/20 06:44 IV 15 mcg/kg/min .Q0M ANDERSON 4.239 mls/hr Titration Protocol Titrate Labetalol HCl 100 mg 12/21/20 09:00 12/21/20 09:31 Labetalol 100 Mg Tab PO 100 mg BID ANDERSON Administration Lorazepam 1 mg 12/16/20 06:45 12/20/20 20:42 Lorazepam 2 Mg/Ml Inj IV 1 mg Q4HR PRN Administration Anxiety Methylprednisolone Sodium Succinate 40 mg 12/16/20 10:00 12/21/20 08:45 Methylprednisolone Sod Succi 40 Mg/Ml 1 Ml Vial IV 40 mg Q12HR ANDERSON Administration Metoclopramide HCl 10 mg 12/20/20 18:00 12/21/20 05:27 Metoclopramide 5 Mg/Ml 2 Ml Vial IVP 10 mg Q6HR ANDERSON Administration Miscellaneous Information 1 each 12/16/20 06:27 Pneumonia Protocol Utilized 1 Each Misc PO ONCE PRN Per Protocol Miscellaneous Information 1 each 12/20/20 06:16 Potassium Replacement Protocol 1 Each Misc MISCELLANE DAILY PRN Per Protocol Protocol Morphine Sulfate 4 mg 12/16/20 06:27 12/21/20 10:26 Morphine Sulfate 4 Mg/Ml Syringe IV 4 mg Q4HR PRN Administration Severe Pain Naloxone HCl 0.2 mg 12/16/20 06:27 Naloxone 0.4 Mg/Ml 1 Ml Vial IV Q2M PRN Opioid Reversal Ondansetron HCl 4 mg 12/16/20 06:27 12/18/20 20:45 Ondansetron 4 Mg/2 Ml Vial IVP 4 mg Q8HR PRN Administration Nausea And Vomiting Pantoprazole Sodium 40 mg 12/16/20 09:00 12/21/20 08:45 Pantoprazole 40 Mg/10 Ml Vial IV 40 mg DAILY ANDERSON Administration Prochlorperazine Edisylate 5 mg 12/16/20 06:45 12/18/20 14:39 Prochlorperazine Inj 10 Mg/2 Ml Vial IVP 5 mg Q4H PRN Administration Nausea And Vomiting Objective - Vital Signs Vital signs: Vital Signs Temp 97.9 F 12/21/20 12:00 Pulse 131 H 12/21/20 13:00 Resp 20 12/21/20 13:00 BP 122/75 12/21/20 13:00 Pulse Ox 97 12/21/20 13:00 Intake & Output 12/20/20 12/21/20 12/21/20 18:59 06:59 18:59 Intake Total 049.858 1607.571 535 Output Total 415 730 195 Balance 99.273 328.571 340 Weight 44.5 kg 47.1 kg Intake: IV 405 875 525 Sodium Chloride 0.9% 1, 405 875 525 000 ml @ 75 mls/hr IV . [id number] [facility] Rx#:[id number] Intake, IV Titration 109.273 83.571 Amount Norepinephrine 4 mg In 3.104 Sodium Chloride 0.9% 250 ml @ 0.05 MCG/KG/MIN 8. 096 mls/hr IV .Q24H [facility] Rx#:[id number] propofoL 1,000 mg In 106.169 83.571 Empty Bag 1 bag @ Titrate IV .Q0M [facility] Rx#: [id number] Tube Feeding 70 10 Other 30 Output: Urine 415 730 195 Other: Voiding Method Indwelling Catheter Indwelling Catheter Indwelling Catheter ABP, PAP, CO, CI - Last Documented Arterial Blood Pressure 162/89 - Exam -GENERAL: The patient is sedated and intubated HEENT: Pupils are round and equally reacting to light. EOMI. No scleral icterus. No conjunctival pallor. Normocephalic, atraumatic. No pharyngeal erythema. No thyromegaly. CARDIOVASCULAR: S1 and S2 present. No murmurs, rubs, or gallops. -PULMONARY: Chest is clear to auscultation, bilateral basal crepitation ABDOMEN: Soft, nontender, nondistended, normoactive bowel sounds. No palpable organomegaly. MUSCULOSKELETAL: No joint swelling or deformity. EXTREMITIES: No cyanosis, clubbing, or pedal edema. NEUROLOGICAL: Gross neurological examination did not reveal any focal deficits. SKIN: No rashes. no petechiae. - Labs CBC & Chem 7: 12/21/20 04:25 12/21/20 04:25 Labs: Abnormal Lab Results - Last 24 Hours (Table) 12/20/20 12/21/20 12/21/20 Range/Units 04:10 04:25 04:25 WBC 21.9 H (3.8-10.6) k/uL RBC 3.57 L (3.80-5.40) m/uL Hgb 10.9 L (11.4-16.0) gm/dL MCHC 30.4 L (31.0-37.0) g/dL RDW 15.9 H (11.5-15.5) % Neutrophils # 20.5 H (1.3-7.7) k/uL Lymphocytes # 0.8 L (1.0-4.8) k/uL ABG pCO2 (35-45) mmHg ABG HCO3 (21-25) mmol/L ABG Total CO2 (19-24) mmol/L ABG O2 Saturation (94-97) % Carbon Dioxide 37 H (22-30) mmol/L Creatinine 0.31 L (0.52-1.04) mg/dL Glucose 119 H (74-99) mg/dL POC Glucose (mg/dL) (75-99) mg/dL Total Bilirubin <0.1 L (0.2-1.3) mg/dL Total Protein 5.1 L (6.3-8.2) g/dL Albumin 2.4 L (3.5-5.0) g/dL Procalcitonin 1.53 H (0.02-0.09) ng/mL 12/21/20 12/21/20 Range/Units 04:32 05:48 WBC (3.8-10.6) k/uL RBC (3.80-5.40) m/uL Hgb (11.4-16.0) gm/dL MCHC (31.0-37.0) g/dL RDW (11.5-15.5) % Neutrophils # (1.3-7.7) k/uL Lymphocytes # (1.0-4.8) k/uL ABG pCO2 73 H* (35-45) mmHg ABG HCO3 40 H* (21-25) mmol/L ABG Total CO2 43 H (19-24) mmol/L ABG O2 Saturation 97.3 H (94-97) % Carbon Dioxide (22-30) mmol/L Creatinine (0.52-1.04) mg/dL Glucose (74-99) mg/dL POC Glucose (mg/dL) 130 H (75-99) mg/dL Total Bilirubin (0.2-1.3) mg/dL Total Protein (6.3-8.2) g/dL Albumin (3.5-5.0) g/dL Procalcitonin (0.02-0.09) ng/mL Microbiology - Last 24 Hours (Table) 12/19/20 14:26 Gram Stain - Final Sputum Sputum Culture - Final Enterobacter cloacae 12/16/20 05:18 Blood Culture - Preliminary Blood No Growth after 120 hours 12/20/20 11:25 Gram Stain - Preliminary Sputum Sputum Culture - Preliminary Assessment and Plan Assessment: recurrent Bilateral aspiration pneumonia Severe hypoxic hypercapnic respiratory failure needing intubation and mechanical ventilation, secondary to gram-negative bacilli Moderate protein calorie malnutrition Dysphagia, status post PEG tube placement History of constipation, with an active issue Sinus tachycardia type 2 neurofibromatosis Metabolic encephalopathy History of vocal cord paralysis, secondary to right neck mass and neurofibroma. ENT service recommended to transfer to tertiary care center when patient is medically stable. Plan: This is a pleasant 25 years old female presents with bilateral pneumonia, status post PEG tube placement. Also she has hypoxia and hypercapnia status post intubation. Continue with cefepime, follow-up chest x-ray pulmonary/critical care team on the case, as well as infectious disease team. Cardiology team on the case for her tachycardia and she was placed on beta feng labetalol Continue with mechanical ventilation as per recommendation of pulmonary/critical care team The ENT service recommended to transfer the patient to [facility] When patient is more medically stable. However guardian and wanted to be transferred yesterday and she got accepted by her report hospital pending bed available team. Labs and medication were reviewed.. Continue same treatment. Continue with symptomatic treatment. Resume home medication. Monitor lytes and vitals. DVT and GI prophylaxis. Further recommendations as per clinical course of the patient DVT prophylaxis: Subcutaneous Lovenox GI prophylaxis PPI Prognosis remains guarded
--- NOTE | 2020-12-21 17:54 | PN ---
PROGRESS NOTE DATE OF SERVICE: 12/21/2020 REASON FOR FOLLOWUP: Enterobacter pneumonia. INTERVAL HISTORY: The patient is afebrile. The patient remains intubated on the vent. The patient is hemodynamically stable. FiO2 is currently stable at 60%. Still has some purulent secretions through the ET. No hemoptysis. No diarrhea has been reported. PHYSICAL EXAMINATION: Blood pressure 114/61, pulse of 121, temperature 97.7. She is 96% on 60% FiO2. GENERAL DESCRIPTION: General description is a middle-aged female intubated on the vent. RESPIRATORY SYSTEM: Unlabored breathing with decreased breath sounds at the bases. HEART: S1, S2. Regular rate and rhythm. ABDOMEN: Soft. No tenderness. EXTREMITIES: No edema of the feet. LABS: Hemoglobin is 10.8, white count 21.9, BUN of 15, creatinine 0.31. DIAGNOSTIC IMPRESSION AND PLAN: Patient with acute respiratory failure, multifactorial, in this patient with a history of recurrent aspiration pneumonia. Sputum has been Enterobacter and the patient is covered with cefepime; to continue. Family at the bedside. Their questions and concerns were answered. MMODL / IJN: [id number] /
[2020-12-21 23:37] LABS: Glucose,Whole Blood 136 mg/dL (75-99)
[2020-12-22] MEDS: MORPHINE SULFATE 4 MG/ML SYRINGE IV PRN ×3 (00:15→17:02)
[2020-12-22 03:44] LABS: Anisocytosis Slight; Basophils % (A) 0 %; Eosinophils % (A) 0 %; HCT 34.4 % (34.0-46.0); HGB 10.3 gm/dL (11.4-16.0); Hypochromasia Moderate; Lymphocytes # (A) 1.1 k/uL (1.0-4.8); Lymphocytes % (A) 5 %; MCH 30.1 pg (25.0-35.0); MCV 100.5 fL (80.0-100.0); Macrocytosis Slight; Mean Platelet Volume 7.3; Monocytes # (A) 0.5 k/uL (0-1.0); Monocytes % (A) 2 %; Neutrophils # (A) 19.1 k/uL (1.3-7.7); Neutrophils % (A) 92 %; Platelet Count 410 k/uL (150-450); RBC 3.42 m/uL (3.80-5.40); RDW 16.1 % (11.5-15.5); WBC 20.8 k/uL (3.8-10.6)
[2020-12-22 04:06] LABS: African American GFR (CKD) >90 (>60 ml/min/1.73 sqM); Anion Gap 4 mmol/L; Blood Urea Nitrogen 15 mg/dL (7-17); Carbon Dioxide 40 mmol/L (22-30); Chloride 92 mmol/L (98-107); Glucose 132 mg/dL (74-99); Non-African American GFR(CKD) >90 (>60 ml/min/1.73 sqM); Sodium 136 mmol/L (137-145)
[2020-12-22 05:05] LABS: ABG Base Excess 20.4 mmol/L; ABG Oxygen Saturation 98.7 % (94-97); ABG PH 7.37 (7.35-7.45); ABG PO2 107 mmHg (83-108); ABG TCO2 48 mmol/L (19-24)
[2020-12-22 05:12] LABS: ABG PCO2 80 mmHg (35-45)
[2020-12-22 05:13] LABS: ABG HCO3 46 mmol/L (21-25); Allen Test Performed? no
[2020-12-22] MEDS: METOCLOPRAMIDE 5 MG/ML 2 ML VIAL IVP SCH ×4 (05:49→23:11)
[2020-12-22] MEDS: CEFEPIME 2 GM in SODIUM CHLORIDE 0.9% 100 ML IVPB SCH ×3 (05:49→20:34)
[2020-12-22] MEDS: ALBUTEROL NEBULIZED 2.5 MG/3 ML INHALATION SCH ×4 (07:49→20:32)
--- NOTE | 2020-12-22 08:49 | XR ---
EXAMINATION TYPE: XR chest 1V portable DATE OF EXAM: 12/22/2020 COMPARISON: 12/21/2020 HISTORY: Shortness of breath TECHNIQUE: Single frontal view of the chest is obtained. FINDINGS: ET tube and Mediport catheter stable. Diffuse interstitial pattern with bilateral infiltra te and pleural effusion. Heart size stable. No pneumothorax. Remote aspirated barium within the left lower lobe. IMPRESSION: Diffuse pleural-parenchymal changes stable correlate for diffuse pneumonia versus CHF.
[2020-12-22] MEDS: CHLORHEXIDINE GLUCONATE 15 ML CUP MUCOUS MEM SCH ×2 (09:47→20:35)
[2020-12-22] MEDS: PANTOPRAZOLE 40 MG/10 ML VIAL IV SCH (09:47)
[2020-12-22] MEDS: metroNIDAZOLE-NS PMX 500 MG in SALINE 1 100ML.BAG IVPB SCH ×3 (09:47→23:12)
[2020-12-22] MEDS: ENOXAPARIN 40 MG/0.4 ML SYRINGE SQ SCH (09:47)
[2020-12-22] MEDS: methylPREDNISolone SOD SUCCI 40 MG/ML 1 ML VIAL IV SCH ×2 (09:47→20:35)
[2020-12-22] MEDS: SODIUM CHLORIDE 0.9% 1,000 ML IV SCH ×2 (09:47→20:35)
[2020-12-22] MEDS: LABETALOL 100 MG TAB PO SCH (09:49)
[2020-12-22 14:45] VITALS: BMI 19.5
[2020-12-22] MEDS: NOREPINEPHRINE 4 MG in SODIUM CHLORIDE 0.9% 250 ML IV SCH (15:46)
--- NOTE | 2020-12-22 16:01 | PN ---
PROGRESS NOTE DATE OF SERVICE: 12/22/2020 REASON FOR FOLLOWUP: Enterobacter pneumonia. INTERVAL HISTORY: The patient is afebrile. The patient is hemodynamically stable, not on any pressor support. FiO2 is currently at 60%. No significant purulent secretions in the ET, diarrhea or other changes reported by the nursing staff. PHYSICAL EXAMINATION: Blood pressure 154/100 with a pulse of 77, temperature 97.9. She is 100% on 60% FiO2. GENERAL DESCRIPTION: General description is a middle-aged female lying in bed in no distress. RESPIRATORY SYSTEM: Unlabored breathing. Decreased intensity of breath sounds. No wheeze. HEART: S1, S2. Regular rate and rhythm. ABDOMEN: Soft. No tenderness. LABS: Hemoglobin is 10.1, white count 20.8. BUN of 15, creatinine 0.25. DIAGNOSTIC IMPRESSION AND PLAN: Patient with Enterobacter pneumonia with acute respiratory failure in this patient who is covered with cefepime; to continue while monitoring clinical course closely. Family at the bedside. Questions were answered. MMODL / IJN: [id number] /
[2020-12-22] MEDS: CLEVIDIPINE BUTYRATE 25 MG in EMPTY BAG 1 BAG IV SCH ×3 (18:00→23:33)
[2020-12-22] MEDS: IPRATROPIUM-ALBUTEROL 3 ML NEB INHALATION PRN (19:24)
--- NOTE | 2020-12-22 20:54 | P.PN ---
Subjective Progress Note Date: 12/21/20 (Critical care time spent 35 minutes) Principal diagnosis: Sinus tachycardia/hypertensive Small postintubation pneumothorax not very visible today Acute on chronic hypoxic respiratory failure Left-sided pneumonia likely aspiration pneumonia Paralyzed right vocal cord High risk of intermittent aspiration Sinus tachycardia palpitations 12/21/2020, patient seen eval reexamined during the rounds critical care time spent 35 minutes, patient remains sedated with full ventilator support has problems associated with tachycardia and tachypnea as well as hypertension which is escalated, medicines are being adjusted, patient remains on labetalol drip with extra pushes, labs are reviewed white cell count is up to 21,000 hemoglobin however remains stable, arterial blood gas continue show a compensated respiratory acidosis pCO2 went up to 73, CO2 is up to 40 from 38 patient has a difficult time and tolerating the tube feed which is being given intermittently with Reglan, her current vent settings include assist control rate of 20, 60% oxygen and 5 of PEEP and 300 tidal volume patient remains on propofol drip for sedation along with Lovenox for DVT prophylaxis remains on broad-spectrum antibiotics with the Flagyl and Zosyn, remains on steroids, 12/20/2020, patient seen eval examined during the rounds labs reviewed medications reviewed care plan discussed, care plan discussed not relieved the staff with the family at length, events from yesterday noted as patient has been intubated due to severe respiratory acidosis ventilator setting adjusted and currently patient is on assist control rate of 20 breathing 20 tidal volume of 300 oxygen 60% +5 of PEEP, sedated with propofol with a rise of -1, currently on 20 mics, 2 feet is on hold discussed with the staff at length will do it trickle of to feed and not more than 10-15 mL an hour however for unclear reason Reglan has been discontinued we'll resume it, T-max is 100.4, pulse is 133 hemodynamic status stable, cardiovascular services following for tachycardia syndrome, patient remains on bronchodilator along with fourth generation cephalosporins also on labetalol drip IV steroids, discussed with the family they want her to be transferred to [facility] for evaluation and ENT, need to stabilize with better hemodynamics and respiratory parameters in next 24 hours then will seek transfer currently patient is too unstable December 19 2020, patient seen eval examined during the rounds remains on BiPAP 100% oxygen 12 x 6, patient remains tachycardic hypertensive Lopressor dose up requiring labetalol drip, family insist on surgery patient is very unstable transferred to tertiary care center, ENT consult has been requested as per request of the family, patient remains on broad-spectrum antibiotics workup for hypertension is in progress, feet is being given patient remains on Reglan, chest x-ray continue show a left-sided infiltrate 12/18/2020, patient seen eval reexamined during on Medications reviewed care plan discussed with the staff at length, patient slightly and now on the hypertensive side remains tachycardic, patient currently getting 12.5 twice a day we will increase it to 25 gradually with erythema up to 75 twice a day in next 48-72 hours, patient is on BiPAP at nighttime 04/10 with 50% oxygen during the day she is on 10 L nasal cannula sats in mid 90s, white cell count is the 18,900, hemoglobin and hematocrit remained stable, patient is reviewed, chest x- ray continue show patchy bilateral confluent is for his disease slight worsening on the right side has been noted possibly related to interstitial edema, patient remains on IV fluid 100 mL an hour would recommend to stop it as it appears that patient is going slow into fluid overload 12/17/2020, patient seen eval reexamined during the rounds labs reviewed medications reviewed care plan discussed with the staff at length, patient to remains on BiPAP with IPAP of 12 and EPAP of 6 along with 50% oxygen she has be en on BiPAP all along, she also have problems associated with the intermittent sinus tachycardia and bradycardia most of the cardiac variation happens while she is sleeping, patient used to be on Lopressor 75 twice a day at home have not been started. 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, recently discharged from the hospital to [facility] patient has been doing fairly well for the 2 days however today started having cough shortness of breath oxygen saturation dropped down and she was transferred to [facility], the admitted chest x-ray is positive for left-sided infiltrate slight worsening to the right side, patient admitted into the hospital for further evaluation but the episode appears to be more likely aspiration Objective - Vital Signs Vital signs: Vital Signs Temp 97.7 F 12/21/20 16:00 Pulse 131 H 12/21/20 16:00 Resp 20 12/21/20 16:00 BP 122/75 12/21/20 14:00 Pulse Ox 96 12/21/20 16:00 Intake & Output 12/20/20 12/21/20 12/21/20 18:59 06:59 18:59 Intake Total 150.441 5911.571 760 Output Total 415 730 350 Balance 99.273 328.571 410 Weight 44.5 kg 47.1 kg Intake: IV 405 875 750 Sodium Chloride 0.9% 1, 405 875 750 000 ml @ 75 mls/hr IV . [id number] [facility] Rx#:[id number] Intake, IV Titration 109.273 83.571 Amount Norepinephrine 4 mg In 3.104 Sodium Chloride 0.9% 250 ml @ 0.05 MCG/KG/MIN 8. 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 Eyes: abnormal pupil, PERRLA Ears: bilateral: bulging - Neck Neck: lymphadenopathy, normal ROM Thyroid: bilateral: normal size - Respiratory Respiratory: bilateral: diminished, prolonged expiration - Cardiovascular Rhythm: regular Heart sounds: normal: S1, S2 - Gastrointestinal General gastrointestinal: absent bowel sounds, hepatomegaly - Neurologic Neurologic: CNII-XII intact - Musculoskeletal Musculoskeletal: Sedated with propofol drip - Labs CBC & Chem 7: 12/22/20 03:27 12/22/20 03:27 Labs: Abnormal Lab Results - Last 24 Hours (Table) 12/20/20 12/21/20 12/21/20 Range/Units 04:10 04:25 04:25 WBC 21.9 H (3.8-10.6) k/uL RBC 3.57 L (3.80-5.40) m/uL Hgb 10.9 L (11.4-16.0) gm/dL MCHC 30.4 L (31.0-37.0) g/dL RDW 15.9 H (11.5-15.5) % Neutrophils # 20.5 H (1.3-7.7) k/uL Lymphocytes # 0.8 L (1.0-4.8) k/uL ABG pCO2 (35-45) mmHg ABG HCO3 (21-25) mmol/L ABG Total CO2 (19-24) mmol/L ABG O2 Saturation (94-97) % Carbon Dioxide 37 H (22-30) mmol/L Creatinine 0.31 L (0.52-1.04) mg/dL Glucose 119 H (74-99) mg/dL POC Glucose (mg/dL) (75-99) mg/dL Total Bilirubin <0.1 L (0.2-1.3) mg/dL Total Protein 5.1 L (6.3-8.2) g/dL Albumin 2.4 L (3.5-5.0) g/dL Procalcitonin 1.53 H (0.02-0.09) ng/mL 12/21/20 12/21/20 Range/Units 04:32 05:48 WBC (3.8-10.6) k/uL RBC (3.80-5.40) m/uL Hgb (11.4-16.0) gm/dL MCHC (31.0-37.0) g/dL RDW (11.5-15.5) % Neutrophils # (1.3-7.7) k/uL Lymphocytes # (1.0-4.8) k/uL ABG pCO2 73 H* (35-45) mmHg ABG HCO3 40 H* (21-25) mmol/L ABG Total CO2 43 H (19-24) mmol/L ABG O2 Saturation 97.3 H (94-97) % Carbon Dioxide (22-30) mmol/L Creatinine (0.52-1.04) mg/dL Glucose (74-99) mg/dL POC Glucose (mg/dL) 130 H (75-99) mg/dL Total Bilirubin (0.2-1.3) mg/dL Total Protein (6.3-8.2) g/dL Albumin (3.5-5.0) g/dL Procalcitonin (0.02-0.09) ng/mL Microbiology - Last 24 Hours (Table) 12/19/20 14:26 Gram Stain - Final Sputum Sputum Culture - Final Enterobacter cloacae 12/16/20 05:18 Blood Culture - Preliminary Blood No Growth after 120 hours 12/20/20 11:25 Gram Stain - Preliminary Sputum Sputum Culture - Preliminary Assessment and Plan Assessment: Acute on chronic hypoxic respiratory failure Malignant hypertension/hypertensive emergency Sinus tachycardia Now on hypertensive side, blood pressure persistently elevated Small residual left-sided postintubation pneumothorax not very visible and heparin today Left-sided pneumonia likely aspiration pneumonia Paralyzed right vocal cord High risk of intermittent aspiration Sinus tachycardia palpitations Acute on chronic hypoxic respiratory failure Plan: Continue beta feng as well as labetalol drip with aim to improve blood pressure, ENT not available to the level expertise patient and family seeks, would recommend to transfer to [facility] once more stable Plan continue IV antibiotics, Continue labetalol drip Awaiting further recommendation from cardiovascular services Continue IV steroids and bronchodilator continue current therapy Resume low-dose Lopressor escalated dose as tolerated to 75 twice a day Case discussed with ID, staff, patient's mother at length Time with Patient: Greater than 30
[2020-12-22] MEDS ORDERED: CLEVIDIPINE BUTYRATE 25 MG/50 ML VIAL IV ONE (20:58)
--- NOTE | 2020-12-22 20:59 | P.PN ---
Subjective Progress Note Date: 12/22/20 (Critical care time spent 35 minutes) Principal diagnosis: Sinus tachycardia/hypertensive Small postintubation pneumothorax not very visible today Acute on chronic hypoxic respiratory failure Left-sided pneumonia likely aspiration pneumonia Paralyzed right vocal cord High risk of intermittent aspiration Sinus tachycardia palpitations 12/22/2020, patient seen evcasey examined continued to be intubated sedated, the blood pressure is not very well controlled JVD pain infusion has been started that able to control the heart rate and blood pressure fairly well, heart rate is down 114, noted CO2 continue to go up on arterial blood gas and serial a very well be related to contraction alkalosis will do a trial of Diamox 250 3 times a day, we will decrease the Solu-Medrol to once daily as well vent setting however remains stable. In terms of oxygenation and ventilation as pH is well balanced 12/21/2020, patient seen tita reexamined during the rounds critical care time s pent 35 minutes, patient remains sedated with full ventilator support has problems associated with tachycardia and tachypnea as well as hypertension which is escalated, medicines are being adjusted, patient remains on labetalol drip with extra pushes, labs are reviewed white cell count is up to 21,000 hemoglobin however remains stable, arterial blood gas continue show a compensated respiratory acidosis pCO2 went up to 73, CO2 is up to 40 from 38 patient has a difficult time and tolerating the tube feed which is being given intermittently with Reglan, her current vent settings include assist control rate of 20, 60% oxygen and 5 of PEEP and 300 tidal volume patient remains on propofol drip for sedation along with Lovenox for DVT prophylaxis remains on broad-spectrum antibiotics with the Flagyl and Zosyn, remains on steroids, 12/20/2020, patient seen evcasey examined during the rounds labs reviewed medications reviewed care plan discussed, care plan discussed not relieved the staff with the family at length, events from yesterday noted as patient has been intubated due to severe respiratory acidosis ventilator setting adjusted and currently patient is on assist control rate of 20 breathing 20 tidal volume of 300 oxygen 60% +5 of PEEP, sedated with propofol with a rise of -1, currently on 20 mics, 2 feet is on hold discussed with the staff at length will do it trickle of to feed and not more than 10-15 mL an hour however for unclear reason Reglan has been discontinued we'll resume it, T-max is 100.4, pulse is 133 hemodynamic status stable, cardiovascular services following for tachycardia syndrome, patient remains on bronchodilator along with fourth generation cephalosporins al so on labetalol drip IV steroids, discussed with the family they want her to be transferred to [facility] for evaluation and ENT, need to stabilize with better hemodynamics and respiratory parameters in next 24 hours then will seek transfer currently patient is too unstable December 19 2020, patient seen eval examined during the rounds remains on BiPAP 100% oxygen 12 x 6, patient remains tachycardic hypertensive Lopressor dose up requiring labetalol drip, family insist on surgery patient is very unstable transferred to tertiary care center, ENT consult has been requested as per request of the family, patient remains on broad-spectrum antibiotics workup for hypertension is in progress, feet is being given patient remains on Reglan, chest x-ray continue show a left-sided infiltrate 12/18/2020, patient seen eval reexamined during on Medications reviewed care plan discussed with the staff at length, patient slightly and now on the hypertensive side remains tachycardic, patient currently getting 12.5 twice a day we will increase it to 25 gradually with erythema up to 75 twice a day in next 48-72 hours, patient is on BiPAP at nighttime 04/10 with 50% oxygen during the day she is on 10 L nasal cannula sats in mid 90s, white cell count is the 18,900, hemoglobin and hematocrit remained stable, patient is reviewed, chest x- ray continue show patchy bilateral confluent is for his disease slight worsening on the right side has been noted possibly related to interstitial edema, patient remains on IV fluid 100 mL an hour would recommend to stop it as it appears that patient is going slow into fluid overload 12/17/2020, patient seen eval reexamined during the rounds labs reviewed medications reviewed care plan discussed with the staff at length, patient to remains on BiPAP with IPAP of 12 and EPAP of 6 along with 50% oxygen she has been on BiPAP all along, she also have problems associated with the intermittent sinus tachycardia and bradycardia most of the cardiac variation happens while she is sleeping, patient used to be on Lopressor 75 twice a day at home have not been started. 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, recently discharged from the hospital to [facility] patient has been doing fairly well for the 2 days however today started having cough shortness of breath oxygen saturation dropped down and she was transferred to [facility], the admitted chest x-ray is positive for left-sided infiltrate slight worsening to the right side, patient admitted into the hospital for further evaluation but the episode appears to be more likely aspiration Objective - Vital Signs Vital signs: Vital Signs Temp 98.1 F 12/22/20 20:00 Pulse 108 H 12/22/20 20:00 Resp 21 12/22/20 20:00 BP 113/77 12/22/20 20:00 Pulse Ox 98 12/22/20 20:00 Intake & Output 12/22/20 12/22/20 12/23/20 06:59 18:59 06:59 Intake Total 1150.751 825 75 Output Total 945 465 65 Balance 205.751 360 10 Weight 50.1 kg 50.1 kg Intake: IV 900 825 75 Sodium Chloride 0.9% 1, 900 825 75 000 ml @ 75 mls/hr IV . 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 Eyes: abnormal pupil, PERRLA Ears: bilateral: bulging - Neck Neck: lymphadenopathy, normal ROM Thyroid: bilateral: normal size - Respiratory Respiratory: bilateral: diminished, prolonged expiration - Cardiovascular Rhythm: regular Heart sounds: normal: S1, S2 - Gastrointestinal General gastrointestinal: absent bowel sounds, hepatomegaly - Neurologic Neurologic: CNII-XII intact - Musculoskeletal Musculoskeletal: Sedated with propofol drip - Labs CBC & Chem 7: 12/22/20 03:27 12/22/20 03:27 Labs: Abnormal Lab Results - Last 24 Hours (Table) 12/21/20 12/22/20 12/22/20 Range/Units 23:35 03:27 03:27 WBC 20.8 H (3.8-10.6) k/uL RBC 3.42 L (3.80-5.40) m/uL Hgb 10.3 L (11.4-16.0) gm/dL MCV 100.5 H (80.0-100.0) fL MCHC 30.0 L (31.0-37.0) g/dL RDW 16.1 H (11.5-15.5) % Neutrophils # 19.1 H (1.3-7.7) k/uL ABG pCO2 (35-45) mmHg ABG HCO3 (21-25) mmol/L ABG Total CO2 (19-24) mmol/L ABG O2 Saturation (94-97) % Sodium 136 L (137-145) mmol/L Chloride 92 L (98-107) mmol/L Carbon Dioxide 40 H (22-30) mmol/L Creatinine 0.25 L (0.52-1.04) mg/dL Glucose 132 H (74-99) mg/dL POC Glucose (mg/dL) 136 H (75-99) mg/dL Calcium 8.0 L (8.4-10.2) mg/dL 12/22/20 Range/Units 05:03 WBC (3.8-10.6) k/uL RBC (3.80-5.40) m/uL Hgb (11.4-16.0) gm/dL MCV (80.0-100.0) fL MCHC (31.0-37.0) g/dL RDW (11.5-15.5) % Neutrophils # (1.3-7.7) k/uL ABG pCO2 80 H* (35-45) mmHg ABG HCO3 46 H* (21-25) mmol/L ABG Total CO2 48 H (19-24) mmol/L ABG O2 Saturation 98.7 H (94-97) % Sodium (137-145) mmol/L Chloride (98-107) mmol/L Carbon Dioxide (22-30) mmol/L Creatinine (0.52-1.04) mg/dL Glucose (74-99) mg/dL POC Glucose (mg/dL) (75-99) mg/dL Calcium (8.4-10.2) mg/dL Microbiology - Last 24 Hours (Table) 12/20/20 11:25 Gram Stain - Final Sputum Sputum Culture - Final 12/16/20 05:18 Blood Culture - Final Blood No Growth after 144 hours Assessment and Plan Assessment: Acute on chronic hypoxic respiratory failure Malignant hypertension/hypertensive emergency Metabolic/contraction alkalosis Sinus tachycardia Now on hypertensive side, blood pressure persistently elevated Small residual left-sided postintubation pneumothorax not very visible and heparin today Left-sided pneumonia likely aspiration pneumonia Paralyzed right vocal cord High risk of intermittent aspiration Sinus tachycardia palpitations Acute on chronic hypoxic respiratory failure Plan: Clevidipine infusion Diamox trial Decrease Solu-Medrol Continue beta feng as well as labetalol drip with aim to improve blood pressure, continue IV antibiotics, Continue bronchodilator Continue broad-spectrum antibiotics with cephapirin Lovenox Continue labetalol oral 200 twice a day Awaiting further recommendation from cardiovascular services Case discussed with ID, staff, patient's mother at length Time with Patient: Greater than 30
[2020-12-22] MEDS ORDERED: LABETALOL 200 MG TAB PO SCH (21:00)
[2020-12-22 21:04] VITALS: BP 119/71
[2020-12-22 23:49] LABS: Glucose,Whole Blood 121 mg/dL (75-99)
[2020-12-23 00:05] VITALS: PULSE 87; RESP 25; TEMP 98
[2020-12-23] MEDS ORDERED: methylPREDNISolone SOD SUCCI 40 MG/ML 1 ML VIAL IV SCH (09:00)
--- NOTE | 2020-12-23 09:39 | P.PN ---
Subjective Progress Note Date: 12/22/20 25 years old female with past medical history of neurofibromatosis type II, aspiration pneumonia, vocal cord paralysis for the last 3 years as per family at bedside. Dysphagia status post PEG tube placement, Patient was discharged from hospital with prolonged hospital stay 11/15-. And again 12/11-12/14 for recurrent aspiration pneumonia and she was admitted with the same this time. She is in the hospital from 12/16, she is currently in the ICU, patient is sleepy on BiPAP machine and could not provide information, information was obtained from mother at bedside, legal guardian on the phone and bedside nurse and staff. Patient with no vomiting or nausea since yesterday. She has bowel movement ear lier She is tachycardic, tachypneic and hypoxic needed BiPAP most of the time. Her diligence about the patient today and start her on labetalol drip for tachycardia, renal arteries duplex ultrasound is negative for artery stenosis. KUB of the abdomen is negative for acute process. X-ray showing bilateral infiltrate. Several consultants on the case including ICU/pulmonary team cardiology team. She was on ceftriaxone and Zithromax and started Medrol 40 mg twice daily as well as normal saline at 100 mL per hour. Also she is on metoprolol 12.5 mg twice a day. She has tube feeding running at 35 ml/h Because of worsening leukocytosis and respiratory distress and mild hypothermia. Internal antibiotics to cefepime and consulted infectious disease team. Last admission on November she was getting cefepime as well Objective - Vital Signs Vital signs: Vital Signs Temp 98.5 F 12/22/20 08:00 Pulse 75 12/22/20 10:00 Resp 20 12/22/20 10:00 BP 189/130 12/22/20 10:00 Pulse Ox 96 12/22/20 10:00 Intake & Output 12/21/20 12/22/20 12/22/20 18:59 06:59 18:59 Intake Total 910 1150.751 300 Output Total 435 945 145 Balance 475 205.751 155 Weight 50.1 kg Intake: IV 900 900 300 Sodium Chloride 0.9% 1, 900 900 300 000 ml @ 75 mls/hr IV . [id number] [facility] Rx#:[id number] Intake, IV Titration 60.751 Amount propofoL 1,000 mg In 60.751 Empty Bag 1 bag @ Titrate IV .Q0M [facility] Rx#: [id number] Tube Feeding 10 100 0 Other 90 Output: Urine 435 945 145 Other: Voiding Method Indwelling Catheter Indwelling Catheter Indwelling Catheter ABP, PAP, CO, CI - Last Documented Arterial Blood Pressure 117/53 - Exam -GENERAL: The patient is sedated and intubated HEENT: Pupils are round and equally reacting to light. EOMI. No scleral icterus. No conjunctival pallor. Normocephalic, atraumatic. No pharyngeal erythema. No thyromegaly. CARDIOVASCULAR: S1 and S2 present. No murmurs, rubs, or gallops. -PULMONARY: Chest is clear to auscultation, bilateral basal crepitation ABDOMEN: Soft, nontender, nondistended, normoactive bowel sounds. No palpable organomegaly. MUSCULOSKELETAL: No joint swelling or deformity. EXTREMITIES: No cyanosis, clubbing, or pedal edema. NEUROLOGICAL: Gross neurological examination did not reveal any focal deficits. SKIN: No rashes. no petechiae. - Labs CBC & Chem 7: 12/22/20 03:27 12/22/20 03:27 Labs: Abnormal Lab Results - Last 24 Hours (Table) 12/21/20 12/22/20 12/22/20 Range/Units 23:35 03:27 03:27 WBC 20.8 H (3.8-10.6) k/uL RBC 3.42 L (3.80-5.40) m/uL Hgb 10.3 L (11.4-16.0) gm/dL MCV 100.5 H (80.0-100.0) fL MCHC 30.0 L (31.0-37.0) g/dL RDW 16.1 H (11.5-15.5) % Neutrophils # 19.1 H (1.3-7.7) k/uL ABG pCO2 (35-45) mmHg ABG HCO3 (21-25) mmol/L ABG Total CO2 (19-24) mmol/L ABG O2 Saturation (94-97) % Sodium 136 L (137-145) mmol/L Chloride 92 L (98-107) mmol/L Carbon Dioxide 40 H (22-30) mmol/L Creatinine 0.25 L (0.52-1.04) mg/dL Glucose 132 H (74-99) mg/dL POC Glucose (mg/dL) 136 H (75-99) mg/dL Calcium 8.0 L (8.4-10.2) mg/dL 12/22/20 Range/Units 05:03 WBC (3.8-10.6) k/uL RBC (3.80-5.40) m/uL Hgb (11.4-16.0) gm/dL MCV (80.0-100.0) fL MCHC (31.0-37.0) g/dL RDW (11.5-15.5) % Neutrophils # (1.3-7.7) k/uL ABG pCO2 80 H* (35-45) mmHg ABG HCO3 46 H* (21-25) mmol/L ABG Total CO2 48 H (19-24) mmol/L ABG O2 Saturation 98.7 H (94-97) % Sodium (137-145) mmol/L Chloride (98-107) mmol/L Carbon Dioxide (22-30) mmol/L Creatinine (0.52-1.04) mg/dL Glucose (74-99) mg/dL POC Glucose (mg/dL) (75-99) mg/dL Calcium (8.4-10.2) mg/dL Microbiology - Last 24 Hours (Table) 12/20/20 11:25 Gram Stain - Final Sputum Sputum Culture - Final 12/16/20 05:18 Blood Culture - Final Blood No Growth after 144 hours 12/19/20 14:26 Gram Stain - Final Sputum Sputum Culture - Final Enterobacter cloacae Assessment and Plan Assessment: recurrent Bilateral aspiration pneumonia Severe hypoxic hypercapnic respiratory failure needing intubation and mechanical ventilation, secondary to gram-negative bacilli Moderate protein calorie malnutrition Dysphagia, status post PEG tube placement History of constipation, with an active issue Sinus tachycardia type 2 neurofibromatosis Metabolic encephalopathy History of vocal cord paralysis, secondary to right neck mass and neurofibroma. ENT service recommended to transfer to tertiary care center when patient is medically stable. Plan: This is a pleasant 25 years old female presents with bilateral pneumonia, status post PEG tube placement. Also she has hypoxia and hypercapnia status post intubation. Continue with cefepime, follow-up chest x-ray pulmonary/critical care team on the case, as well as infectious disease team. Cardiology team on the case for her tachycardia and she was placed on beta feng labetalol Continue with mechanical ventilation as per recommendation of pulmonary/critical care team The ENT service recommended to transfer the patient to [facility] When patient is more medically stable. However guardian and wanted to be transferred yesterday and she got accepted by her report hospital pending bed available team. Labs and medication were reviewed.. Continue same treatment. Continue with symptomatic treatment. Resume home medication. Monitor lytes and vitals. DVT and GI prophylaxis. Further recommendations as per clinical course of the [place] DVT prophylaxis: Subcutaneous Lovenox GI prophylaxis PPI Prognosis remains guarded
[2020-12-24 13:35] LABS: Metanephrine, Free 57 pg/mL (< OR = 57); Normetanephrine, Free 340 pg/mL (< OR = 148); Total, Free (MN + NMN) 397 pg/mL (< OR = 205)
== END 2020-12-23 04:21 | disposition short-term general hospital (02) | DRG 208 ==
LOC: EC 05:07 → 3SCARD 06:30 → 2SICU 07:43
PROVIDERS: ADMIT Hospitalist; ATTEND Hospitalist
PROC: 5A0945A Assistance with Respiratory Ventilation, 24-96 Consecutive Hours, High Flow/Velocity Cannula (ICD-10-PCS; 2020-12-17)
PROC: 5A09457 Assistance with Respiratory Ventilation, 24-96 Consecutive Hours, Continuous Positive Airway Pressure (ICD-10-PCS; 2020-12-17)
PROC: 3E0G76Z Introduction of Nutritional Substance into Upper GI, Via Natural or Artificial Opening (ICD-10-PCS; 2020-12-18)
PROC: 5A1945Z Respiratory Ventilation, 24-96 Consecutive Hours (ICD-10-PCS; principal; 2020-12-19 12:25)
PROC: 0BH17EZ Insertion of Endotracheal Airway into Trachea, Via Natural or Artificial Opening (ICD-10-PCS; principal; 2020-12-19 12:25)
DX: J69.0 Pneumonitis due to inhalation of food and vomit (principal); G93.41 Metabolic encephalopathy; J96.21 Acute and chronic respiratory failure with hypoxia; J96.22 Acute and chronic respiratory failure with hypercapnia; I16.1 Hypertensive emergency; E44.0 Moderate protein-calorie malnutrition; Z68.1 Body mass index [BMI] 19.9 or less, adult; E87.4 Mixed disorder of acid-base balance; J93.9 Pneumothorax, unspecified; R64 Cachexia; Q85.02 Neurofibromatosis, type 2; J38.01 Paralysis of vocal cords and larynx, unilateral; J15.6 Pneumonia due to other Gram-negative bacteria; M08.90 Juvenile arthritis, unspecified, unspecified site; I11.9 Hypertensive heart disease without heart failure; J45.909 Unspecified asthma, uncomplicated; Z20.822 Contact with and (suspected) exposure to COVID-19; R13.10 Dysphagia, unspecified; Z93.1 Gastrostomy status; Z79.899 Other long term (current) drug therapy; Z82.0 Family history of epilepsy and other diseases of the nervous system; Z82.5 Family history of asthma and other chronic lower respiratory diseases; Z87.01 Personal history of pneumonia (recurrent)
CPT/HCPCS: 36410; 36415; 36600; 71045; 74018; 74022; 76937; 80048; 80053; 81001; 82550; 82805; 83605; 83735; 83835; 83880; 84100; 84132; 84145; 84484; 85025; 85027; 85610; 85730; 86140; 87040; 87070; 87077; 87186; 87205; 87635; 93005; 93975; 94002; 94003; 94640; 94660; 96361; 96365; 96367; 96375; 99291